=== PATIENT | female | born 1935 | race Two or more races ===

== ENCOUNTER 2019-04-24 16:12 | Inpatient (IN) | payer MEDICARE, MEDICAID ==
[~2019-04-24] VITALS: Ht 160 cm; Wt 48.0 kg
[2019-04-24 16:20] VITALS: BP 115/60
[2019-04-24] MEDS ORDERED: NEXIUM40 MG ORAL (16:58)
[2019-04-24] MEDS ORDERED: MELATONIN3 MG ORAL (16:58)
[2019-04-24] MEDS ORDERED: LACTINEX CHEWA1 EACH PO (16:58)
[2019-04-24] MEDS ORDERED: MULTIVITAMINS1 EAC2 ORAL (16:58)
[2019-04-24] MEDS ORDERED: VANCOCIN250 MG ORAL (16:58)
[2019-04-24] MEDS ORDERED: LIDODERM700 M1 TOPIC (16:58)
[2019-04-24 17:06] LABS: APPEARANCE,URINE CLEAR; BILIRUBIN, URINE NEGATIVE (NEGATIVE); GLUCOSE, URINE (UA) NEGATIVE (NEGATIVE); KETONES,URINE 2+ (NEGATIVE); LEUKOCYTE ESTERASE ,URINE 1+ (NEGATIVE); NITRITE,URINE NEGATIVE (NEGATIVE); PH,URINE 8 (4.5-8.0); PROTEIN,URINE 2+ (NEGATIVE); UROBILINOGEN,URINE NORMAL MG/DL (0.0-1.0)
[2019-04-24 17:07] LABS: HEMOGLOBIN 10.2 G/DL (12.0-16.0); MEAN CORPUSCULAR VOLUME 77 FL (80-99); PLATELET COUNT 282 K/UL (150-450); RED BLOOD COUNT 4.17 M/UL (4.20-5.40); RED CELL DISTRIBUTION WIDTH 18.7 % (11.6-14.8); WHITE BLOOD COUNT 20.3 K/UL (4.8-10.8)
[2019-04-24 17:12] LABS: COLOR,URINE YELLOW
[2019-04-24 17:26] VITALS: BP 151/131
[2019-04-24 17:36] LABS: ANION GAP 13 mmol/L (5-15); BLOOD UREA NITROGEN 15 mg/dL (7-18); CALCIUM 7.8 MG/DL (8.5-10.1); CARBON DIOXIDE 23 MMOL/L (21-32); CHLORIDE 115 MMOL/L (98-107); CREATININE 0.4 MG/DL (0.55-1.30); POTASSIUM 2.9 MMOL/L (3.5-5.1); SODIUM 151 MMOL/L (136-145)
[2019-04-24 17:42] LABS: ALANINE AMINOTRANSFERASE 13 U/L (12-78); ALBUMIN 1.5 G/DL (3.4-5.0); ALBUMIN/GLOBULIN RATIO 0.3 (1.0-2.7); ALKALINE PHOSPHATASE 635 U/L (46-116); ASPARTATE AMINO TRANSFERASE 14 U/L (15-37); BILIRUBIN,TOTAL 0.7 MG/DL (0.2-1.0)
--- NOTE | 2019-04-24 17:47 | Diagnostic Imaging Report ---
Indication: Chest pain Technique: One view of the chest Comparison: none Findings: Infiltrates are seen in the left infrahilar region and retrocardiac region. Interstitial and airspace opacities are seen scattered throughout the right lung is well. The heart size is upper limits normal. There is torturous ectatic and calcified. Multiple old healed left rib fracture deformities are noted. Impression: Bilateral airspace opacities and right-sided interstitial opacities. Findings may represent bilateral infiltrates versus edema. Correlate with clinical findings
[2019-04-24] MEDS ORDERED: Piperacillin/Tazobactam 3.375 GM in NS 110 ML IVPB ONE (18:00)
[2019-04-24] MEDS ORDERED: Azithromycin 500 MG in NS 275 ML IV ONE (18:00)
[2019-04-24] MEDS ORDERED: NS w/KCl 40mEq 1,000 ML IV SCH (18:00)
[2019-04-24 18:33] VITALS: BP 105/64
--- NOTE | 2019-04-24 18:57 | Emergency Room Report ---
History of Present Illness General Chief Complaint: General Complaint Source: Medical Record Present Illness HPI 83-year-old female presents ED for evaluation. Brought in by EMS for weakness, poor appetite x1 month. Come from snf facility. Nonverbal at baseline. Also noted to have diarrhea for the last several days. History of C. difficile. Nu[place] fevers or chills. No reported cough or shortness of breath. No other aggravating relieving factors. No other associated symptoms Allergies: Coded Allergies: No Known Allergies (Unverified , 04/24/19) Patient History Past Medical History: DM, other - cdiff Pertinent Family History: none Social History: Denies: smoking, alcohol use, drug use Now: No Immunizations: UTD Reviewed Nursing Documentation: PMH: Agreed; PSxH: Agreed Nursing Documentation-PMH Past Medical History: No History, Except For Hx Cardiac Problems: Yes - Hyperlipidemia, Sepsis, Metabolic Acidosis, C-Diff Hx Hypertension: Yes - T11-T12 fracture Hx Diabetes: Yes Review of Systems All Other Systems: limited Physical Exam Vital Signs Date Time Temp Pulse Resp B/P (MAP) Pulse Ox O2 Delivery O2 Flow Rate FiO2 04/24/19 16:07 97.3 115 20 115/60 (78) 97 Room Air Sp02 EP Interpretation: reviewed, normal General Appearance: no apparent distress, cachetic, lethargic Head: normocephalic Eyes: bilateral eye normal inspection, bilateral eye PERRL ENT: normal ENT inspection Neck: normal inspection Respiratory: chest non-tender, normal breath sounds, crackles, speaking full sentences Cardiovascular #1: no edema, tachycardia Gastrointestinal: normal bowel sounds, non tender, soft, non-distended, no guarding, no rebound Rectal: deferred Genitourinary: no CVA tenderness Musculoskeletal: normal inspection Neurologic: other - dementa Psychiatric: other - nonverbal Skin: other - see nursing skin notes Lymphatic: normal inspection Procedures Critical Care Time Critical Care Time i. I feel this is a highly complex case requiring extensive working including EKG/Rhythm strip, Xray/CT/US, Blood/urine lab work, repeat exams while in ED, and administration of strong opiates/narcotics for pain control, admission to hospital or close patient follow up. Total time: 45 min bedside evaluation and treatment excludes procedures (EKG). Reason for critical care: Hypernatremia, hypokalemia, to thrive, dehydration, pneumonia Possible complications: hypotension, hypertension, IA, shock, arrhythmias, metabolic acidosis, end organ damage, respiratory failure. Interventions: Labs, EKG, chest x-ray, IV fluids, repletion of potassium, broad- spectrum antibiotics, Course: Patient presenting with reduced appetite, weakness, diarrhea. Labs show hypernatremia and hypokalemia. Significant leukocytosis, has pneumonia on x-ray, sinus tachycardia. Given IV fluids. Given broad-spectrum antibiotics. Potassium repleted. Consultations: nursing staff, EMS, family Performed by: Dr Cassidy Tolerated well condition = serious j. because of unstable vital signs this patient had a condition that could potentially threaten life or limb. I feel this is a critical patient who required my full attention while patient was considered critical. Total Critical Care Time excluding procedures was greater than 45 minutes Medical Decision Making Diagnostic Impression: Primary Impression: Failure to thrive Qualified Codes: R62.7 - Adult failure to thrive Additional Impressions: Hypernatremia Hypokalemia Pneumonia Qualified Codes: J18.9 - Pneumonia, unspecified organism ER Course Hospital Course 83 yo F presents to ED c/o weakness, poor appetite x 1 month Differential diagnoses include: Pneumonia, UTI, sepsis, dehydration, IA/ unstable angina Clinical course Patient placed on stretcher. 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 After initial history and physical, I ordered labs, IV fluids, EKG, chest x-ray, blood cultures, UA. Labs - noted leukocytosis, Na high, K low, UA ok. EKG - sinus tachycardia, twave inversiosn in lateral leads CXR - bilateral infiltrates Abx given. IVFs given. K repleted. stool collected for culture and Cdiff Case discussed with Dr Guillermo and they agreed to admit patient to their service for further care and support I feel this is a highly complex case requiring extensive working including EKG/ Rhythm strip, Xray/CT/US, Blood/urine lab work, repeat exams while in ED, and administration of strong opiates/narcotics for pain control, admission to hospital or close patient follow up. Diagnosis - FTT, hypernatremia, hypokalemia, pneumonia Patient admitted to telemetry in serious condition Labs Test 04/24/19 16:20 04/24/19 16:40 White Blood Count 20.3 K/UL (4.8-10.8) Red Blood Count 4.17 M/UL (4.20-5.40) Hemoglobin 10.2 G/DL (12.0-16.0) Hematocrit 32.0 % (37.0-47.0) Mean Corpuscular Volume 77 FL (80-99) Mean Corpuscular Hemoglobin 24.5 PG (27.0-31.0) Mean Corpuscular Hemoglobin Concent 31.9 G/DL (32.0-36.0) Red Cell Distribution Width 18.7 % (11.6-14.8) Platelet Count 282 K/UL (150-450) Mean Platelet Volume 5.1 FL (6.5-10.1) Neutrophils (%) (Auto) % (45.0-75.0) Lymphocytes (%) (Auto) % (20.0-45.0) Monocytes (%) (Auto) % (1.0-10.0) Eosinophils (%) (Auto) % (0.0-3.0) Basophils (%) (Auto) % (0.0-2.0) Differential Total Cells Counted 100 Neutrophils % (Manual) 90 % (45-75) Lymphocytes % (Manual) 6 % (20-45) Monocytes % (Manual) 1 % (1-10) Eosinophils % (Manual) 0 % (0-3) Basophils % (Manual) 0 % (0-2) Band Neutrophils 3 % (0-8) Platelet Estimate Adequate Platelet Morphology Normal Polychromasia 1+ Anisocytosis 2+ Target Cells Occasional Sodium Level 151 MMOL/L (136-145) Potassium Level 2.9 MMOL/L (3.5-5.1) Chloride Level 115 MMOL/L (98-107) Carbon Dioxide Level 23 MMOL/L (21-32) Anion Gap 13 mmol/L (5-15) Blood Urea Nitrogen 15 mg/dL (7-18) Creatinine 0.4 MG/DL (0.55-1.30) Estimat Glomerular Filtration Rate mL/min (>60) Glucose Level 163 MG/DL (74-106) Lactic Acid Level 1.60 mmol/L (0.4-2.0) Calcium Level 7.8 MG/DL (8.5-10.1) Total Bilirubin 0.7 MG/DL (0.2-1.0) Aspartate Amino Transf (AST/SGOT) 14 U/L (15-37) Alanine Aminotransferase (ALT/SGPT) 13 U/L (12-78) Alkaline Phosphatase 635 U/L (46-116) Total Protein 6.3 G/DL (6.4-8.2) Albumin 1.5 G/DL (3.4-5.0) Globulin 4.8 g/dL Albumin/Globulin Ratio 0.3 (1.0-2.7) Lipase 43 U/L (73-393) Urine Color Yellow Urine Appearance Clear Urine pH 8 (4.5-8.0) Urine Specific [place] 1.010 (1.005-1.035) Urine Protein 2+ (NEGATIVE) Urine Glucose (UA) Negative (NEGATIVE) Urine Ketones 2+ (NEGATIVE) Urine Blood Negative (NEGATIVE) Urine Nitrite Negative (NEGATIVE) Urine Bilirubin Negative (NEGATIVE) Urine Urobilinogen Normal MG/DL (0.0-1.0) Urine Leukocyte Esterase 1+ (NEGATIVE) Urine RBC 0-2 /HPF (0 - 2) Urine WBC 5-10 /HPF (0 - 2) Urine Squamous Epithelial Cells None /LPF (NONE/OCC) Urine Bacteria Few /HPF (NONE) Urine Yeast Few /HPF (NONE) EKG Diagnostic Results Rate: tachycardiac Rhythm: NSR ST Segments: no acute changes ASA given to the pt in ED: No Rhythm Strip Diag. Results EP Interpretation: yes Rhythm: NSR, no PVC's, no ectopy Chest X-Ray Diagnostic Results Chest X-Ray Diagnostic Results : Chest X-Ray Ordered: Yes # of Views/Limited/Complete: 1 View Indication: Other EP Interpretation: Yes Interpretation: no effusion, no pneumothorax, other - bilateral infiltrates Impression: Other - pneumonia Electronically Signed by: Electronically signed by Mark Cassidy MD Last Vital Signs Date Time Temp Pulse Resp B/P (MAP) Pulse Ox O2 Delivery O2 Flow Rate FiO2 04/24/19 18:33 112 24 105/64 92 04/24/19 17:26 Room Air 04/24/19 16:20 97.3 Status: improved Disposition: ADMITTED INPATIENT Condition: Serious Referrals: NON PHYSICIAN (PCP) Mark Cassidy MD Apr 24, 2019 18:57
[2019-04-24 20:00] VITALS: BP_SYST 104; BP_SYST 117; BP_DIAS 57; BP_DIAS 63
[2019-04-24] MEDS ORDERED: Pantoprazole Inj IVP SCH (21:00)
--- NOTE | 2019-04-24 21:42 | Pulmonology Progress Note ---
Assessment/Plan Assessment/Plan Pulmonary Consultation HPI Patient is an 83-year old woman from a [facility] care home facility admitted with weakness, poor appetite x1 month. Patient is nonverbal at baseline. Patient has a history of C. difficile, has a history of diarrhea for the last several days. No fevers or chills. No reported cough or shortness of breath. Noted to have radiological evidence of Pneumonia Allergies: No Known Allergies Past Medical History: Diabetes, Hypertension, Hyperlipidemia, Dementia, Hyperlipidemia, Sepsis, Metabolic Acidosis, C-Difficile, T11-T12 fracture All Other Systems: limited Physical Exam Vital Signs Noted Date Time Temp Pulse Resp B/P (MAP) Pulse Ox O2 Delivery O2 Flow Rate FiO2 04/24/19 16:07 97.3 115 20 115/60 (78) 97 Room Air General Appearance: no apparent distress, cachetic, non verbal Head: NCAT Eyes: bilateral eye normal inspection, bilateral eye PERRL ENT: dry mm Neck: normal inspection, no LN Respiratory: chest non-tender, normal breath sounds, crackles Cardiovascular: no edema, tachycardia, normal HS1, HS2 Gastrointestinal: normal bowel sounds, non tender, soft, non-distended, no guarding, no rebound Genitourinary: no CVA tenderness Musculoskeletal: normal inspection Neurologic: no focal signs, no seizures Skin: no edema Impression: Pneumonia Possible dysphagia Failure to thrive Adult failure to thrive Hypernatremia Hypokalemia Diabetes Hypertension Hyperlipidemia Dementia Hyperlipidemia Previous C-Difficile Previous T11-T12 fracture [facility] IVF NPO except meds IV antibiotics, PO Flagyl Stll Cdiff O2 PRN HHN CPT ASpiration precautions Supplement K ST evaluation Monitor labs Labs Test 04/24/19 16:20 04/24/19 16:40 White Blood Count 20.3 K/UL (4.8-10.8) Red Blood Count 4.17 M/UL (4.20-5.40) Hemoglobin 10.2 G/DL (12.0-16.0) Hematocrit 32.0 % (37.0-47.0) Mean Corpuscular Volume 77 FL (80-99) Mean Corpuscular Hemoglobin 24.5 PG (27.0-31.0) Mean Corpuscular Hemoglobin Concent 31.9 G/DL (32.0-36.0) Red Cell Distribution Width 18.7 % (11.6-14.8) Platelet Count 282 K/UL (150-450) Mean Platelet Volume 5.1 FL (6.5-10.1) Neutrophils (%) (Auto) % (45.0-75.0) Lymphocytes (%) (Auto) % (20.0-45.0) Monocytes (%) (Auto) % (1.0-10.0) Eosinophils (%) (Auto) % (0.0-3.0) Basophils (%) (Auto) % (0.0-2.0) Differential Total Cells Counted 100 Neutrophils % (Manual) 90 % (45-75) Lymphocytes % (Manual) 6 % (20-45) Monocytes % (Manual) 1 % (1-10) Eosinophils % (Manual) 0 % (0-3) Basophils % (Manual) 0 % (0-2) Band Neutrophils 3 % (0-8) Platelet Estimate Adequate Platelet Morphology Normal Polychromasia 1+ Anisocytosis 2+ Target Cells Occasional Sodium Level 151 MMOL/L (136-145) Potassium Level 2.9 MMOL/L (3.5-5.1) Chloride Level 115 MMOL/L (98-107) Carbon Dioxide Level 23 MMOL/L (21-32) Anion Gap 13 mmol/L (5-15) Blood Urea Nitrogen 15 mg/dL (7-18) Creatinine 0.4 MG/DL (0.55-1.30) Estimat Glomerular Filtration Rate mL/min (>60) Glucose Level 163 MG/DL (74-106) Lactic Acid Level 1.60 mmol/L (0.4-2.0) Calcium Level 7.8 MG/DL (8.5-10.1) Total Bilirubin 0.7 MG/DL (0.2-1.0) Aspartate Amino Transf (AST/SGOT) 14 U/L (15-37) Alanine Aminotransferase (ALT/SGPT) 13 U/L (12-78) Alkaline Phosphatase 635 U/L (46-116) Total Protein 6.3 G/DL (6.4-8.2) Albumin 1.5 G/DL (3.4-5.0) Globulin 4.8 g/dL Albumin/Globulin Ratio 0.3 (1.0-2.7) Lipase 43 U/L (73-393) Urine Color Yellow Urine Appearance Clear Urine pH 8 (4.5-8.0) Urine Specific [place] 1.010 (1.005-1.035) Urine Protein 2+ (NEGATIVE) Urine Glucose (UA) Negative (NEGATIVE) Urine Ketones 2+ (NEGATIVE) Urine Blood Negative (NEGATIVE) Urine Nitrite Negative (NEGATIVE) Urine Bilirubin Negative (NEGATIVE) Urine Urobilinogen Normal MG/DL (0.0-1.0) Urine Leukocyte Esterase 1+ (NEGATIVE) Urine RBC 0-2 /HPF (0 - 2) Urine WBC 5-10 /HPF (0 - 2) Urine Squamous Epithelial Cells None /LPF (NONE/OCC) Urine Bacteria Few /HPF (NONE) Urine Yeast Few /HPF (NONE) EKG: Rate: tachycardia, NSR, no acute ST changes Chest X-Ray: no effusion, no pneumothorax, bilateral infiltrates c/w pneumonia Subjective ROS Limited/Unobtainable: No Allergies: Coded Allergies: No Known Allergies (Unverified , 04/24/19) Objective Last 24 Hour Vital Signs Date Time Temp Pulse Resp B/P (MAP) Pulse Ox O2 Delivery O2 Flow Rate FiO2 04/24/19 20:00 98.5 107 19 117/57 100 Nasal Cannula 2.0 04/24/19 18:33 112 24 105/64 92 04/24/19 17:26 117 17 151/131 92 Room Air 04/24/19 16:20 115 20 Room Air 04/24/19 16:20 97.3 115 20 115/60 97 Room Air 04/24/19 16:07 97.3 115 20 115/60 (78) 97 Room Air Laboratory Tests 04/24/19 16:20: White Blood Count 20.3H, Red Blood Count 4.17L, Hemoglobin 10.2L, Hematocrit 32.0L, Mean Corpuscular Volume 77L, Mean Corpuscular Hemoglobin 24.5L, Mean Corpuscular Hemoglobin Concent 31.9L, Red Cell Distribution Width 18.7H, Platelet Count 282, Mean Platelet Volume 5.1L, Neutrophils (%) (Auto) , Lymphocytes (%) (Auto) , Monocytes (%) (Auto) , Eosinophils (%) (Auto) , Basophils (%) (Auto) , Differential Total Cells Counted 100, Neutrophils % ( Manual) 90H, Lymphocytes % (Manual) 6L, Monocytes % (Manual) 1, Eosinophils % ( Manual) 0, Basophils % (Manual) 0, Band Neutrophils 3, Platelet Estimate Adequate, Platelet Morphology Normal, Polychromasia 1+, Anisocytosis 2+, Target Cells Occasional, Sodium Level 151H, Potassium Level 2.9L, Chloride Level 115H, Carbon Dioxide Level 23, Anion Gap 13, Blood Urea Nitrogen 15, Creatinine 0.4L, Estimat Glomerular Filtration Rate , Glucose Level 163H, Lactic Acid Level 1.60 , Calcium Level 7.8L, Total Bilirubin 0.7, Aspartate Amino Transf (AST/SGOT) 14L , Alanine Aminotransferase (ALT/SGPT) 13, Alkaline Phosphatase 635H, Total Protein 6.3L, Albumin 1.5L, Globulin 4.8, Albumin/Globulin Ratio 0.3L, Lipase 43L 04/24/19 16:40: Urine Color Yellow, Urine Appearance Clear, Urine pH 8, Urine Specific [place] 1.010, Urine Protein 2+H, Urine Glucose (UA) Negative, Urine Ketones 2+H, Urine Blood Negative, Urine Nitrite Negative, Urine Bilirubin Negative, Urine Urobilinogen Normal, Urine Leukocyte Esterase 1+H, Urine RBC 0-2, Urine WBC 5- 10H, Urine Squamous Epithelial Cells None, Urine Bacteria Few, Urine Yeast FewH Current Medications Medications (Trade) Dose Ordered Sig/Bushra Route PRN Reason Start Time Stop Time Status Last Admin Dose Admin Pantoprazole (Protonix) 40 mg EVERY 12 HOURS IVP 04/24/19 21:00 05/24/19 20:59 Potassium Chloride 30 meq/ Dextrose 1,015 ml @ 50 mls/hr [id number] IV 04/24/19 21:00 05/24/19 20:59 Juan Miguel Mendoza MD Apr 24, 2019 21:42
[2019-04-24] MEDS ORDERED: Albuterol/Ipratropium 3ml neb HHN PRN (21:45)
[2019-04-24] MEDS: D5 1/2NS w/KCl 20mEq 1,000 ML IV SCH (23:36)
[2019-04-24] MEDS: metroNIDAZOLE 500mg tab ORAL SCH (23:38)
[2019-04-25] VITALS: BP 110/65
[2019-04-25] MEDS: Doxycycline Hyclate 100 MG in D5W 110 ML IV SCH ×3 (00:19→23:00)
[2019-04-25 04:00] VITALS: BP 108/54
[2019-04-25] MEDS: metroNIDAZOLE 500mg tab ORAL SCH (05:02)
[2019-04-25] MEDS: NovoLOG Insulin Flexpen SUBQ SCH ×4 (05:55→21:00)
[2019-04-25 07:35] LABS: BASOPHILS % (AUTO) 0.3 % (0.0-2.0); EOSINOPHILS % (AUTO) 0.1 % (0.0-3.0); HEMOGLOBIN 9.1 G/DL (12.0-16.0); LYMPHOCYTES % (AUTO) 7.2 % (20.0-45.0); MEAN CORPUSCULAR VOLUME 79 FL (80-99); MONOCYTES % (AUTO) 7.8 % (1.0-10.0); NEUTROPHILS % (AUTO) 84.5 % (45.0-75.0); PLATELET COUNT 217 K/UL (150-450); RED BLOOD COUNT 3.65 M/UL (4.20-5.40); RED CELL DISTRIBUTION WIDTH 20.2 % (11.6-14.8)
[2019-04-25 08:00] VITALS: BP 136/62
[2019-04-25 08:04] LABS: ALANINE AMINOTRANSFERASE 10 U/L (12-78); ALBUMIN 1.4 G/DL (3.4-5.0); ALBUMIN/GLOBULIN RATIO 0.3 (1.0-2.7); ALKALINE PHOSPHATASE 543 U/L (46-116); ANION GAP 13 mmol/L (5-15); ASPARTATE AMINO TRANSFERASE 15 U/L (15-37); BILIRUBIN,TOTAL 0.9 MG/DL (0.2-1.0); BLOOD UREA NITROGEN 17 mg/dL (7-18); CARBON DIOXIDE 17 MMOL/L (21-32); CHLORIDE 121 MMOL/L (98-107); CHOLESTEROL 140 MG/DL (< 200); FERRITIN 573 NG/ML (8-388); GAMMA GLUTAMYL TRANSPEPTIDASE 260 U/L (5-85); HDL CHOLESTEROL 35 MG/DL (40-60); PHOSPHORUS 2.5 MG/DL (2.5-4.9); POTASSIUM 3.5 MMOL/L (3.5-5.1); SODIUM 151 MMOL/L (136-145); TRIGLYCERIDES 106 MG/DL (30-150)
[2019-04-25 08:19] LABS: CREATININE 0.8 MG/DL (0.55-1.30)
[2019-04-25 08:21] LABS: CALCIUM 7.3 MG/DL (8.5-10.1)
--- NOTE | 2019-04-25 08:48 | GI Initial Consult Note ---
History of Present Illness General Date patient seen: Apr 25, 2019 Time patient seen: 08:45 Reason for Hospitalization: General Complaint Referring physician: JHONNY Reason for Consultation: PEG EVALUATION Present Illness HPI 83-year-old female presents ED for evaluation. Brought in by EMS for weakness, poor appetite x1 month. Come from assisted facility. Nonverbal at baseline. Also noted to have diarrhea for the last several days. History of C. difficile. [place] fevers or chills. No reported cough or shortness of breath. No other aggravating relieving factors. No other associated symptoms GI consulted for PEG evaluation. ROS limited, patient seen NAD with no active s /sx of N/V/D. Family has agreed to PEG. Home Meds Reported Medications Vancomycin HCl (Vancocin HCl) 250 Mg Capsule, 250 MG ORAL QID, CAP 04/24/19 Lidocaine Patch* (Lidoderm Patch*) 1 Each Adh..patch, 1 PATCH TOPIC DAILY, #7 PATCH 0 Refills Patch(es) may remain in place for up to 12 hours in any 24-hour period. 04/24/19 Acidophilus/Bulgaricus (LACTINEX CHEWABLE TABLET) 1 Each Tab.chew, 1 EACH PO, TAB 04/24/19 Melatonin (MELATONIN) 3 Mg Tablet, 3 MG ORAL BEDTIME PRN for Insomnia, TAB 04/24/19 Multivitamins* (MULTIVITAMINS*) 1 Each Tablet, 1 TAB ORAL DAILY, TAB 0 Refills 04/24/19 Esomeprazole Magnesium (NEXIUM) 40 Mg Capsule.dr, 40 MG ORAL DAILY, CAP 04/24/19 Med list reviewed/reconciled: Yes Allergies: Coded Allergies: No Known Allergies (Unverified , 04/24/19) Patient History PMH Narrative Past Medical History: DM, other - cdiff Pertinent Family History: none Social History: Denies: smoking, alcohol use, drug use Now: No Immunizations: UTD Reviewed Nursing Documentation: PMH: Agreed; PSxH: Agreed Nursing Documentation-PMH Past Medical History: No History, Except For Hx Cardiac Problems: Yes - Hyperlipidemia, Sepsis, Metabolic Acidosis, C-Diff Hx Hypertension: Yes - T11-T12 fracture Hx Diabetes: Yes Review of Systems All Other Systems: limited Physical Exam Vital Signs Date Time Temp Pulse Resp B/P (MAP) Pulse Ox O2 Delivery O2 Flow Rate FiO2 04/24/19 16:07 97.3 115 20 115/60 (78) 97 Room Air 04/24/19 20:00 2.0 Sp02 EP Interpretation: reviewed, normal Labs Laboratory Tests Test 04/24/19 16:20 04/24/19 16:40 04/25/19 07:01 White Blood Count 20.3 K/UL (4.8-10.8) H 17.0 K/UL (4.8-10.8) H Red Blood Count 4.17 M/UL (4.20-5.40) L 3.65 M/UL (4.20-5.40) L Hemoglobin 10.2 G/DL (12.0-16.0) L 9.1 G/DL (12.0-16.0) L Hematocrit 32.0 % (37.0-47.0) L 29.0 % (37.0-47.0) L Mean Corpuscular Volume 77 FL (80-99) L 79 FL (80-99) L Mean Corpuscular Hemoglobin 24.5 PG (27.0-31.0) L 24.9 PG (27.0-31.0) L Mean Corpuscular Hemoglobin Concent 31.9 G/DL (32.0-36.0) L 31.4 G/DL (32.0-36.0) L Red Cell Distribution Width 18.7 % (11.6-14.8) H 20.2 % (11.6-14.8) H Platelet Count 282 K/UL (150-450) 217 K/UL (150-450) Mean Platelet Volume 5.1 FL (6.5-10.1) L 5.9 FL (6.5-10.1) L Neutrophils (%) (Auto) % (45.0-75.0) 84.5 % (45.0-75.0) H Lymphocytes (%) (Auto) % (20.0-45.0) 7.2 % (20.0-45.0) L Monocytes (%) (Auto) % (1.0-10.0) 7.8 % (1.0-10.0) Eosinophils (%) (Auto) % (0.0-3.0) 0.1 % (0.0-3.0) Basophils (%) (Auto) % (0.0-2.0) 0.3 % (0.0-2.0) Differential Total Cells Counted 100 Neutrophils % (Manual) 90 % (45-75) H Lymphocytes % (Manual) 6 % (20-45) L Monocytes % (Manual) 1 % (1-10) Eosinophils % (Manual) 0 % (0-3) Basophils % (Manual) 0 % (0-2) Band Neutrophils 3 % (0-8) Platelet Estimate Adequate Platelet Morphology Normal Polychromasia 1+ Anisocytosis 2+ Target Cells Occasional Sodium Level 151 MMOL/L (136-145) H 151 MMOL/L (136-145) H Potassium Level 2.9 MMOL/L (3.5-5.1) L 3.5 MMOL/L (3.5-5.1) Chloride Level 115 MMOL/L (98-107) H 121 MMOL/L (98-107) H Carbon Dioxide Level 23 MMOL/L (21-32) 17 MMOL/L (21-32) L Anion Gap 13 mmol/L (5-15) 13 mmol/L (5-15) Blood Urea Nitrogen 15 mg/dL (7-18) 17 mg/dL (7-18) Creatinine 0.4 MG/DL (0.55-1.30) L 0.8 MG/DL (0.55-1.30) # Estimat Glomerular Filtration Rate mL/min (>60) mL/min (>60) Glucose Level 163 MG/DL (74-106) H 152 MG/DL (74-106) H Lactic Acid Level 1.60 mmol/L (0.4-2.0) Calcium Level 7.8 MG/DL (8.5-10.1) L 7.3 MG/DL (8.5-10.1) L Total Bilirubin 0.7 MG/DL (0.2-1.0) 0.9 MG/DL (0.2-1.0) Aspartate Amino Transf (AST/SGOT) 14 U/L (15-37) L 15 U/L (15-37) Alanine Aminotransferase (ALT/SGPT) 13 U/L (12-78) 10 U/L (12-78) L Alkaline Phosphatase 635 U/L (46-116) H 543 U/L (46-116) H Total Protein 6.3 G/DL (6.4-8.2) L 5.7 G/DL (6.4-8.2) L Albumin 1.5 G/DL (3.4-5.0) L 1.4 G/DL (3.4-5.0) L Globulin 4.8 g/dL 4.3 g/dL Albumin/Globulin Ratio 0.3 (1.0-2.7) L 0.3 (1.0-2.7) L Lipase 43 U/L (73-393) L Urine Color Yellow Urine Appearance Clear Urine pH 8 (4.5-8.0) Urine Specific [place] 1.010 (1.005-1.035) Urine Protein 2+ (NEGATIVE) H Urine Glucose (UA) Negative (NEGATIVE) Urine Ketones 2+ (NEGATIVE) H Urine Blood Negative (NEGATIVE) Urine Nitrite Negative (NEGATIVE) Urine Bilirubin Negative (NEGATIVE) Urine Urobilinogen Normal MG/DL (0.0-1.0) Urine Leukocyte Esterase 1+ (NEGATIVE) H Urine RBC 0-2 /HPF (0 - 2) Urine WBC 5-10 /HPF (0 - 2) H Urine Squamous Epithelial Cells None /LPF (NONE/OCC) Urine Bacteria Few /HPF (NONE) Urine Yeast Few /HPF (NONE) H Uric Acid 5.4 MG/DL (2.6-7.2) Phosphorus Level 2.5 MG/DL (2.5-4.9) Magnesium Level 1.4 MG/DL (1.8-2.4) L Iron Level Pending Unsaturated Iron Binding Pending Ferritin 573 NG/ML (8-388) H Gamma Glutamyl Transpeptidase 260 U/L (5-85) H Troponin I 0.000 ng/mL (0.000-0.056) C-Reactive Protein, Quantitative 37.9 mg/dL (0.00-0.90) H Pro-B-Type Natriuretic Peptide 9127 pg/mL (0-125) H Triglycerides Level 106 MG/DL (30-150) Cholesterol Level 140 MG/DL (< 200) LDL Cholesterol 67 mg/dL (<100) HDL Cholesterol 35 MG/DL (40-60) L Cholesterol/HDL Ratio 4.0 (3.3-4.4) Vitamin B12 Level Pending Folate Pending Thyroid Stimulating Hormone (TSH) 2.282 uiU/mL (0.358-3.740) Cortisol AM Sample Pending General Appearance: well appearing, no apparent distress, alert Head: normocephalic EENT: PERRL/EOMI, normal ENT inspection Neck: supple Respiratory: normal breath sounds, no respiratory distress Cardiovascular: normal rate Gastrointestinal: normal inspection, non tender, soft, normal bowel sounds, non -distended Rectal: deferred Genitourinary: no CVA tenderness Musculoskeletal: normal inspection, back normal Neurologic: alert, responsive Skin: normal inspection, normal color, no rash, warm/dry, palpation normal, well hydrated Lymphatic: normal inspection, no adenopathy Current Medications Current Medications Medications (Trade) Dose Ordered Sig/Bushra Route PRN Reason Start Time Stop Time Status Last Admin Dose Admin Acetaminophen (Tylenol) 650 mg Q4H PRN ORAL Mild Pain/Temp > 100.5 04/24/19 21:45 05/24/19 21:44 04/25/19 05:02 Albuterol/ Ipratropium (Albuterol/ Ipratropium) 3 ml Q4H PRN HHN Shortness of Breath 04/24/19 21:45 04/29/19 21:44 Cefepime HCl 1 gm/ Dextrose 55 ml @ 110 mls/hr DAILY IVPB 04/25/19 09:00 05/02/19 08:59 Dextrose (Dextrose 50%) 25 ml Q30M PRN IV Hypoglycemia 04/24/19 21:45 05/24/19 21:44 Dextrose (Dextrose 50%) 50 ml Q30M PRN IV Hypoglycemia 04/24/19 21:45 05/24/19 21:44 Dextrose/ Electrolytes 1,000 ml @ 60 mls/hr [id number] IV 04/24/19 23:00 05/24/19 22:59 04/24/19 23:36 Doxycycline Hyclate 100 mg/ Dextrose 110 ml @ 110 mls/hr Q12HR@1100,2300 IV 04/24/19 23:00 05/01/19 22:59 04/25/19 00:19 Insulin Aspart (NovoLOG) BEFORE MEALS AND HS SUBQ 04/25/19 06:30 05/25/19 06:29 Metronidazole (Flagyl) 500 mg Q8HR ORAL 04/24/19 22:00 8/28/19 21:59 04/25/19 05:02 Non-Formulary Medication (Non-Formulary Med) 1 ea BEDTIME PRN ORAL Insomnia 04/24/19 23:30 05/24/19 23:29 UNV Ondansetron HCl (Zofran) 4 mg Q6H PRN IVP Nausea & Vomiting 04/24/19 21:45 05/24/19 21:44 GI: Plan Problems: (1) Encounter for PEG (percutaneous endoscopic gastrostomy) (2) Dehydration (3) Failure to thrive Plan PEG scheduled for tomorrow. maintain NPO + IVFs ST evaluation for oral grat anemia work up OB stool r/o GI bleed monitor H&H, prn transfusions bowel regimen ppi fu labs will follow with additional recommendations post procedure Discussed with Dr. Carranza. Thank you for this patient referral, we will follow. The patient was seen and examined at bedside and all new and available data was reviewed in the patients chart. I agree with the above findings, impression and plan. (Patient seen earlier today. Signature stamp does not reflect patient encounter time.). - MD Madina AguileraTuba City Regional Health Care CorporationEdwin IT SERVICE DELIVERY MANAGER Apr 25, 2019 08:47
[2019-04-25 09:06] LABS: % IRON SATURATION 15 % (15-50); IRON 11 ug/dL (50-175); TOTAL IRON BINDING CAPACITY 72 ug/dL (250-450)
[2019-04-25] MEDS: Cefepime HCl 1 GM in D5W 55 ML IVPB SCH (09:53)
--- NOTE | 2019-04-25 10:19 | Consultation ---
History of Present Illness General Chief Complaint: General Complaint Referring physician: JHONNY Reason for Consultation: PEG EVALUATION Present Illness Allergies: Coded Allergies: No Known Allergies (Unverified , 04/24/19) Medication History Scheduled Esomeprazole Magnesium (Nexium), 40 MG ORAL DAILY, (Reported) Lidocaine Patch* (Lidoderm Patch*), 1 PATCH TOPIC DAILY, (Reported) Multivitamins* (Multivitamins*), 1 TAB ORAL DAILY, (Reported) Vancomycin HCl (Vancocin HCl), 250 MG ORAL QID, (Reported) Scheduled PRN Melatonin (Melatonin), 3 MG ORAL BEDTIME PRN for Insomnia, (Reported) Miscellaneous Medications Acidophilus/Bulgaricus (Lactinex Chewable Tablet), 1 EACH PO, (Reported) Patient History Healthcare decision maker Resuscitation status Full Code Advanced Directive on File No Physical Exam Last 24 Hour Vital Signs Date Time Temp Pulse Resp B/P (MAP) Pulse Ox O2 Delivery O2 Flow Rate FiO2 04/25/19 08:00 96.6 105 20 136/62 (86) 94 04/25/19 04:00 115 04/25/19 04:00 97.2 115 18 108/54 (72) 96 04/25/19 00:00 109 04/25/19 00:00 97.9 99 18 110/65 (80) 94 04/24/19 23:05 Nasal Cannula 2.0 04/24/19 20:48 98.7 108 18 115/56 100 Nasal Cannula 2.0 04/24/19 20:00 97.7 109 18 104/63 (77) 92 04/24/19 20:00 119 04/24/19 20:00 98.5 107 19 117/57 100 Nasal Cannula 2.0 04/24/19 19:35 116 19 Room Air 04/24/19 18:33 112 24 105/64 92 04/24/19 17:26 117 17 151/131 92 Room Air 04/24/19 16:20 115 20 Room Air 04/24/19 16:20 97.3 115 20 115/60 97 Room Air 04/24/19 16:07 97.3 115 20 115/60 (78) 97 Room Air Intake and Output 04/24/19 04/25/19 18:59 06:59 Intake Total 1110 ml 1400 ml Output Total 300 ml Balance 1110 ml 1100 ml Intake IV Total 1110 ml 1400 ml Output Urine Total 300 ml # Voids 3 # Bowel Movements 8 Laboratory Tests Test 04/24/19 16:20 04/24/19 16:40 04/25/19 07:01 White Blood Count 20.3 K/UL (4.8-10.8) H 17.0 K/UL (4.8-10.8) H Red Blood Count 4.17 M/UL (4.20-5.40) L 3.65 M/UL (4.20-5.40) L Hemoglobin 10.2 G/DL (12.0-16.0) L 9.1 G/DL (12.0-16.0) L Hematocrit 32.0 % (37.0-47.0) L 29.0 % (37.0-47.0) L Mean Corpuscular Volume 77 FL (80-99) L 79 FL (80-99) L Mean Corpuscular Hemoglobin 24.5 PG (27.0-31.0) L 24.9 PG (27.0-31.0) L Mean Corpuscular Hemoglobin Concent 31.9 G/DL (32.0-36.0) L 31.4 G/DL (32.0-36.0) L Red Cell Distribution Width 18.7 % (11.6-14.8) H 20.2 % (11.6-14.8) H Platelet Count 282 K/UL (150-450) 217 K/UL (150-450) Mean Platelet Volume 5.1 FL (6.5-10.1) L 5.9 FL (6.5-10.1) L Neutrophils (%) (Auto) % (45.0-75.0) 84.5 % (45.0-75.0) H Lymphocytes (%) (Auto) % (20.0-45.0) 7.2 % (20.0-45.0) L Monocytes (%) (Auto) % (1.0-10.0) 7.8 % (1.0-10.0) Eosinophils (%) (Auto) % (0.0-3.0) 0.1 % (0.0-3.0) Basophils (%) (Auto) % (0.0-2.0) 0.3 % (0.0-2.0) Differential Total Cells Counted 100 Neutrophils % (Manual) 90 % (45-75) H Lymphocytes % (Manual) 6 % (20-45) L Monocytes % (Manual) 1 % (1-10) Eosinophils % (Manual) 0 % (0-3) Basophils % (Manual) 0 % (0-2) Band Neutrophils 3 % (0-8) Platelet Estimate Adequate Platelet Morphology Normal Polychromasia 1+ Anisocytosis 2+ Target Cells Occasional Sodium Level 151 MMOL/L (136-145) H 151 MMOL/L (136-145) H Potassium Level 2.9 MMOL/L (3.5-5.1) L 3.5 MMOL/L (3.5-5.1) Chloride Level 115 MMOL/L (98-107) H 121 MMOL/L (98-107) H Carbon Dioxide Level 23 MMOL/L (21-32) 17 MMOL/L (21-32) L Anion Gap 13 mmol/L (5-15) 13 mmol/L (5-15) Blood Urea Nitrogen 15 mg/dL (7-18) 17 mg/dL (7-18) Creatinine 0.4 MG/DL (0.55-1.30) L 0.8 MG/DL (0.55-1.30) # Estimat Glomerular Filtration Rate mL/min (>60) mL/min (>60) Glucose Level 163 MG/DL (74-106) H 152 MG/DL (74-106) H Lactic Acid Level 1.60 mmol/L (0.4-2.0) Calcium Level 7.8 MG/DL (8.5-10.1) L 7.3 MG/DL (8.5-10.1) L Total Bilirubin 0.7 MG/DL (0.2-1.0) 0.9 MG/DL (0.2-1.0) Aspartate Amino Transf (AST/SGOT) 14 U/L (15-37) L 15 U/L (15-37) Alanine Aminotransferase (ALT/SGPT) 13 U/L (12-78) 10 U/L (12-78) L Alkaline Phosphatase 635 U/L (46-116) H 543 U/L (46-116) H Total Protein 6.3 G/DL (6.4-8.2) L 5.7 G/DL (6.4-8.2) L Albumin 1.5 G/DL (3.4-5.0) L 1.4 G/DL (3.4-5.0) L Globulin 4.8 g/dL 4.3 g/dL Albumin/Globulin Ratio 0.3 (1.0-2.7) L 0.3 (1.0-2.7) L Lipase 43 U/L (73-393) L Urine Color Yellow Urine Appearance Clear Urine pH 8 (4.5-8.0) Urine Specific [place] 1.010 (1.005-1.035) Urine Protein 2+ (NEGATIVE) H Urine Glucose (UA) Negative (NEGATIVE) Urine Ketones 2+ (NEGATIVE) H Urine Blood Negative (NEGATIVE) Urine Nitrite Negative (NEGATIVE) Urine Bilirubin Negative (NEGATIVE) Urine Urobilinogen Normal MG/DL (0.0-1.0) Urine Leukocyte Esterase 1+ (NEGATIVE) H Urine RBC 0-2 /HPF (0 - 2) Urine WBC 5-10 /HPF (0 - 2) H Urine Squamous Epithelial Cells None /LPF (NONE/OCC) Urine Bacteria Few /HPF (NONE) Urine Yeast Few /HPF (NONE) H Uric Acid 5.4 MG/DL (2.6-7.2) Phosphorus Level 2.5 MG/DL (2.5-4.9) Magnesium Level 1.4 MG/DL (1.8-2.4) L Iron Level 11 ug/dL (50-175) L Total Iron Binding Capacity 72 ug/dL (250-450) L Percent Iron Saturation 15 % (15-50) Unsaturated Iron Binding 61 ug/dL (112-346) L Ferritin 573 NG/ML (8-388) H Gamma Glutamyl Transpeptidase 260 U/L (5-85) H Troponin I 0.000 ng/mL (0.000-0.056) C-Reactive Protein, Quantitative 37.9 mg/dL (0.00-0.90) H Pro-B-Type Natriuretic Peptide 9127 pg/mL (0-125) H Triglycerides Level 106 MG/DL (30-150) Cholesterol Level 140 MG/DL (< 200) LDL Cholesterol 67 mg/dL (<100) HDL Cholesterol 35 MG/DL (40-60) L Cholesterol/HDL Ratio 4.0 (3.3-4.4) Vitamin B12 Level > 2000 PG/ML (193-986) H Folate 12.4 NG/ML (8.6-58.9) Thyroid Stimulating Hormone (TSH) 2.282 uiU/mL (0.358-3.740) Cortisol AM Sample Pending Microbiology Date/Time Source Procedure Growth Status 04/24/19 16:35 Stool Stool Culture Pending Resulted 04/24/19 16:35 Stool Clostridium difficile Toxin Assay - Final Resulted 04/24/19 16:40 Urine,Clean Catch Urine Culture - Preliminary NO GROWTH Resulted Height (Feet): 5 Height (Inches): 3.00 Weight (Pounds): 80 Medications Current Medications Medications (Trade) Dose Ordered Sig/Bushra Route PRN Reason Start Time Stop Time Status Last Admin Dose Admin Acetaminophen (Tylenol) 650 mg Q4H PRN ORAL Mild Pain/Temp > 100.5 04/24/19 21:45 05/24/19 21:44 04/25/19 05:02 Albuterol/ Ipratropium (Albuterol/ Ipratropium) 3 ml Q4H PRN HHN Shortness of Breath 04/24/19 21:45 04/29/19 21:44 Cefepime HCl 1 gm/ Dextrose 55 ml @ 110 mls/hr DAILY IVPB 04/25/19 09:00 05/02/19 08:59 04/25/19 09:53 Cefoxitin Sodium 1 gm/Dextrose 55 ml @ 110 mls/hr ONCE ONCE IV 04/26/19 09:00 04/26/19 09:29 Dextrose (Dextrose 50%) 25 ml Q30M PRN IV Hypoglycemia 04/24/19 21:45 05/24/19 21:44 Dextrose (Dextrose 50%) 50 ml Q30M PRN IV Hypoglycemia 04/24/19 21:45 05/24/19 21:44 Dextrose/ Electrolytes 1,000 ml @ 60 mls/hr [id number] IV 04/24/19 23:00 05/24/19 22:59 04/24/19 23:36 Doxycycline Hyclate 100 mg/ Dextrose 110 ml @ 110 mls/hr Q12HR@1100,2300 IV 04/24/19 23:00 05/01/19 22:59 04/25/19 00:19 Insulin Aspart (NovoLOG) BEFORE MEALS AND HS SUBQ 04/25/19 06:30 05/25/19 06:29 Magnesium Sulfate 100 ml @ 100 mls/hr Q1H IVPB 04/25/19 09:30 04/25/19 13:29 04/25/19 09:53 Metronidazole (Flagyl) 500 mg Q8HR ORAL 04/24/19 22:00 05/01/19 21:59 04/25/19 05:02 Non-Formulary Medication (Non-Formulary Med) 1 ea BEDTIME PRN ORAL Insomnia 04/24/19 23:30 05/24/19 23:29 UNV Ondansetron HCl (Zofran) 4 mg Q6H PRN IVP Nausea & Vomiting 04/24/19 21:45 05/24/19 21:44 Assessment/Plan Assessment/Plan: Hematology Consultation Reason for Hospitalization: General Complaint Referring physician: KEKE Reason for Consultation: Anemia and leukocytosis eval RFA: PEG EVALUATION DOS 04/25/19 HPI 83-year-old female presents ED for evaluation. Brought in by EMS for weakness, poor appetite x1 month. Come from snf facility. Nonverbal at baseline. Also noted to have diarrhea for the last several days. History of C. difficile. [place] fevers or chills. No reported cough or shortness of breath. No other aggravating relieving factors. No other associated symptoms. GI consulted for PEG evaluation. ROS limited, patient seen NAD with no active s /sx of N/V/D. Family has agreed to PEG. Heme was consulted for eval of anemia as well as ftt, recent weight loss. Home Meds Reported Medications Vancomycin HCl (Vancocin HCl) 250 Mg Capsule, 250 MG ORAL QID, CAP 04/24/19 Lidocaine Patch* (Lidoderm Patch*) 1 Each Adh..patch, 1 PATCH TOPIC DAILY, #7 PATCH 0 Refills Patch(es) may remain in place for up to 12 hours in any 24-hour period. 04/24/19 Acidophilus/Bulgaricus (LACTINEX CHEWABLE TABLET) 1 Each Tab.chew, 1 EACH PO, TAB 04/24/19 Melatonin (MELATONIN) 3 Mg Tablet, 3 MG ORAL BEDTIME PRN for Insomnia, TAB 04/24/19 Multivitamins* (MULTIVITAMINS*) 1 Each Tablet, 1 TAB ORAL DAILY, TAB 0 Refills 04/24/19 Esomeprazole Magnesium (NEXIUM) 40 Mg Capsule., 40 MG ORAL DAILY, CAP 04/24/19 Med list reviewed/reconciled: Yes Allergies: Coded Allergies: No Known Allergies (Unverified , 04/24/19) Patient History PMH Narrative Past Medical History: DM, other - cdiff Pertinent Family History: none Social History: Denies: smoking, alcohol use, drug use Now: No Immunizations: UTD Reviewed Nursing Documentation: PMH: Agreed; PSxH: Agreed Nursing Documentation-PMH Past Medical History: No History, Except For Hx Cardiac Problems: Yes - Hyperlipidemia, Sepsis, Metabolic Acidosis, C-Diff Hx Hypertension: Yes - T11-T12 fracture Hx Diabetes: Yes Review of Systems All Other Systems: limited Physical Exam Vital Signs: reviewed Gen: well appearing, no apparent distress, alert HEENT: supple Resp: normal breath sounds, no respiratory distress CV: normal rate GI: normal inspection, non tender, soft, normal bowel sounds, non-distended Rectal: deferred : no CVA tenderness Neurologic: alert, responsive Skin: normal inspection, normal color, no rash, warm/dry, palpation normal, well hydrated Lymphatic: normal inspection, no adenopathy Current Medications Labs: noted Imaging: noted Assessment and Recs: # Anemia of chronic disease, rule out gi bleed, likely is multifactorial --> anemia panel has been ordered and reviewed --> hgb goal is >7 --> no evidence for hemolysis --> obtain occult blood, rule out bleed # Leukocytosis likely 2/2 anemia v infection (PNA) --> abx have been started --> cefepime/cefoxitin # FTT requiring potential gtube placement --> Encounter for PEG (percutaneous endoscopic gastrostomy) --> remains npo # Dehydration --> per renal, may need ivf # PNA on abx Time of note does not necessarily reflect time of encounter. Appreciate consultation greatly Matt Felipe MD Apr 25, 2019 10:19
[2019-04-25 12:00] VITALS: BP 113/21
[2019-04-25] MEDS ORDERED: Lidocaine 1% Plain 30 ml INJ PRN (12:30)
[2019-04-25] MEDS ORDERED: Heparin1,000 units/500ml Premix(Conc:2 units/ml) IV PRN (12:30)
--- NOTE | 2019-04-25 12:37 | Cardiology Report ---
APPROVED REPORT EKG Measurement Heart [id number] PA [id number] Sinus tachycardia Low voltage QRS Abnormal ECG
--- NOTE | 2019-04-25 13:14 | Consultation ---
Consult Note Consult Note I was asked to eval for electrolyte disorders 83-year-old female presents ED for evaluation. Brought in by EMS for weakness, poor appetite x1 month. Come from assisted facility. Nonverbal at baseline. Also noted to have diarrhea for the last several days. History of C. difficile. [place] fevers or chills. No reported cough or shortness of breath. No other aggravating relieving factors. No other associated symptoms No Known Allergies (Unverified , 04/24/19) Past Medical History: No History, Except For Hx Cardiac Problems: Yes - Hyperlipidemia, Sepsis, Metabolic Acidosis, C-Diff Hx Hypertension: Yes - T11-T12 fracture Hx Diabetes: Yes Patient examined , wasted data reviewed . Assessment/Plan Dehydration Free water deficit leading to high Na Low K and Low Mag Anemia Severe Malnutrition ? UTI D5w hydrate Monitor Lytes and renal parameters replave Mag Phos k... ? PEG Per orders Silver Orellana MD Apr 25, 2019 13:14
--- NOTE | 2019-04-25 13:31 | CDS Physician Query ---
Clarification is required for compliance, coding accuracy, and to reflect severity of illness for this patient Dear Juan Miguel Whitney MD Date: 04/25/2019 A diagnosis of "Pneumonia" is documented, and the patient is on: Tx: IV Pipereacillin adn Tazobactam, IV VANCOMYCIN, IV Azythromycin Please specify the underlying etiology: [] Gram +Positive Organism(s) [] Anaerobes [] Gram -Negative Organism(s) [X] Aspiration [] Pseudomonas [] Mycoplasma [] MRSA [] Not Applicable [] Other organism(s). Please specify: Present on Admission: [X] Yes [] No [] Clinically Undetermined Physician signature Date Please also document in your Progress Notes and/or Discharge Summary and indicate if the condition was present on admission. CINDYD
[2019-04-25] MEDS: D5 1/2NS w/KCl 20mEq 1,000 ML IV SCH (15:40)
[2019-04-25 16:00] VITALS: BP 136/69
--- NOTE | 2019-04-25 16:45 | Consultation ---
DATE OF CONSULTATION: 04/25/2019 INFECTIOUS DISEASE CONSULTATION CONSULTING PHYSICIAN: Rajeev Pedro M.D. PRIMARY ATTENDING PHYSICIAN: Nicole Guillermo M.D. REASON FOR CONSULT: C. diff colitis and pneumonia. HISTORY OF PRESENT ILLNESS: This is an 83-year-old female admitted last night from a nursing facility because of weakness, poor appetite, and failure to thrive. She was found to have leukocytosis of 20.3, hypernatremia, and hypokalemia. The patient denies any problem. PAST MEDICAL HISTORY: Significant for diabetes mellitus, hyperlipidemia, T11-T12 fracture, likely has dementia. ALLERGIES: No known drug allergies. MEDICATIONS: PO vancomycin, magnesium sulfate, cefepime, doxycycline, insulin, metronidazole, albuterol and ipratropium inhaler, and Zofran. SOCIAL HISTORY: [facility] resident. No history of alcohol, drug, or smoking. Single. REVIEW OF SYSTEMS: The patient denies any problem and has no complaint, but according to nurse has diarrhea. PHYSICAL EXAMINATION: VITAL SIGNS: Temperature 96.6, pulse 105, and blood pressure 136/62. GENERAL APPEARANCE: Seems to be very cachectic. HEAD AND NECK: [place] conjunctivae. HEART: Tachycardic. LUNGS: Clear. ABDOMEN: Soft and nontender. EXTREMITIES: No edema. SKIN: Necrotic ulcer on left wagner area and sacral ulcers. LABORATORY DATA: WBC coming down today to 17,000, hemoglobin 9.1, hematocrit 29. Sodium 151, potassium 3.5, chloride 121, bicarbonate 17, BUN 17, and creatinine 0.8. Glucose 152. Alkaline phosphatase is elevated at 543. Albumin is 1.4. BNP is elevated 9121. Troponin 0. Urine culture, no growth. Stool was positive for C. diff. Chest x-ray showed bilateral infiltrates versus edema. IMPRESSION: Sepsis with tachycardia and leukocytosis. She has Clostridium difficile colitis, may have pneumonia. She has diabetes mellitus, cachexia, failure to thrive. She has anemia and hyperlipidemia. RECOMMENDATION: We will continue treatment with cefepime, doxycycline and p.o. vancomycin. We will stop Flagyl. We will check chest x-ray in one to two days, try to narrow antibiotic. The patient is going to have surgical evaluation for the wound in left leg. At the end of my exam, I thank Dr. Guillermo for involving me in the care of this patient. Rajeev Pedro M.D. DR: CHUY JOB#: [id number] CC: AMAN
--- NOTE | 2019-04-25 17:43 | Consultation ---
History of Present Illness General Date patient seen: Apr 25, 2019 Chief Complaint: General Complaint Referring physician: JHONNY Present Illness HPI This is a very pleasant 83-year-old female who was evaluated and admitted to [facility] for failure to thrive, abnormal labs, tachycardia, requiring further work-up. During admission patient was identified to have multiple decubitus ulcers requiring care and management. Surgery called to evaluate and assist with care. Patient seen, patient evaluate, chart reviewed. Allergies: Coded Allergies: No Known Allergies (Unverified , 04/24/19) Medication History Scheduled Esomeprazole Magnesium (Nexium), 40 MG ORAL DAILY, (Reported) Lidocaine Patch* (Lidoderm Patch*), 1 PATCH TOPIC DAILY, (Reported) Multivitamins* (Multivitamins*), 1 TAB ORAL DAILY, (Reported) Vancomycin HCl (Vancocin HCl), 250 MG ORAL QID, (Reported) Scheduled PRN Melatonin (Melatonin), 3 MG ORAL BEDTIME PRN for Insomnia, (Reported) Miscellaneous Medications Acidophilus/Bulgaricus (Lactinex Chewable Tablet), 1 EACH PO, (Reported) Patient History Limited by: medical condition History Provided By: Medical Record, PMD Healthcare decision maker Resuscitation status Full Code Advanced Directive on File No Past Medical/Surgical History Past Medical/Surgical History: (1) Hypernatremia (2) Pneumonia (3) Hypokalemia (4) Dehydration (5) Failure to thrive (6) Encounter for PEG (percutaneous endoscopic gastrostomy) Review of Systems All Other Systems: negative except mentioned in HPI Physical Exam General Appearance: no apparent distress Lines, tubes and drains: peripheral HEENT: mucous membranes moist Neck: supple Respiratory/Chest: lungs clear, normal breath sounds Cardiovascular/Chest: normal rate Abdomen: soft, no organomegaly, other Extremities: non-tender Skin Exam: warm/dry Neurologic: other Last 24 Hour Vital Signs Date Time Temp Pulse Resp B/P (MAP) Pulse Ox O2 Delivery O2 Flow Rate FiO2 04/25/19 16:00 97.3 95 20 136/69 (91) 98 04/25/19 15:02 93 Room Air 21 04/25/19 12:00 97.7 105 20 113/21 (51) 96 04/25/19 12:00 102 04/25/19 09:00 Room Air 04/25/19 08:00 96.6 105 20 136/62 (86) 94 04/25/19 08:00 103 04/25/19 04:00 115 04/25/19 04:00 97.2 115 18 108/54 (72) 96 04/25/19 00:00 109 04/25/19 00:00 97.9 99 18 110/65 (80) 94 04/24/19 23:05 Nasal Cannula 2.0 04/24/19 20:48 98.7 108 18 115/56 100 Nasal Cannula 2.0 04/24/19 20:00 97.7 109 18 104/63 (77) 92 04/24/19 20:00 119 04/24/19 20:00 98.5 107 19 117/57 100 Nasal Cannula 2.0 04/24/19 19:35 116 19 Room Air 04/24/19 18:33 112 24 105/64 92 Intake and Output 04/24/19 04/25/19 19:00 07:00 Intake Total 1210 ml 1300 ml Output Total 300 ml Balance 1210 ml 1000 ml Intake IV Total 1210 ml 1300 ml Output Urine Total 300 ml # Voids 3 # Bowel Movements 8 Laboratory Tests Test 04/25/19 07:01 White Blood Count 17.0 K/UL (4.8-10.8) H Red Blood Count 3.65 M/UL (4.20-5.40) L Hemoglobin 9.1 G/DL (12.0-16.0) L Hematocrit 29.0 % (37.0-47.0) L Mean Corpuscular Volume 79 FL (80-99) L Mean Corpuscular Hemoglobin 24.9 PG (27.0-31.0) L Mean Corpuscular Hemoglobin Concent 31.4 G/DL (32.0-36.0) L Red Cell Distribution Width 20.2 % (11.6-14.8) H Platelet Count 217 K/UL (150-450) Mean Platelet Volume 5.9 FL (6.5-10.1) L Neutrophils (%) (Auto) 84.5 % (45.0-75.0) H Lymphocytes (%) (Auto) 7.2 % (20.0-45.0) L Monocytes (%) (Auto) 7.8 % (1.0-10.0) Eosinophils (%) (Auto) 0.1 % (0.0-3.0) Basophils (%) (Auto) 0.3 % (0.0-2.0) Sodium Level 151 MMOL/L (136-145) H Potassium Level 3.5 MMOL/L (3.5-5.1) Chloride Level 121 MMOL/L (98-107) H Carbon Dioxide Level 17 MMOL/L (21-32) L Anion Gap 13 mmol/L (5-15) Blood Urea Nitrogen 17 mg/dL (7-18) Creatinine 0.8 MG/DL (0.55-1.30) # Estimat Glomerular Filtration Rate mL/min (>60) Glucose Level 152 MG/DL (74-106) H Uric Acid 5.4 MG/DL (2.6-7.2) Calcium Level 7.3 MG/DL (8.5-10.1) L Phosphorus Level 2.5 MG/DL (2.5-4.9) Magnesium Level 1.4 MG/DL (1.8-2.4) L Iron Level 11 ug/dL (50-175) L Total Iron Binding Capacity 72 ug/dL (250-450) L Percent Iron Saturation 15 % (15-50) Unsaturated Iron Binding 61 ug/dL (112-346) L Ferritin 573 NG/ML (8-388) H Total Bilirubin 0.9 MG/DL (0.2-1.0) Gamma Glutamyl Transpeptidase 260 U/L (5-85) H Aspartate Amino Transf (AST/SGOT) 15 U/L (15-37) Alanine Aminotransferase (ALT/SGPT) 10 U/L (12-78) L Alkaline Phosphatase 543 U/L (46-116) H Troponin I 0.000 ng/mL (0.000-0.056) C-Reactive Protein, Quantitative 37.9 mg/dL (0.00-0.90) H Pro-B-Type Natriuretic Peptide 9127 pg/mL (0-125) H Total Protein 5.7 G/DL (6.4-8.2) L Albumin 1.4 G/DL (3.4-5.0) L Globulin 4.3 g/dL Albumin/Globulin Ratio 0.3 (1.0-2.7) L Triglycerides Level 106 MG/DL (30-150) Cholesterol Level 140 MG/DL (< 200) LDL Cholesterol 67 mg/dL (<100) HDL Cholesterol 35 MG/DL (40-60) L Cholesterol/HDL Ratio 4.0 (3.3-4.4) Vitamin B12 Level > 2000 PG/ML (193-986) H Folate 12.4 NG/ML (8.6-58.9) Thyroid Stimulating Hormone (TSH) 2.282 uiU/mL (0.358-3.740) Cortisol AM Sample Pending Height (Feet): 5 Height (Inches): 3.00 Weight (Pounds): 80 Medications Current Medications Medications (Trade) Dose Ordered Sig/Bushra Route PRN Reason Start Time Stop Time Status Last Admin Dose Admin Acetaminophen (Tylenol) 650 mg Q4H PRN ORAL Mild Pain/Temp > 100.5 04/24/19 21:45 05/24/19 21:44 04/25/19 05:02 Albuterol/ Ipratropium (Albuterol/ Ipratropium) 3 ml Q4H PRN HHN Shortness of Breath 04/24/19 21:45 04/29/19 21:44 Cefepime HCl 1 gm/ Dextrose 55 ml @ 110 mls/hr DAILY IVPB 04/25/19 09:00 05/02/19 08:59 04/25/19 09:53 Cefoxitin Sodium 1 gm/Dextrose 55 ml @ 110 mls/hr ONCE ONCE IV 04/26/19 09:00 04/26/19 09:29 Chlorhexidine Gluconate (Mary Beth-Hex 2%) 1 applic DAILY@2000 TOPIC 04/25/19 20:00 05/25/19 19:59 Dextrose (Dextrose 50%) 25 ml Q30M PRN IV Hypoglycemia 04/24/19 21:45 05/24/19 21:44 Dextrose (Dextrose 50%) 50 ml Q30M PRN IV Hypoglycemia 04/24/19 21:45 05/24/19 21:44 Dextrose/ Electrolytes 1,000 ml @ 60 mls/hr [id number] IV 04/24/19 23:00 05/24/19 22:59 04/24/19 23:36 Doxycycline Hyclate 100 mg/ Dextrose 110 ml @ 110 mls/hr Q12HR@1100,2300 IV 04/24/19 23:00 05/01/19 22:59 04/25/19 00:19 Heparin Sodium/ Sodium Chloride (Heparin 1000 units/500ml Premix) 1,000 unit ONCE PRN IV PICC 04/25/19 12:30 04/25/19 23:59 Insulin Aspart (NovoLOG) BEFORE MEALS AND HS SUBQ 04/25/19 06:30 05/25/19 06:29 Lidocaine HCl (Xylocaine 1% 30ml) 30 ml ONCE PRN INJ PICC 04/25/19 12:30 04/25/19 23:59 Ondansetron HCl (Zofran) 4 mg Q6H PRN IVP Nausea & Vomiting 04/24/19 21:45 05/24/19 21:44 Vancomycin HCl (Firvanq) 125 mg FOUR TIMES A DAY ORAL 04/25/19 14:00 05/02/19 13:59 Assessment/Plan Problem List: (1) Leg ulcer Assessment & Plan: Pt presented on admission with multiple pressure injuries and necrotic ulcer torrey L tibia.Pt is emaciated. Non-blanchable erythema with fluctuance noted to R shoulder. (L)2cm x (W)1cm. Open DTPI noted to sacrum. Base of wound is purple with scattered open wounds with slough.(L)7.5cm x (W)6.5cm. Site tender when minimally palpated.Non- blanching erythema periwound. Non-blanching erythema without fluctuance noted to L ischium (L)2.5cm x (W) 2.5cm. Tender when minimally palpated. Bilat lower ext edematous . Full thickness ulcer with irregular and erythematous borders noted to torrey /distal L tibia. Base of wound 100% non- viable ,Soft necrosis noted . No odor or exudate noted. Pt complained of severe pain with minimal touch during wound assessment..Non-blanching erythema with fluctuance both heels. Pt verbalized pain when both heels minimally palpated. Plantar aspects of both feet and toes on both feet noted to be dusky. Tx.Plan: Cleanse sacral wound with Saline. Apply Therahoney. Apply Triad Paste periwound. Cover with Optifoam drsg. Change Daily and prn. Applpy Triad Paste to bilat groin and both ischial areas with each perineal care. Cleanse Wound Torrey L tibia with Saline. Apply Therhaoney. Apply Cavilon Skin Barrier periwound. Cover with Optifoam Drsg. Change every 3 days and prn. Apply Cavilon Skin Barrier to both heels. Cover each heel with Optifoam drsg. Change every 7 days and prn. APM/CAIO mattress overlay. Reposition at least every 2hours or as tolerated. Off-load heels with pillow. ICD Codes: L97.909 - Non-pressure chronic ulcer of unspecified part of unspecified lower leg with unspecified severity SNOMED: [id number], [id number] (2) Failure to thrive Assessment & Plan: DAILY ESTIMATED NEEDS: Needs based on Wt loss, underweight, wound/ 36kg 35-40 kcals/kg [id number] total kcals 1.5-2.0 g protein/kg 54-72 g total protein 25-30 mL/kg 900-1080 total fluid mLs NUTRITION DIAGNOSIS: * Increased kcal/prot intake needs R/T underweight status, recent wt loss, wound healing as evidenced by admitted w/ significant wt loss of 11.9lbs/13% in 3 weeks, 84% IBW w/ low BMI per guidelines, admitted w/ lt wagner and sacral wounds, pending evaluation, currently NPO, pending PEG placement. CURRENT DIET: NPO ENTERAL NUTRITION RECOMMENDATIONS: Glucerna 1.2 @ 50ml/hr x 24 hrs to provide 1200ml, 1440kcal, 72g prot, 966ml free water * W/ GI access s/p PEG placement, initiate Glucerna 1.2 @ 10ml/hr x 6 hrs * Advance 10ml q 4-6 hrs as tolerated to goal rate. * HOB over 30 degrees/ water flush per MD ADDITIONAL RECOMMENDATIONS: * Weekly calibrated bedscale wt * Monitor lytes daily w/ TF, replete as needed -> pt at HIGH RISK for refeeding syndrome, increase TF SLOWLY * Wound healing: Add Vit C 250mg QD add ZnSO4 220mg QD x 10 days add Zeke 1pkt BID * Probiotics for diarrhea SNOMED: [id number] Qualifiers: Qualified Codes: R62.7 - Adult failure to thrive (3) Cellulitis, leg Assessment & Plan: cont with IV abx as per ID ICD Codes: L03.119 - Cellulitis of unspecified part of limb SNOMED: [id number] Nico Sanz Apr 25, 2019 17:43
[2019-04-25] MEDS: Vancomycin oral 125mg/2.5ml ORAL SCH ×3 (17:56→21:00)
[2019-04-25 20:00] VITALS: BP 124/71
[2019-04-25] MEDS: Dyna-Hex 2% Top Sol 2oz TOPIC SCH (20:00)
--- NOTE | 2019-04-25 22:35 | Pulmonology Progress Note ---
Assessment/Plan Assessment/Plan Pulmonary Progress Note HPI Patient is an 83-year old woman from a from alf facility admitted with weakness, poor appetite x1 month. Patient is nonverbal at baseline. Patient has a history of C. difficile, has a history of diarrhea for the last several days CDIFF Positive. No fevers or chills. No reported cough or shortness of breath. Noted to have radiological evidence of Pneumonia, Left LLE ulcer, LLE DVT Allergies: No Known Allergies Past Medical History: Diabetes, Hypertension, Hyperlipidemia, Dementia, Hyperlipidemia, Sepsis, Metabolic Acidosis, C-Difficile, T11-T12 fracture All Other Systems: limited Physical Exam Vital Signs Noted General Appearance: no apparent distress, cachetic, non verbal Head: NCAT Eyes: bilateral eye normal inspection, bilateral eye PERRL ENT: dry mm Neck: normal inspection, no LN Respiratory: chest non-tender, normal breath sounds Cardiovascular: no edema, tachycardia, normal HS1, HS2 Gastrointestinal: normal bowel sounds, non tender, soft, non-distended, no guarding, no rebound Genitourinary: no CVA tenderness Musculoskeletal: normal inspection Neurologic: no focal signs, no seizures Skin: no edema, LLE ulcer Impression: Pneumonia Dysphagia Adult failure to thrive LLE DVT LLE Ulcer Hypernatremia Hypokalemia Diabetes Hypertension Hyperlipidemia Dementia Hyperlipidemia Previous C-Difficile Previous T11-T12 fracture ER CoursePlan G tube Lovenox (hold for G tube) IVF NPO PICC line IV antibiotics, PO Flagyl Stll Cdiff O2 PRN HHN CPT Aspiration precautions Supplement K ST evaluation Monitor labs Labs Test 04/24/19 16:20 04/24/19 16:40 White Blood Count 20.3 K/UL (4.8-10.8) Red Blood Count 4.17 M/UL (4.20-5.40) Hemoglobin 10.2 G/DL (12.0-16.0) Hematocrit 32.0 % (37.0-47.0) Mean Corpuscular Volume 77 FL (80-99) Mean Corpuscular Hemoglobin 24.5 PG (27.0-31.0) Mean Corpuscular Hemoglobin Concent 31.9 G/DL (32.0-36.0) Red Cell Distribution Width 18.7 % (11.6-14.8) Platelet Count 282 K/UL (150-450) Mean Platelet Volume 5.1 FL (6.5-10.1) Neutrophils (%) (Auto) % (45.0-75.0) Lymphocytes (%) (Auto) % (20.0-45.0) Monocytes (%) (Auto) % (1.0-10.0) Eosinophils (%) (Auto) % (0.0-3.0) Basophils (%) (Auto) % (0.0-2.0) Differential Total Cells Counted 100 Neutrophils % (Manual) 90 % (45-75) Lymphocytes % (Manual) 6 % (20-45) Monocytes % (Manual) 1 % (1-10) Eosinophils % (Manual) 0 % (0-3) Basophils % (Manual) 0 % (0-2) Band Neutrophils 3 % (0-8) Platelet Estimate Adequate Platelet Morphology Normal Polychromasia 1+ Anisocytosis 2+ Target Cells Occasional Sodium Level 151 MMOL/L (136-145) Potassium Level 2.9 MMOL/L (3.5-5.1) Chloride Level 115 MMOL/L (98-107) Carbon Dioxide Level 23 MMOL/L (21-32) Anion Gap 13 mmol/L (5-15) Blood Urea Nitrogen 15 mg/dL (7-18) Creatinine 0.4 MG/DL (0.55-1.30) Estimat Glomerular Filtration Rate mL/min (>60) Glucose Level 163 MG/DL (74-106) Lactic Acid Level 1.60 mmol/L (0.4-2.0) Calcium Level 7.8 MG/DL (8.5-10.1) Total Bilirubin 0.7 MG/DL (0.2-1.0) Aspartate Amino Transf (AST/SGOT) 14 U/L (15-37) Alanine Aminotransferase (ALT/SGPT) 13 U/L (12-78) Alkaline Phosphatase 635 U/L (46-116) Total Protein 6.3 G/DL (6.4-8.2) Albumin 1.5 G/DL (3.4-5.0) Globulin 4.8 g/dL Albumin/Globulin Ratio 0.3 (1.0-2.7) Lipase 43 U/L (73-393) Urine Color Yellow Urine Appearance Clear Urine pH 8 (4.5-8.0) Urine Specific Revere 1.010 (1.005-1.035) Urine Protein 2+ (NEGATIVE) Urine Glucose (UA) Negative (NEGATIVE) Urine Ketones 2+ (NEGATIVE) Urine Blood Negative (NEGATIVE) Urine Nitrite Negative (NEGATIVE) Urine Bilirubin Negative (NEGATIVE) Urine Urobilinogen Normal MG/DL (0.0-1.0) Urine Leukocyte Esterase 1+ (NEGATIVE) Urine RBC 0-2 /HPF (0 - 2) Urine WBC 5-10 /HPF (0 - 2) Urine Squamous Epithelial Cells None /LPF (NONE/OCC) Urine Bacteria Few /HPF (NONE) Urine Yeast Few /HPF (NONE) EKG: Rate: tachycardia, NSR, no acute ST changes Chest X-Ray: no effusion, no pneumothorax, bilateral infiltrates c/w pneumonia Subjective ROS Limited/Unobtainable: No Allergies: Coded Allergies: No Known Allergies (Unverified , 04/24/19) Objective Last 24 Hour Vital Signs Date Time Temp Pulse Resp B/P (MAP) Pulse Ox O2 Delivery O2 Flow Rate FiO2 04/25/19 21:00 Room Air 04/25/19 20:00 97.6 110 20 124/71 (88) 94 04/25/19 20:00 113 04/25/19 16:00 97.3 95 20 136/69 (91) 98 04/25/19 16:00 96 04/25/19 15:02 93 Room Air 21 04/25/19 12:00 97.7 105 20 113/21 (51) 96 04/25/19 12:00 102 04/25/19 09:00 Room Air 04/25/19 08:00 96.6 105 20 136/62 (86) 94 04/25/19 08:00 103 04/25/19 04:00 115 04/25/19 04:00 97.2 115 18 108/54 (72) 96 04/25/19 00:00 109 04/25/19 00:00 97.9 99 18 110/65 (80) 94 04/24/19 23:05 Nasal Cannula 2.0 Intake and Output 04/24/19 04/25/19 19:00 07:00 Intake Total 1210 ml 1300 ml Output Total 300 ml Balance 1210 ml 1000 ml Intake IV Total 1210 ml 1300 ml Output Urine Total 300 ml # Voids 3 # Bowel Movements 8 Microbiology Date/Time Source Procedure Growth Status 04/24/19 16:35 Stool Stool Culture Pending Resulted 04/24/19 16:35 Stool Clostridium difficile Toxin Assay - Final Resulted 04/24/19 16:40 Urine,Clean Catch Urine Culture - Preliminary NO GROWTH Resulted Laboratory Tests 04/25/19 07:01: White Blood Count 17.0H, Red Blood Count 3.65L, Hemoglobin 9.1L, Hematocrit 29.0L, Mean Corpuscular Volume 79L, Mean Corpuscular Hemoglobin 24.9L, Mean Corpuscular Hemoglobin Concent 31.4L, Red Cell Distribution Width 20.2H, Platelet Count 217, Mean Platelet Volume 5.9L, Neutrophils (%) (Auto) 84.5H, Lymphocytes (%) (Auto) 7.2L, Monocytes (%) (Auto) 7.8, Eosinophils (%) (Auto) 0.1, Basophils (%) (Auto) 0.3, Sodium Level 151H, Potassium Level 3.5, Chloride Level 121H, Carbon Dioxide Level 17L, Anion Gap 13, Blood Urea Nitrogen 17, Creatinine 0.8#, Estimat Glomerular Filtration Rate , Glucose Level 152H, Uric Acid 5.4, Calcium Level 7.3L, Phosphorus Level 2.5, Magnesium Level 1.4L, Iron Level 11L, Total Iron Binding Capacity 72L, Percent Iron Saturation 15, Unsaturated Iron Binding 61L, Ferritin 573H, Total Bilirubin 0.9, Gamma Glutamyl Transpeptidase 260H, Aspartate Amino Transf (AST/SGOT) 15, Alanine Aminotransferase (ALT/SGPT) 10L, Alkaline Phosphatase 543H, Troponin I 0.000, C- Reactive Protein, Quantitative 37.9H, Pro-B-Type Natriuretic Peptide 9127H, Total Protein 5.7L, Albumin 1.4L, Globulin 4.3, Albumin/Globulin Ratio 0.3L, Triglycerides Level 106, Cholesterol Level 140, LDL Cholesterol 67, HDL Cholesterol 35L, Cholesterol/HDL Ratio 4.0, Vitamin B12 Level > 2000H, Folate 12.4, Thyroid Stimulating Hormone (TSH) 2.282, Cortisol AM Sample 34.8 Current Medications Medications (Trade) Dose Ordered Sig/Bushra Route PRN Reason Start Time Stop Time Status Last Admin Dose Admin Acetaminophen (Tylenol) 650 mg Q4H PRN ORAL Mild Pain/Temp > 100.5 04/24/19 21:45 05/24/19 21:44 04/25/19 05:02 Albuterol/ Ipratropium (Albuterol/ Ipratropium) 3 ml Q4H PRN HHN Shortness of Breath 04/24/19 21:45 04/29/19 21:44 Cefepime HCl 1 gm/ Dextrose 55 ml @ 110 mls/hr DAILY IVPB 04/25/19 09:00 05/02/19 08:59 04/25/19 09:53 Cefoxitin Sodium 1 gm/Dextrose 55 ml @ 110 mls/hr ONCE ONCE IV 04/26/19 09:00 04/26/19 09:29 Chlorhexidine Gluconate (Mary Beth-Hex 2%) 1 applic DAILY@2000 TOPIC 04/25/19 20:00 05/25/19 19:59 Dextrose (Dextrose 50%) 25 ml Q30M PRN IV Hypoglycemia 04/24/19 21:45 05/24/19 21:44 Dextrose (Dextrose 50%) 50 ml Q30M PRN IV Hypoglycemia 04/24/19 21:45 05/24/19 21:44 04/25/19 17:26 Dextrose/ Electrolytes 1,000 ml @ 60 mls/hr [id number] IV 04/24/19 23:00 05/24/19 22:59 04/24/19 23:36 Doxycycline Hyclate 100 mg/ Dextrose 110 ml @ 110 mls/hr Q12HR@1100,2300 IV 04/24/19 23:00 05/01/19 22:59 04/25/19 00:19 Enoxaparin Sodium (Lovenox) 40 mg Q24H SUBQ 04/26/19 16:00 05/26/19 15:59 Heparin Sodium/ Sodium Chloride (Heparin 1000 units/500ml Premix) 1,000 unit ONCE PRN IV PICC 04/25/19 12:30 04/25/19 23:59 Insulin Aspart (NovoLOG) BEFORE MEALS AND HS SUBQ 04/25/19 06:30 05/25/19 06:29 Lidocaine HCl (Xylocaine 1% 30ml) 30 ml ONCE PRN INJ PICC 04/25/19 12:30 04/25/19 23:59 Ondansetron HCl (Zofran) 4 mg Q6H PRN IVP Nausea & Vomiting 04/24/19 21:45 05/24/19 21:44 Vancomycin HCl (Firvanq) 125 mg FOUR TIMES A DAY ORAL 04/25/19 14:00 05/02/19 13:59 Juan Miguel Mendoza MD Apr 25, 2019 22:35
[2019-04-26] VITALS (9 sets, daily range): BP systolic 92–137; BP diastolic 47–101
--- NOTE | 2019-04-26 02:15 | History and Physical Report ---
DATE OF ADMISSION: 04/24/2019 HISTORY OF PRESENT ILLNESS: The patient's family wants to give the patient G-tube. The patient has not been eating, is cachectic. Apparently, family agreed to consent for feeding tube. The patient also was found to have acute DVT. Also, has hypernatremia, electrolyte imbalance, severe hypokalemia, UTI, leukocytosis, rule out sepsis, failure to thrive. The patient also complains of generalized pain. The patient also has a wound on her left wagner. The patient is cachectic. PAST MEDICAL HISTORY: Failure to thrive basically, history of electrolyte imbalance, history of leg ulcer, history of chronic venous stasis, diabetes, and GERD. PAST SURGICAL HISTORY: None. MEDICATIONS: Melatonin and Nexium. ALLERGIES: No known allergies. SOCIAL HISTORY: Denies history of smoking, alcohol, or illicit drugs. Comes from a [facility]. FAMILY HISTORY: Noncontributory. REVIEW OF SYSTEMS: HEENT: Denies headaches. RESPIRATORY: Denies shortness of breath. Denies cough. CARDIOVASCULAR: Denies chest pain. GASTROINTESTINAL: Denies nausea, vomiting, or diarrhea. EXTREMITIES: She has pain all over. CENTRAL NERVOUS SYSTEM: No change in vision or speech pattern. PHYSICAL EXAMINATION: VITAL SIGNS: Temperature is 96.3, pulse is 105 to 130, and blood pressure 136/62. HEENT: PERRLA. NECK: Supple. No lymphadenopathy. CHEST: Clear to auscultation. CARDIOVASCULAR: Regular rate and rhythm. No murmurs or extra sounds. GASTROINTESTINAL: Soft, nontender, and nondistended. No organomegaly. EXTREMITIES: No edema. Does have wound on the left wagner. SKIN: For skin integrity, please refer to the nursing notes for details. NEUROLOGIC: The patient is cachectic. Generalized weakness and contractures. LABORATORY DATA: WBC of 20.3, hemoglobin 10.2, and platelets of 282,000. Sodium 151, potassium 2.9, BUN of 15, creatinine 0.4, and glucose of 163. ASSESSMENT AND PLAN: Failure to thrive, poor appetite. The patient is going to get a G-tube. The patient also has acute DVT, hypokalemia, hypernatremia, dehydration, and not eating. I have asked Dr. Carranza, Dr. Orellana, Dr. Mendoza, Dr. Felipe, Dr. Rajeev Pedro, Dr. Nico Sanz to see the patient for wound care as well as sepsis, UTI as well as further care and management of DVT as well as management of hypokalemia as well as dehydration as well as to put a G-tube per family's request. Nicole Guillermo M.D. DR: Milo JOB#: [id number] CC:
[2019-04-26 05:32] LABS: BASOPHILS % (AUTO) 0.3 % (0.0-2.0); EOSINOPHILS % (AUTO) 0.1 % (0.0-3.0); HEMATOCRIT 25.9 % (37.0-47.0); HEMOGLOBIN 8.1 G/DL (12.0-16.0); LYMPHOCYTES % (AUTO) 11.3 % (20.0-45.0); MEAN CORPUSCULAR VOLUME 79 FL (80-99); NEUTROPHILS % (AUTO) 83.3 % (45.0-75.0); PLATELET COUNT 175 K/UL (150-450); RED BLOOD COUNT 3.26 M/UL (4.20-5.40); WHITE BLOOD COUNT 17.2 K/UL (4.8-10.8)
[2019-04-26 05:45] LABS: INR 1.4 (0.9-1.1)
[2019-04-26] MEDS: NovoLOG Insulin Flexpen SUBQ SCH ×4 (05:56→21:00)
[2019-04-26 06:06] LABS: ALANINE AMINOTRANSFERASE 15 U/L (12-78); ALBUMIN 1.5 G/DL (3.4-5.0); ALBUMIN/GLOBULIN RATIO 0.3 (1.0-2.7); ALKALINE PHOSPHATASE 521 U/L (46-116); ANION GAP 14 mmol/L (5-15); ASPARTATE AMINO TRANSFERASE 16 U/L (15-37); BILIRUBIN,TOTAL 0.8 MG/DL (0.2-1.0); BLOOD UREA NITROGEN 21 mg/dL (7-18); CALCIUM 7.7 MG/DL (8.5-10.1); CARBON DIOXIDE 18 MMOL/L (21-32); CHLORIDE 122 MMOL/L (98-107); FERRITIN 631 NG/ML (8-388); SODIUM 154 MMOL/L (136-145)
[2019-04-26 06:08] LABS: POTASSIUM 2.7 MMOL/L (3.5-5.1)
[2019-04-26 07:24] LABS: % IRON SATURATION 26 % (15-50); IRON 21 ug/dL (50-175); TOTAL IRON BINDING CAPACITY 82 ug/dL (250-450)
[2019-04-26] MEDS ORDERED: cefOXitin Sod 1 GM in D5W 55 ML IV ONE (09:00)
--- NOTE | 2019-04-26 10:26 | Diagnostic Imaging Report ---
Indications: Needs long-term IV access Technique: Ultrasound confirms patent compressible left basilic vein. Total sterile technique, including sterile probe cover and sterile gel, hat, mask, sterile gown, large sterile drape, and preparation with 2% chlorhexidine utilized. Local anesthesia with 1% lidocaine. Under real-time ultrasound guidance, puncture some vein using 21-gauge needle, documented and archived, passage 0.018 guidewire under direct fluoroscopy, which was used to determine appropriate catheter length, exchange for 4 Barbadian peel-away sheath. 4 Barb[place] Bard dual-lumen power PICC cut to 40 cm. It was inserted through the peel-away sheath. Peel-away sheath and guidewire removed. Catheter fixed to the skin. Both catheter ports aspirated and flushed. Patient tolerated procedure well, without immediate complication. Digital radiograph documents satisfactory catheter tip position, at the cavoatrial junction. Total fluoroscopy time 46.7 seconds. Total dose area product [id number] mGym2 Total number of images: 1 Impression: Successful placement of left arm PICC under sonographic and fluoroscopic guidance, as described above.
--- NOTE | 2019-04-26 11:03 | Pulmonology Progress Note ---
Assessment/Plan Assessment/Plan Pulmonary Progress Note HPI Patient is an 83-year old [facility] admitted with weakness, poor appetite x1 month. Patient is nonverbal at baseline. Patient has a history of C. difficile, has a history of diarrhea for the last several days CDIFF Positive. No fevers or chills. No reported cough or shortness of breath. Noted to have radiological evidence of Pneumonia, Left LLE ulcer, LLE DVT Stable VS, has PICC line, for G Tube today Allergies: No Known Allergies Past Medical History: Diabetes, Hypertension, Hyperlipidemia, Dementia, Hyperlipidemia, Sepsis, Metabolic Acidosis, C-Difficile, T11-T12 fracture All Other Systems: limited Physical Exam Vital Signs Noted General Appearance: no apparent distress, cachetic, non verbal Head: NCAT Eyes: bilateral eye normal inspection, bilateral eye PERRL ENT: dry mm Neck: normal inspection, no LN Respiratory: chest non-tender, normal breath sounds Cardiovascular: no edema, tachycardia, normal HS1, HS2 Gastrointestinal: normal bowel sounds, non tender, soft, non-distended, no guarding, no rebound Genitourinary: no CVA tenderness Musculoskeletal: normal inspection Neurologic: no focal signs, no seizures Skin: no edema, LLE ulcer Impression: Pneumonia Dysphagia Adult failure to thrive LLE DVT LLE Ulcer Hypernatremia Hypokalemia Diabetes Hypertension Hyperlipidemia Dementia Hyperlipidemia Previous C-Difficile Previous T11-T12 fracture ER CoursePlan G tube Lovenox (hold for G tube) IVF NPO PICC line IV antibiotics, PO Flagyl Stll Cdiff O2 PRN HHN CPT Aspiration precautions Supplement K ST evaluation Monitor labs Labs Noted Test 04/24/19 16:20 04/24/19 16:40 White Blood Count 20.3 K/UL (4.8-10.8) Red Blood Count 4.17 M/UL (4.20-5.40) Hemoglobin 10.2 G/DL (12.0-16.0) Hematocrit 32.0 % (37.0-47.0) Mean Corpuscular Volume 77 FL (80-99) Mean Corpuscular Hemoglobin 24.5 PG (27.0-31.0) Mean Corpuscular Hemoglobin Concent 31.9 G/DL (32.0-36.0) Red Cell Distribution Width 18.7 % (11.6-14.8) Platelet Count 282 K/UL (150-450) Mean Platelet Volume 5.1 FL (6.5-10.1) Neutrophils (%) (Auto) % (45.0-75.0) Lymphocytes (%) (Auto) % (20.0-45.0) Monocytes (%) (Auto) % (1.0-10.0) Eosinophils (%) (Auto) % (0.0-3.0) Basophils (%) (Auto) % (0.0-2.0) Differential Total Cells Counted 100 Neutrophils % (Manual) 90 % (45-75) Lymphocytes % (Manual) 6 % (20-45) Monocytes % (Manual) 1 % (1-10) Eosinophils % (Manual) 0 % (0-3) Basophils % (Manual) 0 % (0-2) Band Neutrophils 3 % (0-8) Platelet Estimate Adequate Platelet Morphology Normal Polychromasia 1+ Anisocytosis 2+ Target Cells Occasional Sodium Level 151 MMOL/L (136-145) Potassium Level 2.9 MMOL/L (3.5-5.1) Chloride Level 115 MMOL/L (98-107) Carbon Dioxide Level 23 MMOL/L (21-32) Anion Gap 13 mmol/L (5-15) Blood Urea Nitrogen 15 mg/dL (7-18) Creatinine 0.4 MG/DL (0.55-1.30) Estimat Glomerular Filtration Rate mL/min (>60) Glucose Level 163 MG/DL (74-106) Lactic Acid Level 1.60 mmol/L (0.4-2.0) Calcium Level 7.8 MG/DL (8.5-10.1) Total Bilirubin 0.7 MG/DL (0.2-1.0) Aspartate Amino Transf (AST/SGOT) 14 U/L (15-37) Alanine Aminotransferase (ALT/SGPT) 13 U/L (12-78) Alkaline Phosphatase 635 U/L (46-116) Total Protein 6.3 G/DL (6.4-8.2) Albumin 1.5 G/DL (3.4-5.0) Globulin 4.8 g/dL Albumin/Globulin Ratio 0.3 (1.0-2.7) Lipase 43 U/L (73-393) Urine Color Yellow Urine Appearance Clear Urine pH 8 (4.5-8.0) Urine Specific [place] 1.010 (1.005-1.035) Urine Protein 2+ (NEGATIVE) Urine Glucose (UA) Negative (NEGATIVE) Urine Ketones 2+ (NEGATIVE) Urine Blood Negative (NEGATIVE) Urine Nitrite Negative (NEGATIVE) Urine Bilirubin Negative (NEGATIVE) Urine Urobilinogen Normal MG/DL (0.0-1.0) Urine Leukocyte Esterase 1+ (NEGATIVE) Urine RBC 0-2 /HPF (0 - 2) Urine WBC 5-10 /HPF (0 - 2) Urine Squamous Epithelial Cells None /LPF (NONE/OCC) Urine Bacteria Few /HPF (NONE) Urine Yeast Few /HPF (NONE) EKG: Rate: tachycardia, NSR, no acute ST changes Chest X-Ray: no effusion, no pneumothorax, bilateral infiltrates c/w pneumonia Subjective ROS Limited/Unobtainable: No Allergies: Coded Allergies: No Known Allergies (Unverified , 04/24/19) Objective Last 24 Hour Vital Signs Date Time Temp Pulse Resp B/P (MAP) Pulse Ox O2 Delivery O2 Flow Rate FiO2 04/26/19 10:39 92 20 94 Room Air 21 04/26/19 10:38 94 Room Air 21 04/26/19 08:30 98.9 62 19 137/101 (113) 94 04/26/19 04:00 97.3 105 20 129/74 (92) 94 04/26/19 04:00 100 04/26/19 00:00 116 04/26/19 00:00 97.2 110 20 128/82 (97) 94 04/25/19 22:45 98 18 95 Room Air 21 04/25/19 21:45 95 Room Air 21 04/25/19 21:00 Room Air 04/25/19 20:00 97.6 110 20 124/71 (88) 94 04/25/19 20:00 113 04/25/19 16:00 97.3 95 20 136/69 (91) 98 04/25/19 16:00 96 04/25/19 15:02 93 Room Air 21 04/25/19 12:00 97.7 105 20 113/21 (51) 96 04/25/19 12:00 102 Intake and Output 04/25/19 04/26/19 18:59 06:59 Output Total 250 ml Balance -250 ml Output Urine Total 250 ml # Voids 3 # Bowel Movements 3 Microbiology Date/Time Source Procedure Growth Status 04/24/19 16:35 Blood Blood Culture - Preliminary NO GROWTH AFTER 24 HOURS Resulted 04/24/19 16:20 Blood Blood Culture - Preliminary NO GROWTH AFTER 24 HOURS Resulted 04/24/19 16:35 Stool Stool Culture - Final NO SALMONELLA,SHIGELLA,OR CAMPYLOBACT... Complete 04/24/19 16:35 Stool Clostridium difficile Toxin Assay - Final Complete 04/24/19 16:40 Urine,Clean Catch Urine Culture - Preliminary YEAST Resulted Laboratory Tests 04/26/19 02:00: Stool Occult Blood [Pending] 04/26/19 04:17: White Blood Count 17.2H, Red Blood Count 3.26L, Hemoglobin 8.1L, Hematocrit 25.9L, Mean Corpuscular Volume 79L, Mean Corpuscular Hemoglobin 24.9L, Mean Corpuscular Hemoglobin Concent 31.4L, Red Cell Distribution Width 20.0H, Platelet Count 175, Mean Platelet Volume 5.7L, Neutrophils (%) (Auto) 83.3H, Lymphocytes (%) (Auto) 11.3L, Monocytes (%) (Auto) 5.0, Eosinophils (%) (Auto) 0.1, Basophils (%) (Auto) 0.3, Reticulocyte Count 1.9, Prothrombin Time 14.5H, Prothromb Time International Ratio 1.4H, Activated Partial Thromboplast Time 34H , Sodium Level 154H, Potassium Level 2.7*L, Chloride Level 122H, Carbon Dioxide Level 18L, Anion Gap 14, Blood Urea Nitrogen 21H, Creatinine 1.0, Estimat Glomerular Filtration Rate , Glucose Level 127H, Calcium Level 7.7L, Iron Level 21L, Total Iron Binding Capacity 82L, Percent Iron Saturation 26, Unsaturated Iron Binding 61L, Ferritin 631H, Total Bilirubin 0.8, Aspartate Amino Transf ( AST/SGOT) 16, Alanine Aminotransferase (ALT/SGPT) 15, Alkaline Phosphatase 521H , Total Protein 5.8L, Albumin 1.5L, Globulin 4.3, Albumin/Globulin Ratio 0.3L, Vitamin B12 Level > 2000H, Folate 10.3, Thyroid Stimulating Hormone (TSH) 3.122 , Free Thyroxine 1.18 Current Medications Medications (Trade) Dose Ordered Sig/Bushra Route PRN Reason Start Time Stop Time Status Last Admin Dose Admin Acetaminophen (Tylenol) 650 mg Q4H PRN ORAL Mild Pain/Temp > 100.5 04/24/19 21:45 05/24/19 21:44 04/25/19 05:02 Albuterol/ Ipratropium (Albuterol/ Ipratropium) 3 ml Q4H PRN HHN Shortness of Breath 04/24/19 21:45 04/29/19 21:44 Cefepime HCl 1 gm/ Dextrose 55 ml @ 110 mls/hr DAILY IVPB 04/25/19 09:00 05/02/19 08:59 04/25/19 09:53 Chlorhexidine Gluconate (Mary Beth-Hex 2%) 1 applic DAILY@2000 TOPIC 04/25/19 20:00 05/25/19 19:59 Dextrose (Dextrose 50%) 25 ml Q30M PRN IV Hypoglycemia 04/24/19 21:45 05/24/19 21:44 Dextrose (Dextrose 50%) 50 ml Q30M PRN IV Hypoglycemia 04/24/19 21:45 05/24/19 21:44 04/25/19 17:26 Dextrose/ Electrolytes 1,000 ml @ 60 mls/hr [id number] IV 04/24/19 23:00 05/24/19 22:59 04/24/19 23:36 Doxycycline Hyclate 100 mg/ Dextrose 110 ml @ 110 mls/hr Q12HR@1100,2300 IV 04/24/19 23:00 05/01/19 22:59 04/25/19 00:19 Enoxaparin Sodium (Lovenox) 40 mg Q24H SUBQ 04/26/19 16:00 05/26/19 15:59 Insulin Aspart (NovoLOG) BEFORE MEALS AND HS SUBQ 04/25/19 06:30 05/25/19 06:29 Ondansetron HCl (Zofran) 4 mg Q6H PRN IVP Nausea & Vomiting 04/24/19 21:45 05/24/19 21:44 Potassium Chloride 100 ml @ 100 mls/hr Q1HR IVPB 04/26/19 09:00 04/26/19 12:59 UNV Vancomycin HCl (Firvanq) 125 mg FOUR TIMES A DAY ORAL 04/25/19 14:00 05/02/19 13:59 Juan Miguel Mendoza MD Apr 26, 2019 11:02
[2019-04-26] MEDS ORDERED: NS 500ML IVPB ONE (11:25)
[2019-04-26] MEDS ORDERED: Propofol 200mg/20ml IV ONE (11:30)
[2019-04-26] MEDS ORDERED: Lidocaine 1% Plain 30 ml INJ PRN (11:30)
--- NOTE | 2019-04-26 11:39 | Pre-Procedure Note/Attestation ---
Pre-Procedure Note/Attestation Complete Prior to Procedure Planned Procedure: not applicable Procedure Narrative: egd/peg Indications for Procedure Pre-Operative Diagnosis: dysphagia Attestation I attest that I discussed the nature of the procedure; its benefits; risks and complications; and alternatives (and the risks and benefits of such alternatives ), prior to the procedure, with the patient (or the patient's legal tax compliance representative). I attest that, if there was a reasonable possibility of needing a blood transfusion, the patient (or the patient's legal tax compliance representative) was given the [facility] standardized written summary, pursuant to the Juan Jason Blood Safety Act ([place] Health and Safety Code # 1645, as amended). I attest that I re-evaluated the patient just prior to the surgery and that there has been no change in the patient's H&P, except as documented below: Ramón Carranza MD Apr 26, 2019 11:39
--- NOTE | 2019-04-26 11:56 | Endoscopy Procedure Note ---
Endoscopy Procedure Note General Indication for Procedure: dysphgaia Procedures Performed: EGD, PEG Operative Findings/Diagnosis: , Specimen: yes Pt Tolerated Procedure Well: Yes Estimated Blood Loss: none Anesthesia Anesthesiologist: kassy Anesthesia: MAC Inserted Devices Implant(s) used?: No GI Core Measures 50 yrs or older w/o bx or poly: Not Applicable 10yrs. F/U recommended: Not Applicable Ramón Carranza MD Apr 26, 2019 11:56
--- NOTE | 2019-04-26 12:10 | Anethesia Preoperative Eval ---
Anesthesia Pre-op PMH/ROS General Date of Evaluation: Apr 26, 2019 Time of Evaluation: 11:13 Anesthesiologist: Jose A ASA Score: ASA 4 Mallampati Score Class I : Soft palate, uvula, fauces, pillars visible Class II: Soft palate, uvula, fauces visible Class III: Soft palate, base of uvula visible Class IV: Only hard plate visible Mallampati Classification: Class III Surgeon: Tere Diagnosis: Dysphagia Surgical Procedure: EGD PEG Anesthesia History: none Family History: no anesthesia problems Allergies: Coded Allergies: No Known Allergies (Unverified , 04/24/19) Medications: see eMAR Patient NPO?: Yes Past Medical History Cardiovascular: Reports: HTN; Denies: CAD, FL, valve dz, arrhythmia, other Pulmonary: Denies: asthma, COPD, PATY, other Gastrointestinal/Genitourinary: Reports: GERD; Denies: CRI, ESRD, other Neurologic/Psychiatric: Reports: dementia; Denies: CVA, depression/anxiety, TIA, other Endocrine: Reports: hypothyroidism; Denies: DM, steroids, other Hematology/Immune: Reports: anemia; Denies: DVT, bleeding disorder, other Musculoskeletal/Integumentary: Reports: OA; Denies: RA, DJD, DDD, edema, other Other: other - malnourished PMH Narrative: as above PSxH Narrative: See H&P Anesthesia Pre-op Phys. Exam Physician Exam Last Vital Signs Date Time Temp Pulse Resp B/P (MAP) Pulse Ox O2 Delivery O2 Flow Rate FiO2 04/26/19 10:39 92 20 94 Room Air 21 04/26/19 08:30 98.9 137/101 (113) 04/24/19 23:05 2.0 Constitutional: NAD Neurologic: other - unable to obtaine Cardiovascular: RRR, no M/R/G Respiratory: CTA Gastrointestinal: S/NT/ND Airway Exam Mallampati Score: Class III ROM: limited Teeth: missing Dentures: no upper, no lower Anesthesia Pre-op A/P Labs Hematology Test 04/26/19 04:17 White Blood Count 17.2 K/UL (4.8-10.8) H Red Blood Count 3.26 M/UL (4.20-5.40) L Hemoglobin 8.1 G/DL (12.0-16.0) L Hematocrit 25.9 % (37.0-47.0) L Mean Corpuscular Volume 79 FL (80-99) L Mean Corpuscular Hemoglobin 24.9 PG (27.0-31.0) L Mean Corpuscular Hemoglobin Concent 31.4 G/DL (32.0-36.0) L Red Cell Distribution Width 20.0 % (11.6-14.8) H Platelet Count 175 K/UL (150-450) Mean Platelet Volume 5.7 FL (6.5-10.1) L Neutrophils (%) (Auto) 83.3 % (45.0-75.0) H Lymphocytes (%) (Auto) 11.3 % (20.0-45.0) L Monocytes (%) (Auto) 5.0 % (1.0-10.0) Eosinophils (%) (Auto) 0.1 % (0.0-3.0) Basophils (%) (Auto) 0.3 % (0.0-2.0) Reticulocyte Count 1.9 % (0.5-2.0) Coagulation Test 04/26/19 04:17 Prothrombin Time 14.5 SEC (9.30-11.50) H Prothromb Time International Ratio 1.4 (0.9-1.1) H Activated Partial Thromboplast Time 34 SEC (23-33) H Chemistry Test 04/26/19 04:17 Sodium Level 154 MMOL/L (136-145) H Potassium Level 2.7 MMOL/L (3.5-5.1) *L Chloride Level 122 MMOL/L (98-107) H Carbon Dioxide Level 18 MMOL/L (21-32) L Anion Gap 14 mmol/L (5-15) Blood Urea Nitrogen 21 mg/dL (7-18) H Creatinine 1.0 MG/DL (0.55-1.30) Estimat Glomerular Filtration Rate mL/min (>60) Glucose Level 127 MG/DL (74-106) H Calcium Level 7.7 MG/DL (8.5-10.1) L Iron Level 21 ug/dL (50-175) L Total Iron Binding Capacity 82 ug/dL (250-450) L Percent Iron Saturation 26 % (15-50) Unsaturated Iron Binding 61 ug/dL (112-346) L Ferritin 631 NG/ML (8-388) H Total Bilirubin 0.8 MG/DL (0.2-1.0) Aspartate Amino Transf (AST/SGOT) 16 U/L (15-37) Alanine Aminotransferase (ALT/SGPT) 15 U/L (12-78) Alkaline Phosphatase 521 U/L (46-116) H Total Protein 5.8 G/DL (6.4-8.2) L Albumin 1.5 G/DL (3.4-5.0) L Globulin 4.3 g/dL Albumin/Globulin Ratio 0.3 (1.0-2.7) L Vitamin B12 Level > 2000 PG/ML (193-986) H Folate 10.3 NG/ML (8.6-58.9) Thyroid Stimulating Hormone (TSH) 3.122 uiU/mL (0.358-3.740) Free Thyroxine 1.18 NG/DL (0.76-1.46) Risk Assessment & Plan Assessment: ASA 4 Plan: MAC Status Change Before Surgery: Jonathan Suarez MD Apr 26, 2019 12:09
--- NOTE | 2019-04-26 12:11 | Immediate Post-Op Evaluation ---
Immediate Post-Op Evalulation Immediate Post-Op Evalulation Procedure: EGD PEG tube placement Date of Evaluation: Apr 26, 2019 Time of Evaluation: 12:10 IV Fluids: 300 Blood Products: none Estimated Blood Loss: min Urinary Output: none Blood Pressure Systolic: 94 Blood Pressure Diastolic: 56 Pulse Rate: 78 Respiratory Rate: 20 O2 Sat by Pulse Oximetry: 98 Temperature (Fahrenheit): 97.6 Pain Score (1-10): 1 Nausea: No Vomiting: No Complications none Patient Status: reacts, patent, none Hydration Status: adequate Jonathan Naranjo MD Apr 26, 2019 12:11
--- NOTE | 2019-04-26 12:36 | Infectious Diseases Prog Note ---
Assessment/Plan Assessment/Plan IMPRESSION: Sepsis with tachycardia and leukocytosis. Clostridium difficile colitis, may have pneumonia. diabetes mellitus, cachexia, failure to thrive. anemia and hyperlipidemia. s/p GT left leg ulcer RECOMMENDATION: We will continue treatment with cefepime, doxycycline and p.o. vancomycin. Subjective ROS Limited/Unobtainable: Yes Gastrointestinal/Abdominal: Reports: other - had EGT & PEG placement Allergies: Coded Allergies: No Known Allergies (Unverified , 04/24/19) Objective Vital Signs Last 24 Hour Vital Signs Date Time Temp Pulse Resp B/P (MAP) Pulse Ox O2 Delivery O2 Flow Rate FiO2 04/26/19 12:11 78 20 98 04/26/19 12:06 97.4 76 22 92/68 98 Nasal Cannula 3 04/26/19 10:39 92 20 94 Room Air 21 04/26/19 10:38 94 Room Air 21 04/26/19 08:30 98.9 62 19 137/101 (113) 94 04/26/19 04:00 97.3 105 20 129/74 (92) 94 04/26/19 04:00 100 04/26/19 00:00 116 04/26/19 00:00 97.2 110 20 128/82 (97) 94 04/25/19 22:45 98 18 95 Room Air 21 04/25/19 21:45 95 Room Air 21 04/25/19 21:00 Room Air 04/25/19 20:00 97.6 110 20 124/71 (88) 94 04/25/19 20:00 113 04/25/19 16:00 97.3 95 20 136/69 (91) 98 04/25/19 16:00 96 04/25/19 15:02 93 Room Air 21 Height (Feet): 5 Height (Inches): 3.00 Weight (Pounds): 80 General Appearance: no acute distress HEENT: mucous membranes moist Respiratory/Chest: lungs clear Cardiovascular: normal rate Abdomen: soft, non tender, other - GT in place Skin: ulcers Neurologic/Psychiatric: other - sedated Musculoskeletal: atrophy Microbiology Date/Time Source Procedure Growth Status 04/24/19 16:35 Blood Blood Culture - Preliminary NO GROWTH AFTER 24 HOURS Resulted 04/24/19 16:20 Blood Blood Culture - Preliminary NO GROWTH AFTER 24 HOURS Resulted 04/24/19 16:35 Stool Stool Culture - Final NO SALMONELLA,SHIGELLA,OR CAMPYLOBACT... Complete 04/24/19 16:35 Stool Clostridium difficile Toxin Assay - Final Complete 04/24/19 16:40 Urine,Clean Catch Urine Culture - Preliminary YEAST Resulted Laboratory Tests Test 04/26/19 02:00 04/26/19 04:17 Stool Occult Blood Positive (NEGATIVE) White Blood Count 17.2 K/UL (4.8-10.8) H Red Blood Count 3.26 M/UL (4.20-5.40) L Hemoglobin 8.1 G/DL (12.0-16.0) L Hematocrit 25.9 % (37.0-47.0) L Mean Corpuscular Volume 79 FL (80-99) L Mean Corpuscular Hemoglobin 24.9 PG (27.0-31.0) L Mean Corpuscular Hemoglobin Concent 31.4 G/DL (32.0-36.0) L Red Cell Distribution Width 20.0 % (11.6-14.8) H Platelet Count 175 K/UL (150-450) Mean Platelet Volume 5.7 FL (6.5-10.1) L Neutrophils (%) (Auto) 83.3 % (45.0-75.0) H Lymphocytes (%) (Auto) 11.3 % (20.0-45.0) L Monocytes (%) (Auto) 5.0 % (1.0-10.0) Eosinophils (%) (Auto) 0.1 % (0.0-3.0) Basophils (%) (Auto) 0.3 % (0.0-2.0) Reticulocyte Count 1.9 % (0.5-2.0) Prothrombin Time 14.5 SEC (9.30-11.50) H Prothromb Time International Ratio 1.4 (0.9-1.1) H Activated Partial Thromboplast Time 34 SEC (23-33) H Sodium Level 154 MMOL/L (136-145) H Potassium Level 2.7 MMOL/L (3.5-5.1) *L Chloride Level 122 MMOL/L (98-107) H Carbon Dioxide Level 18 MMOL/L (21-32) L Anion Gap 14 mmol/L (5-15) Blood Urea Nitrogen 21 mg/dL (7-18) H Creatinine 1.0 MG/DL (0.55-1.30) Estimat Glomerular Filtration Rate mL/min (>60) Glucose Level 127 MG/DL (74-106) H Calcium Level 7.7 MG/DL (8.5-10.1) L Iron Level 21 ug/dL (50-175) L Total Iron Binding Capacity 82 ug/dL (250-450) L Percent Iron Saturation 26 % (15-50) Unsaturated Iron Binding 61 ug/dL (112-346) L Ferritin 631 NG/ML (8-388) H Total Bilirubin 0.8 MG/DL (0.2-1.0) Aspartate Amino Transf (AST/SGOT) 16 U/L (15-37) Alanine Aminotransferase (ALT/SGPT) 15 U/L (12-78) Alkaline Phosphatase 521 U/L (46-116) H Total Protein 5.8 G/DL (6.4-8.2) L Albumin 1.5 G/DL (3.4-5.0) L Globulin 4.3 g/dL Albumin/Globulin Ratio 0.3 (1.0-2.7) L Vitamin B12 Level > 2000 PG/ML (193-986) H Folate 10.3 NG/ML (8.6-58.9) Thyroid Stimulating Hormone (TSH) 3.122 uiU/mL (0.358-3.740) Free Thyroxine 1.18 NG/DL (0.76-1.46) Current Medications Medications (Trade) Dose Ordered Sig/Bushra Route PRN Reason Start Time Stop Time Status Last Admin Dose Admin Acetaminophen (Tylenol) 650 mg Q4H PRN ORAL Mild Pain/Temp > 100.5 04/24/19 21:45 05/24/19 21:44 04/25/19 05:02 Albuterol/ Ipratropium (Albuterol/ Ipratropium) 3 ml Q4H PRN HHN Shortness of Breath 04/24/19 21:45 04/29/19 21:44 Cefepime HCl 1 gm/ Dextrose 55 ml @ 110 mls/hr DAILY IVPB 04/25/19 09:00 05/02/19 08:59 04/25/19 09:53 Chlorhexidine Gluconate (Mary Beth-Hex 2%) 1 applic DAILY@2000 TOPIC 04/25/19 20:00 05/25/19 19:59 Dextrose (Dextrose 50%) 25 ml Q30M PRN IV Hypoglycemia 04/24/19 21:45 05/24/19 21:44 Dextrose (Dextrose 50%) 50 ml Q30M PRN IV Hypoglycemia 04/24/19 21:45 05/24/19 21:44 04/25/19 17:26 Dextrose/ Electrolytes 1,000 ml @ 60 mls/hr [id number] IV 04/24/19 23:00 05/24/19 22:59 04/24/19 23:36 Doxycycline Hyclate 100 mg/ Dextrose 110 ml @ 110 mls/hr Q12HR@1100,2300 IV 04/24/19 23:00 05/01/19 22:59 04/25/19 00:19 Enoxaparin Sodium (Lovenox) 40 mg Q24H SUBQ 04/26/19 16:00 05/26/19 15:59 Famotidine (Pepcid) 20 mg BID GT 04/26/19 18:00 05/26/19 17:59 Insulin Aspart (NovoLOG) BEFORE MEALS AND HS SUBQ 04/25/19 06:30 05/25/19 06:29 Lidocaine HCl (Xylocaine 1% 30ml) 30 ml ONCE PRN INJ PICC 04/26/19 11:30 04/26/19 23:00 Ondansetron HCl (Zofran) 4 mg Q6H PRN IVP Nausea & Vomiting 04/24/19 21:45 05/24/19 21:44 Potassium Chloride 100 ml @ 100 mls/hr Q1HR IVPB 04/26/19 09:00 04/26/19 12:59 UNV Vancomycin HCl (Firvanq) 125 mg FOUR TIMES A DAY ORAL 04/25/19 14:00 05/02/19 13:59 Rajeev Pedro MD Apr 26, 2019 12:36
--- NOTE | 2019-04-26 12:52 | Surgery Progress Note ---
Surgery Progress Note Subjective Additional Comments persistent leukocytosis electrolytes abnormal exam unchanged. EGD with PEG for nutritional support today Objective Last 24 Hour Vital Signs Date Time Temp Pulse Resp B/P (MAP) Pulse Ox O2 Delivery O2 Flow Rate FiO2 04/26/19 12:25 97.2 88 21 123/62 99 Nasal Cannula 3 04/26/19 12:20 90 18 111/59 98 Nasal Cannula 3 04/26/19 12:11 78 20 98 04/26/19 12:10 89 20 97/47 100 Nasal Cannula 3 04/26/19 12:06 97.4 76 22 92/68 98 Nasal Cannula 3 04/26/19 10:39 92 20 94 Room Air 21 04/26/19 10:38 94 Room Air 21 04/26/19 08:30 98.9 62 19 137/101 (113) 94 04/26/19 04:00 97.3 105 20 129/74 (92) 94 04/26/19 04:00 100 04/26/19 00:00 116 04/26/19 00:00 97.2 110 20 128/82 (97) 94 04/25/19 22:45 98 18 95 Room Air 21 04/25/19 21:45 95 Room Air 21 04/25/19 21:00 Room Air 04/25/19 20:00 97.6 110 20 124/71 (88) 94 04/25/19 20:00 113 04/25/19 16:00 97.3 95 20 136/69 (91) 98 04/25/19 16:00 96 04/25/19 15:02 93 Room Air 21 I&O Intake and Output 04/25/19 04/26/19 18:59 06:59 Output Total 250 ml Balance -250 ml Output Urine Total 250 ml # Voids 3 # Bowel Movements 3 Dressing: saturated Wound: other Drains: other Cardiovascular: RSR Respiratory: clear Abdomen: soft, non-tender, present bowel sounds, non-distended Extremities: no edema, other Laboratory Tests Test 04/26/19 02:00 04/26/19 04:17 Stool Occult Blood Positive (NEGATIVE) White Blood Count 17.2 K/UL (4.8-10.8) H Red Blood Count 3.26 M/UL (4.20-5.40) L Hemoglobin 8.1 G/DL (12.0-16.0) L Hematocrit 25.9 % (37.0-47.0) L Mean Corpuscular Volume 79 FL (80-99) L Mean Corpuscular Hemoglobin 24.9 PG (27.0-31.0) L Mean Corpuscular Hemoglobin Concent 31.4 G/DL (32.0-36.0) L Red Cell Distribution Width 20.0 % (11.6-14.8) H Platelet Count 175 K/UL (150-450) Mean Platelet Volume 5.7 FL (6.5-10.1) L Neutrophils (%) (Auto) 83.3 % (45.0-75.0) H Lymphocytes (%) (Auto) 11.3 % (20.0-45.0) L Monocytes (%) (Auto) 5.0 % (1.0-10.0) Eosinophils (%) (Auto) 0.1 % (0.0-3.0) Basophils (%) (Auto) 0.3 % (0.0-2.0) Reticulocyte Count 1.9 % (0.5-2.0) Prothrombin Time 14.5 SEC (9.30-11.50) H Prothromb Time International Ratio 1.4 (0.9-1.1) H Activated Partial Thromboplast Time 34 SEC (23-33) H Sodium Level 154 MMOL/L (136-145) H Potassium Level 2.7 MMOL/L (3.5-5.1) *L Chloride Level 122 MMOL/L (98-107) H Carbon Dioxide Level 18 MMOL/L (21-32) L Anion Gap 14 mmol/L (5-15) Blood Urea Nitrogen 21 mg/dL (7-18) H Creatinine 1.0 MG/DL (0.55-1.30) Estimat Glomerular Filtration Rate mL/min (>60) Glucose Level 127 MG/DL (74-106) H Calcium Level 7.7 MG/DL (8.5-10.1) L Iron Level 21 ug/dL (50-175) L Total Iron Binding Capacity 82 ug/dL (250-450) L Percent Iron Saturation 26 % (15-50) Unsaturated Iron Binding 61 ug/dL (112-346) L Ferritin 631 NG/ML (8-388) H Total Bilirubin 0.8 MG/DL (0.2-1.0) Aspartate Amino Transf (AST/SGOT) 16 U/L (15-37) Alanine Aminotransferase (ALT/SGPT) 15 U/L (12-78) Alkaline Phosphatase 521 U/L (46-116) H Total Protein 5.8 G/DL (6.4-8.2) L Albumin 1.5 G/DL (3.4-5.0) L Globulin 4.3 g/dL Albumin/Globulin Ratio 0.3 (1.0-2.7) L Vitamin B12 Level > 2000 PG/ML (193-986) H Folate 10.3 NG/ML (8.6-58.9) Thyroid Stimulating Hormone (TSH) 3.122 uiU/mL (0.358-3.740) Free Thyroxine 1.18 NG/DL (0.76-1.46) Plan Problems: (1) Leg ulcer Assessment & Plan: Pt presented on admission with multiple pressure injuries and necrotic ulcer torrey L tibia.Pt is emaciated. Non-blanchable erythema with fluctuance noted to R shoulder. (L)2cm x (W)1cm. Open DTPI noted to sacrum. Base of wound is purple with scattered open wounds with slough.(L)7.5cm x (W)6.5cm. Site tender when minimally palpated.Non- blanching erythema periwound. Non-blanching erythema without fluctuance noted to L ischium (L)2.5cm x (W) 2.5cm. Tender when minimally palpated. Bilat lower ext edematous . Full thickness ulcer with irregular and erythematous borders noted to torrey /distal L tibia. Base of wound 100% non- viable ,Soft necrosis noted . No odor or exudate noted. Pt complained of severe pain with minimal touch during wound assessment..Non-blanching erythema with fluctuance both heels. Pt verbalized pain when both heels minimally palpated. Plantar aspects of both feet and toes on both feet noted to be dusky. Tx.Plan: Cleanse sacral wound with Saline. Apply Therahoney. Apply Triad Paste periwound. Cover with Optifoam drsg. Change Daily and prn. Apply Triad Paste to bilateral groin and both ischial areas with each perineal care. Cleanse Wound Torrey L tibia with Saline. Apply Therhaoney. Apply Cavilon Skin Barrier periwound. Cover with Optifoam Drsg. Change every 3 days and prn. Apply Cavilon Skin Barrier to both heels. Cover each heel with Optifoam drsg. Change every 7 days and prn. APM/CAIO mattress overlay. Reposition at least every 2hours or as tolerated. Off-load heels with pillow. (2) Failure to thrive Assessment & Plan: DAILY ESTIMATED NEEDS: Needs based on Wt loss, underweight, wound/ 36kg 35-40 kcals/kg 5042-2994 total kcals 1.5-2.0 g protein/kg 54-72 g total protein 25-30 mL/kg 900-1080 total fluid mLs NUTRITION DIAGNOSIS: * Increased kcal/prot intake needs R/T underweight status, recent wt loss, wound healing as evidenced by admitted w/ significant wt loss of 11.9lbs/13% in 3 weeks, 84% IBW w/ low BMI per guidelines, admitted w/ lt wagner and sacral wounds, pending evaluation, currently NPO, pending PEG placement. CURRENT DIET: NPO ENTERAL NUTRITION RECOMMENDATIONS: Glucerna 1.2 @ 50ml/hr x 24 hrs to provide 1200ml, 1440kcal, 72g prot, 966ml free water * W/ GI access s/p PEG placement, initiate Glucerna 1.2 @ 10ml/hr x 6 hrs * Advance 10ml q 4-6 hrs as tolerated to goal rate. * HOB over 30 degrees/ water flush per MD ADDITIONAL RECOMMENDATIONS: * Weekly calibrated bedscale wt * Monitor lytes daily w/ TF, replete as needed -> pt at HIGH RISK for refeeding syndrome, increase TF SLOWLY * Wound healing: Add Vit C 250mg QD add ZnSO4 220mg QD x 10 days add Zeke 1pkt BID * Probiotics for diarrhea (3) Cellulitis, leg Assessment & Plan: cont with IV abx as per ID now with peg start feeds Nico Sanz Apr 26, 2019 12:52
--- NOTE | 2019-04-26 13:10 | 48 Hour Post Anesthesia Eval ---
Post Anesthesia Evaluation Procedure: EGD PEG tube placement Date of Evaluation: Apr 26, 2019 Time of Evaluation: 13:09 Blood Pressure Systolic: 118 0: 57 Pulse Rate: 68 Respiratory Rate: 22 Temperature (Fahrenheit): 97.2 O2 Sat by Pulse Oximetry: 98 Airway: patent Nausea: No Vomiting: No Pain Intensity: 1 Hydration Status: adequate Cardiopulmonary Status: stable Mental Status/LOC: patient returned to baseline Follow-up Care/Observations: n/a Post-Anesthesia Complications: none Follow-up care needed: N/A Jonathan Naranjo MD Apr 26, 2019 13:10
[2019-04-26] MEDS: D5 1/2NS w/KCl 20mEq 1,000 ML IV SCH (13:57)
[2019-04-26] MEDS ORDERED: KCl 20mEq 100ml Premix IVPB ONE (14:30)
[2019-04-26] MEDS: Cefepime HCl 1 GM in D5W 55 ML IVPB SCH (15:04)
--- NOTE | 2019-04-26 15:25 | Nephrology Progress Note ---
Assessment/Plan Problem List: (1) Hypernatremia (2) Hypokalemia (3) Dehydration (4) Failure to thrive Assessment Dehydration Free water deficit leading to high Na Low K and Low Mag Anemia Severe Malnutrition ? UTI Plan D5w hydrate Monitor Lytes and renal parameters replase Mag Phos k...as needed ? PEG Per orders Subjective ROS Limited/Unobtainable: No Constitutional: Reports: malaise, weakness Objective Objective Last 24 Hour Vital Signs Date Time Temp Pulse Resp B/P (MAP) Pulse Ox O2 Delivery O2 Flow Rate FiO2 04/26/19 13:10 68 22 98 04/26/19 12:25 97.2 88 21 123/62 99 Nasal Cannula 3 04/26/19 12:20 90 18 111/59 98 Nasal Cannula 3 04/26/19 12:11 78 20 98 04/26/19 12:10 89 20 97/47 100 Nasal Cannula 3 04/26/19 12:06 97.4 76 22 92/68 98 Nasal Cannula 3 04/26/19 10:39 92 20 94 Room Air 21 04/26/19 10:38 94 Room Air 21 04/26/19 08:30 98.9 62 19 137/101 (113) 94 04/26/19 04:00 97.3 105 20 129/74 (92) 94 04/26/19 04:00 100 04/26/19 00:00 116 04/26/19 00:00 97.2 110 20 128/82 (97) 94 04/25/19 22:45 98 18 95 Room Air 21 04/25/19 21:45 95 Room Air 21 04/25/19 21:00 Room Air 04/25/19 20:00 97.6 110 20 124/71 (88) 94 04/25/19 20:00 113 04/25/19 16:00 97.3 95 20 136/69 (91) 98 04/25/19 16:00 96 Intake and Output 04/25/19 04/26/19 18:59 06:59 Output Total 250 ml Balance -250 ml Output Urine Total 250 ml # Voids 3 # Bowel Movements 3 Laboratory Tests 04/26/19 02:00: Stool Occult Blood Positive 04/26/19 04:17: White Blood Count 17.2H, Red Blood Count 3.26L, Hemoglobin 8.1L, Hematocrit 25.9L, Mean Corpuscular Volume 79L, Mean Corpuscular Hemoglobin 24.9L, Mean Corpuscular Hemoglobin Concent 31.4L, Red Cell Distribution Width 20.0H, Platelet Count 175, Mean Platelet Volume 5.7L, Neutrophils (%) (Auto) 83.3H, Lymphocytes (%) (Auto) 11.3L, Monocytes (%) (Auto) 5.0, Eosinophils (%) (Auto) 0.1, Basophils (%) (Auto) 0.3, Reticulocyte Count 1.9, Prothrombin Time 14.5H, Prothromb Time International Ratio 1.4H, Activated Partial Thromboplast Time 34H , Sodium Level 154H, Potassium Level 2.7*L, Chloride Level 122H, Carbon Dioxide Level 18L, Anion Gap 14, Blood Urea Nitrogen 21H, Creatinine 1.0, Estimat Glomerular Filtration Rate , Glucose Level 127H, Calcium Level 7.7L, Iron Level 21L, Total Iron Binding Capacity 82L, Percent Iron Saturation 26, Unsaturated Iron Binding 61L, Ferritin 631H, Total Bilirubin 0.8, Aspartate Amino Transf ( AST/SGOT) 16, Alanine Aminotransferase (ALT/SGPT) 15, Alkaline Phosphatase 521H , Total Protein 5.8L, Albumin 1.5L, Globulin 4.3, Albumin/Globulin Ratio 0.3L, Vitamin B12 Level > 2000H, Folate 10.3, Thyroid Stimulating Hormone (TSH) 3.122 , Free Thyroxine 1.18 Height (Feet): 5 Height (Inches): 3.00 Weight (Pounds): 80 General Appearance: no apparent distress Cardiovascular: normal rate Respiratory/Chest: decreased breath sounds Abdomen: soft, other - has PEG now Silver Orellana MD Apr 26, 2019 15:25
[2019-04-26] MEDS: Doxycycline Hyclate 100 MG in D5W 110 ML IV SCH ×2 (15:31→23:42)
[2019-04-26] MEDS: Vancomycin oral 125mg/2.5ml GT SCH ×3 (15:40→21:40)
[2019-04-26] MEDS: KCl 20mEq 100ml Premix IVPB SCH ×2 (16:30→19:48)
--- NOTE | 2019-04-26 16:45 | Procedure Note ---
DATE OF PROCEDURE: 04/26/2019 SURGEON: Ramón Carranza M.D. REFERRING PHYSICIAN: Nicole Guillermo M.D. PROCEDURE: Upper endoscopy with PEG placement and biopsy. ANESTHESIA: Per Dr. Naranjo. INSTRUMENT: Olympus adult flexible upper endoscope. INDICATIONS: 1. Dysphagia. 2. Failure to thrive. REASON FOR PROCEDURE: The procedure, risks, benefits, and possible consequences, including hemorrhage, aspiration, perforation and infection, and alternative treatments, were explained to the patient/legal guardian by Dr. Ramón Carranza and the patient/legal guardian understood and accepted these risks. PROCEDURE IN DETAIL: After informed consent was obtained and the patient was adequately sedated, Olympus upper endoscope was advanced from the mouth into second portion of the duodenum and retroflexion was performed in the stomach. The patient had a large ulcer in the prepyloric region, at about 9 o'clock position in the prepyloric region. This ulcer was cavitated. There seems to be may be sutures in this place. I am not sure if he had a surgery for this ulcer before. There was no active bleeding. No visible vessel. No adherent clot. Random biopsy from antrum was obtained to rule out H. pylori infection as a cause of ulceration. Then, under endoscopic guidance and under sterile condition, a 20-Lithuanian pull type of G-tube was successfully placed in epigastric area. The distance from the tip of the tube to skin was about 2 cm in size. The patient tolerated the procedure very well without any complication. SUMMARY OF FINDINGS: 1. Gastric ulcer. See above for details. 2. Gastritis, status post biopsy. 3. Status post successful PEG placement. RECOMMENDATION: 1. Abdominal binder. 2. Elevate the head of the bed at all times. 3. G-tube flush. 4. G-tube care. 5. Start tube feeding later today. I want to thank Dr. Nicole Guillermo for this kind referral. Ramón Carranza M.D. DR: MARYJANE JOB#: [id number] CC:
--- NOTE | 2019-04-26 17:02 | Hematology/Onc Progress Note ---
Assessment/Plan Assessment/Plan Assessment and Recs: # Anemia of chronic disease, rule out gi bleed, likely is multifactorial --> anemia panel has been ordered and reviewed and cw acd --> hgb goal is >7 --> no evidence for hemolysis --> obtain occult blood++ per gi prn recs --> hgb trend 10-->9.1-->8.1 # Leukocytosis likely 2/2 anemia v infection (PNA) --> abx have been started --> cefepime/cefoxitin --> wbc trend: 20-->17.2 # Coagulopathy with elevated pt/ptt/inr --> cause yet unknown --> scan abdomen to r/o liver involvement # FTT requiring potential gtube placement --> Encounter for PEG (percutaneous endoscopic gastrostomy) --> remains npo # Dehydration --> per renal, may need ivf # PNA on abx Time of note does not necessarily reflect time of encounter. Appreciate consultation greatly Subjective Respiratory: Denies: no symptoms, cough, shortness of breath, SOB with excertion, SOB at rest, sputum, wheezing, other Gastrointestinal/Abdominal: Denies: no symptoms, abdomen distended, abdominal pain, black stools, tarry stools, blood in stool, constipated, diarrhea, difficulty swallowing, nausea, poor appetite, poor fluid intake, rectal bleeding , vomiting, other Neurologic/Psychiatric: Denies: no symptoms, anxiety, depressed, emotional problems, headache, numbness, paresthesia, pre-existing deficit, seizure, tingling, tremors, weakness, other Endocrine: Denies: no symptoms, excessive sweating, flushing, intolerance to cold, intolerance to heat, increased hunger, increased thirst, increased urine, unexplained weight gain, unexplained weight loss, other Hematologic/Lymphatic: Reports: anemia Allergies: Coded Allergies: No Known Allergies (Unverified , 04/24/19) Subjective 04/26: awake and confused, on abx, h/h stable , on vanc/cefe/dox Objective Objective Current Medications Medications (Trade) Dose Ordered Sig/Bushra Route PRN Reason Start Time Stop Time Status Last Admin Dose Admin Acetaminophen (Tylenol) 650 mg Q4H PRN ORAL Mild Pain/Temp > 100.5 04/24/19 21:45 05/24/19 21:44 04/25/19 05:02 Albuterol/ Ipratropium (Albuterol/ Ipratropium) 3 ml Q4H PRN HHN Shortness of Breath 04/24/19 21:45 04/29/19 21:44 Cefepime HCl 1 gm/ Dextrose 55 ml @ 110 mls/hr DAILY IVPB 04/25/19 09:00 05/02/19 08:59 04/26/19 15:04 Chlorhexidine Gluconate (Mary Beth-Hex 2%) 1 applic DAILY@2000 TOPIC 04/25/19 20:00 05/25/19 19:59 Dextrose 1,000 ml @ 50 mls/hr Q20H IV 04/26/19 15:30 05/26/19 15:29 04/26/19 15:41 Dextrose (Dextrose 50%) 25 ml Q30M PRN IV Hypoglycemia 04/24/19 21:45 05/24/19 21:44 Dextrose (Dextrose 50%) 50 ml Q30M PRN IV Hypoglycemia 04/24/19 21:45 05/24/19 21:44 04/25/19 17:26 Doxycycline Hyclate 100 mg/ Dextrose 110 ml @ 110 mls/hr Q12HR@1100,2300 IV 04/24/19 23:00 05/01/19 22:59 04/26/19 15:31 Enoxaparin Sodium (Lovenox) 40 mg Q24H SUBQ 04/26/19 16:00 05/26/19 15:59 Famotidine (Pepcid) 20 mg BID GT 04/26/19 18:00 05/26/19 17:59 Insulin Aspart (NovoLOG) BEFORE MEALS AND HS SUBQ 04/25/19 06:30 05/25/19 06:29 Lidocaine HCl (Xylocaine 1% 30ml) 30 ml ONCE PRN INJ PICC 04/26/19 11:30 04/26/19 23:00 Ondansetron HCl (Zofran) 4 mg Q6H PRN IVP Nausea & Vomiting 04/24/19 21:45 05/24/19 21:44 Potassium Chloride 100 ml @ 50 mls/hr Q2H IVPB 04/26/19 16:30 04/26/19 20:29 Vancomycin HCl (Firvanq) 125 mg FOUR TIMES A DAY GT 8/23/19 13:00 05/02/19 13:59 04/26/19 15:40 Last 24 Hour Vital Signs Date Time Temp Pulse Resp B/P (MAP) Pulse Ox O2 Delivery O2 Flow Rate FiO2 04/26/19 13:10 68 22 98 04/26/19 12:25 97.2 88 21 123/62 99 Nasal Cannula 3 04/26/19 12:20 90 18 111/59 98 Nasal Cannula 3 04/26/19 12:11 78 20 98 04/26/19 12:10 89 20 97/47 100 Nasal Cannula 3 04/26/19 12:06 97.4 76 22 92/68 98 Nasal Cannula 3 04/26/19 10:39 92 20 94 Room Air 21 04/26/19 10:38 94 Room Air 21 04/26/19 08:30 98.9 62 19 137/101 (113) 94 04/26/19 04:00 97.3 105 20 129/74 (92) 94 04/26/19 04:00 100 04/26/19 00:00 116 04/26/19 00:00 97.2 110 20 128/82 (97) 94 04/25/19 22:45 98 18 95 Room Air 21 04/25/19 21:45 95 Room Air 21 04/25/19 21:00 Room Air 04/25/19 20:00 97.6 110 20 124/71 (88) 94 04/25/19 20:00 113 04/25/19 16:00 97.3 95 20 136/69 (91) 98 04/25/19 16:00 96 04/25/19 15:02 93 Room Air 21 04/25/19 12:00 97.7 105 20 113/21 (51) 96 04/25/19 12:00 102 04/25/19 09:00 Room Air 04/25/19 08:00 96.6 105 20 136/62 (86) 94 04/25/19 08:00 103 04/25/19 04:00 115 04/25/19 04:00 97.2 115 18 108/54 (72) 96 04/25/19 00:00 109 04/25/19 00:00 97.9 99 18 110/65 (80) 94 04/24/19 23:05 Nasal Cannula 2.0 04/24/19 20:48 98.7 108 18 115/56 100 Nasal Cannula 2.0 04/24/19 20:00 97.7 109 18 104/63 (77) 92 04/24/19 20:00 119 04/24/19 20:00 98.5 107 19 117/57 100 Nasal Cannula 2.0 04/24/19 19:35 116 19 Room Air 04/24/19 18:33 112 24 105/64 92 04/24/19 17:26 117 17 151/131 92 Room Air Intake and Output 04/25/19 04/26/19 19:00 07:00 Output Total 250 ml Balance -250 ml Output Urine Total 250 ml # Voids 3 # Bowel Movements 3 Labs Test 04/24/19 16:20 04/24/19 16:40 04/25/19 07:01 04/26/19 02:00 White Blood Count 20.3 K/UL (4.8-10.8) 17.0 K/UL (4.8-10.8) Red Blood Count 4.17 M/UL (4.20-5.40) 3.65 M/UL (4.20-5.40) Hemoglobin 10.2 G/DL (12.0-16.0) 9.1 G/DL (12.0-16.0) Hematocrit 32.0 % (37.0-47.0) 29.0 % (37.0-47.0) Mean Corpuscular Volume 77 FL (80-99) 79 FL (80-99) Mean Corpuscular Hemoglobin 24.5 PG (27.0-31.0) 24.9 PG (27.0-31.0) Mean Corpuscular Hemoglobin Concent 31.9 G/DL (32.0-36.0) 31.4 G/DL (32.0-36.0) Red Cell Distribution Width 18.7 % (11.6-14.8) 20.2 % (11.6-14.8) Platelet Count 282 K/UL (150-450) 217 K/UL (150-450) Mean Platelet Volume 5.1 FL (6.5-10.1) 5.9 FL (6.5-10.1) Neutrophils (%) (Auto) % (45.0-75.0) 84.5 % (45.0-75.0) Lymphocytes (%) (Auto) % (20.0-45.0) 7.2 % (20.0-45.0) Monocytes (%) (Auto) % (1.0-10.0) 7.8 % (1.0-10.0) Eosinophils (%) (Auto) % (0.0-3.0) 0.1 % (0.0-3.0) Basophils (%) (Auto) % (0.0-2.0) 0.3 % (0.0-2.0) Differential Total Cells Counted 100 Neutrophils % (Manual) 90 % (45-75) Lymphocytes % (Manual) 6 % (20-45) Monocytes % (Manual) 1 % (1-10) Eosinophils % (Manual) 0 % (0-3) Basophils % (Manual) 0 % (0-2) Band Neutrophils 3 % (0-8) Platelet Estimate Adequate Platelet Morphology Normal Polychromasia 1+ Anisocytosis 2+ Target Cells Occasional Sodium Level 151 MMOL/L (136-145) 151 MMOL/L (136-145) Potassium Level 2.9 MMOL/L (3.5-5.1) 3.5 MMOL/L (3.5-5.1) Chloride Level 115 MMOL/L (98-107) 121 MMOL/L (98-107) Carbon Dioxide Level 23 MMOL/L (21-32) 17 MMOL/L (21-32) Anion Gap 13 mmol/L (5-15) 13 mmol/L (5-15) Blood Urea Nitrogen 15 mg/dL (7-18) 17 mg/dL (7-18) Creatinine 0.4 MG/DL (0.55-1.30) 0.8 MG/DL (0.55-1.30) Estimat Glomerular Filtration Rate mL/min (>60) mL/min (>60) Glucose Level 163 MG/DL (74-106) 152 MG/DL (74-106) Lactic Acid Level 1.60 mmol/L (0.4-2.0) Calcium Level 7.8 MG/DL (8.5-10.1) 7.3 MG/DL (8.5-10.1) Total Bilirubin 0.7 MG/DL (0.2-1.0) 0.9 MG/DL (0.2-1.0) Aspartate Amino Transf (AST/SGOT) 14 U/L (15-37) 15 U/L (15-37) Alanine Aminotransferase (ALT/SGPT) 13 U/L (12-78) 10 U/L (12-78) Alkaline Phosphatase 635 U/L (46-116) 543 U/L (46-116) Total Protein 6.3 G/DL (6.4-8.2) 5.7 G/DL (6.4-8.2) Albumin 1.5 G/DL (3.4-5.0) 1.4 G/DL (3.4-5.0) Globulin 4.8 g/dL 4.3 g/dL Albumin/Globulin Ratio 0.3 (1.0-2.7) 0.3 (1.0-2.7) Lipase 43 U/L (73-393) Urine Color Yellow Urine Appearance Clear Urine pH 8 (4.5-8.0) Urine Specific [place] 1.010 (1.005-1.035) Urine Protein 2+ (NEGATIVE) Urine Glucose (UA) Negative (NEGATIVE) Urine Ketones 2+ (NEGATIVE) Urine Blood Negative (NEGATIVE) Urine Nitrite Negative (NEGATIVE) Urine Bilirubin Negative (NEGATIVE) Urine Urobilinogen Normal MG/DL (0.0-1.0) Urine Leukocyte Esterase 1+ (NEGATIVE) Urine RBC 0-2 /HPF (0 - 2) Urine WBC 5-10 /HPF (0 - 2) Urine Squamous Epithelial Cells None /LPF (NONE/OCC) Urine Bacteria Few /HPF (NONE) Urine Yeast Few /HPF (NONE) Uric Acid 5.4 MG/DL (2.6-7.2) Phosphorus Level 2.5 MG/DL (2.5-4.9) Magnesium Level 1.4 MG/DL (1.8-2.4) Iron Level 11 ug/dL (50-175) Total Iron Binding Capacity 72 ug/dL (250-450) Percent Iron Saturation 15 % (15-50) Unsaturated Iron Binding 61 ug/dL (112-346) Ferritin 573 NG/ML (8-388) Gamma Glutamyl Transpeptidase 260 U/L (5-85) Troponin I 0.000 ng/mL (0.000-0.056) C-Reactive Protein, Quantitative 37.9 mg/dL (0.00-0.90) Pro-B-Type Natriuretic Peptide 9127 pg/mL (0-125) Triglycerides Level 106 MG/DL (30-150) Cholesterol Level 140 MG/DL (< 200) LDL Cholesterol 67 mg/dL (<100) HDL Cholesterol 35 MG/DL (40-60) Cholesterol/HDL Ratio 4.0 (3.3-4.4) Vitamin B12 Level > 2000 PG/ML (193-986) Folate 12.4 NG/ML (8.6-58.9) Thyroid Stimulating Hormone (TSH) 2.282 uiU/mL (0.358-3.740) Cortisol AM Sample 34.8 UG/DL Stool Occult Blood Positive (NEGATIVE) Test 04/26/19 04:17 White Blood Count 17.2 K/UL (4.8-10.8) Red Blood Count 3.26 M/UL (4.20-5.40) Hemoglobin 8.1 G/DL (12.0-16.0) Hematocrit 25.9 % (37.0-47.0) Mean Corpuscular Volume 79 FL (80-99) Mean Corpuscular Hemoglobin 24.9 PG (27.0-31.0) Mean Corpuscular Hemoglobin Concent 31.4 G/DL (32.0-36.0) Red Cell Distribution Width 20.0 % (11.6-14.8) Platelet Count 175 K/UL (150-450) Mean Platelet Volume 5.7 FL (6.5-10.1) Neutrophils (%) (Auto) 83.3 % (45.0-75.0) Lymphocytes (%) (Auto) 11.3 % (20.0-45.0) Monocytes (%) (Auto) 5.0 % (1.0-10.0) Eosinophils (%) (Auto) 0.1 % (0.0-3.0) Basophils (%) (Auto) 0.3 % (0.0-2.0) Reticulocyte Count 1.9 % (0.5-2.0) Prothrombin Time 14.5 SEC (9.30-11.50) Prothromb Time International Ratio 1.4 (0.9-1.1) Activated Partial Thromboplast Time 34 SEC (23-33) Sodium Level 154 MMOL/L (136-145) Potassium Level 2.7 MMOL/L (3.5-5.1) Chloride Level 122 MMOL/L (98-107) Carbon Dioxide Level 18 MMOL/L (21-32) Anion Gap 14 mmol/L (5-15) Blood Urea Nitrogen 21 mg/dL (7-18) Creatinine 1.0 MG/DL (0.55-1.30) Estimat Glomerular Filtration Rate mL/min (>60) Glucose Level 127 MG/DL (74-106) Calcium Level 7.7 MG/DL (8.5-10.1) Iron Level 21 ug/dL (50-175) Total Iron Binding Capacity 82 ug/dL (250-450) Percent Iron Saturation 26 % (15-50) Unsaturated Iron Binding 61 ug/dL (112-346) Ferritin 631 NG/ML (8-388) Total Bilirubin 0.8 MG/DL (0.2-1.0) Aspartate Amino Transf (AST/SGOT) 16 U/L (15-37) Alanine Aminotransferase (ALT/SGPT) 15 U/L (12-78) Alkaline Phosphatase 521 U/L (46-116) Total Protein 5.8 G/DL (6.4-8.2) Albumin 1.5 G/DL (3.4-5.0) Globulin 4.3 g/dL Albumin/Globulin Ratio 0.3 (1.0-2.7) Vitamin B12 Level > 2000 PG/ML (193-986) Folate 10.3 NG/ML (8.6-58.9) Thyroid Stimulating Hormone (TSH) 3.122 uiU/mL (0.358-3.740) Free Thyroxine 1.18 NG/DL (0.76-1.46) Height (Feet): 5 Height (Inches): 3.00 Weight (Pounds): 80 Objective Physical Exam Vital Signs: reviewed Gen: well appearing, no apparent distress, alert HEENT: supple Resp: normal breath sounds, no respiratory distress CV: normal rate GI: normal inspection, non tender, soft, normal bowel sounds, non-distended Rectal: deferred : no CVA tenderness Neurologic: alert, responsive Skin: normal inspection, normal color, no rash, warm/dry, palpation normal, well hydrated Lymphatic: normal inspection, no adenopathy Matt Felipe MD Apr 26, 2019 17:02
[2019-04-26] MEDS: Enoxaparin 40mg Inj SUBQ SCH (17:31)
--- NOTE | 2019-04-26 19:47 | Diagnostic Imaging Report ---
EXAM: US Abdomen Complete CLINICAL HISTORY: MASS TECHNIQUE: Real-time ultrasound of the abdomen (complete) with image documentation. COMPARISON: No relevant prior studies available. FINDINGS: Liver: Small heterogeneous liver, measures 11.8 cm. No discrete lesion. Gallbladder: No gallstones or biliary ductal dilatation. Common bile duct: Unremarkable as visualized. Pancreas: Pancreas is mostly obscured. Kidneys: Query Nonobstructing left renal stone. No hydronephrosis. Spleen: Spleen not visualized. Aorta: Aorta is mostly obscured. Inferior vena cava: Limited visualization Free fluid: Small amounts of fluid in the peritoneal cavity Pleural space: Possibly pleural effusion. IMPRESSION: Small heterogeneous liver, measures 11.8 cm. No discrete lesion demonstrated.
[2019-04-26] MEDS: Dyna-Hex 2% Top Sol 2oz TOPIC SCH (20:57)
--- NOTE | 2019-04-26 21:54 | General Progress Note ---
Assessment/Plan Problem List: (1) Dehydration ICD Codes: E86.0 - Dehydration SNOMED: 60181394 (2) Failure to thrive SNOMED: 04961256 Qualifiers: Qualified Codes: R62.7 - Adult failure to thrive (3) Leg ulcer ICD Codes: L97.909 - Non-pressure chronic ulcer of unspecified part of unspecified lower leg with unspecified severity SNOMED: 45597692, 300608658 (4) Encounter for PEG (percutaneous endoscopic gastrostomy) ICD Codes: Z43.1 - Encounter for attention to gastrostomy SNOMED: 575307863, 553077124 Status: progressing Assessment/Plan: s/p peg dvt dehydration ftt cachexia Subjective ROS Limited/Unobtainable: Yes Allergies: Coded Allergies: No Known Allergies (Unverified , 04/24/19) Objective Last 24 Hour Vital Signs Date Time Temp Pulse Resp B/P (MAP) Pulse Ox O2 Delivery O2 Flow Rate FiO2 04/26/19 20:08 97 20 96 Nasal Cannula 2.0 28 04/26/19 20:06 96 Nasal Cannula 2.0 28 04/26/19 16:00 98.9 98 18 107/73 (84) 97 04/26/19 16:00 118 04/26/19 13:10 68 22 98 04/26/19 12:25 97.2 88 21 123/62 99 Nasal Cannula 3 04/26/19 12:20 90 18 111/59 98 Nasal Cannula 3 04/26/19 12:11 78 20 98 04/26/19 12:10 89 20 97/47 100 Nasal Cannula 3 04/26/19 12:06 97.4 76 22 92/68 98 Nasal Cannula 3 04/26/19 12:00 90 04/26/19 10:39 92 20 94 Room Air 21 04/26/19 10:38 94 Room Air 21 04/26/19 09:00 Room Air 04/26/19 08:30 98.9 62 19 137/101 (113) 94 04/26/19 08:00 104 04/26/19 04:00 97.3 105 20 129/74 (92) 94 04/26/19 04:00 100 04/26/19 00:00 116 04/26/19 00:00 97.2 110 20 128/82 (97) 94 04/25/19 22:45 98 18 95 Room Air 21 Intake and Output 04/25/19 04/26/19 19:00 07:00 Output Total 250 ml Balance -250 ml Output Urine Total 250 ml # Voids 3 # Bowel Movements 3 Laboratory Tests 04/26/19 02:00: Stool Occult Blood Positive 04/26/19 04:17: White Blood Count 17.2H, Red Blood Count 3.26L, Hemoglobin 8.1L, Hematocrit 25.9L, Mean Corpuscular Volume 79L, Mean Corpuscular Hemoglobin 24.9L, Mean Corpuscular Hemoglobin Concent 31.4L, Red Cell Distribution Width 20.0H, Platelet Count 175, Mean Platelet Volume 5.7L, Neutrophils (%) (Auto) 83.3H, Lymphocytes (%) (Auto) 11.3L, Monocytes (%) (Auto) 5.0, Eosinophils (%) (Auto) 0.1, Basophils (%) (Auto) 0.3, Reticulocyte Count 1.9, Prothrombin Time 14.5H, Prothromb Time International Ratio 1.4H, Activated Partial Thromboplast Time 34H , Sodium Level 154H, Potassium Level 2.7*L, Chloride Level 122H, Carbon Dioxide Level 18L, Anion Gap 14, Blood Urea Nitrogen 21H, Creatinine 1.0, Estimat Glomerular Filtration Rate , Glucose Level 127H, Calcium Level 7.7L, Iron Level 21L, Total Iron Binding Capacity 82L, Percent Iron Saturation 26, Unsaturated Iron Binding 61L, Ferritin 631H, Total Bilirubin 0.8, Aspartate Amino Transf ( AST/SGOT) 16, Alanine Aminotransferase (ALT/SGPT) 15, Alkaline Phosphatase 521H , Total Protein 5.8L, Albumin 1.5L, Globulin 4.3, Albumin/Globulin Ratio 0.3L, Vitamin B12 Level > 2000H, Folate 10.3, Thyroid Stimulating Hormone (TSH) 3.122 , Free Thyroxine 1.18 Height (Feet): 5 Height (Inches): 3.00 Weight (Pounds): 80 Cardiovascular: normal rate Respiratory/Chest: lungs clear Abdomen: non tender Nicole Guillermo MD Apr 26, 2019 21:54
[2019-04-26] MEDS ORDERED: KCl 20mEq 100ml Premix IVPB SCH (22:15)
[2019-04-27] VITALS: BP 123/67
[2019-04-27 04:00] VITALS: BP 139/63
[2019-04-27 06:05] LABS: HEMATOCRIT 25.5 % (37.0-47.0); MEAN CORPUSCULAR VOLUME 80 FL (80-99); PLATELET COUNT 127 K/UL (150-450); RED BLOOD COUNT 3.18 M/UL (4.20-5.40); RED CELL DISTRIBUTION WIDTH 20.1 % (11.6-14.8)
[2019-04-27 06:08] LABS: ANION GAP 11 mmol/L (5-15); BLOOD UREA NITROGEN 24 mg/dL (7-18); CALCIUM 7.4 MG/DL (8.5-10.1); CARBON DIOXIDE 18 MMOL/L (21-32); CHLORIDE 120 MMOL/L (98-107); CREATININE 1.3 MG/DL (0.55-1.30); POTASSIUM 3.9 MMOL/L (3.5-5.1); SODIUM 149 MMOL/L (136-145)
[2019-04-27] MEDS: NovoLOG Insulin Flexpen SUBQ SCH ×3 (06:28→18:00)
[2019-04-27] MEDS: D5 1/2NS 1,000 ML IV SCH (06:56)
[2019-04-27 08:39] VITALS: BP 107/58
[2019-04-27] MEDS: Cefepime HCl 1 GM in D5W 55 ML IVPB SCH (09:15)
[2019-04-27] MEDS: Vancomycin oral 125mg/2.5ml GT SCH ×4 (09:17→21:24)
[2019-04-27] MEDS: Doxycycline Hyclate 100 MG in D5W 110 ML IV SCH ×2 (10:57→22:59)
[2019-04-27] MEDS ORDERED: Tubing IV Secondary IV ONE (11:26)
[2019-04-27] MEDS ORDERED: NS 275ml ONE (11:26)
--- NOTE | 2019-04-27 11:44 | General Progress Note ---
Assessment/Plan Status: progressing Assessment/Plan: Assessment - dysphagia - OBS - s/p PEG Recommendations - continue TF - elevate HOB - monitor residuals - GT care Subjective Allergies: Coded Allergies: No Known Allergies (Unverified , 04/24/19) Subjective awake confused tolerating TF Objective Last 24 Hour Vital Signs Date Time Temp Pulse Resp B/P (MAP) Pulse Ox O2 Delivery O2 Flow Rate FiO2 04/27/19 09:16 76 16 95 Nasal Cannula 2.0 28 04/27/19 09:16 95 Nasal Cannula 2.0 28 04/27/19 09:00 Room Air 04/27/19 08:39 97.2 96 20 107/58 (74) 99 04/27/19 08:00 90 04/27/19 04:00 101 04/27/19 04:00 98.6 101 16 139/63 (88) 100 04/27/19 00:00 107 04/27/19 00:00 98.1 107 16 123/67 (85) 95 04/26/19 21:00 Room Air 04/26/19 20:08 97 20 96 Nasal Cannula 2.0 28 04/26/19 20:06 96 Nasal Cannula 2.0 28 04/26/19 20:00 104 04/26/19 20:00 98.2 104 16 129/69 (89) 96 04/26/19 16:00 98.9 98 18 107/73 (84) 97 04/26/19 16:00 118 04/26/19 13:10 68 22 98 04/26/19 12:25 97.2 88 21 123/62 99 Nasal Cannula 3 04/26/19 12:20 90 18 111/59 98 Nasal Cannula 3 04/26/19 12:11 78 20 98 04/26/19 12:10 89 20 97/47 100 Nasal Cannula 3 04/26/19 12:06 97.4 76 22 92/68 98 Nasal Cannula 3 04/26/19 12:00 90 Intake and Output 04/26/19 04/27/19 19:00 07:00 Intake Total 230 ml 30 ml Output Total 100 ml Balance 130 ml 30 ml Intake IV Total 200 ml Tube Feeding 30 ml 30 ml Output Urine Total 100 ml # Voids 2 # Bowel Movements 1 1 Laboratory Tests 04/27/19 04:50: White Blood Count 21.0H, Red Blood Count 3.18L, Hemoglobin 8.0L, Hematocrit 25.5L, Mean Corpuscular Volume 80, Mean Corpuscular Hemoglobin 25.0L, Mean Corpuscular Hemoglobin Concent 31.2L, Red Cell Distribution Width 20.1H, Platelet Count 127L, Mean Platelet Volume 6.5, Neutrophils (%) (Auto) , Lymphocytes (%) (Auto) , Monocytes (%) (Auto) , Eosinophils (%) (Auto) , Basophils (%) (Auto) , Differential Total Cells Counted 100, Neutrophils % ( Manual) 90H, Lymphocytes % (Manual) 4L, Monocytes % (Manual) 2, Eosinophils % ( Manual) 0, Basophils % (Manual) 0, Myelocytes % 1H, Band Neutrophils 3, Platelet Estimate DecreasedL, Platelet Morphology Normal, Hypochromasia 2+, Anisocytosis 2+, Microcytosis 2+, Erythrocyte Sedimentation Rate 12, Sodium Level 149H, Potassium Level 3.9, Chloride Level 120H, Carbon Dioxide Level 18L, Anion Gap 11, Blood Urea Nitrogen 24H, Creatinine 1.3, Estimat Glomerular Filtration Rate , Glucose Level 191H, Calcium Level 7.4L, C-Reactive Protein, Quantitative 17.6H, Lipase 110 Height (Feet): 5 Height (Inches): 3.00 Weight (Pounds): 80 Objective Debilitated woman NCAT supple CTA RR abd soft ND, (+) GT (+) pedal edema confused Zaira Grant MD Apr 27, 2019 11:44
[2019-04-27 12:00] VITALS: BP 120/67
--- NOTE | 2019-04-27 12:25 | Surgery Progress Note ---
Surgery Progress Note Subjective Additional Comments on tube feeds via peg somtimes high residual no n/v/f/c leukocytosis wound stable. Objective Last 24 Hour Vital Signs Date Time Temp Pulse Resp B/P (MAP) Pulse Ox O2 Delivery O2 Flow Rate FiO2 04/27/19 09:16 76 16 95 Nasal Cannula 2.0 28 04/27/19 09:16 95 Nasal Cannula 2.0 28 04/27/19 09:00 Room Air 04/27/19 08:39 97.2 96 20 107/58 (74) 99 04/27/19 08:00 90 04/27/19 04:00 101 04/27/19 04:00 98.6 101 16 139/63 (88) 100 04/27/19 00:00 107 04/27/19 00:00 98.1 107 16 123/67 (85) 95 04/26/19 21:00 Room Air 04/26/19 20:08 97 20 96 Nasal Cannula 2.0 28 04/26/19 20:06 96 Nasal Cannula 2.0 28 04/26/19 20:00 104 04/26/19 20:00 98.2 104 16 129/69 (89) 96 04/26/19 16:00 98.9 98 18 107/73 (84) 97 04/26/19 16:00 118 04/26/19 13:10 68 22 98 04/26/19 12:25 97.2 88 21 123/62 99 Nasal Cannula 3 04/26/19 12:20 90 18 111/59 98 Nasal Cannula 3 I&O Intake and Output 04/26/19 04/27/19 18:59 06:59 Intake Total 200 ml 60 ml Output Total 100 ml Balance 100 ml 60 ml Intake IV Total 200 ml Tube Feeding 60 ml Output Urine Total 100 ml # Voids 2 # Bowel Movements 1 1 Dressing: saturated Wound: other Drains: other Cardiovascular: RSR Respiratory: decreased breath sounds Abdomen: soft, present bowel sounds, other, non-distended Extremities: edema, no tenderness, no cyanosis, other Laboratory Tests Test 04/27/19 04:50 White Blood Count 21.0 K/UL (4.8-10.8) H Red Blood Count 3.18 M/UL (4.20-5.40) L Hemoglobin 8.0 G/DL (12.0-16.0) L Hematocrit 25.5 % (37.0-47.0) L Mean Corpuscular Volume 80 FL (80-99) Mean Corpuscular Hemoglobin 25.0 PG (27.0-31.0) L Mean Corpuscular Hemoglobin Concent 31.2 G/DL (32.0-36.0) L Red Cell Distribution Width 20.1 % (11.6-14.8) H Platelet Count 127 K/UL (150-450) L Mean Platelet Volume 6.5 FL (6.5-10.1) Neutrophils (%) (Auto) % (45.0-75.0) Lymphocytes (%) (Auto) % (20.0-45.0) Monocytes (%) (Auto) % (1.0-10.0) Eosinophils (%) (Auto) % (0.0-3.0) Basophils (%) (Auto) % (0.0-2.0) Differential Total Cells Counted 100 Neutrophils % (Manual) 90 % (45-75) H Lymphocytes % (Manual) 4 % (20-45) L Monocytes % (Manual) 2 % (1-10) Eosinophils % (Manual) 0 % (0-3) Basophils % (Manual) 0 % (0-2) Myelocytes % 1 % (0-0) H Band Neutrophils 3 % (0-8) Platelet Estimate Decreased L Platelet Morphology Normal Hypochromasia 2+ Anisocytosis 2+ Microcytosis 2+ Erythrocyte Sedimentation Rate 12 MM/HR (0-30) Sodium Level 149 MMOL/L (136-145) H Potassium Level 3.9 MMOL/L (3.5-5.1) Chloride Level 120 MMOL/L (98-107) H Carbon Dioxide Level 18 MMOL/L (21-32) L Anion Gap 11 mmol/L (5-15) Blood Urea Nitrogen 24 mg/dL (7-18) H Creatinine 1.3 MG/DL (0.55-1.30) Estimat Glomerular Filtration Rate mL/min (>60) Glucose Level 191 MG/DL (74-106) H Calcium Level 7.4 MG/DL (8.5-10.1) L C-Reactive Protein, Quantitative 17.6 mg/dL (0.00-0.90) H Lipase 110 U/L (73-393) Plan Problems: (1) Leg ulcer Assessment & Plan: Pt presented on admission with multiple pressure injuries and necrotic ulcer torrey L tibia.Pt is emaciated. Non-blanchable erythema with fluctuance noted to R shoulder. (L)2cm x (W)1cm. Open DTPI noted to sacrum. Base of wound is purple with scattered open wounds with slough.(L)7.5cm x (W)6.5cm. Site tender when minimally palpated.Non- blanching erythema periwound. Non-blanching erythema without fluctuance noted to L ischium (L)2.5cm x (W) 2.5cm. Tender when minimally palpated. Bilat lower ext edematous . Full thickness ulcer with irregular and erythematous borders noted to torrey /distal L tibia. Base of wound 100% non- viable ,Soft necrosis noted . No odor or exudate noted. Pt complained of severe pain with minimal touch during wound assessment..Non-blanching erythema with fluctuance both heels. Pt verbalized pain when both heels minimally palpated. Plantar aspects of both feet and toes on both feet noted to be dusky. Tx.Plan: Cleanse sacral wound with Saline. Apply Therahoney. Apply Triad Paste periwound. Cover with Optifoam drsg. Change Daily and prn. Apply Triad Paste to bilateral groin and both ischial areas with each perineal care. Cleanse Wound Torrey L tibia with Saline. Apply Therhaoney. Apply Cavilon Skin Barrier periwound. Cover with Optifoam Drsg. Change every 3 days and prn. Apply Cavilon Skin Barrier to both heels. Cover each heel with Optifoam drsg. Change every 7 days and prn. APM/CAIO mattress overlay. Reposition at least every 2hours or as tolerated. Off-load heels with pillow. (2) Failure to thrive Assessment & Plan: DAILY ESTIMATED NEEDS: Needs based on Wt loss, underweight, wound/ 36kg 35-40 kcals/kg 8615-0904 total kcals 1.5-2.0 g protein/kg 54-72 g total protein 25-30 mL/kg 900-1080 total fluid mLs NUTRITION DIAGNOSIS: * Increased kcal/prot intake needs R/T underweight status, recent wt loss, wound healing as evidenced by admitted w/ significant wt loss of 11.9lbs/13% in 3 weeks, 84% IBW w/ low BMI per guidelines, admitted w/ lt wagner and sacral wounds, pending evaluation, currently NPO, pending PEG placement. CURRENT DIET: NPO ENTERAL NUTRITION RECOMMENDATIONS: Glucerna 1.2 @ 50ml/hr x 24 hrs to provide 1200ml, 1440kcal, 72g prot, 966ml free water * W/ GI access s/p PEG placement, initiate Glucerna 1.2 @ 10ml/hr x 6 hrs * Advance 10ml q 4-6 hrs as tolerated to goal rate. * HOB over 30 degrees/ water flush per MD ADDITIONAL RECOMMENDATIONS: * Weekly calibrated bedscale wt * Monitor lytes daily w/ TF, replete as needed -> pt at HIGH RISK for refeeding syndrome, increase TF SLOWLY * Wound healing: Add Vit C 250mg QD add ZnSO4 220mg QD x 10 days add Zeke 1pkt BID * Probiotics for diarrhea (3) Cellulitis, leg Assessment & Plan: cont with IV abx as per ID now with peg start feeds Nico Sanz Apr 27, 2019 12:24
[2019-04-27] MEDS: Enoxaparin 40mg Inj SUBQ SCH (13:41)
--- NOTE | 2019-04-27 14:06 | Pulmonology Progress Note ---
Assessment/Plan Assessment/Plan Pulmonary Progress Note HPI Patient is an 83-year old woman from a from long term facility admitted with weakness, poor appetite x1 month. Patient is nonverbal at baseline. Patient has a history of C. difficile, has a history of diarrhea for the last several days CDIFF Positive. No fevers or chills. No reported cough or shortness of breath. Noted to have radiological evidence of Pneumonia, Left LLE ulcer, LLE DVT on Lovenox Stable VS, has PICC line, for G Tube today Allergies: No Known Allergies Past Medical History: Diabetes, Hypertension, Hyperlipidemia, Dementia, Hyperlipidemia, Sepsis, Metabolic Acidosis, C-Difficile, T11-T12 fracture All Other Systems: limited Physical Exam Vital Signs Noted General Appearance: no apparent distress, cachetic, non verbal Head: NCAT Eyes: bilateral eye normal inspection, bilateral eye PERRL ENT: dry mm Neck: normal inspection, no LN Respiratory: chest non-tender, normal breath sounds Cardiovascular: no edema, tachycardia, normal HS1, HS2 Gastrointestinal: normal bowel sounds, non tender, soft, non-distended, no guarding, no rebound Genitourinary: no CVA tenderness Musculoskeletal: normal inspection Neurologic: no focal signs, no seizures Skin: no edema, LLE ulcer Impression: Pneumonia Dysphagia Adult failure to thrive LLE DVT LLE Ulcer Hypernatremia Hypokalemia Diabetes Hypertension Hyperlipidemia Dementia Hyperlipidemia Previous C-Difficile Previous T11-T12 fracture ER CoursePlan G tube Lovenox (hold for G tube) IVF NPO PICC line IV antibiotics, PO Flagyl Stll Cdiff O2 PRN HHN CPT Aspiration precautions Supplement K ST evaluation Monitor labs Labs Noted Test 04/24/19 16:20 04/24/19 16:40 White Blood Count 20.3 K/UL (4.8-10.8) Red Blood Count 4.17 M/UL (4.20-5.40) Hemoglobin 10.2 G/DL (12.0-16.0) Hematocrit 32.0 % (37.0-47.0) Mean Corpuscular Volume 77 FL (80-99) Mean Corpuscular Hemoglobin 24.5 PG (27.0-31.0) Mean Corpuscular Hemoglobin Concent 31.9 G/DL (32.0-36.0) Red Cell Distribution Width 18.7 % (11.6-14.8) Platelet Count 282 K/UL (150-450) Mean Platelet Volume 5.1 FL (6.5-10.1) Neutrophils (%) (Auto) % (45.0-75.0) Lymphocytes (%) (Auto) % (20.0-45.0) Monocytes (%) (Auto) % (1.0-10.0) Eosinophils (%) (Auto) % (0.0-3.0) Basophils (%) (Auto) % (0.0-2.0) Differential Total Cells Counted 100 Neutrophils % (Manual) 90 % (45-75) Lymphocytes % (Manual) 6 % (20-45) Monocytes % (Manual) 1 % (1-10) Eosinophils % (Manual) 0 % (0-3) Basophils % (Manual) 0 % (0-2) Band Neutrophils 3 % (0-8) Platelet Estimate Adequate Platelet Morphology Normal Polychromasia 1+ Anisocytosis 2+ Target Cells Occasional Sodium Level 151 MMOL/L (136-145) Potassium Level 2.9 MMOL/L (3.5-5.1) Chloride Level 115 MMOL/L (98-107) Carbon Dioxide Level 23 MMOL/L (21-32) Anion Gap 13 mmol/L (5-15) Blood Urea Nitrogen 15 mg/dL (7-18) Creatinine 0.4 MG/DL (0.55-1.30) Estimat Glomerular Filtration Rate mL/min (>60) Glucose Level 163 MG/DL (74-106) Lactic Acid Level 1.60 mmol/L (0.4-2.0) Calcium Level 7.8 MG/DL (8.5-10.1) Total Bilirubin 0.7 MG/DL (0.2-1.0) Aspartate Amino Transf (AST/SGOT) 14 U/L (15-37) Alanine Aminotransferase (ALT/SGPT) 13 U/L (12-78) Alkaline Phosphatase 635 U/L (46-116) Total Protein 6.3 G/DL (6.4-8.2) Albumin 1.5 G/DL (3.4-5.0) Globulin 4.8 g/dL Albumin/Globulin Ratio 0.3 (1.0-2.7) Lipase 43 U/L (73-393) Urine Color Yellow Urine Appearance Clear Urine pH 8 (4.5-8.0) Urine Specific [place] 1.010 (1.005-1.035) Urine Protein 2+ (NEGATIVE) Urine Glucose (UA) Negative (NEGATIVE) Urine Ketones 2+ (NEGATIVE) Urine Blood Negative (NEGATIVE) Urine Nitrite Negative (NEGATIVE) Urine Bilirubin Negative (NEGATIVE) Urine Urobilinogen Normal MG/DL (0.0-1.0) Urine Leukocyte Esterase 1+ (NEGATIVE) Urine RBC 0-2 /HPF (0 - 2) Urine WBC 5-10 /HPF (0 - 2) Urine Squamous Epithelial Cells None /LPF (NONE/OCC) Urine Bacteria Few /HPF (NONE) Urine Yeast Few /HPF (NONE) EKG: Rate: tachycardia, NSR, no acute ST changes Chest X-Ray: no effusion, no pneumothorax, bilateral infiltrates c/w pneumonia Subjective ROS Limited/Unobtainable: No Allergies: Coded Allergies: No Known Allergies (Unverified , 04/24/19) Objective Last 24 Hour Vital Signs Date Time Temp Pulse Resp B/P (MAP) Pulse Ox O2 Delivery O2 Flow Rate FiO2 04/27/19 09:16 76 16 95 Nasal Cannula 2.0 28 04/27/19 09:16 95 Nasal Cannula 2.0 28 04/27/19 09:00 Room Air 04/27/19 08:39 97.2 96 20 107/58 (74) 99 04/27/19 08:00 90 04/27/19 04:00 101 04/27/19 04:00 98.6 101 16 139/63 (88) 100 04/27/19 00:00 107 04/27/19 00:00 98.1 107 16 123/67 (85) 95 04/26/19 21:00 Room Air 04/26/19 20:08 97 20 96 Nasal Cannula 2.0 28 04/26/19 20:06 96 Nasal Cannula 2.0 28 04/26/19 20:00 104 04/26/19 20:00 98.2 104 16 129/69 (89) 96 04/26/19 16:00 98.9 98 18 107/73 (84) 97 04/26/19 16:00 118 Intake and Output 04/26/19 04/27/19 18:59 06:59 Intake Total 200 ml 60 ml Output Total 100 ml Balance 100 ml 60 ml Intake IV Total 200 ml Tube Feeding 60 ml Output Urine Total 100 ml # Voids 2 # Bowel Movements 1 1 Microbiology Date/Time Source Procedure Growth Status 04/24/19 16:35 Blood Blood Culture - Preliminary NO GROWTH AFTER 48 HOURS Resulted 04/24/19 16:20 Blood Blood Culture - Preliminary NO GROWTH AFTER 48 HOURS Resulted 04/24/19 16:35 Stool Stool Culture - Final NO SALMONELLA,SHIGELLA,OR CAMPYLOBACT... Complete 04/24/19 16:35 Stool Clostridium difficile Toxin Assay - Final Complete 04/24/19 16:40 Urine,Clean Catch Urine Culture - Final Ruth Albicans Complete Laboratory Tests 04/27/19 04:50: White Blood Count 21.0H, Red Blood Count 3.18L, Hemoglobin 8.0L, Hematocrit 25.5L, Mean Corpuscular Volume 80, Mean Corpuscular Hemoglobin 25.0L, Mean Corpuscular Hemoglobin Concent 31.2L, Red Cell Distribution Width 20.1H, Platelet Count 127L, Mean Platelet Volume 6.5, Neutrophils (%) (Auto) , Lymphocytes (%) (Auto) , Monocytes (%) (Auto) , Eosinophils (%) (Auto) , Basophils (%) (Auto) , Differential Total Cells Counted 100, Neutrophils % ( Manual) 90H, Lymphocytes % (Manual) 4L, Monocytes % (Manual) 2, Eosinophils % ( Manual) 0, Basophils % (Manual) 0, Myelocytes % 1H, Band Neutrophils 3, Platelet Estimate DecreasedL, Platelet Morphology Normal, Hypochromasia 2+, Anisocytosis 2+, Microcytosis 2+, Erythrocyte Sedimentation Rate 12, Sodium Level 149H, Potassium Level 3.9, Chloride Level 120H, Carbon Dioxide Level 18L, Anion Gap 11, Blood Urea Nitrogen 24H, Creatinine 1.3, Estimat Glomerular Filtration Rate , Glucose Level 191H, Calcium Level 7.4L, C-Reactive Protein, Quantitative 17.6H, Lipase 110 Current Medications Medications (Trade) Dose Ordered Sig/Bushra Route PRN Reason Start Time Stop Time Status Last Admin Dose Admin Acetaminophen (Tylenol) 650 mg Q4H PRN ORAL Mild Pain/Temp > 100.5 04/24/19 21:45 05/24/19 21:44 04/27/19 13:58 Albuterol/ Ipratropium (Albuterol/ Ipratropium) 3 ml Q4H PRN HHN Shortness of Breath 04/24/19 21:45 04/29/19 21:44 Cefepime HCl 1 gm/ Dextrose 55 ml @ 110 mls/hr DAILY IVPB 04/25/19 09:00 05/02/19 08:59 04/27/19 09:15 Chlorhexidine Gluconate (Mary Beth-Hex 2%) 1 applic DAILY@2000 TOPIC 04/25/19 20:00 05/25/19 19:59 04/26/19 20:57 Dextrose (Dextrose 50%) 25 ml Q30M PRN IV Hypoglycemia 04/24/19 21:45 05/24/19 21:44 Dextrose (Dextrose 50%) 50 ml Q30M PRN IV Hypoglycemia 04/24/19 21:45 05/24/19 21:44 04/25/19 17:26 Dextrose/Sodium Chloride 1,000 ml @ 50 mls/hr Q20H IV 04/27/19 06:45 05/27/19 06:44 04/27/19 06:56 Doxycycline Hyclate 100 mg/ Dextrose 110 ml @ 110 mls/hr Q12HR@1100,2300 IV 04/24/19 23:00 05/01/19 22:59 04/27/19 10:57 Enoxaparin Sodium (Lovenox) 40 mg Q24H SUBQ 04/26/19 16:00 05/26/19 15:59 04/26/19 17:31 Famotidine (Pepcid) 20 mg BID GT 04/26/19 18:00 05/26/19 17:59 04/27/19 09:17 Insulin Aspart (NovoLOG) BEFORE MEALS AND HS SUBQ 04/25/19 06:30 05/25/19 06:29 04/27/19 06:28 Ondansetron HCl (Zofran) 4 mg Q6H PRN IVP Nausea & Vomiting 04/24/19 21:45 05/24/19 21:44 Vancomycin HCl (Firvanq) 125 mg FOUR TIMES A DAY GT 04/26/19 13:00 05/02/19 13:59 04/27/19 13:59 Juan Miguel Mendoza MD Apr 27, 2019 14:06
--- NOTE | 2019-04-27 15:15 | General Progress Note ---
Assessment/Plan Problem List: (1) Dehydration ICD Codes: E86.0 - Dehydration SNOMED: 87192100 (2) Failure to thrive SNOMED: 26926140 Qualifiers: Qualified Codes: R62.7 - Adult failure to thrive (3) Leg ulcer ICD Codes: L97.909 - Non-pressure chronic ulcer of unspecified part of unspecified lower leg with unspecified severity SNOMED: 91148496, 003201435 (4) Encounter for PEG (percutaneous endoscopic gastrostomy) ICD Codes: Z43.1 - Encounter for attention to gastrostomy SNOMED: 008779789, 967179734 Status: progressing Assessment/Plan: s/p peg dvt dehydration ftt cachexia anticoagulant per heme/onc moniter for bleeding reviewed chart Subjective ROS Limited/Unobtainable: Yes Allergies: Coded Allergies: No Known Allergies (Unverified , 04/24/19) Objective Last 24 Hour Vital Signs Date Time Temp Pulse Resp B/P (MAP) Pulse Ox O2 Delivery O2 Flow Rate FiO2 04/27/19 09:16 76 16 95 Nasal Cannula 2.0 28 04/27/19 09:16 95 Nasal Cannula 2.0 28 04/27/19 09:00 Room Air 04/27/19 08:39 97.2 96 20 107/58 (74) 99 04/27/19 08:00 90 04/27/19 04:00 101 04/27/19 04:00 98.6 101 16 139/63 (88) 100 04/27/19 00:00 107 04/27/19 00:00 98.1 107 16 123/67 (85) 95 04/26/19 21:00 Room Air 04/26/19 20:08 97 20 96 Nasal Cannula 2.0 28 04/26/19 20:06 96 Nasal Cannula 2.0 28 04/26/19 20:00 104 04/26/19 20:00 98.2 104 16 129/69 (89) 96 04/26/19 16:00 98.9 98 18 107/73 (84) 97 04/26/19 16:00 118 Intake and Output 04/26/19 04/27/19 18:59 06:59 Intake Total 200 ml 60 ml Output Total 100 ml Balance 100 ml 60 ml Intake IV Total 200 ml Tube Feeding 60 ml Output Urine Total 100 ml # Voids 2 # Bowel Movements 1 1 Laboratory Tests 04/27/19 04:50: White Blood Count 21.0H, Red Blood Count 3.18L, Hemoglobin 8.0L, Hematocrit 25.5L, Mean Corpuscular Volume 80, Mean Corpuscular Hemoglobin 25.0L, Mean Corpuscular Hemoglobin Concent 31.2L, Red Cell Distribution Width 20.1H, Platelet Count 127L, Mean Platelet Volume 6.5, Neutrophils (%) (Auto) , Lymphocytes (%) (Auto) , Monocytes (%) (Auto) , Eosinophils (%) (Auto) , Basophils (%) (Auto) , Differential Total Cells Counted 100, Neutrophils % ( Manual) 90H, Lymphocytes % (Manual) 4L, Monocytes % (Manual) 2, Eosinophils % ( Manual) 0, Basophils % (Manual) 0, Myelocytes % 1H, Band Neutrophils 3, Platelet Estimate DecreasedL, Platelet Morphology Normal, Hypochromasia 2+, Anisocytosis 2+, Microcytosis 2+, Erythrocyte Sedimentation Rate 12, Sodium Level 149H, Potassium Level 3.9, Chloride Level 120H, Carbon Dioxide Level 18L, Anion Gap 11, Blood Urea Nitrogen 24H, Creatinine 1.3, Estimat Glomerular Filtration Rate , Glucose Level 191H, Calcium Level 7.4L, C-Reactive Protein, Quantitative 17.6H, Lipase 110 Height (Feet): 5 Height (Inches): 3.00 Weight (Pounds): 80 Cardiovascular: normal rate Respiratory/Chest: lungs clear Nicole Guillermo MD Apr 27, 2019 15:15
[2019-04-27 16:00] VITALS: BP 111/58
[2019-04-27 20:00] VITALS: BP 113/59
[2019-04-27] MEDS: Dyna-Hex 2% Top Sol 2oz TOPIC SCH (21:14)
[2019-04-27] MEDS ORDERED: fentaNYL 100 mcg/2 mL IV ONE (22:07)
[2019-04-28] VITALS: BP 106/48
[2019-04-28] MEDS: NovoLOG Insulin Flexpen SUBQ SCH ×4 (00:19→18:00)
[2019-04-28] MEDS: D5 1/2NS 1,000 ML IV SCH ×2 (02:57→18:41)
[2019-04-28 04:00] VITALS: BP 110/62
[2019-04-28 06:18] LABS: ANION GAP 10 mmol/L (5-15); BLOOD UREA NITROGEN 19 mg/dL (7-18); CALCIUM 6.6 MG/DL (8.5-10.1); CARBON DIOXIDE 17 MMOL/L (21-32); CHLORIDE 116 MMOL/L (98-107); CREATININE 0.8 MG/DL (0.55-1.30); POTASSIUM 3.2 MMOL/L (3.5-5.1); SODIUM 143 MMOL/L (136-145)
[2019-04-28 08:35] VITALS: BP 140/86
[2019-04-28] MEDS: Vancomycin oral 125mg/2.5ml GT SCH ×4 (09:19→20:16)
[2019-04-28] MEDS: Cefepime HCl 1 GM in D5W 55 ML IVPB SCH (09:20)
[2019-04-28] MEDS ORDERED: Lidocaine 1% Plain 30 ml INJ PRN (11:00)
--- NOTE | 2019-04-28 11:02 | Hematology/Onc Progress Note ---
Assessment/Plan Assessment/Plan Assessment and Recs: # Anemia of chronic disease, rule out gi bleed, likely is multifactorial --> anemia panel has been reviewed and cw acd --> hgb goal is >7 --> no evidence for hemolysis --> obtain occult blood++ per gi prn recs --> hgb trend 10-->9.1-->8.1-->8 --> s/p peg tube and on tfs # DVT of the left lower extremity with now low platelets and low h/h --> unsafe to anticoag given dropping h/h --> IVF filter order placed # Leukocytosis likely 2/2 anemia v infection (PNA) --> abx have been started --> cefepime/cefoxitin--> cefe/vanc/dox --> wbc trend: 20-->17.2-->21k # Coagulopathy with elevated pt/ptt/inr is due to underlying cirrhosis --> us abd shows cirrhosis # FTT requiring potential gtube placement --> sp peg tube and on tube feeds --> started on tfs # Dehydration --> per renal, may need ivf # PNA on abx Time of note does not necessarily reflect time of encounter. Appreciate consultation greatly Subjective Constitutional: Denies: no symptoms, chills, fever, malaise, weakness, other HEENT: Denies: no symptoms, eye pain, blurred vision, tearing, double vision, ear pain, ear discharge, nose pain, nose congestion, throat pain, throat swelling, mouth pain, mouth swelling, other Respiratory: Denies: no symptoms, cough, shortness of breath, SOB with excertion, SOB at rest, sputum, wheezing, other Gastrointestinal/Abdominal: Denies: no symptoms, abdomen distended, abdominal pain, black stools, tarry stools, blood in stool, constipated, diarrhea, difficulty swallowing, nausea, poor appetite, poor fluid intake, rectal bleeding , vomiting, other Neurologic/Psychiatric: Denies: no symptoms, anxiety, depressed, emotional problems, headache, numbness, paresthesia, pre-existing deficit, seizure, tingling, tremors, weakness, other Endocrine: Denies: no symptoms, excessive sweating, flushing, intolerance to cold, intolerance to heat, increased hunger, increased thirst, increased urine, unexplained weight gain, unexplained weight loss, other Allergies: Coded Allergies: No Known Allergies (Unverified , 04/24/19) Subjective 04/26: awake and confused, on abx, h/h stable , on vanc/cefe/dox Objective Objective Current Medications Medications (Trade) Dose Ordered Sig/Bushra Route PRN Reason Start Time Stop Time Status Last Admin Dose Admin Acetaminophen (Tylenol) 650 mg Q4H PRN ORAL Mild Pain/Temp > 100.5 04/24/19 21:45 05/24/19 21:44 04/28/19 09:21 Albuterol/ Ipratropium (Albuterol/ Ipratropium) 3 ml Q4H PRN HHN Shortness of Breath 04/24/19 21:45 04/29/19 21:44 Cefepime HCl 1 gm/ Dextrose 55 ml @ 110 mls/hr DAILY IVPB 04/25/19 09:00 05/02/19 08:59 04/28/19 09:20 Chlorhexidine Gluconate (Mary Beth-Hex 2%) 1 applic DAILY@2000 TOPIC 04/25/19 20:00 05/25/19 19:59 04/27/19 21:14 Dextrose (Dextrose 50%) 25 ml Q30M PRN IV Hypoglycemia 04/24/19 21:45 05/24/19 21:44 Dextrose (Dextrose 50%) 50 ml Q30M PRN IV Hypoglycemia 04/24/19 21:45 05/24/19 21:44 04/25/19 17:26 Dextrose/Sodium Chloride 1,000 ml @ 50 mls/hr Q20H IV 04/27/19 06:45 05/27/19 06:44 04/28/19 02:57 Doxycycline Hyclate 100 mg/ Dextrose 110 ml @ 110 mls/hr Q12HR@1100,2300 IV 04/24/19 23:00 05/01/19 22:59 04/27/19 22:59 Famotidine (Pepcid) 20 mg BID GT 04/26/19 18:00 05/26/19 17:59 04/28/19 09:20 Insulin Aspart (NovoLOG) Q6HR SUBQ 04/28/19 00:00 05/25/19 06:29 04/28/19 05:52 Ondansetron HCl (Zofran) 4 mg Q6H PRN IVP Nausea & Vomiting 04/24/19 21:45 05/24/19 21:44 Vancomycin HCl (Firvanq) 125 mg FOUR TIMES A DAY GT 04/26/19 13:00 05/02/19 13:59 04/28/19 09:19 Last 24 Hour Vital Signs Date Time Temp Pulse Resp B/P (MAP) Pulse Ox O2 Delivery O2 Flow Rate FiO2 04/28/19 08:35 98.3 84 18 140/86 (104) 95 04/28/19 04:00 87 04/28/19 04:00 96.4 92 20 110/62 (78) 95 04/28/19 00:00 97.5 82 20 106/48 (67) 96 04/28/19 00:00 88 04/27/19 21:00 Room Air 04/27/19 20:02 98 Nasal Cannula 2.0 28 04/27/19 20:00 68 04/27/19 20:00 78 18 96 Nasal Cannula 2.0 28 04/27/19 20:00 96.3 90 20 113/59 (77) 96 04/27/19 16:00 97.4 87 20 111/58 (75) 97 04/27/19 16:00 83 04/27/19 12:00 83 04/27/19 12:00 97.0 80 18 120/67 (84) 98 04/27/19 09:16 76 16 95 Nasal Cannula 2.0 28 04/27/19 09:16 95 Nasal Cannula 2.0 28 04/27/19 09:00 Room Air 04/27/19 08:39 97.2 96 20 107/58 (74) 99 04/27/19 08:00 90 04/27/19 04:00 101 04/27/19 04:00 98.6 101 16 139/63 (88) 100 04/27/19 00:00 107 04/27/19 00:00 98.1 107 16 123/67 (85) 95 04/26/19 21:00 Room Air 04/26/19 20:08 97 20 96 Nasal Cannula 2.0 28 04/26/19 20:06 96 Nasal Cannula 2.0 28 04/26/19 20:00 104 04/26/19 20:00 98.2 104 16 129/69 (89) 96 04/26/19 16:00 98.9 98 18 107/73 (84) 97 04/26/19 16:00 118 04/26/19 13:10 68 22 98 04/26/19 12:25 97.2 88 21 123/62 99 Nasal Cannula 3 04/26/19 12:20 90 18 111/59 98 Nasal Cannula 3 04/26/19 12:11 78 20 98 04/26/19 12:10 89 20 97/47 100 Nasal Cannula 3 04/26/19 12:06 97.4 76 22 92/68 98 Nasal Cannula 3 04/26/19 12:00 90 Intake and Output 04/27/19 04/28/19 19:00 07:00 Intake Total 30 ml 425 ml Output Total 250 ml Balance -220 ml 425 ml Tube Feeding 30 ml 425 ml Output Urine Total 250 ml Labs Test 04/26/19 02:00 04/26/19 04:17 04/27/19 04:50 04/28/19 05:00 Stool Occult Blood Positive (NEGATIVE) White Blood Count 17.2 K/UL (4.8-10.8) 21.0 K/UL (4.8-10.8) Red Blood Count 3.26 M/UL (4.20-5.40) 3.18 M/UL (4.20-5.40) Hemoglobin 8.1 G/DL (12.0-16.0) 8.0 G/DL (12.0-16.0) Hematocrit 25.9 % (37.0-47.0) 25.5 % (37.0-47.0) Mean Corpuscular Volume 79 FL (80-99) 80 FL (80-99) Mean Corpuscular Hemoglobin 24.9 PG (27.0-31.0) 25.0 PG (27.0-31.0) Mean Corpuscular Hemoglobin Concent 31.4 G/DL (32.0-36.0) 31.2 G/DL (32.0-36.0) Red Cell Distribution Width 20.0 % (11.6-14.8) 20.1 % (11.6-14.8) Platelet Count 175 K/UL (150-450) 127 K/UL (150-450) Mean Platelet Volume 5.7 FL (6.5-10.1) 6.5 FL (6.5-10.1) Neutrophils (%) (Auto) 83.3 % (45.0-75.0) % (45.0-75.0) Lymphocytes (%) (Auto) 11.3 % (20.0-45.0) % (20.0-45.0) Monocytes (%) (Auto) 5.0 % (1.0-10.0) % (1.0-10.0) Eosinophils (%) (Auto) 0.1 % (0.0-3.0) % (0.0-3.0) Basophils (%) (Auto) 0.3 % (0.0-2.0) % (0.0-2.0) Reticulocyte Count 1.9 % (0.5-2.0) Prothrombin Time 14.5 SEC (9.30-11.50) Prothromb Time International Ratio 1.4 (0.9-1.1) Activated Partial Thromboplast Time 34 SEC (23-33) Sodium Level 154 MMOL/L (136-145) 149 MMOL/L (136-145) 143 MMOL/L (136-145) Potassium Level 2.7 MMOL/L (3.5-5.1) 3.9 MMOL/L (3.5-5.1) 3.2 MMOL/L (3.5-5.1) Chloride Level 122 MMOL/L (98-107) 120 MMOL/L (98-107) 116 MMOL/L (98-107) Carbon Dioxide Level 18 MMOL/L (21-32) 18 MMOL/L (21-32) 17 MMOL/L (21-32) Anion Gap 14 mmol/L (5-15) 11 mmol/L (5-15) 10 mmol/L (5-15) Blood Urea Nitrogen 21 mg/dL (7-18) 24 mg/dL (7-18) 19 mg/dL (7-18) Creatinine 1.0 MG/DL (0.55-1.30) 1.3 MG/DL (0.55-1.30) 0.8 MG/DL (0.55-1.30) Estimat Glomerular Filtration Rate mL/min (>60) mL/min (>60) mL/min (>60) Glucose Level 127 MG/DL (74-106) 191 MG/DL (74-106) 341 MG/DL (74-106) Calcium Level 7.7 MG/DL (8.5-10.1) 7.4 MG/DL (8.5-10.1) 6.6 MG/DL (8.5-10.1) Iron Level 21 ug/dL (50-175) Total Iron Binding Capacity 82 ug/dL (250-450) Percent Iron Saturation 26 % (15-50) Unsaturated Iron Binding 61 ug/dL (112-346) Ferritin 631 NG/ML (8-388) Total Bilirubin 0.8 MG/DL (0.2-1.0) Aspartate Amino Transf (AST/SGOT) 16 U/L (15-37) Alanine Aminotransferase (ALT/SGPT) 15 U/L (12-78) Alkaline Phosphatase 521 U/L (46-116) Total Protein 5.8 G/DL (6.4-8.2) Albumin 1.5 G/DL (3.4-5.0) Globulin 4.3 g/dL Albumin/Globulin Ratio 0.3 (1.0-2.7) Vitamin B12 Level > 2000 PG/ML (193-986) Folate 10.3 NG/ML (8.6-58.9) Thyroid Stimulating Hormone (TSH) 3.122 uiU/mL (0.358-3.740) Free Thyroxine 1.18 NG/DL (0.76-1.46) Differential Total Cells Counted 100 Neutrophils % (Manual) 90 % (45-75) Lymphocytes % (Manual) 4 % (20-45) Monocytes % (Manual) 2 % (1-10) Eosinophils % (Manual) 0 % (0-3) Basophils % (Manual) 0 % (0-2) Myelocytes % 1 % (0-0) Band Neutrophils 3 % (0-8) Platelet Estimate Decreased Platelet Morphology Normal Hypochromasia 2+ Anisocytosis 2+ Microcytosis 2+ Erythrocyte Sedimentation Rate 12 MM/HR (0-30) C-Reactive Protein, Quantitative 17.6 mg/dL (0.00-0.90) Lipase 110 U/L (73-393) Height (Feet): 5 Height (Inches): 3.00 Weight (Pounds): 80 Objective Physical Exam Vital Signs: reviewed Gen: well appearing, no apparent distress, alert Resp: normal breath sounds, no respiratory distress CV: normal rate GI: normal inspection, non tender, soft, normal bowel sounds, non-distended ++ peg Rectal: deferred : no CVA tenderness Neurologic: alert, responsive Skin: normal inspection, normal color, no rash, warm/dry, palpation normal, well hydrated Lymphatic: normal inspection, no adenopathy Matt Felipe MD Apr 28, 2019 11:02
[2019-04-28] MEDS: Doxycycline Hyclate 100 MG in D5W 110 ML IV SCH ×2 (11:25→22:54)
[2019-04-28 11:51] LABS: INR 1.3 (0.9-1.1)
--- NOTE | 2019-04-28 11:58 | Pulmonology Progress Note ---
Assessment/Plan Assessment/Plan Pulmonary Progress Note HPI Patient is an 83-year old woman from a from long term facility admitted with weakness, poor appetite x1 month. Patient is nonverbal at baseline. Patient has a history of C. difficile, has a history of diarrhea for the last several days CDIFF Positive. No fevers or chills. No reported cough or shortness of breath. Noted to have radiological evidence of Pneumonia, Left LLE ulcer, LLE DVT on Lovenox Stable VS, has PICC line, sp G Tube Allergies: No Known Allergies Past Medical History: Diabetes, Hypertension, Hyperlipidemia, Dementia, Hyperlipidemia, Sepsis, Metabolic Acidosis, C-Difficile, T11-T12 fracture All Other Systems: limited Physical Exam Vital Signs Noted General Appearance: no apparent distress, cachetic, non verbal Head: NCAT Eyes: bilateral eye normal inspection, bilateral eye PERRL ENT: dry mm Neck: normal inspection, no LN Respiratory: chest non-tender, normal breath sounds Cardiovascular: no edema, tachycardia, normal HS1, HS2 Gastrointestinal: normal bowel sounds, non tender, soft, non-distended, no guarding, no rebound, g tube Genitourinary: no CVA tenderness Musculoskeletal: normal inspection Neurologic: no focal signs, no seizures Skin: no edema, LLE ulcer Impression: Pneumonia Dysphagia Adult failure to thrive LLE DVT LLE Ulcer Hypernatremia Hypokalemia Diabetes Hypertension Hyperlipidemia Dementia Hyperlipidemia Previous C-Difficile Previous T11-T12 fracture ER CoursePlan G tube feeds Lovenox IVF NPO PICC line IV antibiotics, PO Flagyl Stll Cdiff O2 PRN HHN CPT Aspiration precautions Supplement K ST evaluation Monitor labs Labs Noted Test 04/24/19 16:20 04/24/19 16:40 White Blood Count 20.3 K/UL (4.8-10.8) Red Blood Count 4.17 M/UL (4.20-5.40) Hemoglobin 10.2 G/DL (12.0-16.0) Hematocrit 32.0 % (37.0-47.0) Mean Corpuscular Volume 77 FL (80-99) Mean Corpuscular Hemoglobin 24.5 PG (27.0-31.0) Mean Corpuscular Hemoglobin Concent 31.9 G/DL (32.0-36.0) Red Cell Distribution Width 18.7 % (11.6-14.8) Platelet Count 282 K/UL (150-450) Mean Platelet Volume 5.1 FL (6.5-10.1) Neutrophils (%) (Auto) % (45.0-75.0) Lymphocytes (%) (Auto) % (20.0-45.0) Monocytes (%) (Auto) % (1.0-10.0) Eosinophils (%) (Auto) % (0.0-3.0) Basophils (%) (Auto) % (0.0-2.0) Differential Total Cells Counted 100 Neutrophils % (Manual) 90 % (45-75) Lymphocytes % (Manual) 6 % (20-45) Monocytes % (Manual) 1 % (1-10) Eosinophils % (Manual) 0 % (0-3) Basophils % (Manual) 0 % (0-2) Band Neutrophils 3 % (0-8) Platelet Estimate Adequate Platelet Morphology Normal Polychromasia 1+ Anisocytosis 2+ Target Cells Occasional Sodium Level 151 MMOL/L (136-145) Potassium Level 2.9 MMOL/L (3.5-5.1) Chloride Level 115 MMOL/L (98-107) Carbon Dioxide Level 23 MMOL/L (21-32) Anion Gap 13 mmol/L (5-15) Blood Urea Nitrogen 15 mg/dL (7-18) Creatinine 0.4 MG/DL (0.55-1.30) Estimat Glomerular Filtration Rate mL/min (>60) Glucose Level 163 MG/DL (74-106) Lactic Acid Level 1.60 mmol/L (0.4-2.0) Calcium Level 7.8 MG/DL (8.5-10.1) Total Bilirubin 0.7 MG/DL (0.2-1.0) Aspartate Amino Transf (AST/SGOT) 14 U/L (15-37) Alanine Aminotransferase (ALT/SGPT) 13 U/L (12-78) Alkaline Phosphatase 635 U/L (46-116) Total Protein 6.3 G/DL (6.4-8.2) Albumin 1.5 G/DL (3.4-5.0) Globulin 4.8 g/dL Albumin/Globulin Ratio 0.3 (1.0-2.7) Lipase 43 U/L (73-393) Urine Color Yellow Urine Appearance Clear Urine pH 8 (4.5-8.0) Urine Specific Majestic 1.010 (1.005-1.035) Urine Protein 2+ (NEGATIVE) Urine Glucose (UA) Negative (NEGATIVE) Urine Ketones 2+ (NEGATIVE) Urine Blood Negative (NEGATIVE) Urine Nitrite Negative (NEGATIVE) Urine Bilirubin Negative (NEGATIVE) Urine Urobilinogen Normal MG/DL (0.0-1.0) Urine Leukocyte Esterase 1+ (NEGATIVE) Urine RBC 0-2 /HPF (0 - 2) Urine WBC 5-10 /HPF (0 - 2) Urine Squamous Epithelial Cells None /LPF (NONE/OCC) Urine Bacteria Few /HPF (NONE) Urine Yeast Few /HPF (NONE) EKG: Rate: tachycardia, NSR, no acute ST changes Chest X-Ray: no effusion, no pneumothorax, bilateral infiltrates c/w pneumonia Subjective ROS Limited/Unobtainable: No Allergies: Coded Allergies: No Known Allergies (Unverified , 04/24/19) Objective Last 24 Hour Vital Signs Date Time Temp Pulse Resp B/P (MAP) Pulse Ox O2 Delivery O2 Flow Rate FiO2 04/28/19 09:00 Nasal Cannula 2.0 04/28/19 08:35 98.3 84 18 140/86 (104) 95 04/28/19 04:00 87 04/28/19 04:00 96.4 92 20 110/62 (78) 95 04/28/19 00:00 97.5 82 20 106/48 (67) 96 04/28/19 00:00 88 04/27/19 21:00 Room Air 04/27/19 20:02 98 Nasal Cannula 2.0 28 04/27/19 20:00 68 04/27/19 20:00 78 18 96 Nasal Cannula 2.0 28 04/27/19 20:00 96.3 90 20 113/59 (77) 96 04/27/19 16:00 97.4 87 20 111/58 (75) 97 04/27/19 16:00 83 04/27/19 12:00 83 04/27/19 12:00 97.0 80 18 120/67 (84) 98 Intake and Output 04/27/19 04/28/19 19:00 07:00 Intake Total 30 ml 425 ml Output Total 250 ml Balance -220 ml 425 ml Tube Feeding 30 ml 425 ml Output Urine Total 250 ml Laboratory Tests 04/28/19 05:00: Sodium Level 143, Potassium Level 3.2L, Chloride Level 116H, Carbon Dioxide Level 17L, Anion Gap 10, Blood Urea Nitrogen 19H, Creatinine 0.8, Estimat Glomerular Filtration Rate , Glucose Level 341#H, Calcium Level 6.6L 04/28/19 11:25: Prothrombin Time 13.4H, Prothromb Time International Ratio 1.3H, PTT Mixing Study [Pending], APTT Patient/Control Mix [Pending], Mix PTT Incubation Time [ Pending], Mix PTT Normal/Saline 1:1 Immediate [Pending], Thrombin Time Normal Plasma [Pending], Hepatitis A IgM Antibody [Pending], Hepatitis B Surface Antigen [Pending], Hepatitis B Core IgM Antibody [Pending], Hepatitis C Antibody [Pending], HIV (1&2) Antibody Rapid [Pending] Current Medications Medications (Trade) Dose Ordered Sig/Bushra Route PRN Reason Start Time Stop Time Status Last Admin Dose Admin Acetaminophen (Tylenol) 650 mg Q4H PRN ORAL Mild Pain/Temp > 100.5 04/24/19 21:45 05/24/19 21:44 04/28/19 09:21 Albuterol/ Ipratropium (Albuterol/ Ipratropium) 3 ml Q4H PRN HHN Shortness of Breath 04/24/19 21:45 04/29/19 21:44 Cefepime HCl 1 gm/ Dextrose 55 ml @ 110 mls/hr DAILY IVPB 04/25/19 09:00 05/02/19 08:59 04/28/19 09:20 Chlorhexidine Gluconate (Mary Beth-Hex 2%) 1 applic DAILY@1999 TOPIC 04/25/19 20:00 05/25/19 19:59 04/27/19 21:14 Dextrose (Dextrose 50%) 25 ml Q30M PRN IV Hypoglycemia 04/24/19 21:45 05/24/19 21:44 Dextrose (Dextrose 50%) 50 ml Q30M PRN IV Hypoglycemia 04/24/19 21:45 05/24/19 21:44 04/25/19 17:26 Doxycycline Hyclate 100 mg/ Dextrose 110 ml @ 110 mls/hr Q12HR@1100,2300 IV 04/24/19 23:00 05/01/19 22:59 04/28/19 11:25 Famotidine (Pepcid) 20 mg BID GT 04/26/19 18:00 05/26/19 17:59 04/28/19 09:20 Insulin Aspart (NovoLOG) Q6HR SUBQ 04/28/19 00:00 05/25/19 06:29 04/28/19 05:52 Lidocaine HCl (Xylocaine 1% 30ml) 30 ml NOW PRN INJ Radiology Procedure 04/28/19 11:00 05/01/19 23:59 Ondansetron HCl (Zofran) 4 mg Q6H PRN IVP Nausea & Vomiting 04/24/19 21:45 05/24/19 21:44 Potassium Chloride 100 ml @ 100 mls/hr Q1HR IVPB 04/28/19 12:00 04/28/19 15:59 Sodium Chloride 1,000 ml @ 50 mls/hr Q20H IV 04/28/19 11:30 05/28/19 11:29 Vancomycin HCl (Firvanq) 125 mg FOUR TIMES A DAY GT 04/26/19 13:00 05/02/19 13:59 04/28/19 09:19 Juan Miguel Mendoza MD Apr 28, 2019 11:58
[2019-04-28 12:00] VITALS: BP 102/37
--- NOTE | 2019-04-28 12:18 | Infectious Diseases Prog Note ---
Assessment/Plan Assessment/Plan IMPRESSION: Sepsis with tachycardia and leukocytosis. Clostridium difficile colitis, may have pneumonia. diabetes mellitus, cachexia, failure to thrive. anemia and hyperlipidemia. s/p GT left leg ulcer RECOMMENDATION: We will continue treatment with cefepime, doxycycline and p.o. vancomycin. repeat CXR Subjective ROS Limited/Unobtainable: Yes Constitutional: Denies: fever Gastrointestinal/Abdominal: Reports: diarrhea Allergies: Coded Allergies: No Known Allergies (Unverified , 04/24/19) Objective Vital Signs Last 24 Hour Vital Signs Date Time Temp Pulse Resp B/P (MAP) Pulse Ox O2 Delivery O2 Flow Rate FiO2 04/28/19 09:00 Nasal Cannula 2.0 04/28/19 08:35 98.3 84 18 140/86 (104) 95 04/28/19 04:00 87 04/28/19 04:00 96.4 92 20 110/62 (78) 95 04/28/19 00:00 97.5 82 20 106/48 (67) 96 04/28/19 00:00 88 04/27/19 21:00 Room Air 04/27/19 20:02 98 Nasal Cannula 2.0 28 04/27/19 20:00 68 04/27/19 20:00 78 18 96 Nasal Cannula 2.0 28 04/27/19 20:00 96.3 90 20 113/59 (77) 96 04/27/19 16:00 97.4 87 20 111/58 (75) 97 04/27/19 16:00 83 Height (Feet): 5 Height (Inches): 3.00 Weight (Pounds): 80 General Appearance: no acute distress HEENT: mucous membranes moist Respiratory/Chest: lungs clear Cardiovascular: normal rate Abdomen: soft, non tender, other - GT feeding Neurologic/Psychiatric: aphasia Laboratory Tests Test 04/28/19 05:00 04/28/19 11:25 Sodium Level 143 MMOL/L (136-145) Potassium Level 3.2 MMOL/L (3.5-5.1) L Chloride Level 116 MMOL/L (98-107) H Carbon Dioxide Level 17 MMOL/L (21-32) L Anion Gap 10 mmol/L (5-15) Blood Urea Nitrogen 19 mg/dL (7-18) H Creatinine 0.8 MG/DL (0.55-1.30) Estimat Glomerular Filtration Rate mL/min (>60) Glucose Level 341 MG/DL (74-106) #H Calcium Level 6.6 MG/DL (8.5-10.1) L Prothrombin Time 13.4 SEC (9.30-11.50) H Prothromb Time International Ratio 1.3 (0.9-1.1) H PTT Mixing Study Pending APTT Patient/Control Mix Pending Mix PTT Incubation Time Pending Mix PTT Normal/Saline 1:1 Immediate Pending Thrombin Time Normal Plasma Pending Hepatitis A IgM Antibody Pending Hepatitis B Surface Antigen Pending Hepatitis B Core IgM Antibody Pending Hepatitis C Antibody Pending HIV (1&2) Antibody Rapid Pending Current Medications Medications (Trade) Dose Ordered Sig/Bushra Route PRN Reason Start Time Stop Time Status Last Admin Dose Admin Acetaminophen (Tylenol) 650 mg Q4H PRN ORAL Mild Pain/Temp > 100.5 04/24/19 21:45 05/24/19 21:44 04/28/19 09:21 Albuterol/ Ipratropium (Albuterol/ Ipratropium) 3 ml Q4H PRN HHN Shortness of Breath 04/24/19 21:45 04/29/19 21:44 Cefepime HCl 1 gm/ Dextrose 55 ml @ 110 mls/hr DAILY IVPB 04/25/19 09:00 05/02/19 08:59 04/28/19 09:20 Chlorhexidine Gluconate (Mary Beth-Hex 2%) 1 applic DAILY@2000 TOPIC 04/25/19 20:00 05/25/19 19:59 04/27/19 21:14 Dextrose (Dextrose 50%) 25 ml Q30M PRN IV Hypoglycemia 04/24/19 21:45 05/24/19 21:44 Dextrose (Dextrose 50%) 50 ml Q30M PRN IV Hypoglycemia 04/24/19 21:45 05/24/19 21:44 04/25/19 17:26 Doxycycline Hyclate 100 mg/ Dextrose 110 ml @ 110 mls/hr Q12HR@1100,2300 IV 04/24/19 23:00 05/01/19 22:59 04/28/19 11:25 Famotidine (Pepcid) 20 mg BID GT 04/26/19 18:00 05/26/19 17:59 04/28/19 09:20 Insulin Aspart (NovoLOG) Q6HR SUBQ 04/28/19 00:00 05/25/19 06:29 04/28/19 05:52 Lidocaine HCl (Xylocaine 1% 30ml) 30 ml NOW PRN INJ Radiology Procedure 04/28/19 11:00 05/01/19 23:59 Ondansetron HCl (Zofran) 4 mg Q6H PRN IVP Nausea & Vomiting 04/24/19 21:45 05/24/19 21:44 Potassium Chloride 100 ml @ 100 mls/hr Q1HR IVPB 04/28/19 12:00 04/28/19 15:59 Sodium Chloride 1,000 ml @ 50 mls/hr Q20H IV 04/28/19 11:30 05/28/19 11:29 Vancomycin HCl (Firvanq) 125 mg FOUR TIMES A DAY GT 04/26/19 13:00 05/02/19 13:59 04/28/19 09:19 Rajeev Pedro MD Apr 28, 2019 12:18
--- NOTE | 2019-04-28 13:43 | General Progress Note ---
Assessment/Plan Status: progressing Assessment/Plan: Assessment - dysphagia - OBS - s/p PEG Recommendations - continue TF - elevate HOB - monitor residuals - GT care Subjective Allergies: Coded Allergies: No Known Allergies (Unverified , 04/24/19) Subjective awake confused tolerating TF Objective Last 24 Hour Vital Signs Date Time Temp Pulse Resp B/P (MAP) Pulse Ox O2 Delivery O2 Flow Rate FiO2 04/28/19 09:00 Nasal Cannula 2.0 04/28/19 08:35 98.3 84 18 140/86 (104) 95 04/28/19 04:00 87 04/28/19 04:00 96.4 92 20 110/62 (78) 95 04/28/19 00:00 97.5 82 20 106/48 (67) 96 04/28/19 00:00 88 04/27/19 21:00 Room Air 04/27/19 20:02 98 Nasal Cannula 2.0 28 04/27/19 20:00 68 04/27/19 20:00 78 18 96 Nasal Cannula 2.0 28 04/27/19 20:00 96.3 90 20 113/59 (77) 96 04/27/19 16:00 97.4 87 20 111/58 (75) 97 04/27/19 16:00 83 Intake and Output 04/27/19 04/28/19 19:00 07:00 Intake Total 30 ml 425 ml Output Total 250 ml Balance -220 ml 425 ml Tube Feeding 30 ml 425 ml Output Urine Total 250 ml Laboratory Tests 04/28/19 05:00: Sodium Level 143, Potassium Level 3.2L, Chloride Level 116H, Carbon Dioxide Level 17L, Anion Gap 10, Blood Urea Nitrogen 19H, Creatinine 0.8, Estimat Glomerular Filtration Rate , Glucose Level 341#H, Calcium Level 6.6L 04/28/19 11:25: Prothrombin Time 13.4H, Prothromb Time International Ratio 1.3H, PTT Mixing Study [Pending], APTT Patient/Control Mix [Pending], Mix PTT Incubation Time [ Pending], Mix PTT Normal/Saline 1:1 Immediate [Pending], Thrombin Time Normal Plasma [Pending], Hepatitis A IgM Antibody [Pending], Hepatitis B Surface Antigen [Pending], Hepatitis B Core IgM Antibody [Pending], Hepatitis C Antibody [Pending], HIV (1&2) Antibody Rapid Negative Height (Feet): 5 Height (Inches): 3.00 Weight (Pounds): 80 Objective Debilitated woman NCAT supple CTA RR abd soft ND, (+) GT (+) pedal edema confused Zaira Grant MD Apr 28, 2019 13:43
--- NOTE | 2019-04-28 13:53 | Surgery Progress Note ---
Surgery Progress Note Subjective Additional Comments no acute events comfortable tube feeds going c diff with worsening leukocytosis on Abx as per ID Objective Last 24 Hour Vital Signs Date Time Temp Pulse Resp B/P (MAP) Pulse Ox O2 Delivery O2 Flow Rate FiO2 04/28/19 09:00 Nasal Cannula 2.0 04/28/19 08:35 98.3 84 18 140/86 (104) 95 04/28/19 04:00 87 04/28/19 04:00 96.4 92 20 110/62 (78) 95 04/28/19 00:00 97.5 82 20 106/48 (67) 96 04/28/19 00:00 88 04/27/19 21:00 Room Air 04/27/19 20:02 98 Nasal Cannula 2.0 28 04/27/19 20:00 68 04/27/19 20:00 78 18 96 Nasal Cannula 2.0 28 04/27/19 20:00 96.3 90 20 113/59 (77) 96 04/27/19 16:00 97.4 87 20 111/58 (75) 97 04/27/19 16:00 83 I&O Intake and Output 04/27/19 04/28/19 18:59 06:59 Intake Total 455 ml Output Total 250 ml Balance -250 ml 455 ml Tube Feeding 455 ml Output Urine Total 250 ml Dressing: saturated Wound: other Drains: other Cardiovascular: RSR Respiratory: decreased breath sounds Abdomen: soft, present bowel sounds, non-distended Extremities: no cyanosis Laboratory Tests Test 04/28/19 05:00 04/28/19 11:25 Sodium Level 143 MMOL/L (136-145) Potassium Level 3.2 MMOL/L (3.5-5.1) L Chloride Level 116 MMOL/L (98-107) H Carbon Dioxide Level 17 MMOL/L (21-32) L Anion Gap 10 mmol/L (5-15) Blood Urea Nitrogen 19 mg/dL (7-18) H Creatinine 0.8 MG/DL (0.55-1.30) Estimat Glomerular Filtration Rate mL/min (>60) Glucose Level 341 MG/DL (74-106) #H Calcium Level 6.6 MG/DL (8.5-10.1) L Prothrombin Time 13.4 SEC (9.30-11.50) H Prothromb Time International Ratio 1.3 (0.9-1.1) H PTT Mixing Study Pending APTT Patient/Control Mix Pending Mix PTT Incubation Time Pending Mix PTT Normal/Saline 1:1 Immediate Pending Thrombin Time Normal Plasma Pending Hepatitis A IgM Antibody Pending Hepatitis B Surface Antigen Pending Hepatitis B Core IgM Antibody Pending Hepatitis C Antibody Pending HIV (1&2) Antibody Rapid Negative (NEGATIVE) Plan Problems: (1) Leg ulcer Assessment & Plan: Pt presented on admission with multiple pressure injuries and necrotic ulcer torrey L tibia.Pt is emaciated. Non-blanchable erythema with fluctuance noted to R shoulder. (L)2cm x (W)1cm. Open DTPI noted to sacrum. Base of wound is purple with scattered open wounds with slough.(L)7.5cm x (W)6.5cm. Site tender when minimally palpated.Non- blanching erythema periwound. Non-blanching erythema without fluctuance noted to L ischium (L)2.5cm x (W) 2.5cm. Tender when minimally palpated. Bilat lower ext edematous . Full thickness ulcer with irregular and erythematous borders noted to torrey /distal L tibia. Base of wound 100% non- viable ,Soft necrosis noted . No odor or exudate noted. Pt complained of severe pain with minimal touch during wound assessment..Non-blanching erythema with fluctuance both heels. Pt verbalized pain when both heels minimally palpated. Plantar aspects of both feet and toes on both feet noted to be dusky. Tx.Plan: Cleanse sacral wound with Saline. Apply Therahoney. Apply Triad Paste periwound. Cover with Optifoam drsg. Change Daily and prn. Apply Triad Paste to bilateral groin and both ischial areas with each perineal care. Cleanse Wound Torrey L tibia with Saline. Apply Therhaoney. Apply Cavilon Skin Barrier periwound. Cover with Optifoam Drsg. Change every 3 days and prn. Apply Cavilon Skin Barrier to both heels. Cover each heel with Optifoam drsg. Change every 7 days and prn. APM/CAIO mattress overlay. Reposition at least every 2hours or as tolerated. Off-load heels with pillow. (2) Failure to thrive Assessment & Plan: DAILY ESTIMATED NEEDS: Needs based on Wt loss, underweight, wound/ 36kg 35-40 kcals/kg 2355-6903 total kcals 1.5-2.0 g protein/kg 54-72 g total protein 25-30 mL/kg 900-1080 total fluid mLs NUTRITION DIAGNOSIS: * Increased kcal/prot intake needs R/T underweight status, recent wt loss, wound healing as evidenced by admitted w/ significant wt loss of 11.9lbs/13% in 3 weeks, 84% IBW w/ low BMI per guidelines, admitted w/ lt wagner and sacral wounds, pending evaluation, currently NPO, pending PEG placement. CURRENT DIET: NPO ENTERAL NUTRITION RECOMMENDATIONS: Glucerna 1.2 @ 50ml/hr x 24 hrs to provide 1200ml, 1440kcal, 72g prot, 966ml free water * W/ GI access s/p PEG placement, initiate Glucerna 1.2 @ 10ml/hr x 6 hrs * Advance 10ml q 4-6 hrs as tolerated to goal rate. * HOB over 30 degrees/ water flush per MD ADDITIONAL RECOMMENDATIONS: * Weekly calibrated bedscale wt * Monitor lytes daily w/ TF, replete as needed -> pt at HIGH RISK for refeeding syndrome, increase TF SLOWLY * Wound healing: Add Vit C 250mg QD add ZnSO4 220mg QD x 10 days add Zeke 1pkt BID * Probiotics for diarrhea (3) Cellulitis, leg Assessment & Plan: cont with IV abx as per ID now with peg start feeds Nico Sanz Apr 28, 2019 13:53
--- NOTE | 2019-04-28 13:55 | Nephrology Progress Note ---
Assessment/Plan Problem List: (1) Hypernatremia (2) Hypokalemia (3) Dehydration (4) Failure to thrive Assessment Dehydration Free water deficit leading to high Na Low K and Low Mag Anemia Severe Malnutrition ? UTI Plan D5w hydrate Monitor Lytes and renal parameters replace Mag Phos k...as needed has PEG Per orders Subjective ROS Limited/Unobtainable: No Objective Objective Last 24 Hour Vital Signs Date Time Temp Pulse Resp B/P (MAP) Pulse Ox O2 Delivery O2 Flow Rate FiO2 04/28/19 09:00 Nasal Cannula 2.0 04/28/19 08:35 98.3 84 18 140/86 (104) 95 04/28/19 04:00 87 04/28/19 04:00 96.4 92 20 110/62 (78) 95 04/28/19 00:00 97.5 82 20 106/48 (67) 96 04/28/19 00:00 88 04/27/19 21:00 Room Air 04/27/19 20:02 98 Nasal Cannula 2.0 28 04/27/19 20:00 68 04/27/19 20:00 78 18 96 Nasal Cannula 2.0 28 04/27/19 20:00 96.3 90 20 113/59 (77) 96 04/27/19 16:00 97.4 87 20 111/58 (75) 97 04/27/19 16:00 83 Intake and Output 04/27/19 04/28/19 19:00 07:00 Intake Total 30 ml 425 ml Output Total 250 ml Balance -220 ml 425 ml Tube Feeding 30 ml 425 ml Output Urine Total 250 ml Laboratory Tests 04/28/19 05:00: Sodium Level 143, Potassium Level 3.2L, Chloride Level 116H, Carbon Dioxide Level 17L, Anion Gap 10, Blood Urea Nitrogen 19H, Creatinine 0.8, Estimat Glomerular Filtration Rate , Glucose Level 341#H, Calcium Level 6.6L 04/28/19 11:25: Prothrombin Time 13.4H, Prothromb Time International Ratio 1.3H, PTT Mixing Study [Pending], APTT Patient/Control Mix [Pending], Mix PTT Incubation Time [ Pending], Mix PTT Normal/Saline 1:1 Immediate [Pending], Thrombin Time Normal Plasma [Pending], Hepatitis A IgM Antibody [Pending], Hepatitis B Surface Antigen [Pending], Hepatitis B Core IgM Antibody [Pending], Hepatitis C Antibody [Pending], HIV (1&2) Antibody Rapid Negative Height (Feet): 5 Height (Inches): 3.00 Weight (Pounds): 80 General Appearance: no apparent distress, lethargic Cardiovascular: tachycardia Respiratory/Chest: decreased breath sounds Abdomen: soft Silver Orellana MD Apr 28, 2019 13:55
[2019-04-28 15:44] VITALS: BP 102/37
[2019-04-28 20:00] VITALS: BP 101/51
[2019-04-28] MEDS: Dyna-Hex 2% Top Sol 2oz TOPIC SCH (20:16)
[2019-04-28] MEDS ORDERED: HYDROcodone/Acetamin 5/325 tab ORAL PRN (21:00)
--- NOTE | 2019-04-28 23:40 | General Progress Note ---
Assessment/Plan Problem List: (1) Dehydration ICD Codes: E86.0 - Dehydration SNOMED: 79183075 (2) Failure to thrive SNOMED: 00138177 Qualifiers: Qualified Codes: R62.7 - Adult failure to thrive (3) Leg ulcer ICD Codes: L97.909 - Non-pressure chronic ulcer of unspecified part of unspecified lower leg with unspecified severity SNOMED: 55975577, 478217396 (4) Encounter for PEG (percutaneous endoscopic gastrostomy) ICD Codes: Z43.1 - Encounter for attention to gastrostomy SNOMED: 932516876, 049602564 Status: progressing Assessment/Plan: s/p peg dvt dehydration ftt cachexia no fever reweiwed chart nad labs malnutition no wheezing Subjective ROS Limited/Unobtainable: Yes Allergies: Coded Allergies: No Known Allergies (Unverified , 04/24/19) Objective Last 24 Hour Vital Signs Date Time Temp Pulse Resp B/P (MAP) Pulse Ox O2 Delivery O2 Flow Rate FiO2 04/28/19 21:00 Nasal Cannula 2.0 Nasal Cannula 2.0 04/28/19 20:00 97.7 87 19 101/51 (68) 94 04/28/19 16:00 71 04/28/19 15:44 98.6 89 20 102/37 (58) 100 04/28/19 12:00 91 04/28/19 12:00 98.6 89 20 102/37 (58) 100 04/28/19 09:52 95 Nasal Cannula 2.0 28 04/28/19 09:51 74 16 95 Nasal Cannula 2.0 28 04/28/19 09:00 Nasal Cannula 2.0 04/28/19 08:35 98.3 84 18 140/86 (104) 95 04/28/19 08:00 109 04/28/19 04:00 87 04/28/19 04:00 96.4 92 20 110/62 (78) 95 04/28/19 00:00 97.5 82 20 106/48 (67) 96 04/28/19 00:00 88 Intake and Output 04/27/19 04/28/19 19:00 07:00 Intake Total 30 ml 425 ml Output Total 250 ml Balance -220 ml 425 ml Tube Feeding 30 ml 425 ml Output Urine Total 250 ml Laboratory Tests 04/28/19 05:00: Sodium Level 143, Potassium Level 3.2L, Chloride Level 116H, Carbon Dioxide Level 17L, Anion Gap 10, Blood Urea Nitrogen 19H, Creatinine 0.8, Estimat Glomerular Filtration Rate , Glucose Level 341#H, Calcium Level 6.6L 04/28/19 11:25: Prothrombin Time 13.4H, Prothromb Time International Ratio 1.3H, PTT Mixing Study [Pending], APTT Patient/Control Mix [Pending], Mix PTT Incubation Time [ Pending], Mix PTT Normal/Saline 1:1 Immediate [Pending], Thrombin Time Normal Plasma [Pending], Hepatitis A IgM Antibody [Pending], Hepatitis B Surface Antigen [Pending], Hepatitis B Core IgM Antibody [Pending], Hepatitis C Antibody [Pending], HIV (1&2) Antibody Rapid Negative Height (Feet): 5 Height (Inches): 3.00 Weight (Pounds): 80 Neck: normal alignment, normal inspection Cardiovascular: regular rhythm Respiratory/Chest: normal breath sounds Abdomen: no organomegaly Nicole Guillermo MD Apr 28, 2019 23:40
[2019-04-29] VITALS: BP 106/54
[2019-04-29] MEDS: NovoLOG Insulin Flexpen SUBQ SCH ×5 (00:04→23:48)
[2019-04-29 04:00] VITALS: BP 110/60
[2019-04-29 07:27] LABS: HEMATOCRIT 22.5 % (37.0-47.0); HEMOGLOBIN 7.1 G/DL (12.0-16.0); MEAN CORPUSCULAR VOLUME 78 FL (80-99); PLATELET COUNT 105 K/UL (150-450); RED BLOOD COUNT 2.87 M/UL (4.20-5.40); RED CELL DISTRIBUTION WIDTH 20.9 % (11.6-14.8); WHITE BLOOD COUNT 14.1 K/UL (4.8-10.8)
[2019-04-29 07:53] LABS: ALANINE AMINOTRANSFERASE 15 U/L (12-78); ALBUMIN/GLOBULIN RATIO 0.3 (1.0-2.7); ALKALINE PHOSPHATASE 628 U/L (46-116); ANION GAP 8 mmol/L (5-15); ASPARTATE AMINO TRANSFERASE 22 U/L (15-37); BILIRUBIN,TOTAL 0.4 MG/DL (0.2-1.0); BLOOD UREA NITROGEN 17 mg/dL (7-18); CARBON DIOXIDE 19 MMOL/L (21-32); CHLORIDE 115 MMOL/L (98-107); CREATININE 0.6 MG/DL (0.55-1.30); PHOSPHORUS 1.6 MG/DL (2.5-4.9); POTASSIUM 3.9 MMOL/L (3.5-5.1); SODIUM 141 MMOL/L (136-145)
[2019-04-29 08:00] VITALS: BP 124/117
[2019-04-29] MEDS: Vancomycin oral 125mg/2.5ml GT SCH ×4 (09:58→20:28)
[2019-04-29] MEDS: Cefepime HCl 1 GM in D5W 55 ML IVPB SCH (09:59)
[2019-04-29] MEDS ORDERED: Potassium Phosphate 30 MM in NS 275 ML IV ONE ×2 (10:30→16:00)
[2019-04-29 12:00] VITALS: BP 98/44
--- NOTE | 2019-04-29 12:52 | Infectious Diseases Prog Note ---
Assessment/Plan Assessment/Plan IMPRESSION: Sepsis leukocytosis improving Clostridium difficile colitis, may have pneumonia. diabetes mellitus, cachexia, failure to thrive. anemia hyperlipidemia. s/p GT left leg ulcer RECOMMENDATION: We will continue treatment with cefepime, doxycycline and p.o. vancomycin. repeat CXR Subjective ROS Limited/Unobtainable: Yes Neurologic: Reports: confusion, other - on restraint Hematologic: Reports: other - receiving blood tranfusion Allergies: Coded Allergies: No Known Allergies (Unverified , 04/24/19) Objective Vital Signs Last 24 Hour Vital Signs Date Time Temp Pulse Resp B/P (MAP) Pulse Ox O2 Delivery O2 Flow Rate FiO2 04/29/19 08:00 97.7 105 22 124/117 (119) 100 04/29/19 04:00 95 04/29/19 04:00 97.5 92 18 110/60 (77) 97 04/29/19 00:00 91 04/29/19 00:00 97.9 89 18 106/54 (71) 95 04/28/19 21:00 Nasal Cannula 2.0 Nasal Cannula 2.0 04/28/19 20:00 84 04/28/19 20:00 97.7 87 19 101/51 (68) 94 04/28/19 18:54 74 18 96 Nasal Cannula 2.0 28 04/28/19 18:45 96 Nasal Cannula 2.0 28 04/28/19 16:00 71 04/28/19 15:44 98.6 89 20 102/37 (58) 100 Height (Feet): 5 Height (Inches): 3.00 Weight (Pounds): 80 General Appearance: no acute distress, cachetic HEENT: mucous membranes moist Respiratory/Chest: lungs clear Cardiovascular: normal rate, other - left arm PICC line Abdomen: soft, non tender, other - GT feeding Extremities: no edema Skin: ulcers Neurologic/Psychiatric: alert, responsive Laboratory Tests Test 04/29/19 06:45 White Blood Count 14.1 K/UL (4.8-10.8) H Red Blood Count 2.87 M/UL (4.20-5.40) L Hemoglobin 7.1 G/DL (12.0-16.0) L Hematocrit 22.5 % (37.0-47.0) L Mean Corpuscular Volume 78 FL (80-99) L Mean Corpuscular Hemoglobin 24.7 PG (27.0-31.0) L Mean Corpuscular Hemoglobin Concent 31.6 G/DL (32.0-36.0) L Red Cell Distribution Width 20.9 % (11.6-14.8) H Platelet Count 105 K/UL (150-450) L Mean Platelet Volume 6.9 FL (6.5-10.1) Neutrophils (%) (Auto) % (45.0-75.0) Lymphocytes (%) (Auto) % (20.0-45.0) Monocytes (%) (Auto) % (1.0-10.0) Eosinophils (%) (Auto) % (0.0-3.0) Basophils (%) (Auto) % (0.0-2.0) Differential Total Cells Counted 100 Neutrophils % (Manual) 81 % (45-75) H Lymphocytes % (Manual) 13 % (20-45) L Monocytes % (Manual) 2 % (1-10) Eosinophils % (Manual) 0 % (0-3) Basophils % (Manual) 0 % (0-2) Band Neutrophils 4 % (0-8) Platelet Estimate Decreased L Platelet Morphology Normal Hypochromasia 2+ Anisocytosis 2+ Microcytosis 1+ Sodium Level 141 MMOL/L (136-145) Potassium Level 3.9 MMOL/L (3.5-5.1) Chloride Level 115 MMOL/L (98-107) H Carbon Dioxide Level 19 MMOL/L (21-32) L Anion Gap 8 mmol/L (5-15) Blood Urea Nitrogen 17 mg/dL (7-18) Creatinine 0.6 MG/DL (0.55-1.30) Estimat Glomerular Filtration Rate mL/min (>60) Glucose Level 121 MG/DL (74-106) #H Uric Acid 5.2 MG/DL (2.6-7.2) Calcium Level 7.0 MG/DL (8.5-10.1) L Phosphorus Level 1.6 MG/DL (2.5-4.9) L Magnesium Level 1.1 MG/DL (1.8-2.4) L Total Bilirubin 0.4 MG/DL (0.2-1.0) Aspartate Amino Transf (AST/SGOT) 22 U/L (15-37) Alanine Aminotransferase (ALT/SGPT) 15 U/L (12-78) Alkaline Phosphatase 628 U/L (46-116) H C-Reactive Protein, Quantitative 14.1 mg/dL (0.00-0.90) H Pro-B-Type Natriuretic Peptide 6687 pg/mL (0-125) H Total Protein 4.7 G/DL (6.4-8.2) L Albumin 1.0 G/DL (3.4-5.0) L Globulin 3.7 g/dL Albumin/Globulin Ratio 0.3 (1.0-2.7) L Current Medications Medications (Trade) Dose Ordered Sig/Bushra Route PRN Reason Start Time Stop Time Status Last Admin Dose Admin Acetaminophen (Tylenol) 650 mg Q4H PRN ORAL Mild Pain/Temp > 100.5 04/24/19 21:45 05/24/19 21:44 04/28/19 09:21 Acetaminophen/ Hydrocodone Bitart ([place] 5/325) 1 tab Q6H PRN ORAL pain 4-10 04/28/19 21:00 05/05/19 20:59 04/29/19 09:58 Albuterol/ Ipratropium (Albuterol/ Ipratropium) 3 ml Q4H PRN HHN Shortness of Breath 04/24/19 21:45 04/29/19 21:44 Cefepime HCl 1 gm/ Dextrose 55 ml @ 110 mls/hr DAILY IVPB 04/25/19 09:00 05/02/19 08:59 04/29/19 09:59 Chlorhexidine Gluconate (Mary Beth-Hex 2%) 1 applic DAILY@2000 TOPIC 04/25/19 20:00 05/25/19 19:59 04/28/19 20:16 Dextrose (Dextrose 50%) 25 ml Q30M PRN IV Hypoglycemia 04/24/19 21:45 05/24/19 21:44 04/28/19 16:28 Dextrose (Dextrose 50%) 50 ml Q30M PRN IV Hypoglycemia 04/24/19 21:45 05/24/19 21:44 04/28/19 14:40 Dextrose/Sodium Chloride 1,000 ml @ 50 mls/hr Q20H IV 04/28/19 17:45 05/28/19 17:44 04/28/19 18:41 Doxycycline Hyclate 100 mg/ Dextrose 110 ml @ 110 mls/hr Q12HR@1100,2300 IV 04/24/19 23:00 05/01/19 22:59 04/28/19 22:54 Famotidine (Pepcid) 20 mg BID GT 04/26/19 18:00 05/26/19 17:59 04/29/19 09:58 Insulin Aspart (NovoLOG) Q6HR SUBQ 04/28/19 00:00 05/25/19 06:29 04/29/19 00:04 Lidocaine HCl (Xylocaine 1% 30ml) 30 ml NOW PRN INJ Radiology Procedure 04/28/19 11:00 05/01/19 23:59 Magnesium Sulfate 100 ml @ 100 mls/hr Q1H IVPB 04/29/19 09:45 04/29/19 13:44 04/29/19 11:45 Ondansetron HCl (Zofran) 4 mg Q6H PRN IVP Nausea & Vomiting 04/24/19 21:45 05/24/19 21:44 Potassium Phosphate 30 mm/ Sodium Chloride 285 ml @ 47.5 mls/hr ONCE ONCE IV 04/29/19 10:30 04/29/19 16:29 Vancomycin HCl (Firvanq) 125 mg FOUR TIMES A DAY GT 04/26/19 13:00 05/02/19 13:59 04/29/19 09:58 Rajeev Pedro MD Apr 29, 2019 12:52
--- NOTE | 2019-04-29 13:04 | GI Progress Note ---
Assessment/Plan Problems: (1) Failure to thrive SNOMED: 37361443 Qualifiers: Qualified Codes: R62.7 - Adult failure to thrive (2) Encounter for PEG (percutaneous endoscopic gastrostomy) ICD Codes: Z43.1 - Encounter for attention to gastrostomy SNOMED: 781268889, 545719320 (3) Dehydration ICD Codes: E86.0 - Dehydration SNOMED: 06007933 (4) Hypokalemia ICD Codes: E87.6 - Hypokalemia SNOMED: 83538461 Status: stable Status Narrative Discussed with Dr. Carranza. Assessment/Plan Assessment - dysphagia - OBS - s/p PEG - anemia Recommendations - continue TF - elevate HOB - monitor residuals, add low dose reglan - GT care - send additional OB stool The patient was seen and examined at bedside and all new and available data was reviewed in the patients chart. I agree with the above findings, impression and plan. (Patient seen earlier today. Signature stamp does not reflect patient encounter time.). - Ramón Carranza MD Subjective Subjective limited Objective Last 24 Hour Vital Signs Date Time Temp Pulse Resp B/P (MAP) Pulse Ox O2 Delivery O2 Flow Rate FiO2 04/29/19 08:00 97.7 105 22 124/117 (119) 100 04/29/19 04:00 95 04/29/19 04:00 97.5 92 18 110/60 (77) 97 04/29/19 00:00 91 04/29/19 00:00 97.9 89 18 106/54 (71) 95 04/28/19 21:00 Nasal Cannula 2.0 Nasal Cannula 2.0 04/28/19 20:00 84 04/28/19 20:00 97.7 87 19 101/51 (68) 94 04/28/19 18:54 74 18 96 Nasal Cannula 2.0 28 04/28/19 18:45 96 Nasal Cannula 2.0 28 04/28/19 16:00 71 04/28/19 15:44 98.6 89 20 102/37 (58) 100 Intake and Output 04/28/19 04/29/19 19:00 07:00 Intake Total 20 ml 440 ml Output Total 500 ml Balance 20 ml -60 ml Tube Feeding 20 ml 440 ml Output Urine Total 500 ml Laboratory Tests Test 04/29/19 06:45 White Blood Count 14.1 K/UL (4.8-10.8) H Red Blood Count 2.87 M/UL (4.20-5.40) L Hemoglobin 7.1 G/DL (12.0-16.0) L Hematocrit 22.5 % (37.0-47.0) L Mean Corpuscular Volume 78 FL (80-99) L Mean Corpuscular Hemoglobin 24.7 PG (27.0-31.0) L Mean Corpuscular Hemoglobin Concent 31.6 G/DL (32.0-36.0) L Red Cell Distribution Width 20.9 % (11.6-14.8) H Platelet Count 105 K/UL (150-450) L Mean Platelet Volume 6.9 FL (6.5-10.1) Neutrophils (%) (Auto) % (45.0-75.0) Lymphocytes (%) (Auto) % (20.0-45.0) Monocytes (%) (Auto) % (1.0-10.0) Eosinophils (%) (Auto) % (0.0-3.0) Basophils (%) (Auto) % (0.0-2.0) Differential Total Cells Counted 100 Neutrophils % (Manual) 81 % (45-75) H Lymphocytes % (Manual) 13 % (20-45) L Monocytes % (Manual) 2 % (1-10) Eosinophils % (Manual) 0 % (0-3) Basophils % (Manual) 0 % (0-2) Band Neutrophils 4 % (0-8) Platelet Estimate Decreased L Platelet Morphology Normal Hypochromasia 2+ Anisocytosis 2+ Microcytosis 1+ Sodium Level 141 MMOL/L (136-145) Potassium Level 3.9 MMOL/L (3.5-5.1) Chloride Level 115 MMOL/L (98-107) H Carbon Dioxide Level 19 MMOL/L (21-32) L Anion Gap 8 mmol/L (5-15) Blood Urea Nitrogen 17 mg/dL (7-18) Creatinine 0.6 MG/DL (0.55-1.30) Estimat Glomerular Filtration Rate mL/min (>60) Glucose Level 121 MG/DL (74-106) #H Uric Acid 5.2 MG/DL (2.6-7.2) Calcium Level 7.0 MG/DL (8.5-10.1) L Phosphorus Level 1.6 MG/DL (2.5-4.9) L Magnesium Level 1.1 MG/DL (1.8-2.4) L Total Bilirubin 0.4 MG/DL (0.2-1.0) Aspartate Amino Transf (AST/SGOT) 22 U/L (15-37) Alanine Aminotransferase (ALT/SGPT) 15 U/L (12-78) Alkaline Phosphatase 628 U/L (46-116) H C-Reactive Protein, Quantitative 14.1 mg/dL (0.00-0.90) H Pro-B-Type Natriuretic Peptide 6687 pg/mL (0-125) H Total Protein 4.7 G/DL (6.4-8.2) L Albumin 1.0 G/DL (3.4-5.0) L Globulin 3.7 g/dL Albumin/Globulin Ratio 0.3 (1.0-2.7) L Height (Feet): 5 Height (Inches): 3.00 Weight (Pounds): 80 General Appearance: WD/WN, no apparent distress, alert Cardiovascular: normal rate Respiratory/Chest: normal breath sounds, no respiratory distress Abdominal Exam: normal bowel sounds, non tender, soft, GT site Extremities: non-tender Steffany Painter NP Apr 29, 2019 13:04
[2019-04-29] MEDS: Doxycycline Hyclate 100 MG in D5W 110 ML IV SCH ×3 (13:19→23:46)
[2019-04-29] MEDS: D5 1/2NS 1,000 ML IV SCH (13:42)
[2019-04-29] MEDS: Metoclopramide 10mg/10ml Liq GT SCH ×2 (13:43→20:31)
--- NOTE | 2019-04-29 14:41 | Cardiac Electrophysiology PN ---
Subjective Subjective [id number] Objective Last 24 Hour Vital Signs Date Time Temp Pulse Resp B/P (MAP) Pulse Ox O2 Delivery O2 Flow Rate FiO2 04/29/19 08:00 97.7 105 22 124/117 (119) 100 04/29/19 04:00 95 04/29/19 04:00 97.5 92 18 110/60 (77) 97 04/29/19 00:00 91 04/29/19 00:00 97.9 89 18 106/54 (71) 95 04/28/19 21:00 Nasal Cannula 2.0 Nasal Cannula 2.0 04/28/19 20:00 84 04/28/19 20:00 97.7 87 19 101/51 (68) 94 04/28/19 18:54 74 18 96 Nasal Cannula 2.0 28 04/28/19 18:45 96 Nasal Cannula 2.0 28 04/28/19 16:00 71 04/28/19 15:44 98.6 89 20 102/37 (58) 100 Intake and Output 04/28/19 04/29/19 19:00 07:00 Intake Total 20 ml 440 ml Output Total 500 ml Balance 20 ml -60 ml Tube Feeding 20 ml 440 ml Output Urine Total 500 ml Laboratory Tests Test 04/29/19 06:45 White Blood Count 14.1 K/UL (4.8-10.8) H Red Blood Count 2.87 M/UL (4.20-5.40) L Hemoglobin 7.1 G/DL (12.0-16.0) L Hematocrit 22.5 % (37.0-47.0) L Mean Corpuscular Volume 78 FL (80-99) L Mean Corpuscular Hemoglobin 24.7 PG (27.0-31.0) L Mean Corpuscular Hemoglobin Concent 31.6 G/DL (32.0-36.0) L Red Cell Distribution Width 20.9 % (11.6-14.8) H Platelet Count 105 K/UL (150-450) L Mean Platelet Volume 6.9 FL (6.5-10.1) Neutrophils (%) (Auto) % (45.0-75.0) Lymphocytes (%) (Auto) % (20.0-45.0) Monocytes (%) (Auto) % (1.0-10.0) Eosinophils (%) (Auto) % (0.0-3.0) Basophils (%) (Auto) % (0.0-2.0) Differential Total Cells Counted 100 Neutrophils % (Manual) 81 % (45-75) H Lymphocytes % (Manual) 13 % (20-45) L Monocytes % (Manual) 2 % (1-10) Eosinophils % (Manual) 0 % (0-3) Basophils % (Manual) 0 % (0-2) Band Neutrophils 4 % (0-8) Platelet Estimate Decreased L Platelet Morphology Normal Hypochromasia 2+ Anisocytosis 2+ Microcytosis 1+ Sodium Level 141 MMOL/L (136-145) Potassium Level 3.9 MMOL/L (3.5-5.1) Chloride Level 115 MMOL/L (98-107) H Carbon Dioxide Level 19 MMOL/L (21-32) L Anion Gap 8 mmol/L (5-15) Blood Urea Nitrogen 17 mg/dL (7-18) Creatinine 0.6 MG/DL (0.55-1.30) Estimat Glomerular Filtration Rate mL/min (>60) Glucose Level 121 MG/DL (74-106) #H Uric Acid 5.2 MG/DL (2.6-7.2) Calcium Level 7.0 MG/DL (8.5-10.1) L Phosphorus Level 1.6 MG/DL (2.5-4.9) L Magnesium Level 1.1 MG/DL (1.8-2.4) L Total Bilirubin 0.4 MG/DL (0.2-1.0) Aspartate Amino Transf (AST/SGOT) 22 U/L (15-37) Alanine Aminotransferase (ALT/SGPT) 15 U/L (12-78) Alkaline Phosphatase 628 U/L (46-116) H C-Reactive Protein, Quantitative 14.1 mg/dL (0.00-0.90) H Pro-B-Type Natriuretic Peptide 6687 pg/mL (0-125) H Total Protein 4.7 G/DL (6.4-8.2) L Albumin 1.0 G/DL (3.4-5.0) L Globulin 3.7 g/dL Albumin/Globulin Ratio 0.3 (1.0-2.7) L Josue Parikh MD Apr 29, 2019 14:41
--- NOTE | 2019-04-29 15:07 | Surgery Progress Note ---
Surgery Progress Note Subjective Additional Comments no acute events comfortable stable labs ntoed exam unchanged. Objective Last 24 Hour Vital Signs Date Time Temp Pulse Resp B/P (MAP) Pulse Ox O2 Delivery O2 Flow Rate FiO2 04/29/19 08:00 97.7 105 22 124/117 (119) 100 04/29/19 04:00 95 04/29/19 04:00 97.5 92 18 110/60 (77) 97 04/29/19 00:00 91 04/29/19 00:00 97.9 89 18 106/54 (71) 95 04/28/19 21:00 Nasal Cannula 2.0 Nasal Cannula 2.0 04/28/19 20:00 84 04/28/19 20:00 97.7 87 19 101/51 (68) 94 04/28/19 18:54 74 18 96 Nasal Cannula 2.0 28 04/28/19 18:45 96 Nasal Cannula 2.0 28 04/28/19 16:00 71 04/28/19 15:44 98.6 89 20 102/37 (58) 100 I&O Intake and Output 04/28/19 04/29/19 19:00 07:00 Intake Total 20 ml 440 ml Output Total 500 ml Balance 20 ml -60 ml Tube Feeding 20 ml 440 ml Output Urine Total 500 ml Cardiovascular: RSR Respiratory: clear Abdomen: soft, non-tender, present bowel sounds Extremities: no cyanosis, other Laboratory Tests Test 04/29/19 06:45 White Blood Count 14.1 K/UL (4.8-10.8) H Red Blood Count 2.87 M/UL (4.20-5.40) L Hemoglobin 7.1 G/DL (12.0-16.0) L Hematocrit 22.5 % (37.0-47.0) L Mean Corpuscular Volume 78 FL (80-99) L Mean Corpuscular Hemoglobin 24.7 PG (27.0-31.0) L Mean Corpuscular Hemoglobin Concent 31.6 G/DL (32.0-36.0) L Red Cell Distribution Width 20.9 % (11.6-14.8) H Platelet Count 105 K/UL (150-450) L Mean Platelet Volume 6.9 FL (6.5-10.1) Neutrophils (%) (Auto) % (45.0-75.0) Lymphocytes (%) (Auto) % (20.0-45.0) Monocytes (%) (Auto) % (1.0-10.0) Eosinophils (%) (Auto) % (0.0-3.0) Basophils (%) (Auto) % (0.0-2.0) Differential Total Cells Counted 100 Neutrophils % (Manual) 81 % (45-75) H Lymphocytes % (Manual) 13 % (20-45) L Monocytes % (Manual) 2 % (1-10) Eosinophils % (Manual) 0 % (0-3) Basophils % (Manual) 0 % (0-2) Band Neutrophils 4 % (0-8) Platelet Estimate Decreased L Platelet Morphology Normal Hypochromasia 2+ Anisocytosis 2+ Microcytosis 1+ Sodium Level 141 MMOL/L (136-145) Potassium Level 3.9 MMOL/L (3.5-5.1) Chloride Level 115 MMOL/L (98-107) H Carbon Dioxide Level 19 MMOL/L (21-32) L Anion Gap 8 mmol/L (5-15) Blood Urea Nitrogen 17 mg/dL (7-18) Creatinine 0.6 MG/DL (0.55-1.30) Estimat Glomerular Filtration Rate mL/min (>60) Glucose Level 121 MG/DL (74-106) #H Uric Acid 5.2 MG/DL (2.6-7.2) Calcium Level 7.0 MG/DL (8.5-10.1) L Phosphorus Level 1.6 MG/DL (2.5-4.9) L Magnesium Level 1.1 MG/DL (1.8-2.4) L Total Bilirubin 0.4 MG/DL (0.2-1.0) Aspartate Amino Transf (AST/SGOT) 22 U/L (15-37) Alanine Aminotransferase (ALT/SGPT) 15 U/L (12-78) Alkaline Phosphatase 628 U/L (46-116) H C-Reactive Protein, Quantitative 14.1 mg/dL (0.00-0.90) H Pro-B-Type Natriuretic Peptide 6687 pg/mL (0-125) H Total Protein 4.7 G/DL (6.4-8.2) L Albumin 1.0 G/DL (3.4-5.0) L Globulin 3.7 g/dL Albumin/Globulin Ratio 0.3 (1.0-2.7) L Plan Problems: (1) Leg ulcer Assessment & Plan: Pt presented on admission with multiple pressure injuries and necrotic ulcer torrey L tibia.Pt is emaciated. Non-blanchable erythema with fluctuance noted to R shoulder. (L)2cm x (W)1cm. Open DTPI noted to sacrum. Base of wound is purple with scattered open wounds with slough.(L)7.5cm x (W)6.5cm. Site tender when minimally palpated.Non- blanching erythema periwound. Non-blanching erythema without fluctuance noted to L ischium (L)2.5cm x (W) 2.5cm. Tender when minimally palpated. Bilat lower ext edematous . Full thickness ulcer with irregular and erythematous borders noted to torrey /distal L tibia. Base of wound 100% non- viable ,Soft necrosis noted . No odor or exudate noted. Pt complained of severe pain with minimal touch during wound assessment..Non-blanching erythema with fluctuance both heels. Pt verbalized pain when both heels minimally palpated. Plantar aspects of both feet and toes on both feet noted to be dusky. Tx.Plan: Cleanse sacral wound with Saline. Apply Therahoney. Apply Triad Paste periwound. Cover with Optifoam drsg. Change Daily and prn. Apply Triad Paste to bilateral groin and both ischial areas with each perineal care. Cleanse Wound Torrey L tibia with Saline. Apply Therhaoney. Apply Cavilon Skin Barrier periwound. Cover with Optifoam Drsg. Change every 3 days and prn. Apply Cavilon Skin Barrier to both heels. Cover each heel with Optifoam drsg. Change every 7 days and prn. APM/CAIO mattress overlay. Reposition at least every 2hours or as tolerated. Off-load heels with pillow. (2) Failure to thrive Assessment & Plan: DAILY ESTIMATED NEEDS: Needs based on Wt loss, underweight, wound/ 36kg 35-40 kcals/kg 2124-7195 total kcals 1.5-2.0 g protein/kg 54-72 g total protein 25-30 mL/kg 900-1080 total fluid mLs NUTRITION DIAGNOSIS: * Increased kcal/prot intake needs R/T underweight status, recent wt loss, wound healing as evidenced by admitted w/ significant wt loss of 11.9lbs/13% in 3 weeks, 84% IBW w/ low BMI per guidelines, admitted w/ lt wagner and sacral wounds, pending evaluation, currently NPO, pending PEG placement. CURRENT DIET: NPO ENTERAL NUTRITION RECOMMENDATIONS: Glucerna 1.2 @ 50ml/hr x 24 hrs to provide 1200ml, 1440kcal, 72g prot, 966ml free water * W/ GI access s/p PEG placement, initiate Glucerna 1.2 @ 10ml/hr x 6 hrs * Advance 10ml q 4-6 hrs as tolerated to goal rate. * HOB over 30 degrees/ water flush per MD ADDITIONAL RECOMMENDATIONS: * Weekly calibrated bedscale wt * Monitor lytes daily w/ TF, replete as needed -> pt at HIGH RISK for refeeding syndrome, increase TF SLOWLY * Wound healing: Add Vit C 250mg QD add ZnSO4 220mg QD x 10 days add Zeke 1pkt BID * Probiotics for diarrhea (3) Cellulitis, leg Assessment & Plan: cont with IV abx as per ID now with peg start feeds Nico Sanz Apr 29, 2019 15:07
--- NOTE | 2019-04-29 15:08 | Nephrology Progress Note ---
Assessment/Plan Problem List: (1) Hypernatremia (2) Hypokalemia (3) Dehydration (4) Failure to thrive Assessment Dehydration Free water deficit leading to high Na Low K and Low Mag Anemia Severe Malnutrition ? UTI Plan trial of Reglan D5w hydrate Monitor Lytes and renal parameters replace Mag Phos k...as needed has PEG Per orders Subjective ROS Limited/Unobtainable: No Constitutional: Reports: malaise, weakness Objective Objective Last 24 Hour Vital Signs Date Time Temp Pulse Resp B/P (MAP) Pulse Ox O2 Delivery O2 Flow Rate FiO2 04/29/19 08:00 97.7 105 22 124/117 (119) 100 04/29/19 04:00 95 04/29/19 04:00 97.5 92 18 110/60 (77) 97 04/29/19 00:00 91 04/29/19 00:00 97.9 89 18 106/54 (71) 95 04/28/19 21:00 Nasal Cannula 2.0 Nasal Cannula 2.0 04/28/19 20:00 84 04/28/19 20:00 97.7 87 19 101/51 (68) 94 04/28/19 18:54 74 18 96 Nasal Cannula 2.0 28 04/28/19 18:45 96 Nasal Cannula 2.0 28 04/28/19 16:00 71 04/28/19 15:44 98.6 89 20 102/37 (58) 100 Intake and Output 04/28/19 04/29/19 19:00 07:00 Intake Total 20 ml 440 ml Output Total 500 ml Balance 20 ml -60 ml Tube Feeding 20 ml 440 ml Output Urine Total 500 ml Laboratory Tests 04/29/19 06:45: White Blood Count 14.1H, Red Blood Count 2.87L, Hemoglobin 7.1L, Hematocrit 22.5L, Mean Corpuscular Volume 78L, Mean Corpuscular Hemoglobin 24.7L, Mean Corpuscular Hemoglobin Concent 31.6L, Red Cell Distribution Width 20.9H, Platelet Count 105L, Mean Platelet Volume 6.9, Neutrophils (%) (Auto) , Lymphocytes (%) (Auto) , Monocytes (%) (Auto) , Eosinophils (%) (Auto) , Basophils (%) (Auto) , Differential Total Cells Counted 100, Neutrophils % ( Manual) 81H, Lymphocytes % (Manual) 13L, Monocytes % (Manual) 2, Eosinophils % ( Manual) 0, Basophils % (Manual) 0, Band Neutrophils 4, Platelet Estimate DecreasedL, Platelet Morphology Normal, Hypochromasia 2+, Anisocytosis 2+, Microcytosis 1+, Sodium Level 141, Potassium Level 3.9, Chloride Level 115H, Carbon Dioxide Level 19L, Anion Gap 8, Blood Urea Nitrogen 17, Creatinine 0.6, Estimat Glomerular Filtration Rate , Glucose Level 121#H, Uric Acid 5.2, Calcium Level 7.0L, Phosphorus Level 1.6L, Magnesium Level 1.1L, Total Bilirubin 0.4, Aspartate Amino Transf (AST/SGOT) 22, Alanine Aminotransferase ( ALT/SGPT) 15, Alkaline Phosphatase 628H, C-Reactive Protein, Quantitative 14.1H , Pro-B-Type Natriuretic Peptide 6687H, Total Protein 4.7L, Albumin 1.0L, Globulin 3.7, Albumin/Globulin Ratio 0.3L Height (Feet): 5 Height (Inches): 3.00 Weight (Pounds): 80 General Appearance: no apparent distress, lethargic Cardiovascular: tachycardia Respiratory/Chest: decreased breath sounds Abdomen: distended Silver Orellana MD Apr 29, 2019 15:08
--- NOTE | 2019-04-29 15:18 | Hematology/Onc Progress Note ---
Assessment/Plan Assessment/Plan Assessment and Recs: # Anemia of chronic disease, rule out gi bleed, likely is multifactorial ferritin 631 --> anemia panel has been reviewed and cw acd --> hgb goal is >7 --> no evidence for hemolysis --> obtain occult blood++ per gi prn recs --> hgb trend 10-->9.1-->8.1-->8-->7.1 --> s/p peg tube and on tfs # DVT of the left lower extremity with now low platelets and low h/h --> unsafe to anticoag given dropping h/h --> IVF filter order placed (PEND) --> reviewed cards and pulm recs # Leukocytosis likely 2/2 anemia v infection (PNA) --> abx have been started --> cefepime/cefoxitin--> cefe/vanc/dox --> wbc trend: 20-->17.2-->21k->14k # Coagulopathy with elevated pt/ptt/inr is due to underlying cirrhosis --> us abd shows cirrhosis # FTT requiring potential gtube placement --> sp peg tube and on tube feeds --> started on tfs # Dehydration --> per renal, may need ivf # PNA on abx Time of note does not necessarily reflect time of encounter. Appreciate consultation greatly Subjective HEENT: Denies: no symptoms, eye pain, blurred vision, tearing, double vision, ear pain, ear discharge, nose pain, nose congestion, throat pain, throat swelling, mouth pain, mouth swelling, other Cardiovascular: Denies: no symptoms, chest pain, edema, irregular heart rate, lightheadedness, palpitations, syncope, other Gastrointestinal/Abdominal: Denies: no symptoms, abdomen distended, abdominal pain, black stools, tarry stools, blood in stool, constipated, diarrhea, difficulty swallowing, nausea, poor appetite, poor fluid intake, rectal bleeding , vomiting, other Genitourinary: Denies: no symptoms, burning, discharge, frequency, flank pain, hematuria, incontinence, pain, urgency, other Neurologic/Psychiatric: Denies: no symptoms, anxiety, depressed, emotional problems, headache, numbness, paresthesia, pre-existing deficit, seizure, tingling, tremors, weakness, other Endocrine: Denies: no symptoms, excessive sweating, flushing, intolerance to cold, intolerance to heat, increased hunger, increased thirst, increased urine, unexplained weight gain, unexplained weight loss, other Hematologic/Lymphatic: Denies: no symptoms, anemia, easy bleeding, easy bruising, adenopathy, other Allergies: Coded Allergies: No Known Allergies (Unverified , 04/24/19) Subjective 04/26: awake and confused, on abx, h/h stable , on vanc/cefe/dox 04/29: remains on abx, pending potential ivcfilter given dropping h/h Objective Objective Current Medications Medications (Trade) Dose Ordered Sig/Bushra Route PRN Reason Start Time Stop Time Status Last Admin Dose Admin Acetaminophen (Tylenol) 650 mg Q4H PRN ORAL Mild Pain/Temp > 100.5 04/24/19 21:45 05/24/19 21:44 04/28/19 09:21 Acetaminophen/ Hydrocodone Bitart ([place] 5/325) 1 tab Q6H PRN ORAL pain 4-10 04/28/19 21:00 05/05/19 20:59 04/29/19 09:58 Albuterol/ Ipratropium (Albuterol/ Ipratropium) 3 ml Q4H PRN HHN Shortness of Breath 04/24/19 21:45 04/29/19 21:44 Cefepime HCl 1 gm/ Dextrose 55 ml @ 110 mls/hr DAILY IVPB 04/25/19 09:00 05/02/19 08:59 04/29/19 09:59 Chlorhexidine Gluconate (Mary Beth-Hex 2%) 1 applic DAILY@2000 TOPIC 04/25/19 20:00 05/25/19 19:59 04/28/19 20:16 Dextrose (Dextrose 50%) 25 ml Q30M PRN IV Hypoglycemia 04/24/19 21:45 05/24/19 21:44 04/28/19 16:28 Dextrose (Dextrose 50%) 50 ml Q30M PRN IV Hypoglycemia 04/24/19 21:45 05/24/19 21:44 04/28/19 14:40 Dextrose/Sodium Chloride 1,000 ml @ 50 mls/hr Q20H IV 04/28/19 17:45 05/28/19 17:44 04/29/19 13:42 Doxycycline Hyclate 100 mg/ Dextrose 110 ml @ 110 mls/hr Q12HR@1100,2300 IV 04/24/19 23:00 05/01/19 22:59 04/28/19 22:54 Famotidine (Pepcid) 20 mg BID GT 04/26/19 18:00 05/26/19 17:59 04/29/19 09:58 Insulin Aspart (NovoLOG) Q6HR SUBQ 04/28/19 00:00 05/25/19 06:29 04/29/19 00:04 Lidocaine HCl (Xylocaine 1% 30ml) 30 ml NOW PRN INJ Radiology Procedure 04/28/19 11:00 05/01/19 23:59 Magnesium Sulfate 100 ml @ 100 mls/hr Q1H IVPB 04/29/19 16:00 04/29/19 18:59 Metoclopramide HCl (Reglan) 10 mg EVERY 8 HOURS GT 04/29/19 14:00 05/29/19 13:59 04/29/19 13:43 Ondansetron HCl (Zofran) 4 mg Q6H PRN IVP Nausea & Vomiting 04/24/19 21:45 05/24/19 21:44 Potassium Phosphate 30 mm/ Sodium Chloride 285 ml @ 47.5 mls/hr ONCE ONCE IV 04/29/19 16:00 04/29/19 21:59 Vancomycin HCl (Firvanq) 125 mg FOUR TIMES A DAY GT 04/26/19 13:00 05/02/19 13:59 04/29/19 13:19 Last 24 Hour Vital Signs Date Time Temp Pulse Resp B/P (MAP) Pulse Ox O2 Delivery O2 Flow Rate FiO2 04/29/19 08:00 97.7 105 22 124/117 (119) 100 04/29/19 04:00 95 04/29/19 04:00 97.5 92 18 110/60 (77) 97 04/29/19 00:00 91 04/29/19 00:00 97.9 89 18 106/54 (71) 95 04/28/19 21:00 Nasal Cannula 2.0 Nasal Cannula 2.0 04/28/19 20:00 84 04/28/19 20:00 97.7 87 19 101/51 (68) 94 04/28/19 18:54 74 18 96 Nasal Cannula 2.0 28 04/28/19 18:45 96 Nasal Cannula 2.0 28 04/28/19 16:00 71 04/28/19 15:44 98.6 89 20 102/37 (58) 100 04/28/19 12:00 91 04/28/19 12:00 98.6 89 20 102/37 (58) 100 04/28/19 09:52 95 Nasal Cannula 2.0 28 04/28/19 09:51 74 16 95 Nasal Cannula 2.0 28 04/28/19 09:00 Nasal Cannula 2.0 04/28/19 08:35 98.3 84 18 140/86 (104) 95 04/28/19 08:00 109 04/28/19 04:00 87 04/28/19 04:00 96.4 92 20 110/62 (78) 95 04/28/19 00:00 97.5 82 20 106/48 (67) 96 04/28/19 00:00 88 04/27/19 21:00 Room Air 04/27/19 20:02 98 Nasal Cannula 2.0 28 04/27/19 20:00 68 04/27/19 20:00 78 18 96 Nasal Cannula 2.0 28 04/27/19 20:00 96.3 90 20 113/59 (77) 96 04/27/19 16:00 97.4 87 20 111/58 (75) 97 04/27/19 16:00 83 Intake and Output 04/28/19 04/29/19 19:00 07:00 Intake Total 20 ml 440 ml Output Total 500 ml Balance 20 ml -60 ml Tube Feeding 20 ml 440 ml Output Urine Total 500 ml Labs Test 04/27/19 04:50 04/28/19 05:00 04/28/19 11:25 04/29/19 06:45 White Blood Count 21.0 K/UL (4.8-10.8) 14.1 K/UL (4.8-10.8) Red Blood Count 3.18 M/UL (4.20-5.40) 2.87 M/UL (4.20-5.40) Hemoglobin 8.0 G/DL (12.0-16.0) 7.1 G/DL (12.0-16.0) Hematocrit 25.5 % (37.0-47.0) 22.5 % (37.0-47.0) Mean Corpuscular Volume 80 FL (80-99) 78 FL (80-99) Mean Corpuscular Hemoglobin 25.0 PG (27.0-31.0) 24.7 PG (27.0-31.0) Mean Corpuscular Hemoglobin Concent 31.2 G/DL (32.0-36.0) 31.6 G/DL (32.0-36.0) Red Cell Distribution Width 20.1 % (11.6-14.8) 20.9 % (11.6-14.8) Platelet Count 127 K/UL (150-450) 105 K/UL (150-450) Mean Platelet Volume 6.5 FL (6.5-10.1) 6.9 FL (6.5-10.1) Neutrophils (%) (Auto) % (45.0-75.0) % (45.0-75.0) Lymphocytes (%) (Auto) % (20.0-45.0) % (20.0-45.0) Monocytes (%) (Auto) % (1.0-10.0) % (1.0-10.0) Eosinophils (%) (Auto) % (0.0-3.0) % (0.0-3.0) Basophils (%) (Auto) % (0.0-2.0) % (0.0-2.0) Differential Total Cells Counted 100 100 Neutrophils % (Manual) 90 % (45-75) 81 % (45-75) Lymphocytes % (Manual) 4 % (20-45) 13 % (20-45) Monocytes % (Manual) 2 % (1-10) 2 % (1-10) Eosinophils % (Manual) 0 % (0-3) 0 % (0-3) Basophils % (Manual) 0 % (0-2) 0 % (0-2) Myelocytes % 1 % (0-0) Band Neutrophils 3 % (0-8) 4 % (0-8) Platelet Estimate Decreased Decreased Platelet Morphology Normal Normal Hypochromasia 2+ 2+ Anisocytosis 2+ 2+ Microcytosis 2+ 1+ Erythrocyte Sedimentation Rate 12 MM/HR (0-30) Sodium Level 149 MMOL/L (136-145) 143 MMOL/L (136-145) 141 MMOL/L (136-145) Potassium Level 3.9 MMOL/L (3.5-5.1) 3.2 MMOL/L (3.5-5.1) 3.9 MMOL/L (3.5-5.1) Chloride Level 120 MMOL/L (98-107) 116 MMOL/L (98-107) 115 MMOL/L (98-107) Carbon Dioxide Level 18 MMOL/L (21-32) 17 MMOL/L (21-32) 19 MMOL/L (21-32) Anion Gap 11 mmol/L (5-15) 10 mmol/L (5-15) 8 mmol/L (5-15) Blood Urea Nitrogen 24 mg/dL (7-18) 19 mg/dL (7-18) 17 mg/dL (7-18) Creatinine 1.3 MG/DL (0.55-1.30) 0.8 MG/DL (0.55-1.30) 0.6 MG/DL (0.55-1.30) Estimat Glomerular Filtration Rate mL/min (>60) mL/min (>60) mL/min (>60) Glucose Level 191 MG/DL (74-106) 341 MG/DL (74-106) 121 MG/DL (74-106) Calcium Level 7.4 MG/DL (8.5-10.1) 6.6 MG/DL (8.5-10.1) 7.0 MG/DL (8.5-10.1) C-Reactive Protein, Quantitative 17.6 mg/dL (0.00-0.90) 14.1 mg/dL (0.00-0.90) Lipase 110 U/L (73-393) Prothrombin Time 13.4 SEC (9.30-11.50) Prothromb Time International Ratio 1.3 (0.9-1.1) Hepatitis A IgM Antibody Positive (Negative) Hepatitis B Surface Antigen Negative (Negative) Hepatitis B Core IgM Antibody Negative (Negative) Hepatitis C Antibody 0.1 s/co ratio (0.0-0.9) HIV (1&2) Antibody Rapid Negative (NEGATIVE) Uric Acid 5.2 MG/DL (2.6-7.2) Phosphorus Level 1.6 MG/DL (2.5-4.9) Magnesium Level 1.1 MG/DL (1.8-2.4) Total Bilirubin 0.4 MG/DL (0.2-1.0) Aspartate Amino Transf (AST/SGOT) 22 U/L (15-37) Alanine Aminotransferase (ALT/SGPT) 15 U/L (12-78) Alkaline Phosphatase 628 U/L (46-116) Pro-B-Type Natriuretic Peptide 6687 pg/mL (0-125) Total Protein 4.7 G/DL (6.4-8.2) Albumin 1.0 G/DL (3.4-5.0) Globulin 3.7 g/dL Albumin/Globulin Ratio 0.3 (1.0-2.7) Height (Feet): 5 Height (Inches): 3.00 Weight (Pounds): 80 Objective Physical Exam Vital Signs: reviewed Gen: well appearing, no apparent distress, alert Resp: normal breath sounds, no respiratory distress CV: normal rate GI: normal inspection, non tender, soft, normal bowel sounds, non-distended ++ peg Rectal: deferred : no CVA tenderness Neurologic: alert, responsive Skin: normal inspection, normal color, no rash, warm/dry, palpation normal, well hydrated Lymphatic: normal inspection, no adenopathy Matt Felipe MD Apr 29, 2019 15:17
[2019-04-29 16:00] VITALS: BP 133/52
[2019-04-29 20:05] VITALS: BP 122/71
[2019-04-29] MEDS: Dyna-Hex 2% Top Sol 2oz TOPIC SCH (20:27)
--- NOTE | 2019-04-29 21:13 | Pulmonology Progress Note ---
Assessment/Plan Assessment/Plan Pulmonary Progress Note HPI Patient is an 83-year old woman from a from [facility] facility admitted with weakness, poor appetite x1 month. Patient is nonverbal at baseline. Patient has a history of C. difficile, has a history of diarrhea for the last several days CDIFF Positive. No fevers or chills. No reported cough or shortness of breath. Noted to have radiological evidence of Pneumonia, Left LLE ulcer, LLE DVT on Lovenox, required transfusion today Stable VS, has PICC line, sp G Tube Allergies: No Known Allergies Past Medical History: Diabetes, Hypertension, Hyperlipidemia, Dementia, Hyperlipidemia, Sepsis, Metabolic Acidosis, C-Difficile, T11-T12 fracture All Other Systems: limited Physical Exam Vital Signs Noted General Appearance: no apparent distress, cachetic, non verbal Head: NCAT Eyes: bilateral eye normal inspection, bilateral eye PERRL ENT: dry mm Neck: normal inspection, no LN Respiratory: chest non-tender, normal breath sounds Cardiovascular: no edema, tachycardia, normal HS1, HS2 Gastrointestinal: normal bowel sounds, non tender, soft, non-distended, no guarding, no rebound, g tube Genitourinary: no CVA tenderness Musculoskeletal: normal inspection Neurologic: no focal signs, no seizures Skin: no edema, LLE ulcer Impression: Pneumonia Dysphagia Adult failure to thrive LLE DVT LLE Ulcer Hypernatremia Hypokalemia Diabetes Hypertension Hyperlipidemia Dementia Hyperlipidemia Previous C-Difficile Previous T11-T12 fracture Plan G tube feeds May need to DC AC if continues bleeding TF PRN IVF NPO PICC line IV antibiotics, PO Flagyl Stll Cdiff O2 PRN HHN CPT Aspiration precautions Supplement K ST evaluation Monitor labs Labs Noted EKG: Rate: tachycardia, NSR, no acute ST changes Chest X-Ray: no effusion, no pneumothorax, bilateral infiltrates c/w pneumonia Subjective ROS Limited/Unobtainable: No Allergies: Coded Allergies: No Known Allergies (Unverified , 04/24/19) Objective Last 24 Hour Vital Signs Date Time Temp Pulse Resp B/P (MAP) Pulse Ox O2 Delivery O2 Flow Rate FiO2 04/29/19 20:05 97.6 94 18 122/71 (88) 98 04/29/19 16:00 88 04/29/19 16:00 97.3 89 23 133/52 (79) 100 04/29/19 12:00 97.9 98 23 98/44 (62) 94 04/29/19 11:58 103 04/29/19 09:00 Nasal Cannula 2.0 Nasal Cannula 2.0 04/29/19 08:00 97.7 105 22 124/117 (119) 100 04/29/19 07:28 96 Nasal Cannula 2.0 04/29/19 07:28 91 04/29/19 07:15 87 20 95 Nasal Cannula 2.0 04/29/19 04:00 95 04/29/19 04:00 97.5 92 18 110/60 (77) 97 04/29/19 00:00 91 04/29/19 00:00 97.9 89 18 106/54 (71) 95 Intake and Output 04/28/19 04/29/19 18:59 06:59 Intake Total 20 ml 440 ml Output Total 500 ml Balance 20 ml -60 ml Tube Feeding 20 ml 440 ml Output Urine Total 500 ml Laboratory Tests 04/29/19 06:45: White Blood Count 14.1H, Red Blood Count 2.87L, Hemoglobin 7.1L, Hematocrit 22.5L, Mean Corpuscular Volume 78L, Mean Corpuscular Hemoglobin 24.7L, Mean Corpuscular Hemoglobin Concent 31.6L, Red Cell Distribution Width 20.9H, Platelet Count 105L, Mean Platelet Volume 6.9, Neutrophils (%) (Auto) , Lymphocytes (%) (Auto) , Monocytes (%) (Auto) , Eosinophils (%) (Auto) , Basophils (%) (Auto) , Differential Total Cells Counted 100, Neutrophils % ( Manual) 81H, Lymphocytes % (Manual) 13L, Monocytes % (Manual) 2, Eosinophils % ( Manual) 0, Basophils % (Manual) 0, Band Neutrophils 4, Platelet Estimate DecreasedL, Platelet Morphology Normal, Hypochromasia 2+, Anisocytosis 2+, Microcytosis 1+, Sodium Level 141, Potassium Level 3.9, Chloride Level 115H, Carbon Dioxide Level 19L, Anion Gap 8, Blood Urea Nitrogen 17, Creatinine 0.6, Estimat Glomerular Filtration Rate , Glucose Level 121#H, Uric Acid 5.2, Calcium Level 7.0L, Phosphorus Level 1.6L, Magnesium Level 1.1L, Total Bilirubin 0.4, Aspartate Amino Transf (AST/SGOT) 22, Alanine Aminotransferase ( ALT/SGPT) 15, Alkaline Phosphatase 628H, C-Reactive Protein, Quantitative 14.1H , Pro-B-Type Natriuretic Peptide 6687H, Total Protein 4.7L, Albumin 1.0L, Globulin 3.7, Albumin/Globulin Ratio 0.3L Current Medications Medications (Trade) Dose Ordered Sig/Bushra Route PRN Reason Start Time Stop Time Status Last Admin Dose Admin Acetaminophen (Tylenol) 650 mg Q4H PRN ORAL Mild Pain/Temp > 100.5 04/24/19 21:45 05/24/19 21:44 04/28/19 09:21 Acetaminophen/ Hydrocodone Bitart ([place] 5/325) 1 tab Q6H PRN ORAL pain 4-10 04/28/19 21:00 05/05/19 20:59 04/29/19 09:58 Albuterol/ Ipratropium (Albuterol/ Ipratropium) 3 ml Q4H PRN HHN Shortness of Breath 04/24/19 21:45 04/29/19 21:44 Cefepime HCl 1 gm/ Dextrose 55 ml @ 110 mls/hr DAILY IVPB 04/25/19 09:00 05/02/19 08:59 04/29/19 09:59 Chlorhexidine Gluconate (Mary Beth-Hex 2%) 1 applic DAILY@2000 TOPIC 04/25/19 20:00 05/25/19 19:59 04/29/19 20:27 Dextrose (Dextrose 50%) 25 ml Q30M PRN IV Hypoglycemia 04/24/19 21:45 05/24/19 21:44 04/28/19 16:28 Dextrose (Dextrose 50%) 50 ml Q30M PRN IV Hypoglycemia 04/24/19 21:45 05/24/19 21:44 04/28/19 14:40 Dextrose/Sodium Chloride 1,000 ml @ 50 mls/hr Q20H IV 04/28/19 17:45 05/28/19 17:44 04/29/19 13:42 Doxycycline Hyclate 100 mg/ Dextrose 110 ml @ 110 mls/hr Q12HR@1100,2300 IV 04/24/19 23:00 05/01/19 22:59 04/29/19 16:12 Famotidine (Pepcid) 20 mg BID GT 04/26/19 18:00 05/26/19 17:59 04/29/19 17:33 Insulin Aspart (NovoLOG) Q6HR SUBQ 04/28/19 00:00 05/25/19 06:29 04/29/19 18:13 Lidocaine HCl (Xylocaine 1% 30ml) 30 ml NOW PRN INJ Radiology Procedure 04/28/19 11:00 05/01/19 23:59 Metoclopramide HCl (Reglan) 10 mg EVERY 8 HOURS GT 04/29/19 14:00 05/29/19 13:59 04/29/19 20:31 Ondansetron HCl (Zofran) 4 mg Q6H PRN IVP Nausea & Vomiting 04/24/19 21:45 05/24/19 21:44 Potassium Phosphate 30 mm/ Sodium Chloride 285 ml @ 47.5 mls/hr ONCE ONCE IV 04/29/19 16:00 04/29/19 21:59 04/29/19 17:32 Vancomycin HCl (Firvanq) 125 mg FOUR TIMES A DAY GT 04/26/19 13:00 05/02/19 13:59 04/29/19 20:28 Juan Miguel Mendoza MD Apr 29, 2019 21:13
--- NOTE | 2019-04-29 22:18 | General Progress Note ---
Assessment/Plan Problem List: (1) Dehydration ICD Codes: E86.0 - Dehydration SNOMED: 93551295 (2) Failure to thrive SNOMED: 40257044 Qualifiers: Qualified Codes: R62.7 - Adult failure to thrive (3) Leg ulcer ICD Codes: L97.909 - Non-pressure chronic ulcer of unspecified part of unspecified lower leg with unspecified severity SNOMED: 66935507, 980279068 (4) Encounter for PEG (percutaneous endoscopic gastrostomy) ICD Codes: Z43.1 - Encounter for attention to gastrostomy SNOMED: 324480382, 088577930 Status: stable, progressing Assessment/Plan: s/p peg dvt s/p ivc filter resume peg feeding malnutrition dehydration ftt cachexia reweiwed chart nad labs malnutition Subjective ROS Limited/Unobtainable: Yes Allergies: Coded Allergies: No Known Allergies (Unverified , 04/24/19) Objective Last 24 Hour Vital Signs Date Time Temp Pulse Resp B/P (MAP) Pulse Ox O2 Delivery O2 Flow Rate FiO2 04/29/19 20:05 97.6 94 18 122/71 (88) 98 04/29/19 16:00 88 04/29/19 16:00 97.3 89 23 133/52 (79) 100 04/29/19 12:00 97.9 98 23 98/44 (62) 94 04/29/19 11:58 103 04/29/19 09:00 Nasal Cannula 2.0 Nasal Cannula 2.0 04/29/19 08:00 97.7 105 22 124/117 (119) 100 04/29/19 07:28 96 Nasal Cannula 2.0 28 04/29/19 07:28 91 04/29/19 07:15 87 20 95 Nasal Cannula 2.0 28 04/29/19 04:00 95 04/29/19 04:00 97.5 92 18 110/60 (77) 97 04/29/19 00:00 91 04/29/19 00:00 97.9 89 18 106/54 (71) 95 Intake and Output 04/28/19 04/29/19 18:59 06:59 Intake Total 20 ml 440 ml Output Total 500 ml Balance 20 ml -60 ml Tube Feeding 20 ml 440 ml Output Urine Total 500 ml Laboratory Tests 04/29/19 06:45: White Blood Count 14.1H, Red Blood Count 2.87L, Hemoglobin 7.1L, Hematocrit 22.5L, Mean Corpuscular Volume 78L, Mean Corpuscular Hemoglobin 24.7L, Mean Corpuscular Hemoglobin Concent 31.6L, Red Cell Distribution Width 20.9H, Platelet Count 105L, Mean Platelet Volume 6.9, Neutrophils (%) (Auto) , Lymphocytes (%) (Auto) , Monocytes (%) (Auto) , Eosinophils (%) (Auto) , Basophils (%) (Auto) , Differential Total Cells Counted 100, Neutrophils % ( Manual) 81H, Lymphocytes % (Manual) 13L, Monocytes % (Manual) 2, Eosinophils % ( Manual) 0, Basophils % (Manual) 0, Band Neutrophils 4, Platelet Estimate DecreasedL, Platelet Morphology Normal, Hypochromasia 2+, Anisocytosis 2+, Microcytosis 1+, Sodium Level 141, Potassium Level 3.9, Chloride Level 115H, Carbon Dioxide Level 19L, Anion Gap 8, Blood Urea Nitrogen 17, Creatinine 0.6, Estimat Glomerular Filtration Rate , Glucose Level 121#H, Uric Acid 5.2, Calcium Level 7.0L, Phosphorus Level 1.6L, Magnesium Level 1.1L, Total Bilirubin 0.4, Aspartate Amino Transf (AST/SGOT) 22, Alanine Aminotransferase ( ALT/SGPT) 15, Alkaline Phosphatase 628H, C-Reactive Protein, Quantitative 14.1H , Pro-B-Type Natriuretic Peptide 6687H, Total Protein 4.7L, Albumin 1.0L, Globulin 3.7, Albumin/Globulin Ratio 0.3L Height (Feet): 5 Height (Inches): 3.00 Weight (Pounds): 80 Cardiovascular: normal rate Respiratory/Chest: normal breath sounds Nicole Guillermo MD Apr 29, 2019 22:18
[2019-04-30] VITALS (16 sets, daily range): BP systolic 104–127; BP diastolic 50–70
[2019-04-30] MEDS: NovoLOG Insulin Flexpen SUBQ SCH ×4 (06:00→23:44)
[2019-04-30] MEDS: Metoclopramide 10mg/10ml Liq GT SCH (06:53)
[2019-04-30 07:25] LABS: HEMATOCRIT 28.4 % (37.0-47.0); HEMOGLOBIN 9.2 G/DL (12.0-16.0); MEAN CORPUSCULAR VOLUME 83 FL (80-99); PLATELET COUNT 96 K/UL (150-450); RED BLOOD COUNT 3.42 M/UL (4.20-5.40); RED CELL DISTRIBUTION WIDTH 20.1 % (11.6-14.8)
[2019-04-30 08:19] LABS: ALANINE AMINOTRANSFERASE 15 U/L (12-78); ALBUMIN/GLOBULIN RATIO 0.3 (1.0-2.7); ALKALINE PHOSPHATASE 630 U/L (46-116); ANION GAP 8 mmol/L (5-15); ASPARTATE AMINO TRANSFERASE 17 U/L (15-37); BILIRUBIN,TOTAL 0.5 MG/DL (0.2-1.0); BLOOD UREA NITROGEN 15 mg/dL (7-18); CALCIUM 6.9 MG/DL (8.5-10.1); CARBON DIOXIDE 19 MMOL/L (21-32); CHLORIDE 115 MMOL/L (98-107); CREATININE 0.5 MG/DL (0.55-1.30); POTASSIUM 4.1 MMOL/L (3.5-5.1); SODIUM 142 MMOL/L (136-145)
[2019-04-30 08:28] LABS: PHOSPHORUS 4.1 MG/DL (2.5-4.9)
[2019-04-30] MEDS: Vancomycin oral 125mg/2.5ml GT SCH ×4 (09:35→20:59)
[2019-04-30] MEDS: Cefepime HCl 1 GM in D5W 55 ML IVPB SCH (09:35)
[2019-04-30] MEDS: D5 1/2NS 1,000 ML IV SCH (09:36)
--- NOTE | 2019-04-30 10:31 | GI Progress Note ---
Assessment/Plan Problems: (1) Failure to thrive SNOMED: 24134659 Qualifiers: Qualified Codes: R62.7 - Adult failure to thrive (2) Encounter for PEG (percutaneous endoscopic gastrostomy) ICD Codes: Z43.1 - Encounter for attention to gastrostomy SNOMED: 115825145, 993909629 (3) Dehydration ICD Codes: E86.0 - Dehydration SNOMED: 79561325 (4) Hypokalemia ICD Codes: E87.6 - Hypokalemia SNOMED: 90439928 Status: stable Status Narrative Discussed with Dr. Carranza. Assessment/Plan Assessment - dysphagia - OBS - s/p PEG - anemia Recommendations - continue TF - elevate HOB - monitor residuals, add low dose reglan for GI motility - GT care - send additional OB stool, pending read The patient was seen and examined at bedside and all new and available data was reviewed in the patients chart. I agree with the above findings, impression and plan. (Patient seen earlier today. Signature stamp does not reflect patient encounter time.). - Ramón Carranza MD Subjective Subjective limited Objective Last 24 Hour Vital Signs Date Time Temp Pulse Resp B/P (MAP) Pulse Ox O2 Delivery O2 Flow Rate FiO2 04/30/19 08:00 96.8 87 18 127/63 (84) 97 04/30/19 04:00 98.4 85 18 104/59 (74) 97 04/30/19 04:00 84 04/30/19 00:00 86 04/30/19 00:00 97.6 93 18 124/70 (88) 98 04/29/19 21:00 Nasal Cannula 2.0 Nasal Cannula 2.0 04/29/19 20:05 97.6 94 18 122/71 (88) 98 04/29/19 20:00 82 04/29/19 19:00 86 18 63 Nasal Cannula 2.0 28 04/29/19 19:00 96 Nasal Cannula 2.0 28 04/29/19 16:00 88 04/29/19 16:00 97.3 89 23 133/52 (79) 100 04/29/19 12:00 97.9 98 23 98/44 (62) 94 04/29/19 11:58 103 Intake and Output 04/29/19 04/30/19 19:00 07:00 Intake Total 240 ml Output Total 500 ml Balance -260 ml Intake IV Total 200 ml Tube Feeding 40 ml Output Urine Total 500 ml # Voids 2 # Bowel Movements 1 Laboratory Tests Test 04/30/19 05:35 04/30/19 06:45 White Blood Count 11.0 K/UL (4.8-10.8) H Red Blood Count 3.42 M/UL (4.20-5.40) L Hemoglobin 9.2 G/DL (12.0-16.0) L Hematocrit 28.4 % (37.0-47.0) L Mean Corpuscular Volume 83 FL (80-99) Mean Corpuscular Hemoglobin 26.9 PG (27.0-31.0) L Mean Corpuscular Hemoglobin Concent 32.3 G/DL (32.0-36.0) Red Cell Distribution Width 20.1 % (11.6-14.8) H Platelet Count 96 K/UL (150-450) L Mean Platelet Volume 6.9 FL (6.5-10.1) Neutrophils (%) (Auto) % (45.0-75.0) Lymphocytes (%) (Auto) % (20.0-45.0) Monocytes (%) (Auto) % (1.0-10.0) Eosinophils (%) (Auto) % (0.0-3.0) Basophils (%) (Auto) % (0.0-2.0) Differential Total Cells Counted 100 Neutrophils % (Manual) 84 % (45-75) H Lymphocytes % (Manual) 8 % (20-45) L Monocytes % (Manual) 7 % (1-10) Eosinophils % (Manual) 1 % (0-3) Basophils % (Manual) 0 % (0-2) Band Neutrophils 0 % (0-8) Nucleated Red Blood Cells 1 /100 WBC Platelet Estimate Decreased L Platelet Morphology Normal Anisocytosis 1+ Sodium Level 142 MMOL/L (136-145) Potassium Level 4.1 MMOL/L (3.5-5.1) Chloride Level 115 MMOL/L (98-107) H Carbon Dioxide Level 19 MMOL/L (21-32) L Anion Gap 8 mmol/L (5-15) Blood Urea Nitrogen 15 mg/dL (7-18) Creatinine 0.5 MG/DL (0.55-1.30) L Estimat Glomerular Filtration Rate mL/min (>60) Glucose Level 160 MG/DL (74-106) H Calcium Level 6.9 MG/DL (8.5-10.1) L Phosphorus Level 4.1 MG/DL (2.5-4.9) Magnesium Level 2.0 MG/DL (1.8-2.4) Total Bilirubin 0.5 MG/DL (0.2-1.0) Aspartate Amino Transf (AST/SGOT) 17 U/L (15-37) Alanine Aminotransferase (ALT/SGPT) 15 U/L (12-78) Alkaline Phosphatase 630 U/L (46-116) H Total Protein 4.7 G/DL (6.4-8.2) L Albumin 1.0 G/DL (3.4-5.0) L Globulin 3.7 g/dL Albumin/Globulin Ratio 0.3 (1.0-2.7) L Thyroid Stimulating Hormone (TSH) 2.445 uiU/mL (0.358-3.740) Free Thyroxine 1.29 NG/DL (0.76-1.46) Stool Occult Blood Pending Height (Feet): 5 Height (Inches): 3.00 Weight (Pounds): 80 General Appearance: WD/WN, no apparent distress, alert Cardiovascular: normal rate Respiratory/Chest: normal breath sounds, no respiratory distress Abdominal Exam: normal bowel sounds, non tender, soft, GT site Extremities: non-tender Steffany Painter NP Apr 30, 2019 10:31
--- NOTE | 2019-04-30 10:58 | Infectious Diseases Prog Note ---
Assessment/Plan Assessment/Plan IMPRESSION: Sepsis leukocytosis improving Clostridium difficile colitis, may have pneumonia. diabetes mellitus, cachexia, failure to thrive. anemia hyperlipidemia. s/p GT left leg ulcer Left Leg DVT Diastolic CHF RECOMMENDATION: continue with cefepime, doxycycline and p.o. vancomycin. Agree with IVC placement today Subjective ROS Limited/Unobtainable: Yes Constitutional: Denies: fever Gastrointestinal/Abdominal: Denies: diarrhea Allergies: Coded Allergies: No Known Allergies (Unverified , 04/24/19) Objective Vital Signs Last 24 Hour Vital Signs Date Time Temp Pulse Resp B/P (MAP) Pulse Ox O2 Delivery O2 Flow Rate FiO2 04/30/19 09:00 Nasal Cannula 2.0 Nasal Cannula 2.0 04/30/19 08:00 96.8 87 18 127/63 (84) 97 04/30/19 04:00 98.4 85 18 104/59 (74) 97 04/30/19 04:00 84 04/30/19 00:00 86 04/30/19 00:00 97.6 93 18 124/70 (88) 98 04/29/19 21:00 Nasal Cannula 2.0 Nasal Cannula 2.0 04/29/19 20:05 97.6 94 18 122/71 (88) 98 04/29/19 20:00 82 04/29/19 19:00 86 18 63 Nasal Cannula 2.0 28 04/29/19 19:00 96 Nasal Cannula 2.0 28 04/29/19 16:00 88 04/29/19 16:00 97.3 89 23 133/52 (79) 100 04/29/19 12:00 97.9 98 23 98/44 (62) 94 04/29/19 11:58 103 Height (Feet): 5 Height (Inches): 3.00 Weight (Pounds): 80 General Appearance: cachetic HEENT: mucous membranes moist Respiratory/Chest: lungs clear Cardiovascular: normal rate, other - left arm PICC line Abdomen: soft, non tender, other - GT feeding Extremities: other - left leg edema Skin: ulcers Neurologic/Psychiatric: alert, responsive, disoriented Laboratory Tests Test 04/30/19 05:35 04/30/19 06:45 White Blood Count 11.0 K/UL (4.8-10.8) H Red Blood Count 3.42 M/UL (4.20-5.40) L Hemoglobin 9.2 G/DL (12.0-16.0) L Hematocrit 28.4 % (37.0-47.0) L Mean Corpuscular Volume 83 FL (80-99) Mean Corpuscular Hemoglobin 26.9 PG (27.0-31.0) L Mean Corpuscular Hemoglobin Concent 32.3 G/DL (32.0-36.0) Red Cell Distribution Width 20.1 % (11.6-14.8) H Platelet Count 96 K/UL (150-450) L Mean Platelet Volume 6.9 FL (6.5-10.1) Neutrophils (%) (Auto) % (45.0-75.0) Lymphocytes (%) (Auto) % (20.0-45.0) Monocytes (%) (Auto) % (1.0-10.0) Eosinophils (%) (Auto) % (0.0-3.0) Basophils (%) (Auto) % (0.0-2.0) Differential Total Cells Counted 100 Neutrophils % (Manual) 84 % (45-75) H Lymphocytes % (Manual) 8 % (20-45) L Monocytes % (Manual) 7 % (1-10) Eosinophils % (Manual) 1 % (0-3) Basophils % (Manual) 0 % (0-2) Band Neutrophils 0 % (0-8) Nucleated Red Blood Cells 1 /100 WBC Platelet Estimate Decreased L Platelet Morphology Normal Anisocytosis 1+ Sodium Level 142 MMOL/L (136-145) Potassium Level 4.1 MMOL/L (3.5-5.1) Chloride Level 115 MMOL/L (98-107) H Carbon Dioxide Level 19 MMOL/L (21-32) L Anion Gap 8 mmol/L (5-15) Blood Urea Nitrogen 15 mg/dL (7-18) Creatinine 0.5 MG/DL (0.55-1.30) L Estimat Glomerular Filtration Rate mL/min (>60) Glucose Level 160 MG/DL (74-106) H Calcium Level 6.9 MG/DL (8.5-10.1) L Phosphorus Level 4.1 MG/DL (2.5-4.9) Magnesium Level 2.0 MG/DL (1.8-2.4) Total Bilirubin 0.5 MG/DL (0.2-1.0) Aspartate Amino Transf (AST/SGOT) 17 U/L (15-37) Alanine Aminotransferase (ALT/SGPT) 15 U/L (12-78) Alkaline Phosphatase 630 U/L (46-116) H Total Protein 4.7 G/DL (6.4-8.2) L Albumin 1.0 G/DL (3.4-5.0) L Globulin 3.7 g/dL Albumin/Globulin Ratio 0.3 (1.0-2.7) L Thyroid Stimulating Hormone (TSH) 2.445 uiU/mL (0.358-3.740) Free Thyroxine 1.29 NG/DL (0.76-1.46) Stool Occult Blood Pending Current Medications Medications (Trade) Dose Ordered Sig/Bushra Route PRN Reason Start Time Stop Time Status Last Admin Dose Admin Acetaminophen (Tylenol) 650 mg Q4H PRN ORAL Mild Pain/Temp > 100.5 04/24/19 21:45 05/24/19 21:44 04/28/19 09:21 Acetaminophen/ Hydrocodone Bitart ([place] 5/325) 1 tab Q6H PRN ORAL pain 4-10 04/28/19 21:00 05/05/19 20:59 04/29/19 09:58 Cefepime HCl 1 gm/ Dextrose 55 ml @ 110 mls/hr DAILY IVPB 04/25/19 09:00 05/02/19 08:59 04/30/19 09:35 Chlorhexidine Gluconate (Amry Beth-Hex 2%) 1 applic DAILY@2000 TOPIC 04/25/19 20:00 05/25/19 19:59 04/29/19 20:27 Dextrose (Dextrose 50%) 25 ml Q30M PRN IV Hypoglycemia 04/24/19 21:45 05/24/19 21:44 04/28/19 16:28 Dextrose (Dextrose 50%) 50 ml Q30M PRN IV Hypoglycemia 04/24/19 21:45 05/24/19 21:44 04/28/19 14:40 Dextrose/Sodium Chloride 1,000 ml @ 50 mls/hr Q20H IV 04/28/19 17:45 05/28/19 17:44 04/29/19 13:42 Doxycycline Hyclate 100 mg/ Dextrose 110 ml @ 110 mls/hr Q12HR@1100,2300 IV 04/24/19 23:00 05/01/19 22:59 04/29/19 23:46 Famotidine (Pepcid) 20 mg BID GT 04/26/19 18:00 05/26/19 17:59 04/30/19 09:35 Insulin Aspart (NovoLOG) Q6HR SUBQ 04/28/19 00:00 05/25/19 06:29 04/29/19 18:13 Lidocaine HCl (Xylocaine 1% 30ml) 30 ml NOW PRN INJ Radiology Procedure 04/28/19 11:00 05/01/19 23:59 Metoclopramide HCl (Reglan) 10 mg EVERY 8 HOURS GT 04/29/19 14:00 05/29/19 13:59 04/30/19 06:53 Ondansetron HCl (Zofran) 4 mg Q6H PRN IVP Nausea & Vomiting 04/24/19 21:45 05/24/19 21:44 Vancomycin HCl (Firvanq) 125 mg FOUR TIMES A DAY GT 04/26/19 13:00 05/02/19 13:59 04/30/19 09:35 Rajeev Pedro MD Apr 30, 2019 10:58
[2019-04-30] MEDS: Doxycycline Hyclate 100 MG in D5W 110 ML IV SCH ×2 (11:20→23:09)
--- NOTE | 2019-04-30 12:16 | Cardiac Electrophysiology PN ---
Assessment/Plan Assessment/Plan 1. Tachycardia, due to sepsis. 2. HTN. Stable now on prn meds. 3. Anemia of chronic disease, rule out gi bleed, likely is multifactorial ferritin 631 no evidence for hemolysis --> obtain occult blood++ per gi prn recs 4.DVT of the left lower extremity with now low platelets and low h/h --> unsafe to anticoag given dropping h/h --> IVF filter order placed (PEND) 5. Dysphagia, sp peg tube and on tube feeds 6. Dehydration 7.PNA on abx Subjective Subjective No new events. Going for IVC filter today Objective Last 24 Hour Vital Signs Date Time Temp Pulse Resp B/P (MAP) Pulse Ox O2 Delivery O2 Flow Rate FiO2 04/30/19 09:00 Nasal Cannula 2.0 Nasal Cannula 2.0 04/30/19 08:00 80 04/30/19 08:00 96.8 87 18 127/63 (84) 97 04/30/19 04:00 98.4 85 18 104/59 (74) 97 04/30/19 04:00 84 04/30/19 00:00 86 04/30/19 00:00 97.6 93 18 124/70 (88) 98 04/29/19 21:00 Nasal Cannula 2.0 Nasal Cannula 2.0 04/29/19 20:05 97.6 94 18 122/71 (88) 98 04/29/19 20:00 82 04/29/19 19:00 86 18 63 Nasal Cannula 2.0 28 04/29/19 19:00 96 Nasal Cannula 2.0 28 04/29/19 16:00 88 04/29/19 16:00 97.3 89 23 133/52 (79) 100 Intake and Output 04/29/19 04/30/19 19:00 07:00 Intake Total 240 ml Output Total 500 ml Balance -260 ml Intake IV Total 200 ml Tube Feeding 40 ml Output Urine Total 500 ml # Voids 2 # Bowel Movements 1 Laboratory Tests Test 04/30/19 05:35 04/30/19 06:45 White Blood Count 11.0 K/UL (4.8-10.8) H Red Blood Count 3.42 M/UL (4.20-5.40) L Hemoglobin 9.2 G/DL (12.0-16.0) L Hematocrit 28.4 % (37.0-47.0) L Mean Corpuscular Volume 83 FL (80-99) Mean Corpuscular Hemoglobin 26.9 PG (27.0-31.0) L Mean Corpuscular Hemoglobin Concent 32.3 G/DL (32.0-36.0) Red Cell Distribution Width 20.1 % (11.6-14.8) H Platelet Count 96 K/UL (150-450) L Mean Platelet Volume 6.9 FL (6.5-10.1) Neutrophils (%) (Auto) % (45.0-75.0) Lymphocytes (%) (Auto) % (20.0-45.0) Monocytes (%) (Auto) % (1.0-10.0) Eosinophils (%) (Auto) % (0.0-3.0) Basophils (%) (Auto) % (0.0-2.0) Differential Total Cells Counted 100 Neutrophils % (Manual) 84 % (45-75) H Lymphocytes % (Manual) 8 % (20-45) L Monocytes % (Manual) 7 % (1-10) Eosinophils % (Manual) 1 % (0-3) Basophils % (Manual) 0 % (0-2) Band Neutrophils 0 % (0-8) Nucleated Red Blood Cells 1 /100 WBC Platelet Estimate Decreased L Platelet Morphology Normal Anisocytosis 1+ Sodium Level 142 MMOL/L (136-145) Potassium Level 4.1 MMOL/L (3.5-5.1) Chloride Level 115 MMOL/L (98-107) H Carbon Dioxide Level 19 MMOL/L (21-32) L Anion Gap 8 mmol/L (5-15) Blood Urea Nitrogen 15 mg/dL (7-18) Creatinine 0.5 MG/DL (0.55-1.30) L Estimat Glomerular Filtration Rate mL/min (>60) Glucose Level 160 MG/DL (74-106) H Calcium Level 6.9 MG/DL (8.5-10.1) L Phosphorus Level 4.1 MG/DL (2.5-4.9) Magnesium Level 2.0 MG/DL (1.8-2.4) Total Bilirubin 0.5 MG/DL (0.2-1.0) Aspartate Amino Transf (AST/SGOT) 17 U/L (15-37) Alanine Aminotransferase (ALT/SGPT) 15 U/L (12-78) Alkaline Phosphatase 630 U/L (46-116) H Total Protein 4.7 G/DL (6.4-8.2) L Albumin 1.0 G/DL (3.4-5.0) L Globulin 3.7 g/dL Albumin/Globulin Ratio 0.3 (1.0-2.7) L Thyroid Stimulating Hormone (TSH) 2.445 uiU/mL (0.358-3.740) Free Thyroxine 1.29 NG/DL (0.76-1.46) Stool Occult Blood Pending Objective HEENT: No JVD Cardiovascular: Denies: no symptoms, chest pain, edema, irregular heart rate, lightheadedness, palpitations, syncope, other Gastrointestinal/Abdominal: PEG in place Genitourinary: Denies: no symptoms, burning, discharge, frequency, flank pain, hematuria, incontinence, pain, urgency, other Neurologic/Psychiatric: Denies: no symptoms, anxiety, depressed, emotional problems, headache, numbness, paresthesia, pre-existing deficit, seizure, tingling, tremors, weakness, other EXTREMITIES LUE PICC line Josue Parikh MD Apr 30, 2019 12:16
--- NOTE | 2019-04-30 13:05 | Surgery Progress Note ---
Surgery Progress Note Subjective Additional Comments no acute events exam stable labs noted micro noted Objective Last 24 Hour Vital Signs Date Time Temp Pulse Resp B/P (MAP) Pulse Ox O2 Delivery O2 Flow Rate FiO2 04/30/19 12:00 96.8 78 18 104/60 (75) 93 04/30/19 09:00 Nasal Cannula 2.0 Nasal Cannula 2.0 04/30/19 08:00 80 04/30/19 08:00 96.8 87 18 127/63 (84) 97 04/30/19 04:00 98.4 85 18 104/59 (74) 97 04/30/19 04:00 84 04/30/19 00:00 86 04/30/19 00:00 97.6 93 18 124/70 (88) 98 04/29/19 21:00 Nasal Cannula 2.0 Nasal Cannula 2.0 04/29/19 20:05 97.6 94 18 122/71 (88) 98 04/29/19 20:00 82 04/29/19 19:00 86 18 63 Nasal Cannula 2.0 28 04/29/19 19:00 96 Nasal Cannula 2.0 28 04/29/19 16:00 88 04/29/19 16:00 97.3 89 23 133/52 (79) 100 I&O Intake and Output 04/29/19 04/30/19 19:00 07:00 Intake Total 240 ml Output Total 500 ml Balance -260 ml Intake IV Total 200 ml Tube Feeding 40 ml Output Urine Total 500 ml # Voids 2 # Bowel Movements 1 Dressing: saturated Wound: other Drains: other Cardiovascular: RSR, other Respiratory: decreased breath sounds Abdomen: soft, present bowel sounds, non-distended Extremities: no cyanosis Laboratory Tests Test 04/30/19 05:35 04/30/19 06:45 White Blood Count 11.0 K/UL (4.8-10.8) H Red Blood Count 3.42 M/UL (4.20-5.40) L Hemoglobin 9.2 G/DL (12.0-16.0) L Hematocrit 28.4 % (37.0-47.0) L Mean Corpuscular Volume 83 FL (80-99) Mean Corpuscular Hemoglobin 26.9 PG (27.0-31.0) L Mean Corpuscular Hemoglobin Concent 32.3 G/DL (32.0-36.0) Red Cell Distribution Width 20.1 % (11.6-14.8) H Platelet Count 96 K/UL (150-450) L Mean Platelet Volume 6.9 FL (6.5-10.1) Neutrophils (%) (Auto) % (45.0-75.0) Lymphocytes (%) (Auto) % (20.0-45.0) Monocytes (%) (Auto) % (1.0-10.0) Eosinophils (%) (Auto) % (0.0-3.0) Basophils (%) (Auto) % (0.0-2.0) Differential Total Cells Counted 100 Neutrophils % (Manual) 84 % (45-75) H Lymphocytes % (Manual) 8 % (20-45) L Monocytes % (Manual) 7 % (1-10) Eosinophils % (Manual) 1 % (0-3) Basophils % (Manual) 0 % (0-2) Band Neutrophils 0 % (0-8) Nucleated Red Blood Cells 1 /100 WBC Platelet Estimate Decreased L Platelet Morphology Normal Anisocytosis 1+ Sodium Level 142 MMOL/L (136-145) Potassium Level 4.1 MMOL/L (3.5-5.1) Chloride Level 115 MMOL/L (98-107) H Carbon Dioxide Level 19 MMOL/L (21-32) L Anion Gap 8 mmol/L (5-15) Blood Urea Nitrogen 15 mg/dL (7-18) Creatinine 0.5 MG/DL (0.55-1.30) L Estimat Glomerular Filtration Rate mL/min (>60) Glucose Level 160 MG/DL (74-106) H Calcium Level 6.9 MG/DL (8.5-10.1) L Phosphorus Level 4.1 MG/DL (2.5-4.9) Magnesium Level 2.0 MG/DL (1.8-2.4) Total Bilirubin 0.5 MG/DL (0.2-1.0) Aspartate Amino Transf (AST/SGOT) 17 U/L (15-37) Alanine Aminotransferase (ALT/SGPT) 15 U/L (12-78) Alkaline Phosphatase 630 U/L (46-116) H Total Protein 4.7 G/DL (6.4-8.2) L Albumin 1.0 G/DL (3.4-5.0) L Globulin 3.7 g/dL Albumin/Globulin Ratio 0.3 (1.0-2.7) L Thyroid Stimulating Hormone (TSH) 2.445 uiU/mL (0.358-3.740) Free Thyroxine 1.29 NG/DL (0.76-1.46) Stool Occult Blood Negative (NEGATIVE) Plan Problems: (1) Leg ulcer Assessment & Plan: Pt presented on admission with multiple pressure injuries and necrotic ulcer torrey L tibia.Pt is emaciated. Non-blanchable erythema with fluctuance noted to R shoulder. (L)2cm x (W)1cm. Open DTPI noted to sacrum. Base of wound is purple with scattered open wounds with slough.(L)7.5cm x (W)6.5cm. Site tender when minimally palpated.Non- blanching erythema periwound. Non-blanching erythema without fluctuance noted to L ischium (L)2.5cm x (W) 2.5cm. Tender when minimally palpated. Bilat lower ext edematous . Full thickness ulcer with irregular and erythematous borders noted to torrey /distal L tibia. Base of wound 100% non- viable ,Soft necrosis noted . No odor or exudate noted. Pt complained of severe pain with minimal touch during wound assessment..Non-blanching erythema with fluctuance both heels. Pt verbalized pain when both heels minimally palpated. Plantar aspects of both feet and toes on both feet noted to be dusky. Tx.Plan: Cleanse sacral wound with Saline. Apply Therahoney. Apply Triad Paste periwound. Cover with Optifoam drsg. Change Daily and prn. Apply Triad Paste to bilateral groin and both ischial areas with each perineal care. Cleanse Wound Torrey L tibia with Saline. Apply Therhaoney. Apply Cavilon Skin Barrier periwound. Cover with Optifoam Drsg. Change every 3 days and prn. Apply Cavilon Skin Barrier to both heels. Cover each heel with Optifoam drsg. Change every 7 days and prn. APM/CAIO mattress overlay. Reposition at least every 2hours or as tolerated. Off-load heels with pillow. (2) Failure to thrive Assessment & Plan: DAILY ESTIMATED NEEDS: Needs based on Wt loss, underweight, wound/ 36kg 35-40 kcals/kg 0248-4545 total kcals 1.5-2.0 g protein/kg 54-72 g total protein 25-30 mL/kg 900-1080 total fluid mLs NUTRITION DIAGNOSIS: * Increased kcal/prot intake needs R/T underweight status, recent wt loss, wound healing as evidenced by admitted w/ significant wt loss of 11.9lbs/13% in 3 weeks, 84% IBW w/ low BMI per guidelines, admitted w/ lt wagner and sacral wounds, pending evaluation, currently NPO, pending PEG placement. CURRENT DIET: NPO ENTERAL NUTRITION RECOMMENDATIONS: Glucerna 1.2 @ 50ml/hr x 24 hrs to provide 1200ml, 1440kcal, 72g prot, 966ml free water * W/ GI access s/p PEG placement, initiate Glucerna 1.2 @ 10ml/hr x 6 hrs * Advance 10ml q 4-6 hrs as tolerated to goal rate. * HOB over 30 degrees/ water flush per MD ADDITIONAL RECOMMENDATIONS: * Weekly calibrated bedscale wt * Monitor lytes daily w/ TF, replete as needed -> pt at HIGH RISK for refeeding syndrome, increase TF SLOWLY * Wound healing: Add Vit C 250mg QD add ZnSO4 220mg QD x 10 days add Zeke 1pkt BID * Probiotics for diarrhea (3) Cellulitis, leg Assessment & Plan: cont with IV abx as per ID now with peg start feeds Nico Sanz Apr 30, 2019 13:05
--- NOTE | 2019-04-30 13:19 | Nephrology Progress Note ---
Assessment/Plan Problem List: (1) Hypernatremia (2) Hypokalemia (3) Dehydration (4) Failure to thrive Assessment Dehydration Free water deficit leading to high Na Low K and Low Mag Anemia Severe Malnutrition ? UTI Plan trial of Reglan stop hydrate Monitor Lytes and renal parameters replace Mag Phos k...as needed has PEG Per orders Subjective ROS Limited/Unobtainable: No Constitutional: Reports: malaise Objective Objective Last 24 Hour Vital Signs Date Time Temp Pulse Resp B/P (MAP) Pulse Ox O2 Delivery O2 Flow Rate FiO2 04/30/19 12:00 96.8 78 18 104/60 (75) 93 04/30/19 09:00 Nasal Cannula 2.0 Nasal Cannula 2.0 04/30/19 08:00 80 04/30/19 08:00 96.8 87 18 127/63 (84) 97 04/30/19 04:00 98.4 85 18 104/59 (74) 97 04/30/19 04:00 84 04/30/19 00:00 86 04/30/19 00:00 97.6 93 18 124/70 (88) 98 04/29/19 21:00 Nasal Cannula 2.0 Nasal Cannula 2.0 04/29/19 20:05 97.6 94 18 122/71 (88) 98 04/29/19 20:00 82 04/29/19 19:00 86 18 63 Nasal Cannula 2.0 28 04/29/19 19:00 96 Nasal Cannula 2.0 28 04/29/19 16:00 88 04/29/19 16:00 97.3 89 23 133/52 (79) 100 Intake and Output 04/29/19 04/30/19 19:00 07:00 Intake Total 240 ml Output Total 500 ml Balance -260 ml Intake IV Total 200 ml Tube Feeding 40 ml Output Urine Total 500 ml # Voids 2 # Bowel Movements 1 Laboratory Tests 04/30/19 05:35: White Blood Count 11.0H, Red Blood Count 3.42L, Hemoglobin 9.2L, Hematocrit 28.4L, Mean Corpuscular Volume 83, Mean Corpuscular Hemoglobin 26.9L, Mean Corpuscular Hemoglobin Concent 32.3, Red Cell Distribution Width 20.1H, Platelet Count 96L, Mean Platelet Volume 6.9, Neutrophils (%) (Auto) , Lymphocytes (%) (Auto) , Monocytes (%) (Auto) , Eosinophils (%) (Auto) , Basophils (%) (Auto) , Differential Total Cells Counted 100, Neutrophils % ( Manual) 84H, Lymphocytes % (Manual) 8L, Monocytes % (Manual) 7, Eosinophils % ( Manual) 1, Basophils % (Manual) 0, Band Neutrophils 0, Nucleated Red Blood Cells 1, Platelet Estimate DecreasedL, Platelet Morphology Normal, Anisocytosis 1+, Sodium Level 142, Potassium Level 4.1, Chloride Level 115H, Carbon Dioxide Level 19L, Anion Gap 8, Blood Urea Nitrogen 15, Creatinine 0.5L, Estimat Glomerular Filtration Rate , Glucose Level 160H, Calcium Level 6.9L, Phosphorus Level 4.1, Magnesium Level 2.0, Total Bilirubin 0.5, Aspartate Amino Transf (AST /SGOT) 17, Alanine Aminotransferase (ALT/SGPT) 15, Alkaline Phosphatase 630H, Total Protein 4.7L, Albumin 1.0L, Globulin 3.7, Albumin/Globulin Ratio 0.3L, Thyroid Stimulating Hormone (TSH) 2.445, Free Thyroxine 1.29 04/30/19 06:45: Stool Occult Blood Negative Height (Feet): 5 Height (Inches): 3.00 Weight (Pounds): 80 General Appearance: no apparent distress Cardiovascular: tachycardia Respiratory/Chest: decreased breath sounds Abdomen: distended, other - PEG Silver Orellana MD Apr 30, 2019 13:19
[2019-04-30] MEDS: Metoclopramide 10mg/2ml Inj IVP SCH ×2 (13:21→20:36)
--- NOTE | 2019-04-30 14:39 | Hematology/Onc Progress Note ---
Assessment/Plan Assessment/Plan Assessment and Recs: # Anemia of chronic disease, rule out gi bleed, likely is multifactorial ferritin 631 --> anemia panel has been reviewed and cw acd --> hgb goal is >7 --> no evidence for hemolysis --> obtain occult blood++ per gi prn recs --> hgb trend 10-->9.1-->8.1-->8-->7.1-->9.2 --> s/p peg tube and on tfs --> blood tx: 1 unit prbc 04/29 # DVT of the left lower extremity with now low platelets and low h/h --> unsafe to anticoag given dropping h/h --> IVF filter order placed (PEND) --> reviewed cards and pulm recs # Leukocytosis likely 2/2 anemia v infection (PNA) --> abx have been started --> cefepime/cefoxitin--> cefe/vanc/dox --> wbc trend: 20-->17.2-->21k-->14k-->11 --> path report shows chronic gastritis, no h pylori identified # Coagulopathy with elevated pt/ptt/inr is due to underlying cirrhosis --> us abd shows cirrhosis # FTT requiring potential gtube placement --> sp peg tube and on tube feeds --> started on tfs # Dehydration --> per renal, may need ivf # PNA on abx Time of note does not necessarily reflect time of encounter. Appreciate consultation greatly Subjective Allergies: Coded Allergies: No Known Allergies (Unverified , 04/24/19) Subjective 04/26: awake and confused, on abx, h/h stable , on vanc/cefe/dox 04/29: remains on abx, pending potential ivcfilter given dropping h/h 04/30: on soft restraints, s/p 1 unit prbc, hgb improved to 9.2 Objective Objective Current Medications Medications (Trade) Dose Ordered Sig/Bushra Route PRN Reason Start Time Stop Time Status Last Admin Dose Admin Acetaminophen (Tylenol) 650 mg Q4H PRN ORAL Mild Pain/Temp > 100.5 04/24/19 21:45 05/24/19 21:44 04/28/19 09:21 Acetaminophen/ Hydrocodone Bitart ([place] 5/325) 1 tab Q6H PRN ORAL pain 4-10 04/28/19 21:00 05/05/19 20:59 04/29/19 09:58 Cefepime HCl 1 gm/ Dextrose 55 ml @ 110 mls/hr DAILY IVPB 04/25/19 09:00 05/02/19 08:59 04/30/19 09:35 Chlorhexidine Gluconate (Mary Beth-Hex 2%) 1 applic DAILY@2000 TOPIC 04/25/19 20:00 05/25/19 19:59 04/29/19 20:27 Dextrose (Dextrose 50%) 25 ml Q30M PRN IV Hypoglycemia 04/24/19 21:45 05/24/19 21:44 04/28/19 16:28 Dextrose (Dextrose 50%) 50 ml Q30M PRN IV Hypoglycemia 04/24/19 21:45 05/24/19 21:44 04/28/19 14:40 Doxycycline Hyclate 100 mg/ Dextrose 110 ml @ 110 mls/hr Q12HR@1100,2300 IV 04/24/19 23:00 05/01/19 22:59 04/30/19 11:20 Famotidine (Pepcid) 20 mg BID GT 04/26/19 18:00 05/26/19 17:59 04/30/19 09:35 Insulin Aspart (NovoLOG) Q6HR SUBQ 04/28/19 00:00 05/25/19 06:29 04/29/19 18:13 Lidocaine HCl (Xylocaine 1% 30ml) 30 ml NOW PRN INJ Radiology Procedure 04/28/19 11:00 05/01/19 23:59 Metoclopramide HCl (Reglan) 10 mg Q8H IVP 04/30/19 13:00 05/30/19 12:59 04/30/19 13:21 Ondansetron HCl (Zofran) 4 mg Q6H PRN IVP Nausea & Vomiting 04/24/19 21:45 05/24/19 21:44 Vancomycin HCl (Firvanq) 125 mg FOUR TIMES A DAY GT 04/26/19 13:00 05/02/19 13:59 04/30/19 13:21 Last 24 Hour Vital Signs Date Time Temp Pulse Resp B/P (MAP) Pulse Ox O2 Delivery O2 Flow Rate FiO2 04/30/19 12:00 96.8 78 18 104/60 (75) 93 04/30/19 12:00 80 04/30/19 09:00 Nasal Cannula 2.0 Nasal Cannula 2.0 04/30/19 08:00 80 04/30/19 08:00 96.8 87 18 127/63 (84) 97 04/30/19 04:00 98.4 85 18 104/59 (74) 97 04/30/19 04:00 84 04/30/19 00:00 86 04/30/19 00:00 97.6 93 18 124/70 (88) 98 04/29/19 21:00 Nasal Cannula 2.0 Nasal Cannula 2.0 04/29/19 20:05 97.6 94 18 122/71 (88) 98 04/29/19 20:00 82 04/29/19 19:00 86 18 63 Nasal Cannula 2.0 28 04/29/19 19:00 96 Nasal Cannula 2.0 28 04/29/19 16:00 88 04/29/19 16:00 97.3 89 23 133/52 (79) 100 04/29/19 12:00 97.9 98 23 98/44 (62) 94 04/29/19 11:58 103 04/29/19 09:00 Nasal Cannula 2.0 Nasal Cannula 2.0 04/29/19 08:00 97.7 105 22 124/117 (119) 100 04/29/19 07:28 96 Nasal Cannula 2.0 28 04/29/19 07:28 91 04/29/19 07:15 87 20 95 Nasal Cannula 2.0 28 04/29/19 04:00 95 04/29/19 04:00 97.5 92 18 110/60 (77) 97 04/29/19 00:00 91 04/29/19 00:00 97.9 89 18 106/54 (71) 95 04/28/19 21:00 Nasal Cannula 2.0 Nasal Cannula 2.0 04/28/19 20:00 84 04/28/19 20:00 97.7 87 19 101/51 (68) 94 04/28/19 18:54 74 18 96 Nasal Cannula 2.0 28 04/28/19 18:45 96 Nasal Cannula 2.0 28 04/28/19 16:00 71 04/28/19 15:44 98.6 89 20 102/37 (58) 100 Intake and Output 04/29/19 04/30/19 19:00 07:00 Intake Total 240 ml Output Total 500 ml Balance -260 ml Intake IV Total 200 ml Tube Feeding 40 ml Output Urine Total 500 ml # Voids 2 # Bowel Movements 1 Labs Test 04/28/19 05:00 04/28/19 11:25 04/29/19 06:45 04/30/19 05:35 Sodium Level 143 MMOL/L (136-145) 141 MMOL/L (136-145) 142 MMOL/L (136-145) Potassium Level 3.2 MMOL/L (3.5-5.1) 3.9 MMOL/L (3.5-5.1) 4.1 MMOL/L (3.5-5.1) Chloride Level 116 MMOL/L (98-107) 115 MMOL/L (98-107) 115 MMOL/L (98-107) Carbon Dioxide Level 17 MMOL/L (21-32) 19 MMOL/L (21-32) 19 MMOL/L (21-32) Anion Gap 10 mmol/L (5-15) 8 mmol/L (5-15) 8 mmol/L (5-15) Blood Urea Nitrogen 19 mg/dL (7-18) 17 mg/dL (7-18) 15 mg/dL (7-18) Creatinine 0.8 MG/DL (0.55-1.30) 0.6 MG/DL (0.55-1.30) 0.5 MG/DL (0.55-1.30) Estimat Glomerular Filtration Rate mL/min (>60) mL/min (>60) mL/min (>60) Glucose Level 341 MG/DL (74-106) 121 MG/DL (74-106) 160 MG/DL (74-106) Calcium Level 6.6 MG/DL (8.5-10.1) 7.0 MG/DL (8.5-10.1) 6.9 MG/DL (8.5-10.1) Prothrombin Time 13.4 SEC (9.30-11.50) Prothromb Time International Ratio 1.3 (0.9-1.1) Hepatitis A IgM Antibody Positive (Negative) Hepatitis B Surface Antigen Negative (Negative) Hepatitis B Core IgM Antibody Negative (Negative) Hepatitis C Antibody 0.1 s/co ratio (0.0-0.9) HIV (1&2) Antibody Rapid Negative (NEGATIVE) White Blood Count 14.1 K/UL (4.8-10.8) 11.0 K/UL (4.8-10.8) Red Blood Count 2.87 M/UL (4.20-5.40) 3.42 M/UL (4.20-5.40) Hemoglobin 7.1 G/DL (12.0-16.0) 9.2 G/DL (12.0-16.0) Hematocrit 22.5 % (37.0-47.0) 28.4 % (37.0-47.0) Mean Corpuscular Volume 78 FL (80-99) 83 FL (80-99) Mean Corpuscular Hemoglobin 24.7 PG (27.0-31.0) 26.9 PG (27.0-31.0) Mean Corpuscular Hemoglobin Concent 31.6 G/DL (32.0-36.0) 32.3 G/DL (32.0-36.0) Red Cell Distribution Width 20.9 % (11.6-14.8) 20.1 % (11.6-14.8) Platelet Count 105 K/UL (150-450) 96 K/UL (150-450) Mean Platelet Volume 6.9 FL (6.5-10.1) 6.9 FL (6.5-10.1) Neutrophils (%) (Auto) % (45.0-75.0) % (45.0-75.0) Lymphocytes (%) (Auto) % (20.0-45.0) % (20.0-45.0) Monocytes (%) (Auto) % (1.0-10.0) % (1.0-10.0) Eosinophils (%) (Auto) % (0.0-3.0) % (0.0-3.0) Basophils (%) (Auto) % (0.0-2.0) % (0.0-2.0) Differential Total Cells Counted 100 100 Neutrophils % (Manual) 81 % (45-75) 84 % (45-75) Lymphocytes % (Manual) 13 % (20-45) 8 % (20-45) Monocytes % (Manual) 2 % (1-10) 7 % (1-10) Eosinophils % (Manual) 0 % (0-3) 1 % (0-3) Basophils % (Manual) 0 % (0-2) 0 % (0-2) Band Neutrophils 4 % (0-8) 0 % (0-8) Platelet Estimate Decreased Decreased Platelet Morphology Normal Normal Hypochromasia 2+ Anisocytosis 2+ 1+ Microcytosis 1+ Uric Acid 5.2 MG/DL (2.6-7.2) Phosphorus Level 1.6 MG/DL (2.5-4.9) 4.1 MG/DL (2.5-4.9) Magnesium Level 1.1 MG/DL (1.8-2.4) 2.0 MG/DL (1.8-2.4) Total Bilirubin 0.4 MG/DL (0.2-1.0) 0.5 MG/DL (0.2-1.0) Aspartate Amino Transf (AST/SGOT) 22 U/L (15-37) 17 U/L (15-37) Alanine Aminotransferase (ALT/SGPT) 15 U/L (12-78) 15 U/L (12-78) Alkaline Phosphatase 628 U/L (46-116) 630 U/L (46-116) C-Reactive Protein, Quantitative 14.1 mg/dL (0.00-0.90) Pro-B-Type Natriuretic Peptide 6687 pg/mL (0-125) Total Protein 4.7 G/DL (6.4-8.2) 4.7 G/DL (6.4-8.2) Albumin 1.0 G/DL (3.4-5.0) 1.0 G/DL (3.4-5.0) Globulin 3.7 g/dL 3.7 g/dL Albumin/Globulin Ratio 0.3 (1.0-2.7) 0.3 (1.0-2.7) Nucleated Red Blood Cells 1 /100 WBC Thyroid Stimulating Hormone (TSH) 2.445 uiU/mL (0.358-3.740) Free Thyroxine 1.29 NG/DL (0.76-1.46) Test 04/30/19 06:45 Stool Occult Blood Negative (NEGATIVE) Height (Feet): 5 Height (Inches): 3.00 Weight (Pounds): 80 Objective Physical Exam Vital Signs: reviewed Gen: well appearing, no apparent distress, alert Resp: normal breath sounds, no respiratory distress CV: normal rate GI: normal inspection, non tender, soft, normal bowel sounds, non-distended ++ peg Rectal: deferred : no CVA tenderness Neurologic: alert, responsive Skin: normal inspection, normal color, no rash, warm/dry, palpation normal, well hydrated Lymphatic: normal inspection, no adenopathy Matt Felipe MD Apr 30, 2019 14:39
--- NOTE | 2019-04-30 15:05 | Pre-Procedure Note/Attestation ---
Pre-Procedure Note/Attestation Complete Prior to Procedure Planned Procedure: not applicable Procedure Narrative: Inferior vena cava filter Indications for Procedure Pre-Operative Diagnosis: DVT with contraindication to anticoagulation Attestation I attest that I discussed the nature of the procedure; its benefits; risks and complications; and alternatives (and the risks and benefits of such alternatives ), prior to the procedure, with the patient (or the patient's legal liability claims representative). I attest that, if there was a reasonable possibility of needing a blood transfusion, the patient (or the patient's legal liability claims representative) was given the [facility] standardized written summary, pursuant to the [place] Blood Safety Act ([place] Health and Safety Code # 1645, as amended). I attest that I re-evaluated the patient just prior to the surgery and that there has been no change in the patient's H&P, except as documented below: Discussed by phone with pt's daughter Julianna Magallon at approximately 1400 Anthony Adams MD Apr 30, 2019 15:05
--- NOTE | 2019-04-30 15:49 | Brief Operative Note ---
Immediate Post Operative Note Operative Note Pre-op Diagnosis: DVT with contraindication to anticoagulation Procedure: IVC filter Post-op Diagnosis: same as pre-op Surgeon: Edson Adams Anesthesia: local Specimen: none Complications: none Condition: stable Fluids: none Implant(s) used?: No Anthony Adams MD Apr 30, 2019 15:49
--- NOTE | 2019-04-30 16:27 | Diagnostic Imaging Report ---
Indications: Deep venous thrombosis, contraindication to anticoagulation Technique: Informed consent obtained prior to commencement of the procedure. Total sterile technique, including sterile probe cover and sterile gel, sterile gloves, hand hygiene, hat, mask,, sterile gown, large sterile drape, and preparation with 2% chlorhexidine utilized. Local anesthesia with 1% lidocaine. Ultrasound reveals patent compressible right internal jugular vein. Under real-time ultrasound guidance, puncture right internal jugular vein using 21-gauge micropuncture needle, passage 21 8 guidewire, insertion 4 [place] micropuncture introducer, passage of a guidewire, into the inferior vena cava, , over which was passed a pigtail marker catheter. This was directed into the left common iliac vein, and a limited iliac venogram performed using hand injection of contrast. Catheter was then withdrawn to the level of the iliac venous confluence.. An inferior venacavogram performed, using machine injection of contrast. The images were reviewed. The position of the renal veins was determined. The catheter was then exchanged for the introducer assembly of the Vena-Tech filter The introducer assembly was advanced further into the inferior vena cava over a guidewire, and the guidewire and dilator were removed. The filter was passed into the into the sheath. It was then positioned into the appropriate position. The filter was then deployed by unsheathing it. The filter introducer was removed, and a followup inferior venacavogram was performed using hand injection of contrast through the sheath. The filter position was deemed acceptable. The sheath was removed. Pressure held on the right neck until hemostasis was achieved. The patient tolerated procedure well, without immediate complication. Total fluoroscopy time 126.3 seconds Total dose area product 0.25264 dGycm2 Comparison: none. Findings:Left iliac venogram demonstrates no evidence of caval anomaly. Inferior venacavogram demonstrates normal caliber inferior vena cava. Single renal veins. There is a large vein inserting obliquely into the. Inferior vena cava above the iliac venous confluence on the right which demonstrates retrograde flow of contrast, probably represents a large right ovarian vein with reflux. No intracaval thrombus. Completion inferior venacavogram demonstrates satisfactory filter position, with no significant tilt. Impression: Successful placement of Vena-Tech infrarenal inferior vena cava filter, as above.
--- NOTE | 2019-04-30 16:55 | Consultation ---
DATE OF CONSULTATION: 04/29/2019 CARDIOLOGY CONSULTATION CONSULTING PHYSICIAN: Josue Parikh M.D. REFERRING PHYSICIAN: Nicole Guillermo M.D. REASON FOR CONSULTATION: Tachycardia. HISTORY OF PRESENT ILLNESS: The patient is an 83-year-old lady with history of hypertension and dysphagia as well as lower extremity DVT and left lower extremity ulcer, who was transferred from [facility] for weakness and poor appetite. The patient is nonverbal. The patient has a history of C. diff as well as history of diarrhea for the last several days. C. diff was also positive. The patient was hospitalized and underwent a gastrostomy tube placement on 04/26/2019. At the time of my evaluation, the patient is nonverbal and is unable to provide any information. All the information was obtained on reviewing of the records. It is of note, the patient was tachycardic and hence Cardiology consultation was obtained. REVIEW OF SYSTEMS: Cannot be obtained. PAST MEDICAL HISTORY: As mentioned above. FAMILY HISTORY: Noncontributory. SOCIAL HISTORY: She lives in a detention. PHYSICAL EXAMINATION: VITAL SIGNS: Show blood pressure 124/50, pulse 105, respirations 18, and temperature 97. HEAD AND NECK: Showed no JVD. LUNGS: Clear. CARDIOVASCULAR: Shows regular, S1 and S2 with no gallop. ABDOMEN: Status post G-tube. EXTREMITIES: No pitting edema, but left leg ulcer. LABORATORY AND DIAGNOSTIC DATA: EKG shows sinus tachycardia of 111, low voltage and T-wave abnormalities suggestive of anterior ischemia. Her labs show white count of 14.1, hemoglobin 7.1, hematocrit 22, and platelet count 105,000. Sodium 141, potassium 3.9, BUN 17, and creatinine 0.6. Glucose 121. Alkaline phosphatase is 628. ASSESSMENT AND PLAN: 1. Tachycardia. This is sinus tachycardia with no evidence of atrial fibrillation or SVT. We will check a thyroid function test and echocardiogram for further evaluation. That is also partially due to the patient's severe anemia. 2. Dysphagia, status post PEG placement. 3. Severe anemia. The patient received blood transfusion. Further evaluation by Dr. Carranza. 4. Elevated alkaline phosphatase. 5. Dementia. 6. Sepsis, on IV antibiotics. Thank you very much, Dr. Guillermo, for allowing me to participate in the care of this patient. Please do not hesitate to contact me for any questions regarding my evaluation. Josue Parikh M.D. DR: MARIN JOB#: [id number] CC:
--- NOTE | 2019-04-30 17:00 | Consultation ---
DATE OF CONSULTATION: 04/30/2019 ENDOCRINOLOGY CONSULTATION CONSULTING PHYSICIAN: Adan Higuera M.D. REFERRING PHYSICIAN: Nicole Guillermo M.D. REASON FOR CONSULTATION: Management of diabetes. HISTORY OF PRESENT ILLNESS: The patient is an 83-year-old female, brought by paramedics on April 24, with poor appetite x1 month, [facility], nonverbal, at bedside, history was taken from the review of the chart and medical record. Glucose is elevated. Endocrinology was consulted in order to assist in the management of diabetes. PAST MEDICAL HISTORY: 1. Hyperlipidemia. 2. Metabolic acidosis. 3. Diabetes. 4. Hypertension. PAST SURGICAL HISTORY: T11-T12 fracture. REVIEW OF SYSTEMS: Unobtainable. ALLERGIES TO MEDICATIONS: None. MEDICATIONS: Reviewed and reconciled. LABORATORY VALUES: WBC 14, hemoglobin 7, hematocrit 22, platelet count 105,000. Sodium 141, potassium 3.9, chloride 115, bicarb 19, BUN 22, creatinine 0.6, glucose of 121. PHYSICAL EXAMINATION: VITAL SIGNS: Blood pressure 104/59, pulse 84, temperature 98.2, respiratory rate 18. HEENT: Pupils are equal and reactive to light. Sclerae anicteric. NECK: No JVD. HEART: Regular. LUNGS: Decreased breath sounds. ABDOMEN: Positive bowel sounds. EXTREMITIES: Positive for edema. DIAGNOSES: 1. Failure to thrive. 2. Dehydration. 3. Leg ulcer. 4. Dysphagia, status post PEG placement. 5. DVT, status post IVC filter placement. 6. Diabetes, out of control. 7. Cachexia. PLAN: 1 Currently the patient is NPO. 2. We will continue to monitor the glucose six times a day with sliding scale coverage. 3. No need for basal insulin for now. 4. We will follow the patient closely during hospital stay. Thank you, Dr. Guillermo, for the courtesy of this consultation. Adan Higuera M.D. DR: VERONA/JOSE JOB#: [id number] CC: AMAN
--- NOTE | 2019-04-30 19:00 | Pulmonology Progress Note ---
Assessment/Plan Assessment/Plan Pulmonary Progress Note HPI Patient is an 83-year old [facility] admitted with weakness, poor appetite x1 month. Patient is nonverbal at baseline. Patient has a history of C. difficile, has a history of diarrhea for the last several days CDIFF Positive. No fevers or chills. No reported cough or shortness of breath. Noted to have radiological evidence of Pneumonia, Left LLE ulcer, LLE DVT s/p IVC filter, HB stable Stable VS, has PICC line, sp G Tube Allergies: No Known Allergies Past Medical History: Diabetes, Hypertension, Hyperlipidemia, Dementia, Hyperlipidemia, Sepsis, Metabolic Acidosis, C-Difficile, T11-T12 fracture All Other Systems: limited Physical Exam Vital Signs Noted General Appearance: no apparent distress, cachetic, non verbal Head: NCAT Eyes: bilateral eye normal inspection, bilateral eye PERRL ENT: dry mm Neck: normal inspection, no LN Respiratory: chest non-tender, normal breath sounds Cardiovascular: no edema, tachycardia, normal HS1, HS2 Gastrointestinal: normal bowel sounds, non tender, soft, non-distended, no guarding, no rebound, g tube Genitourinary: no CVA tenderness Musculoskeletal: normal inspection Neurologic: no focal signs, no seizures Skin: no edema, LLE ulcer Impression: Pneumonia Dysphagia Adult failure to thrive LLE DVT LLE Ulcer Hypernatremia Hypokalemia Diabetes Hypertension Hyperlipidemia Dementia Hyperlipidemia Previous C-Difficile Previous T11-T12 fracture Plan G tube feeds May need to DC AC if continues bleeding TF PRN IVF NPO PICC line IV antibiotics, PO Flagyl Stll Cdiff O2 PRN HHN CPT Aspiration precautions Supplement K ST evaluation Monitor labs Labs Noted EKG: Rate: tachycardia, NSR, no acute ST changes Chest X-Ray: no effusion, no pneumothorax, bilateral infiltrates c/w pneumonia Subjective ROS Limited/Unobtainable: No Allergies: Coded Allergies: No Known Allergies (Unverified , 04/24/19) Objective Last 24 Hour Vital Signs Date Time Temp Pulse Resp B/P (MAP) Pulse Ox O2 Delivery O2 Flow Rate FiO2 04/30/19 17:00 96.8 73 20 114/56 (75) 96 04/30/19 16:30 96.8 72 20 115/52 (73) 96 04/30/19 16:00 73 8/27/19 15:35 72 20 114/51 (72) 98 04/30/19 15:30 68 20 118/53 (74) 98 04/30/19 15:25 68 20 122/55 (77) 98 04/30/19 15:20 70 20 113/55 (74) 98 04/30/19 15:15 72 20 104/62 (76) 96 04/30/19 15:10 70 20 104/50 (68) 96 04/30/19 15:05 69 20 113/58 (76) 95 04/30/19 15:00 71 20 113/60 (77) 97 04/30/19 14:57 61 18 3.0 04/30/19 12:00 96.8 78 18 104/60 (75) 93 04/30/19 12:00 80 04/30/19 09:00 Nasal Cannula 2.0 Nasal Cannula 2.0 04/30/19 08:00 80 04/30/19 08:00 96.8 87 18 127/63 (84) 97 04/30/19 04:00 98.4 85 18 104/59 (74) 97 04/30/19 04:00 84 04/30/19 00:00 86 04/30/19 00:00 97.6 93 18 124/70 (88) 98 04/29/19 21:00 Nasal Cannula 2.0 Nasal Cannula 2.0 04/29/19 20:05 97.6 94 18 122/71 (88) 98 04/29/19 20:00 82 Intake and Output 04/29/19 04/30/19 19:00 07:00 Intake Total 240 ml Output Total 500 ml Balance -260 ml Intake IV Total 200 ml Tube Feeding 40 ml Output Urine Total 500 ml # Voids 2 # Bowel Movements 1 Laboratory Tests 04/30/19 05:35: White Blood Count 11.0H, Red Blood Count 3.42L, Hemoglobin 9.2L, Hematocrit 28.4L, Mean Corpuscular Volume 83, Mean Corpuscular Hemoglobin 26.9L, Mean Corpuscular Hemoglobin Concent 32.3, Red Cell Distribution Width 20.1H, Platelet Count 96L, Mean Platelet Volume 6.9, Neutrophils (%) (Auto) , Lymphocytes (%) (Auto) , Monocytes (%) (Auto) , Eosinophils (%) (Auto) , Basophils (%) (Auto) , Differential Total Cells Counted 100, Neutrophils % ( Manual) 84H, Lymphocytes % (Manual) 8L, Monocytes % (Manual) 7, Eosinophils % ( Manual) 1, Basophils % (Manual) 0, Band Neutrophils 0, Nucleated Red Blood Cells 1, Platelet Estimate DecreasedL, Platelet Morphology Normal, Anisocytosis 1+, Sodium Level 142, Potassium Level 4.1, Chloride Level 115H, Carbon Dioxide Level 19L, Anion Gap 8, Blood Urea Nitrogen 15, Creatinine 0.5L, Estimat Glomerular Filtration Rate , Glucose Level 160H, Calcium Level 6.9L, Phosphorus Level 4.1, Magnesium Level 2.0, Total Bilirubin 0.5, Aspartate Amino Transf (AST /SGOT) 17, Alanine Aminotransferase (ALT/SGPT) 15, Alkaline Phosphatase 630H, Total Protein 4.7L, Albumin 1.0L, Globulin 3.7, Albumin/Globulin Ratio 0.3L, Thyroid Stimulating Hormone (TSH) 2.445, Free Thyroxine 1.29 04/30/19 06:45: Stool Occult Blood Negative Current Medications Medications (Trade) Dose Ordered Sig/Bushra Route PRN Reason Start Time Stop Time Status Last Admin Dose Admin Acetaminophen (Tylenol) 650 mg Q4H PRN ORAL Mild Pain/Temp > 100.5 04/24/19 21:45 05/24/19 21:44 04/28/19 09:21 Acetaminophen/ Hydrocodone Bitart ([place] 5/325) 1 tab Q6H PRN ORAL pain 4-10 04/28/19 21:00 05/05/19 20:59 04/29/19 09:58 Cefepime HCl 1 gm/ Dextrose 55 ml @ 110 mls/hr DAILY IVPB 04/25/19 09:00 05/02/19 08:59 04/30/19 09:35 Chlorhexidine Gluconate (Mary Beth-Hex 2%) 1 applic DAILY@2000 TOPIC 04/25/19 20:00 05/25/19 19:59 04/29/19 20:27 Dextrose (Dextrose 50%) 25 ml Q30M PRN IV Hypoglycemia 04/24/19 21:45 05/24/19 21:44 04/28/19 16:28 Dextrose (Dextrose 50%) 50 ml Q30M PRN IV Hypoglycemia 04/24/19 21:45 05/24/19 21:44 04/28/19 14:40 Doxycycline Hyclate 100 mg/ Dextrose 110 ml @ 110 mls/hr Q12HR@1100,2300 IV 04/24/19 23:00 05/01/19 22:59 04/30/19 11:20 Famotidine (Pepcid) 20 mg BID GT 04/26/19 18:00 05/26/19 17:59 04/30/19 18:10 Insulin Aspart (NovoLOG) Q6HR SUBQ 04/28/19 00:00 05/25/19 06:29 04/30/19 17:59 Lidocaine HCl (Xylocaine 1% 30ml) 30 ml NOW PRN INJ Radiology Procedure 04/28/19 11:00 05/01/19 23:59 Metoclopramide HCl (Reglan) 10 mg Q8H IVP 04/30/19 13:00 05/30/19 12:59 04/30/19 13:21 Ondansetron HCl (Zofran) 4 mg Q6H PRN IVP Nausea & Vomiting 04/24/19 21:45 05/24/19 21:44 Vancomycin HCl (Firvanq) 125 mg FOUR TIMES A DAY GT 04/26/19 13:00 05/02/19 13:59 04/30/19 18:10 Juan Miguel Mendoza MD Apr 30, 2019 19:00
--- NOTE | 2019-04-30 20:23 | General Progress Note ---
Assessment/Plan Problem List: (1) Dehydration ICD Codes: E86.0 - Dehydration SNOMED: 04143967 (2) Failure to thrive SNOMED: 22478547 Qualifiers: Qualified Codes: R62.7 - Adult failure to thrive (3) Leg ulcer ICD Codes: L97.909 - Non-pressure chronic ulcer of unspecified part of unspecified lower leg with unspecified severity SNOMED: 25413927, 937242572 (4) Encounter for PEG (percutaneous endoscopic gastrostomy) ICD Codes: Z43.1 - Encounter for attention to gastrostomy SNOMED: 871990327, 651811887 Status: stable Assessment/Plan: s/p peg dvt ; ivc filter resume peg feeding high residual at times w reglan Subjective ROS Limited/Unobtainable: Yes Allergies: Coded Allergies: No Known Allergies (Unverified , 04/24/19) Objective Last 24 Hour Vital Signs Date Time Temp Pulse Resp B/P (MAP) Pulse Ox O2 Delivery O2 Flow Rate FiO2 04/30/19 17:00 96.8 73 20 114/56 (75) 96 04/30/19 16:30 96.8 72 20 115/52 (73) 96 04/30/19 16:00 73 04/30/19 15:35 72 20 114/51 (72) 98 04/30/19 15:30 68 20 118/53 (74) 98 04/30/19 15:25 68 20 122/55 (77) 98 04/30/19 15:20 70 20 113/55 (74) 98 04/30/19 15:15 72 20 104/62 (76) 96 04/30/19 15:10 70 20 104/50 (68) 96 04/30/19 15:05 69 20 113/58 (76) 95 04/30/19 15:00 71 20 113/60 (77) 97 04/30/19 14:57 61 18 3.0 04/30/19 12:00 96.8 78 18 104/60 (75) 93 04/30/19 12:00 80 04/30/19 09:00 Nasal Cannula 2.0 Nasal Cannula 2.0 04/30/19 08:00 80 04/30/19 08:00 96.8 87 18 127/63 (84) 97 04/30/19 04:00 98.4 85 18 104/59 (74) 97 04/30/19 04:00 84 04/30/19 00:00 86 04/30/19 00:00 97.6 93 18 124/70 (88) 98 04/29/19 21:00 Nasal Cannula 2.0 Nasal Cannula 2.0 Intake and Output 04/29/19 04/30/19 19:00 07:00 Intake Total 240 ml Output Total 500 ml Balance -260 ml Intake IV Total 200 ml Tube Feeding 40 ml Output Urine Total 500 ml # Voids 2 # Bowel Movements 1 Laboratory Tests 04/30/19 05:35: White Blood Count 11.0H, Red Blood Count 3.42L, Hemoglobin 9.2L, Hematocrit 28.4L, Mean Corpuscular Volume 83, Mean Corpuscular Hemoglobin 26.9L, Mean Corpuscular Hemoglobin Concent 32.3, Red Cell Distribution Width 20.1H, Platelet Count 96L, Mean Platelet Volume 6.9, Neutrophils (%) (Auto) , Lymphocytes (%) (Auto) , Monocytes (%) (Auto) , Eosinophils (%) (Auto) , Basophils (%) (Auto) , Differential Total Cells Counted 100, Neutrophils % ( Manual) 84H, Lymphocytes % (Manual) 8L, Monocytes % (Manual) 7, Eosinophils % ( Manual) 1, Basophils % (Manual) 0, Band Neutrophils 0, Nucleated Red Blood Cells 1, Platelet Estimate DecreasedL, Platelet Morphology Normal, Anisocytosis 1+, Sodium Level 142, Potassium Level 4.1, Chloride Level 115H, Carbon Dioxide Level 19L, Anion Gap 8, Blood Urea Nitrogen 15, Creatinine 0.5L, Estimat Glomerular Filtration Rate , Glucose Level 160H, Calcium Level 6.9L, Phosphorus Level 4.1, Magnesium Level 2.0, Total Bilirubin 0.5, Aspartate Amino Transf (AST /SGOT) 17, Alanine Aminotransferase (ALT/SGPT) 15, Alkaline Phosphatase 630H, Total Protein 4.7L, Albumin 1.0L, Globulin 3.7, Albumin/Globulin Ratio 0.3L, Thyroid Stimulating Hormone (TSH) 2.445, Free Thyroxine 1.29 04/30/19 06:45: Stool Occult Blood Negative Height (Feet): 5 Height (Inches): 3.00 Weight (Pounds): 80 Neck: normal inspection Cardiovascular: regular rhythm Respiratory/Chest: lungs clear Hadadz,Ali MD Apr 30, 2019 20:23
[2019-04-30] MEDS: Dyna-Hex 2% Top Sol 2oz TOPIC SCH (20:36)
[2019-05-01] VITALS: BP 101/57
[2019-05-01 04:00] VITALS: BP 122/61
[2019-05-01] MEDS: Metoclopramide 10mg/2ml Inj IVP SCH (05:50)
[2019-05-01 05:51] LABS: BASOPHILS % (AUTO) 0.6 % (0.0-2.0); EOSINOPHILS % (AUTO) 0.5 % (0.0-3.0); HEMATOCRIT 34.2 % (37.0-47.0); HEMOGLOBIN 11.1 G/DL (12.0-16.0); LYMPHOCYTES % (AUTO) 12.8 % (20.0-45.0); MEAN CORPUSCULAR VOLUME 82 FL (80-99); MONOCYTES % (AUTO) 4.8 % (1.0-10.0); NEUTROPHILS % (AUTO) 81.3 % (45.0-75.0); PLATELET COUNT 123 K/UL (150-450); RED BLOOD COUNT 4.15 M/UL (4.20-5.40); RED CELL DISTRIBUTION WIDTH 19.9 % (11.6-14.8); WHITE BLOOD COUNT 11.6 K/UL (4.8-10.8)
[2019-05-01 06:09] LABS: ANION GAP 11 mmol/L (5-15); BLOOD UREA NITROGEN 16 mg/dL (7-18); CALCIUM 7.7 MG/DL (8.5-10.1); CARBON DIOXIDE 18 MMOL/L (21-32); CHLORIDE 111 MMOL/L (98-107); CREATININE 0.6 MG/DL (0.55-1.30); PHOSPHORUS 3.2 MG/DL (2.5-4.9); POTASSIUM 3.8 MMOL/L (3.5-5.1); SODIUM 140 MMOL/L (136-145)
[2019-05-01] MEDS: NovoLOG Insulin Flexpen SUBQ SCH ×2 (06:23→12:43)
--- NOTE | 2019-05-01 06:50 | General Progress Note ---
Assessment/Plan Problem List: (1) Diabetes mellitus ICD Codes: E11.9 - Type 2 diabetes mellitus without complications SNOMED: 85744673 (2) Hypernatremia ICD Codes: E87.0 - Hyperosmolality and hypernatremia SNOMED: 884023733 (3) Pneumonia ICD Codes: J18.9 - Pneumonia, unspecified organism SNOMED: 770879457 Qualifiers: Qualified Codes: J18.9 - Pneumonia, unspecified organism (4) Hypokalemia ICD Codes: E87.6 - Hypokalemia SNOMED: 69720487 (5) Failure to thrive SNOMED: 18480700 Qualifiers: Qualified Codes: R62.7 - Adult failure to thrive (6) Cellulitis, leg ICD Codes: L03.119 - Cellulitis of unspecified part of limb SNOMED: 182087403 Status: stable Assessment/Plan: no need for basal insulin for now continue NISS every 6 hours Subjective ROS Limited/Unobtainable: Yes Allergies: Coded Allergies: No Known Allergies (Unverified , 04/24/19) Subjective events noted fair glycemic control without hypoglycemia Item Value Date Time Bedside Blood Glucose 154 mg/dl H 05/01/19 0623 Bedside Blood Glucose 140 mg/dl H 05/01/19 0000 Bedside Blood Glucose 174 mg/dl H 04/30/19 1759 Bedside Blood Glucose 149 mg/dl H 04/30/19 1200 Bedside Blood Glucose 140 mg/dl H 04/30/19 0600 Bedside Blood Glucose 132 mg/dl H 04/30/19 0000 Objective Last 24 Hour Vital Signs Date Time Temp Pulse Resp B/P (MAP) Pulse Ox O2 Delivery O2 Flow Rate FiO2 05/01/19 04:00 91 05/01/19 04:00 97.4 91 17 122/61 (81) 95 05/01/19 00:00 97.9 85 16 101/57 (72) 96 05/01/19 00:00 91 04/30/19 21:00 Nasal Cannula 2.0 Nasal Cannula 2.0 04/30/19 20:00 97.9 84 16 121/65 (83) 96 04/30/19 20:00 80 04/30/19 17:00 96.8 73 20 114/56 (75) 96 04/30/19 16:30 96.8 72 20 115/52 (73) 96 04/30/19 16:00 73 04/30/19 15:35 72 20 114/51 (72) 98 04/30/19 15:30 68 20 118/53 (74) 98 04/30/19 15:25 68 20 122/55 (77) 98 04/30/19 15:20 70 20 113/55 (74) 98 04/30/19 15:15 72 20 104/62 (76) 96 04/30/19 15:10 70 20 104/50 (68) 96 04/30/19 15:05 69 20 113/58 (76) 95 04/30/19 15:00 71 20 113/60 (77) 97 04/30/19 14:57 61 18 3.0 04/30/19 12:00 96.8 78 18 104/60 (75) 93 04/30/19 12:00 80 04/30/19 09:00 Nasal Cannula 2.0 Nasal Cannula 2.0 04/30/19 08:00 80 04/30/19 08:00 96.8 87 18 127/63 (84) 97 Intake and Output 04/30/19 05/01/19 19:00 07:00 Intake Total 25 ml 400 ml Output Total 550 ml Balance -525 ml 400 ml Intake Free Water 200 ml Tube Feeding 25 ml 200 ml Output Urine Total 550 ml # Bowel Movements 3 Laboratory Tests 05/01/19 05:18: White Blood Count 11.6H, Red Blood Count 4.15L, Hemoglobin 11.1L, Hematocrit 34.2L, Mean Corpuscular Volume 82, Mean Corpuscular Hemoglobin 26.7L, Mean Corpuscular Hemoglobin Concent 32.4, Red Cell Distribution Width 19.9H, Platelet Count 123L, Mean Platelet Volume 7.7, Neutrophils (%) (Auto) 81.3H, Lymphocytes (%) (Auto) 12.8L, Monocytes (%) (Auto) 4.8, Eosinophils (%) (Auto) 0.5, Basophils (%) (Auto) 0.6, Sodium Level 140, Potassium Level 3.8, Chloride Level 111H, Carbon Dioxide Level 18L, Anion Gap 11, Blood Urea Nitrogen 16, Creatinine 0.6, Estimat Glomerular Filtration Rate , Glucose Level 175H, Calcium Level 7.7L, Phosphorus Level 3.2, Magnesium Level 2.0 Height (Feet): 5 Height (Inches): 3.00 Weight (Pounds): 105 General Appearance: no apparent distress Neck: normal alignment Cardiovascular: normal rate Respiratory/Chest: decreased breath sounds Abdomen: normal bowel sounds Objective Current Medications Medications (Trade) Dose Ordered Sig/Bushra Route PRN Reason Start Time Stop Time Status Last Admin Dose Admin Acetaminophen (Tylenol) 650 mg Q4H PRN ORAL Mild Pain/Temp > 100.5 04/24/19 21:45 05/24/19 21:44 04/28/19 09:21 Acetaminophen/ Hydrocodone Bitart ([place] 5/325) 1 tab Q6H PRN ORAL pain 4-10 04/28/19 21:00 05/05/19 20:59 04/29/19 09:58 Cefepime HCl 1 gm/ Dextrose 55 ml @ 110 mls/hr DAILY IVPB 04/25/19 09:00 05/02/19 08:59 04/30/19 09:35 Chlorhexidine Gluconate ([place]-Hex 2%) 1 applic DAILY@2000 TOPIC 04/25/19 20:00 05/25/19 19:59 04/30/19 20:36 Dextrose (Dextrose 50%) 25 ml Q30M PRN IV Hypoglycemia 04/24/19 21:45 05/24/19 21:44 04/28/19 16:28 Dextrose (Dextrose 50%) 50 ml Q30M PRN IV Hypoglycemia 04/24/19 21:45 05/24/19 21:44 04/28/19 14:40 Doxycycline Hyclate 100 mg/ Dextrose 110 ml @ 110 mls/hr Q12HR@1100,2300 IV 04/24/19 23:00 05/01/19 22:59 04/30/19 23:09 Famotidine (Pepcid) 20 mg BID GT 04/26/19 18:00 05/26/19 17:59 04/30/19 18:10 Insulin Aspart (NovoLOG) Q6HR SUBQ 04/28/19 00:00 05/25/19 06:29 05/01/19 06:23 Lidocaine HCl (Xylocaine 1% 30ml) 30 ml NOW PRN INJ Radiology Procedure 04/28/19 11:00 05/01/19 23:59 Metoclopramide HCl (Reglan) 10 mg Q8H IVP 04/30/19 13:00 05/30/19 12:59 05/01/19 05:50 Ondansetron HCl (Zofran) 4 mg Q6H PRN IVP Nausea & Vomiting 04/24/19 21:45 05/24/19 21:44 Vancomycin HCl (Firvanq) 125 mg FOUR TIMES A DAY GT 04/26/19 13:00 05/02/19 13:59 04/30/19 20:59 Adan Higuera MD May 01, 2019 06:50
[2019-05-01] MEDS ORDERED: Metoclopramide 10mg/2ml Inj IVP PRN (07:28)
--- NOTE | 2019-05-01 07:28 | General Progress Note ---
Assessment/Plan Status: stable Assessment/Plan: Pneumonia Dysphagia Adult failure to thrive LLE DVT LLE Ulcer Hypernatremia Hypokalemia Diabetes Hypertension Hyperlipidemia Dementia Hyperlipidemia Previous C-Difficile Previous T11-T12 fracture s/p IVC filter placement change GTF to Glucerna 1.5 increase reglan to Q6 add eryhtromycin monitor for residuals neg stool ob, last one Subjective ROS Limited/Unobtainable: No Allergies: Coded Allergies: No Known Allergies (Unverified , 04/24/19) Objective Last 24 Hour Vital Signs Date Time Temp Pulse Resp B/P (MAP) Pulse Ox O2 Delivery O2 Flow Rate FiO2 05/01/19 04:00 91 05/01/19 04:00 97.4 91 17 122/61 (81) 95 05/01/19 00:00 97.9 85 16 101/57 (72) 96 05/01/19 00:00 91 04/30/19 21:00 Nasal Cannula 2.0 Nasal Cannula 2.0 04/30/19 20:00 97.9 84 16 121/65 (83) 96 04/30/19 20:00 80 04/30/19 17:00 96.8 73 20 114/56 (75) 96 04/30/19 16:30 96.8 72 20 115/52 (73) 96 04/30/19 16:00 73 04/30/19 15:35 72 20 114/51 (72) 98 04/30/19 15:30 68 20 118/53 (74) 98 04/30/19 15:25 68 20 122/55 (77) 98 04/30/19 15:20 70 20 113/55 (74) 98 04/30/19 15:15 72 20 104/62 (76) 96 04/30/19 15:10 70 20 104/50 (68) 96 04/30/19 15:05 69 20 113/58 (76) 95 04/30/19 15:00 71 20 113/60 (77) 97 04/30/19 14:57 61 18 3.0 04/30/19 12:00 96.8 78 18 104/60 (75) 93 04/30/19 12:00 80 04/30/19 09:00 Nasal Cannula 2.0 Nasal Cannula 2.0 04/30/19 08:00 80 04/30/19 08:00 96.8 87 18 127/63 (84) 97 Intake and Output 04/30/19 05/01/19 19:00 07:00 Intake Total 25 ml 400 ml Output Total 550 ml Balance -525 ml 400 ml Intake Free Water 200 ml Tube Feeding 25 ml 200 ml Output Urine Total 550 ml # Bowel Movements 3 Laboratory Tests 05/01/19 05:18: White Blood Count 11.6H, Red Blood Count 4.15L, Hemoglobin 11.1L, Hematocrit 34.2L, Mean Corpuscular Volume 82, Mean Corpuscular Hemoglobin 26.7L, Mean Corpuscular Hemoglobin Concent 32.4, Red Cell Distribution Width 19.9H, Platelet Count 123L, Mean Platelet Volume 7.7, Neutrophils (%) (Auto) 81.3H, Lymphocytes (%) (Auto) 12.8L, Monocytes (%) (Auto) 4.8, Eosinophils (%) (Auto) 0.5, Basophils (%) (Auto) 0.6, Sodium Level 140, Potassium Level 3.8, Chloride Level 111H, Carbon Dioxide Level 18L, Anion Gap 11, Blood Urea Nitrogen 16, Creatinine 0.6, Estimat Glomerular Filtration Rate , Glucose Level 175H, Calcium Level 7.7L, Phosphorus Level 3.2, Magnesium Level 2.0 Height (Feet): 5 Height (Inches): 3.00 Weight (Pounds): 105 General Appearance: alert EENT: normal ENT inspection Neck: supple Cardiovascular: normal rate Respiratory/Chest: decreased breath sounds Abdomen: normal bowel sounds, non tender, soft Extremities: non-tender Ramón Carranza MD May 01, 2019 07:28
[2019-05-01] MEDS ORDERED: Erythromycin Inj 50 MG in NS 55 ML IVPB SCH (08:00)
[2019-05-01 08:03] VITALS: BP 129/65
[2019-05-01] MEDS: Vancomycin oral 125mg/2.5ml GT SCH ×2 (08:24→12:42)
[2019-05-01] MEDS: Cefepime HCl 1 GM in D5W 55 ML IVPB SCH (08:24)
--- NOTE | 2019-05-01 08:50 | Hematology/Onc Progress Note ---
Assessment/Plan Assessment/Plan Assessment and Recs: # Anemia of chronic disease, rule out gi bleed, likely is multifactorial ferritin 631 --> anemia panel has been reviewed and cw acd --> hgb goal is >7 --> no evidence for hemolysis --> obtain occult blood++ per gi prn recs --> hgb trend 10-->9.1-->8.1-->8-->7.1-->9.2-->11 --> s/p peg tube and on tfs --> blood tx: 1 unit prbc 04/29 # DVT of the left lower extremity with now low platelets and low h/h is s/p ivc filter 04/30 --> s/p permanent ivc filter 04/30 --> unsafe to anticoag given dropping h/h --> reviewed cards and pulm recs # Leukocytosis likely 2/2 anemia v infection (PNA) --> abx have been started --> cefepime/cefoxitin--> cefe/vanc/dox --> wbc trend: 20-->17.2-->21k-->14k-->11-->11 --> path report shows chronic gastritis, no h pylori identified # Coagulopathy with elevated pt/ptt/inr is due to underlying cirrhosis --> us abd shows cirrhosis # FTT requiring potential gtube placement --> sp peg tube and on tube feeds --> started on tfs # Dehydration --> per renal, may need ivf # PNA on abx Time of note does not necessarily reflect time of encounter. Appreciate consultation greatly Subjective Constitutional: Denies: no symptoms, chills, fever, malaise, weakness, other HEENT: Denies: no symptoms, eye pain, blurred vision, tearing, double vision, ear pain, ear discharge, nose pain, nose congestion, throat pain, throat swelling, mouth pain, mouth swelling, other Cardiovascular: Denies: no symptoms, chest pain, edema, irregular heart rate, lightheadedness, palpitations, syncope, other Respiratory: Denies: no symptoms, cough, shortness of breath, SOB with excertion, SOB at rest, sputum, wheezing, other Gastrointestinal/Abdominal: Denies: no symptoms, abdomen distended, abdominal pain, black stools, tarry stools, blood in stool, constipated, diarrhea, difficulty swallowing, nausea, poor appetite, poor fluid intake, rectal bleeding , vomiting, other Genitourinary: Denies: no symptoms, burning, discharge, frequency, flank pain, hematuria, incontinence, pain, urgency, other Neurologic/Psychiatric: Denies: no symptoms, anxiety, depressed, emotional problems, headache, numbness, paresthesia, pre-existing deficit, seizure, tingling, tremors, weakness, other Allergies: Coded Allergies: No Known Allergies (Unverified , 04/24/19) Subjective 04/26: awake and confused, on abx, h/h stable , on vanc/cefe/dox 04/29: remains on abx, pending potential ivcfilter given dropping h/h 04/30: on soft restraints, s/p 1 unit prbc, hgb improved to 9.2 05/01: no bleeding, no chills, labs stable, on reglan, on abx cefep Objective Objective Current Medications Medications (Trade) Dose Ordered Sig/Bushra Route PRN Reason Start Time Stop Time Status Last Admin Dose Admin Acetaminophen (Tylenol) 650 mg Q4H PRN ORAL Mild Pain/Temp > 100.5 04/24/19 21:45 05/24/19 21:44 04/28/19 09:21 Acetaminophen/ Hydrocodone Bitart ([place] 5/325) 1 tab Q6H PRN ORAL pain 4-10 04/28/19 21:00 05/05/19 20:59 04/29/19 09:58 Albumin Human 100 ml @ 100 mls/hr ONCE ONCE IV 05/01/19 08:30 05/01/19 09:29 Cefepime HCl 1 gm/ Dextrose 55 ml @ 110 mls/hr DAILY IVPB 04/25/19 09:00 05/02/19 08:59 05/01/19 08:24 Chlorhexidine Gluconate (Mary Beth-Hex 2%) 1 applic DAILY@2000 TOPIC 04/25/19 20:00 05/25/19 19:59 04/30/19 20:36 Dextrose (Dextrose 50%) 25 ml Q30M PRN IV Hypoglycemia 04/24/19 21:45 05/24/19 21:44 04/28/19 16:28 Dextrose (Dextrose 50%) 50 ml Q30M PRN IV Hypoglycemia 04/24/19 21:45 05/24/19 21:44 04/28/19 14:40 Doxycycline Hyclate 100 mg/ Dextrose 110 ml @ 110 mls/hr Q12HR@1100,2300 IV 04/24/19 23:00 05/01/19 22:59 04/30/19 23:09 Erythromycin (Toi-Ped) 50 mg Q6HR GT 05/01/19 12:00 05/08/19 11:59 Famotidine (Pepcid) 20 mg BID GT 04/26/19 18:00 05/26/19 17:59 05/01/19 08:24 Furosemide (Lasix) 20 mg ONCE IV 05/01/19 08:30 05/01/19 09:30 Insulin Aspart (NovoLOG) Q6HR SUBQ 04/28/19 00:00 05/25/19 06:29 05/01/19 06:23 Lidocaine HCl (Xylocaine 1% 30ml) 30 ml NOW PRN INJ Radiology Procedure 04/28/19 11:00 05/01/19 23:59 Metoclopramide HCl (Reglan) 10 mg Q6H PRN IVP Nausea & Vomiting 05/01/19 07:28 05/31/19 07:27 Ondansetron HCl (Zofran) 4 mg Q6H PRN IVP Nausea & Vomiting 04/24/19 21:45 05/24/19 21:44 Vancomycin HCl (Firvanq) 125 mg FOUR TIMES A DAY GT 04/26/19 13:00 05/02/19 13:59 05/01/19 08:24 Last 24 Hour Vital Signs Date Time Temp Pulse Resp B/P (MAP) Pulse Ox O2 Delivery O2 Flow Rate FiO2 05/01/19 08:03 97.2 88 17 129/65 (86) 94 05/01/19 04:00 91 05/01/19 04:00 97.4 91 17 122/61 (81) 95 05/01/19 00:00 97.9 85 16 101/57 (72) 96 05/01/19 00:00 91 04/30/19 21:00 Nasal Cannula 2.0 Nasal Cannula 2.0 04/30/19 20:00 97.9 84 16 121/65 (83) 96 04/30/19 20:00 80 04/30/19 17:00 96.8 73 20 114/56 (75) 96 04/30/19 16:30 96.8 72 20 115/52 (73) 96 04/30/19 16:00 73 04/30/19 15:35 72 20 114/51 (72) 98 04/30/19 15:30 68 20 118/53 (74) 98 04/30/19 15:25 68 20 122/55 (77) 98 04/30/19 15:20 70 20 113/55 (74) 98 04/30/19 15:15 72 20 104/62 (76) 96 04/30/19 15:10 70 20 104/50 (68) 96 04/30/19 15:05 69 20 113/58 (76) 95 04/30/19 15:00 71 20 113/60 (77) 97 04/30/19 14:57 61 18 3.0 04/30/19 12:00 96.8 78 18 104/60 (75) 93 04/30/19 12:00 80 04/30/19 09:00 Nasal Cannula 2.0 Nasal Cannula 2.0 04/30/19 08:00 80 04/30/19 08:00 96.8 87 18 127/63 (84) 97 04/30/19 04:00 98.4 85 18 104/59 (74) 97 04/30/19 04:00 84 04/30/19 00:00 86 04/30/19 00:00 97.6 93 18 124/70 (88) 98 04/29/19 21:00 Nasal Cannula 2.0 Nasal Cannula 2.0 04/29/19 20:05 97.6 94 18 122/71 (88) 98 04/29/19 20:00 82 04/29/19 19:00 86 18 63 Nasal Cannula 2.0 28 04/29/19 19:00 96 Nasal Cannula 2.0 28 04/29/19 16:00 88 04/29/19 16:00 97.3 89 23 133/52 (79) 100 04/29/19 12:00 97.9 98 23 98/44 (62) 94 04/29/19 11:58 103 04/29/19 09:00 Nasal Cannula 2.0 Nasal Cannula 2.0 Intake and Output 04/30/19 05/01/19 19:00 07:00 Intake Total 25 ml 400 ml Output Total 550 ml Balance -525 ml 400 ml Intake Free Water 200 ml Tube Feeding 25 ml 200 ml Output Urine Total 550 ml # Bowel Movements 3 Labs Test 04/28/19 11:25 04/29/19 06:45 04/30/19 05:35 04/30/19 06:45 Prothrombin Time 13.4 SEC (9.30-11.50) Prothromb Time International Ratio 1.3 (0.9-1.1) Hepatitis A IgM Antibody Positive (Negative) Hepatitis B Surface Antigen Negative (Negative) Hepatitis B Core IgM Antibody Negative (Negative) Hepatitis C Antibody 0.1 s/co ratio (0.0-0.9) HIV (1&2) Antibody Rapid Negative (NEGATIVE) White Blood Count 14.1 K/UL (4.8-10.8) 11.0 K/UL (4.8-10.8) Red Blood Count 2.87 M/UL (4.20-5.40) 3.42 M/UL (4.20-5.40) Hemoglobin 7.1 G/DL (12.0-16.0) 9.2 G/DL (12.0-16.0) Hematocrit 22.5 % (37.0-47.0) 28.4 % (37.0-47.0) Mean Corpuscular Volume 78 FL (80-99) 83 FL (80-99) Mean Corpuscular Hemoglobin 24.7 PG (27.0-31.0) 26.9 PG (27.0-31.0) Mean Corpuscular Hemoglobin Concent 31.6 G/DL (32.0-36.0) 32.3 G/DL (32.0-36.0) Red Cell Distribution Width 20.9 % (11.6-14.8) 20.1 % (11.6-14.8) Platelet Count 105 K/UL (150-450) 96 K/UL (150-450) Mean Platelet Volume 6.9 FL (6.5-10.1) 6.9 FL (6.5-10.1) Neutrophils (%) (Auto) % (45.0-75.0) % (45.0-75.0) Lymphocytes (%) (Auto) % (20.0-45.0) % (20.0-45.0) Monocytes (%) (Auto) % (1.0-10.0) % (1.0-10.0) Eosinophils (%) (Auto) % (0.0-3.0) % (0.0-3.0) Basophils (%) (Auto) % (0.0-2.0) % (0.0-2.0) Differential Total Cells Counted 100 100 Neutrophils % (Manual) 81 % (45-75) 84 % (45-75) Lymphocytes % (Manual) 13 % (20-45) 8 % (20-45) Monocytes % (Manual) 2 % (1-10) 7 % (1-10) Eosinophils % (Manual) 0 % (0-3) 1 % (0-3) Basophils % (Manual) 0 % (0-2) 0 % (0-2) Band Neutrophils 4 % (0-8) 0 % (0-8) Platelet Estimate Decreased Decreased Platelet Morphology Normal Normal Hypochromasia 2+ Anisocytosis 2+ 1+ Microcytosis 1+ Sodium Level 141 MMOL/L (136-145) 142 MMOL/L (136-145) Potassium Level 3.9 MMOL/L (3.5-5.1) 4.1 MMOL/L (3.5-5.1) Chloride Level 115 MMOL/L (98-107) 115 MMOL/L (98-107) Carbon Dioxide Level 19 MMOL/L (21-32) 19 MMOL/L (21-32) Anion Gap 8 mmol/L (5-15) 8 mmol/L (5-15) Blood Urea Nitrogen 17 mg/dL (7-18) 15 mg/dL (7-18) Creatinine 0.6 MG/DL (0.55-1.30) 0.5 MG/DL (0.55-1.30) Estimat Glomerular Filtration Rate mL/min (>60) mL/min (>60) Glucose Level 121 MG/DL (74-106) 160 MG/DL (74-106) Uric Acid 5.2 MG/DL (2.6-7.2) Calcium Level 7.0 MG/DL (8.5-10.1) 6.9 MG/DL (8.5-10.1) Phosphorus Level 1.6 MG/DL (2.5-4.9) 4.1 MG/DL (2.5-4.9) Magnesium Level 1.1 MG/DL (1.8-2.4) 2.0 MG/DL (1.8-2.4) Total Bilirubin 0.4 MG/DL (0.2-1.0) 0.5 MG/DL (0.2-1.0) Aspartate Amino Transf (AST/SGOT) 22 U/L (15-37) 17 U/L (15-37) Alanine Aminotransferase (ALT/SGPT) 15 U/L (12-78) 15 U/L (12-78) Alkaline Phosphatase 628 U/L (46-116) 630 U/L (46-116) C-Reactive Protein, Quantitative 14.1 mg/dL (0.00-0.90) Pro-B-Type Natriuretic Peptide 6687 pg/mL (0-125) Total Protein 4.7 G/DL (6.4-8.2) 4.7 G/DL (6.4-8.2) Albumin 1.0 G/DL (3.4-5.0) 1.0 G/DL (3.4-5.0) Globulin 3.7 g/dL 3.7 g/dL Albumin/Globulin Ratio 0.3 (1.0-2.7) 0.3 (1.0-2.7) Nucleated Red Blood Cells 1 /100 WBC Thyroid Stimulating Hormone (TSH) 2.445 uiU/mL (0.358-3.740) Free Thyroxine 1.29 NG/DL (0.76-1.46) Stool Occult Blood Negative (NEGATIVE) Test 05/01/19 05:18 White Blood Count 11.6 K/UL (4.8-10.8) Red Blood Count 4.15 M/UL (4.20-5.40) Hemoglobin 11.1 G/DL (12.0-16.0) Hematocrit 34.2 % (37.0-47.0) Mean Corpuscular Volume 82 FL (80-99) Mean Corpuscular Hemoglobin 26.7 PG (27.0-31.0) Mean Corpuscular Hemoglobin Concent 32.4 G/DL (32.0-36.0) Red Cell Distribution Width 19.9 % (11.6-14.8) Platelet Count 123 K/UL (150-450) Mean Platelet Volume 7.7 FL (6.5-10.1) Neutrophils (%) (Auto) 81.3 % (45.0-75.0) Lymphocytes (%) (Auto) 12.8 % (20.0-45.0) Monocytes (%) (Auto) 4.8 % (1.0-10.0) Eosinophils (%) (Auto) 0.5 % (0.0-3.0) Basophils (%) (Auto) 0.6 % (0.0-2.0) Sodium Level 140 MMOL/L (136-145) Potassium Level 3.8 MMOL/L (3.5-5.1) Chloride Level 111 MMOL/L (98-107) Carbon Dioxide Level 18 MMOL/L (21-32) Anion Gap 11 mmol/L (5-15) Blood Urea Nitrogen 16 mg/dL (7-18) Creatinine 0.6 MG/DL (0.55-1.30) Estimat Glomerular Filtration Rate mL/min (>60) Glucose Level 175 MG/DL (74-106) Calcium Level 7.7 MG/DL (8.5-10.1) Phosphorus Level 3.2 MG/DL (2.5-4.9) Magnesium Level 2.0 MG/DL (1.8-2.4) Height (Feet): 5 Height (Inches): 3.00 Weight (Pounds): 105 Objective Physical Exam Vital Signs: reviewed Gen: well appearing, no apparent distress, alert Resp: normal breath sounds, no respiratory distress CV: normal rate GI: normal inspection, non tender, soft, normal bowel sounds, non-distended ++ peg : no CVA tenderness Neurologic: alert, responsive Skin: normal inspection, normal color, no rash, warm/dry, palpation normal, well hydrated Matt Felipe MD May 01, 2019 08:50
[2019-05-01] MEDS ORDERED: FIRVANQ50 MG/1 ML PO (10:03)
[2019-05-01] MEDS ORDERED: FIRVANQ25 MG/1 ML GT (10:03)
[2019-05-01] MEDS: Doxycycline Hyclate 100 MG in D5W 110 ML IV SCH (11:36)
[2019-05-01 12:00] VITALS: BP 135/73
[2019-05-01] MEDS ORDERED: Erythromycin Ethylsuccinate 200mg/5ml Susp GT SCH (12:00)
--- NOTE | 2019-05-01 12:51 | Nephrology Progress Note ---
Assessment/Plan Problem List: (1) Hypernatremia (2) Hypokalemia (3) Dehydration (4) Failure to thrive Assessment Dehydration Free water deficit leading to high Na Low K and Low Mag Anemia Severe Malnutrition ? UTI Plan stable renal parameters trial of Reglan- stop hydrate Monitor Lytes and renal parameters replace Mag Phos k...as needed has PEG Per orders Subjective ROS Limited/Unobtainable: No Constitutional: Reports: malaise Objective Objective Last 24 Hour Vital Signs Date Time Temp Pulse Resp B/P (MAP) Pulse Ox O2 Delivery O2 Flow Rate FiO2 05/01/19 10:22 95 Nasal Cannula 2.0 28 05/01/19 09:00 Room Air Room Air 05/01/19 08:03 97.2 88 17 129/65 (86) 94 05/01/19 04:00 91 05/01/19 04:00 97.4 91 17 122/61 (81) 95 05/01/19 00:00 97.9 85 16 101/57 (72) 96 05/01/19 00:00 91 04/30/19 21:00 Nasal Cannula 2.0 Nasal Cannula 2.0 04/30/19 20:00 97.9 84 16 121/65 (83) 96 04/30/19 20:00 80 04/30/19 17:00 96.8 73 20 114/56 (75) 96 04/30/19 16:30 96.8 72 20 115/52 (73) 96 04/30/19 16:00 73 04/30/19 15:35 72 20 114/51 (72) 98 04/30/19 15:30 68 20 118/53 (74) 98 04/30/19 15:25 68 20 122/55 (77) 98 04/30/19 15:20 70 20 113/55 (74) 98 04/30/19 15:15 72 20 104/62 (76) 96 04/30/19 15:10 70 20 104/50 (68) 96 04/30/19 15:05 69 20 113/58 (76) 95 04/30/19 15:00 71 20 113/60 (77) 97 04/30/19 14:57 61 18 3.0 Intake and Output 04/30/19 05/01/19 19:00 07:00 Intake Total 25 ml 400 ml Output Total 550 ml Balance -525 ml 400 ml Intake Free Water 200 ml Tube Feeding 25 ml 200 ml Output Urine Total 550 ml # Bowel Movements 3 Laboratory Tests 05/01/19 05:18: White Blood Count 11.6H, Red Blood Count 4.15L, Hemoglobin 11.1L, Hematocrit 34.2L, Mean Corpuscular Volume 82, Mean Corpuscular Hemoglobin 26.7L, Mean Corpuscular Hemoglobin Concent 32.4, Red Cell Distribution Width 19.9H, Platelet Count 123L, Mean Platelet Volume 7.7, Neutrophils (%) (Auto) 81.3H, Lymphocytes (%) (Auto) 12.8L, Monocytes (%) (Auto) 4.8, Eosinophils (%) (Auto) 0.5, Basophils (%) (Auto) 0.6, Sodium Level 140, Potassium Level 3.8, Chloride Level 111H, Carbon Dioxide Level 18L, Anion Gap 11, Blood Urea Nitrogen 16, Creatinine 0.6, Estimat Glomerular Filtration Rate , Glucose Level 175H, Calcium Level 7.7L, Phosphorus Level 3.2, Magnesium Level 2.0 Height (Feet): 5 Height (Inches): 3.00 Weight (Pounds): 105 General Appearance: no apparent distress Objective no change Silver Orellana MD May 01, 2019 12:51
--- NOTE | 2019-05-01 13:23 | Infectious Diseases Prog Note ---
Assessment/Plan Assessment/Plan IMPRESSION: Sepsis leukocytosis improving Clostridium difficile colitis, may have pneumonia. diabetes mellitus, cachexia, failure to thrive. anemia hyperlipidemia. s/p GT left leg ulcer Left Leg DVT Diastolic CHF s/p IVC filter RECOMMENDATION: Discontinue with cefepime, doxycycline Continue p.o. vancomycin X 5 days Agree with discharge to SNF Subjective ROS Limited/Unobtainable: Yes Cardiovascular: Reports: other - had IVC filter placement yesterday Neurologic: Reports: confusion, other - on restraint Allergies: Coded Allergies: No Known Allergies (Unverified , 04/24/19) Objective Vital Signs Last 24 Hour Vital Signs Date Time Temp Pulse Resp B/P (MAP) Pulse Ox O2 Delivery O2 Flow Rate FiO2 05/01/19 10:22 95 Nasal Cannula 2.0 28 05/01/19 09:00 Room Air Room Air 05/01/19 08:03 97.2 88 17 129/65 (86) 94 05/01/19 04:00 91 05/01/19 04:00 97.4 91 17 122/61 (81) 95 05/01/19 00:00 97.9 85 16 101/57 (72) 96 05/01/19 00:00 91 04/30/19 21:00 Nasal Cannula 2.0 Nasal Cannula 2.0 04/30/19 20:00 97.9 84 16 121/65 (83) 96 04/30/19 20:00 80 04/30/19 17:00 96.8 73 20 114/56 (75) 96 04/30/19 16:30 96.8 72 20 115/52 (73) 96 04/30/19 16:00 73 04/30/19 15:35 72 20 114/51 (72) 98 04/30/19 15:30 68 20 118/53 (74) 98 04/30/19 15:25 68 20 122/55 (77) 98 04/30/19 15:20 70 20 113/55 (74) 98 04/30/19 15:15 72 20 104/62 (76) 96 04/30/19 15:10 70 20 104/50 (68) 96 04/30/19 15:05 69 20 113/58 (76) 95 04/30/19 15:00 71 20 113/60 (77) 97 04/30/19 14:57 61 18 3.0 Height (Feet): 5 Height (Inches): 3.00 Weight (Pounds): 105 General Appearance: cachetic HEENT: mucous membranes moist Respiratory/Chest: lungs clear, other - left arm PICC line Cardiovascular: normal rate Abdomen: soft, non tender, other - GT feeding Extremities: other - edema of left leg Skin: ulcers Neurologic/Psychiatric: alert, disoriented Laboratory Tests Test 05/01/19 05:18 White Blood Count 11.6 K/UL (4.8-10.8) H Red Blood Count 4.15 M/UL (4.20-5.40) L Hemoglobin 11.1 G/DL (12.0-16.0) L Hematocrit 34.2 % (37.0-47.0) L Mean Corpuscular Volume 82 FL (80-99) Mean Corpuscular Hemoglobin 26.7 PG (27.0-31.0) L Mean Corpuscular Hemoglobin Concent 32.4 G/DL (32.0-36.0) Red Cell Distribution Width 19.9 % (11.6-14.8) H Platelet Count 123 K/UL (150-450) L Mean Platelet Volume 7.7 FL (6.5-10.1) Neutrophils (%) (Auto) 81.3 % (45.0-75.0) H Lymphocytes (%) (Auto) 12.8 % (20.0-45.0) L Monocytes (%) (Auto) 4.8 % (1.0-10.0) Eosinophils (%) (Auto) 0.5 % (0.0-3.0) Basophils (%) (Auto) 0.6 % (0.0-2.0) Sodium Level 140 MMOL/L (136-145) Potassium Level 3.8 MMOL/L (3.5-5.1) Chloride Level 111 MMOL/L (98-107) H Carbon Dioxide Level 18 MMOL/L (21-32) L Anion Gap 11 mmol/L (5-15) Blood Urea Nitrogen 16 mg/dL (7-18) Creatinine 0.6 MG/DL (0.55-1.30) Estimat Glomerular Filtration Rate mL/min (>60) Glucose Level 175 MG/DL (74-106) H Calcium Level 7.7 MG/DL (8.5-10.1) L Phosphorus Level 3.2 MG/DL (2.5-4.9) Magnesium Level 2.0 MG/DL (1.8-2.4) Current Medications Medications (Trade) Dose Ordered Sig/Bushra Route PRN Reason Start Time Stop Time Status Last Admin Dose Admin Acetaminophen (Tylenol) 650 mg Q4H PRN ORAL Mild Pain/Temp > 100.5 04/24/19 21:45 05/24/19 21:44 04/28/19 09:21 Acetaminophen/ Hydrocodone Bitart ([place] 5/325) 1 tab Q6H PRN ORAL pain 4-10 04/28/19 21:00 05/05/19 20:59 04/29/19 09:58 Cefepime HCl 1 gm/ Dextrose 55 ml @ 110 mls/hr DAILY IVPB 04/25/19 09:00 05/02/19 08:59 05/01/19 08:24 Chlorhexidine Gluconate ([place] Beth-Hex 2%) 1 applic DAILY@2000 TOPIC 04/25/19 20:00 05/25/19 19:59 04/30/19 20:36 Dextrose (Dextrose 50%) 25 ml Q30M PRN IV Hypoglycemia 04/24/19 21:45 05/24/19 21:44 04/28/19 16:28 Dextrose (Dextrose 50%) 50 ml Q30M PRN IV Hypoglycemia 04/24/19 21:45 05/24/19 21:44 04/28/19 14:40 Doxycycline Hyclate 100 mg/ Dextrose 110 ml @ 110 mls/hr Q12HR@1100,2300 IV 04/24/19 23:00 05/01/19 22:59 05/01/19 11:36 Erythromycin (Toi-Ped) 50 mg Q6HR GT 05/01/19 12:00 05/08/19 11:59 05/01/19 12:42 Famotidine (Pepcid) 20 mg BID GT 04/26/19 18:00 05/26/19 17:59 05/01/19 08:24 Insulin Aspart (NovoLOG) Q6HR SUBQ 04/28/19 00:00 05/25/19 06:29 05/01/19 12:43 Lidocaine HCl (Xylocaine 1% 30ml) 30 ml NOW PRN INJ Radiology Procedure 04/28/19 11:00 05/01/19 23:59 Metoclopramide HCl (Reglan) 10 mg Q6H PRN IVP Nausea & Vomiting 05/01/19 07:28 05/31/19 07:27 Ondansetron HCl (Zofran) 4 mg Q6H PRN IVP Nausea & Vomiting 04/24/19 21:45 05/24/19 21:44 Vancomycin HCl (Firvanq) 125 mg FOUR TIMES A DAY GT 04/26/19 13:00 05/02/19 13:59 05/01/19 12:42 Rajeev Pedro MD May 01, 2019 13:23
--- NOTE | 2019-05-01 14:14 | Pulmonology Progress Note ---
Assessment/Plan Assessment/Plan Pulmonary Progress Note HPI Patient is an 83-year old woman from a from [facility] facility admitted with weakness, poor appetite x1 month. Patient is nonverbal at baseline. Patient has a history of C. difficile, has a history of diarrhea for the last several days CDIFF Positive. No fevers or chills. No reported cough or shortness of breath. Noted to have radiological evidence of Pneumonia, Left LLE ulcer, LLE DVT s/p IVC filter, HB stable, WCC stable Stable VS, has PICC line, sp G Tube No new complaints Allergies: No Known Allergies Past Medical History: Diabetes, Hypertension, Hyperlipidemia, Dementia, Hyperlipidemia, Sepsis, Metabolic Acidosis, C-Difficile, T11-T12 fracture All Other Systems: limited Physical Exam Vital Signs Noted General Appearance: no apparent distress, cachetic, non verbal Head: NCAT Eyes: bilateral eye normal inspection, bilateral eye PERRL ENT: dry mm Neck: normal inspection, no LN Respiratory: chest non-tender, normal breath sounds Cardiovascular: no edema, tachycardia, normal HS1, HS2 Gastrointestinal: normal bowel sounds, non tender, soft, non-distended, no guarding, no rebound, g tube Genitourinary: no CVA tenderness Musculoskeletal: normal inspection Neurologic: no focal signs, no seizures Skin: no edema, LLE ulcer Impression: Pneumonia Dysphagia Adult failure to thrive LLE DVT LLE Ulcer Hypernatremia Hypokalemia Diabetes Hypertension Hyperlipidemia Dementia Hyperlipidemia Previous C-Difficile Previous T11-T12 fracture Plan G tube feeds May need to DC AC if continues bleeding TF PRN IVF NPO PICC line Antibiotics O2 PRN HHN CPT Aspiration precautions ST evaluation Monitor labs Labs Noted EKG: Rate: tachycardia, NSR, no acute ST changes Chest X-Ray: no effusion, no pneumothorax, bilateral infiltrates c/w pneumonia Subjective ROS Limited/Unobtainable: No Allergies: Coded Allergies: No Known Allergies (Unverified , 04/24/19) Objective Last 24 Hour Vital Signs Date Time Temp Pulse Resp B/P (MAP) Pulse Ox O2 Delivery O2 Flow Rate FiO2 05/01/19 12:00 100 05/01/19 12:00 97.3 94 16 135/73 (93) 99 05/01/19 10:22 95 Nasal Cannula 2.0 28 05/01/19 09:00 Room Air Room Air 05/01/19 08:03 97.2 88 17 129/65 (86) 94 05/01/19 08:00 89 05/01/19 04:00 91 05/01/19 04:00 97.4 91 17 122/61 (81) 95 05/01/19 00:00 97.9 85 16 101/57 (72) 96 05/01/19 00:00 91 04/30/19 21:00 Nasal Cannula 2.0 Nasal Cannula 2.0 04/30/19 20:00 97.9 84 16 121/65 (83) 96 04/30/19 20:00 80 04/30/19 17:00 96.8 73 20 114/56 (75) 96 04/30/19 16:30 96.8 72 20 115/52 (73) 96 04/30/19 16:00 73 04/30/19 15:35 72 20 114/51 (72) 98 04/30/19 15:30 68 20 118/53 (74) 98 04/30/19 15:25 68 20 122/55 (77) 98 04/30/19 15:20 70 20 113/55 (74) 98 04/30/19 15:15 72 20 104/62 (76) 96 04/30/19 15:10 70 20 104/50 (68) 96 04/30/19 15:05 69 20 113/58 (76) 95 04/30/19 15:00 71 20 113/60 (77) 97 04/30/19 14:57 61 18 3.0 Intake and Output 04/30/19 05/01/19 19:00 07:00 Intake Total 25 ml 400 ml Output Total 550 ml Balance -525 ml 400 ml Intake Free Water 200 ml Tube Feeding 25 ml 200 ml Output Urine Total 550 ml # Bowel Movements 3 Laboratory Tests 05/01/19 05:18: White Blood Count 11.6H, Red Blood Count 4.15L, Hemoglobin 11.1L, Hematocrit 34.2L, Mean Corpuscular Volume 82, Mean Corpuscular Hemoglobin 26.7L, Mean Corpuscular Hemoglobin Concent 32.4, Red Cell Distribution Width 19.9H, Platelet Count 123L, Mean Platelet Volume 7.7, Neutrophils (%) (Auto) 81.3H, Lymphocytes (%) (Auto) 12.8L, Monocytes (%) (Auto) 4.8, Eosinophils (%) (Auto) 0.5, Basophils (%) (Auto) 0.6, Sodium Level 140, Potassium Level 3.8, Chloride Level 111H, Carbon Dioxide Level 18L, Anion Gap 11, Blood Urea Nitrogen 16, Creatinine 0.6, Estimat Glomerular Filtration Rate , Glucose Level 175H, Calcium Level 7.7L, Phosphorus Level 3.2, Magnesium Level 2.0 Current Medications Medications (Trade) Dose Ordered Sig/Bushra Route PRN Reason Start Time Stop Time Status Last Admin Dose Admin Acetaminophen (Tylenol) 650 mg Q4H PRN ORAL Mild Pain/Temp > 100.5 04/24/19 21:45 05/24/19 21:44 04/28/19 09:21 Acetaminophen/ Hydrocodone Bitart ([place] 5/325) 1 tab Q6H PRN ORAL pain 4-10 04/28/19 21:00 05/05/19 20:59 04/29/19 09:58 Cefepime HCl 1 gm/ Dextrose 55 ml @ 110 mls/hr DAILY IVPB 04/25/19 09:00 05/02/19 08:59 05/01/19 08:24 Chlorhexidine Gluconate ([place]-Hex 2%) 1 applic DAILY@2000 TOPIC 04/25/19 20:00 05/25/19 19:59 04/30/19 20:36 Dextrose (Dextrose 50%) 25 ml Q30M PRN IV Hypoglycemia 04/24/19 21:45 05/24/19 21:44 04/28/19 16:28 Dextrose (Dextrose 50%) 50 ml Q30M PRN IV Hypoglycemia 04/24/19 21:45 05/24/19 21:44 04/28/19 14:40 Doxycycline Hyclate 100 mg/ Dextrose 110 ml @ 110 mls/hr Q12HR@1100,2300 IV 04/24/19 23:00 05/01/19 22:59 05/01/19 11:36 Erythromycin (Toi-Ped) 50 mg Q6HR GT 05/01/19 12:00 05/08/19 11:59 05/01/19 12:42 Famotidine (Pepcid) 20 mg BID GT 04/26/19 18:00 05/26/19 17:59 05/01/19 08:24 Insulin Aspart (NovoLOG) Q6HR SUBQ 04/28/19 00:00 05/25/19 06:29 05/01/19 12:43 Lidocaine HCl (Xylocaine 1% 30ml) 30 ml NOW PRN INJ Radiology Procedure 04/28/19 11:00 05/01/19 23:59 Metoclopramide HCl (Reglan) 10 mg Q6H PRN IVP Nausea & Vomiting 05/01/19 07:28 05/31/19 07:27 Ondansetron HCl (Zofran) 4 mg Q6H PRN IVP Nausea & Vomiting 04/24/19 21:45 05/24/19 21:44 Vancomycin HCl (Firvanq) 125 mg FOUR TIMES A DAY GT 04/26/19 13:00 05/02/19 13:59 05/01/19 12:42 Juan Miguel Mendoza MD May 01, 2019 14:13
[2019-05-01] MEDS ORDERED: Tubing IV Secondary IV ONE (14:59)
--- NOTE | 2019-05-01 15:13 | Cardiac Electrophysiology PN ---
Assessment/Plan Assessment/Plan 1. Tachycardia, due to sepsis. 2. HTN. Stable now on prn meds. 3. Anemia of chronic disease, rule out gi bleed, likely is multifactorial no evidence for hemolysis 4.DVT of the left lower extremity with now low platelets and low h/h --> unsafe to anticoag given dropping h/h --> S/P IVC filter 5. Dysphagia, sp peg tube and on tube feeds 6. Dehydration 7.PNA on abx DW RN Subjective Subjective No new events. S/P IVC filter yesterday. DC planning today Objective Last 24 Hour Vital Signs Date Time Temp Pulse Resp B/P (MAP) Pulse Ox O2 Delivery O2 Flow Rate FiO2 05/01/19 12:00 100 05/01/19 12:00 97.3 94 16 135/73 (93) 99 05/01/19 10:22 95 Nasal Cannula 2.0 05/01/19 09:00 Room Air Room Air 05/01/19 08:03 97.2 88 17 129/65 (86) 94 05/01/19 08:00 89 05/01/19 04:00 91 05/01/19 04:00 97.4 91 17 122/61 (81) 95 05/01/19 00:00 97.9 85 16 101/57 (72) 96 05/01/19 00:00 91 04/30/19 21:00 Nasal Cannula 2.0 Nasal Cannula 2.0 04/30/19 20:00 97.9 84 16 121/65 (83) 96 04/30/19 20:00 80 04/30/19 17:00 96.8 73 20 114/56 (75) 96 04/30/19 16:30 96.8 72 20 115/52 (73) 96 04/30/19 16:00 73 04/30/19 15:35 72 20 114/51 (72) 98 04/30/19 15:30 68 20 118/53 (74) 98 04/30/19 15:25 68 20 122/55 (77) 98 04/30/19 15:20 70 20 113/55 (74) 98 04/30/19 15:15 72 20 104/62 (76) 96 Intake and Output 04/30/19 05/01/19 19:00 07:00 Intake Total 25 ml 400 ml Output Total 550 ml Balance -525 ml 400 ml Intake Free Water 200 ml Tube Feeding 25 ml 200 ml Output Urine Total 550 ml # Bowel Movements 3 Laboratory Tests Test 05/01/19 05:18 White Blood Count 11.6 K/UL (4.8-10.8) H Red Blood Count 4.15 M/UL (4.20-5.40) L Hemoglobin 11.1 G/DL (12.0-16.0) L Hematocrit 34.2 % (37.0-47.0) L Mean Corpuscular Volume 82 FL (80-99) Mean Corpuscular Hemoglobin 26.7 PG (27.0-31.0) L Mean Corpuscular Hemoglobin Concent 32.4 G/DL (32.0-36.0) Red Cell Distribution Width 19.9 % (11.6-14.8) H Platelet Count 123 K/UL (150-450) L Mean Platelet Volume 7.7 FL (6.5-10.1) Neutrophils (%) (Auto) 81.3 % (45.0-75.0) H Lymphocytes (%) (Auto) 12.8 % (20.0-45.0) L Monocytes (%) (Auto) 4.8 % (1.0-10.0) Eosinophils (%) (Auto) 0.5 % (0.0-3.0) Basophils (%) (Auto) 0.6 % (0.0-2.0) Sodium Level 140 MMOL/L (136-145) Potassium Level 3.8 MMOL/L (3.5-5.1) Chloride Level 111 MMOL/L (98-107) H Carbon Dioxide Level 18 MMOL/L (21-32) L Anion Gap 11 mmol/L (5-15) Blood Urea Nitrogen 16 mg/dL (7-18) Creatinine 0.6 MG/DL (0.55-1.30) Estimat Glomerular Filtration Rate mL/min (>60) Glucose Level 175 MG/DL (74-106) H Calcium Level 7.7 MG/DL (8.5-10.1) L Phosphorus Level 3.2 MG/DL (2.5-4.9) Magnesium Level 2.0 MG/DL (1.8-2.4) Objective HEENT: No JVD Cardiovascular: Denies: no symptoms, chest pain, edema, irregular heart rate, lightheadedness, palpitations, syncope, other Gastrointestinal/Abdominal: PEG in place Genitourinary: Denies: no symptoms, burning, discharge, frequency, flank pain, hematuria, incontinence, pain, urgency, other Neurologic/Psychiatric: Denies: no symptoms, anxiety, depressed, emotional problems, headache, numbness, paresthesia, pre-existing deficit, seizure, tingling, tremors, weakness, other EXTREMITIES LUE PICC line Josue Parikh MD May 01, 2019 15:13
--- NOTE | 2019-05-01 15:24 | Surgery Progress Note ---
Surgery Progress Note Subjective Symptoms: improved, tolerating diet, voiding well, passing flatus Objective Last 24 Hour Vital Signs Date Time Temp Pulse Resp B/P (MAP) Pulse Ox O2 Delivery O2 Flow Rate FiO2 05/01/19 12:00 100 05/01/19 12:00 97.3 94 16 135/73 (93) 99 05/01/19 10:22 95 Nasal Cannula 2.0 28 05/01/19 09:00 Room Air Room Air 05/01/19 08:03 97.2 88 17 129/65 (86) 94 05/01/19 08:00 89 05/01/19 04:00 91 05/01/19 04:00 97.4 91 17 122/61 (81) 95 05/01/19 00:00 97.9 85 16 101/57 (72) 96 05/01/19 00:00 91 04/30/19 21:00 Nasal Cannula 2.0 Nasal Cannula 2.0 04/30/19 20:00 97.9 84 16 121/65 (83) 96 04/30/19 20:00 80 04/30/19 17:00 96.8 73 20 114/56 (75) 96 04/30/19 16:30 96.8 72 20 115/52 (73) 96 04/30/19 16:00 73 04/30/19 15:35 72 20 114/51 (72) 98 04/30/19 15:30 68 20 118/53 (74) 98 04/30/19 15:25 68 20 122/55 (77) 98 I&O Intake and Output 04/30/19 05/01/19 19:00 07:00 Intake Total 25 ml 400 ml Output Total 550 ml Balance -525 ml 400 ml Intake Free Water 200 ml Tube Feeding 25 ml 200 ml Output Urine Total 550 ml # Bowel Movements 3 Dressing: saturated Wound: clean Cardiovascular: RSR Respiratory: clear Abdomen: soft Extremities: no tenderness, no cyanosis Laboratory Tests Test 05/01/19 05:18 White Blood Count 11.6 K/UL (4.8-10.8) H Red Blood Count 4.15 M/UL (4.20-5.40) L Hemoglobin 11.1 G/DL (12.0-16.0) L Hematocrit 34.2 % (37.0-47.0) L Mean Corpuscular Volume 82 FL (80-99) Mean Corpuscular Hemoglobin 26.7 PG (27.0-31.0) L Mean Corpuscular Hemoglobin Concent 32.4 G/DL (32.0-36.0) Red Cell Distribution Width 19.9 % (11.6-14.8) H Platelet Count 123 K/UL (150-450) L Mean Platelet Volume 7.7 FL (6.5-10.1) Neutrophils (%) (Auto) 81.3 % (45.0-75.0) H Lymphocytes (%) (Auto) 12.8 % (20.0-45.0) L Monocytes (%) (Auto) 4.8 % (1.0-10.0) Eosinophils (%) (Auto) 0.5 % (0.0-3.0) Basophils (%) (Auto) 0.6 % (0.0-2.0) Sodium Level 140 MMOL/L (136-145) Potassium Level 3.8 MMOL/L (3.5-5.1) Chloride Level 111 MMOL/L (98-107) H Carbon Dioxide Level 18 MMOL/L (21-32) L Anion Gap 11 mmol/L (5-15) Blood Urea Nitrogen 16 mg/dL (7-18) Creatinine 0.6 MG/DL (0.55-1.30) Estimat Glomerular Filtration Rate mL/min (>60) Glucose Level 175 MG/DL (74-106) H Calcium Level 7.7 MG/DL (8.5-10.1) L Phosphorus Level 3.2 MG/DL (2.5-4.9) Magnesium Level 2.0 MG/DL (1.8-2.4) Plan Problems: (1) Leg ulcer Assessment & Plan: Pt presented on admission with multiple pressure injuries and necrotic ulcer torrey L tibia.Pt is emaciated. Non-blanchable erythema with fluctuance noted to R shoulder. (L)2cm x (W)1cm. Open DTPI noted to sacrum. Base of wound is purple with scattered open wounds with slough.(L)7.5cm x (W)6.5cm. Site tender when minimally palpated.Non- blanching erythema periwound. Non-blanching erythema without fluctuance noted to L ischium (L)2.5cm x (W) 2.5cm. Tender when minimally palpated. Bilat lower ext edematous . Full thickness ulcer with irregular and erythematous borders noted to torrey /distal L tibia. Base of wound 100% non- viable ,Soft necrosis noted . No odor or exudate noted. Pt complained of severe pain with minimal touch during wound assessment..Non-blanching erythema with fluctuance both heels. Pt verbalized pain when both heels minimally palpated. Plantar aspects of both feet and toes on both feet noted to be dusky. Tx.Plan: Cleanse sacral wound with Saline. Apply Therahoney. Apply Triad Paste periwound. Cover with Optifoam drsg. Change Daily and prn. Apply Triad Paste to bilateral groin and both ischial areas with each perineal care. Cleanse Wound Torrey L tibia with Saline. Apply Therhaoney. Apply Cavilon Skin Barrier periwound. Cover with Optifoam Drsg. Change every 3 days and prn. Apply Cavilon Skin Barrier to both heels. Cover each heel with Optifoam drsg. Change every 7 days and prn. APM/CAIO mattress overlay. Reposition at least every 2hours or as tolerated. Off-load heels with pillow. (2) Failure to thrive Assessment & Plan: DAILY ESTIMATED NEEDS: Needs based on Wt loss, underweight, wound/ 36kg 35-40 kcals/kg 3795-1421 total kcals 1.5-2.0 g protein/kg 54-72 g total protein 25-30 mL/kg 900-1080 total fluid mLs NUTRITION DIAGNOSIS: * Increased kcal/prot intake needs R/T underweight status, recent wt loss, wound healing as evidenced by admitted w/ significant wt loss of 11.9lbs/13% in 3 weeks, 84% IBW w/ low BMI per guidelines, admitted w/ lt wagner and sacral wounds, pending evaluation, currently NPO, pending PEG placement. CURRENT DIET: NPO ENTERAL NUTRITION RECOMMENDATIONS: Glucerna 1.2 @ 50ml/hr x 24 hrs to provide 1200ml, 1440kcal, 72g prot, 966ml free water * W/ GI access s/p PEG placement, initiate Glucerna 1.2 @ 10ml/hr x 6 hrs * Advance 10ml q 4-6 hrs as tolerated to goal rate. * HOB over 30 degrees/ water flush per MD ADDITIONAL RECOMMENDATIONS: * Weekly calibrated bedscale wt * Monitor lytes daily w/ TF, replete as needed -> pt at HIGH RISK for refeeding syndrome, increase TF SLOWLY * Wound healing: Add Vit C 250mg QD add ZnSO4 220mg QD x 10 days add Zeke 1pkt BID * Probiotics for diarrhea (3) Cellulitis, leg Assessment & Plan: cont with IV abx as per ID now with peg start feeds Additional Comments okay to d/c from surgical standpoint cont with above care instructions on d/c transition care to outpatient wound center thank you Nico Sanz May 01, 2019 15:24
[2019-05-02 11:07] LABS: APTT 1:1 NORMAL PLASMA 28.9 sec (22.9-30.2)
[2019-05-02 13:06] LABS: APTT 1:1NP MIX CONTROL 31.9 sec (22.9-30.2)
--- NOTE | 2019-05-02 19:12 | Discharge Summary ---
Discharge Summary Discharge Summary _ DATE OF ADMISSION: 04/24/2019 DATE OF DISCHARGE: 05/01/2019 DISCHARGED BY: Dr. Nicole Castillo CONSULTANTS: Dr. Nico Felipe BRIEF HOSPITAL COURSE: Patient is an 83-year-old female, who was brought in by EMS for evaluation of weakness, poor appetite x1 month. Patient came from [facility] facility. She was nonverbal at baseline. There was no reported cough or shortness of breath. She was having diarrhea. She has medical history significant for diabetes mellitus, hyperlipidemia, C. difficile, and fracture on T11-T12. On evaluation at the ED, blood pressure was stable, heart rate was 115. Blood work showed WBC elevated to 20. Hemoglobin 10, hematocrit 32. Sodium 151. Potassium 2.9. Chloride 115. BUN 15, creatinine 0.4. Glucose 163. Lactic acid 1.6. Alkaline phosphatase 635. Chest x-ray showed bilateral airspace opacities and right-sided interstitial opacities. She was given IV fluids. She was given antibiotics. Potassium was repleted. Stool was collected and was sent for culture and C. difficile. She was then admitted for evaluation of failure to thrive with hyponatremia, hypokalemia and pneumonia. She was admitted to monitored floor. She was placed on n.p.o. except meds. She was placed on aspiration precautions. She was given supplemental O2. She was placed on nebulizer treatment and was given chest physiotherapy. She was continued on IV hydration. She was given potassium, phosphorus and magnesium supplements. ID was consulted. Patient was given cefepime, doxycycline and p.o. vancomycin. C. difficile was positive. Flagyl was discontinued. GI was consulted for PEG tube placement. Venous duplex of the lower extremity showed an acute thrombus in the left popliteal vein. She was given Lovenox. She came in with multiple pressure ulcers. She had an open deep tissue pressure injury to the sacrum. Nonblanching erythema without fluctuance noted to the left ischium. Bilateral lower extremity with edema to use. Full- thickness ulcer with irregular and erythematous border on the anterior/distal left tibia. She was given wound care. She was placed on APM/CAIO mattress overlay, with frequent repositioning and offloading. Nutrition was maximized to aid with healing. On 04/26/2019, she underwent upper endoscopy with PEG tube placement and biopsy. She was noted to have a large ulcer in the prepyloric region at about 9 o'clock position. The ulcer was cavitated. There was no active bleeding. No visible vessel. No adherent clot. A 20 Turkish pull type G-tube was successfully inserted in the epigastric area. She tolerated procedure well without any complication. Pathology results were negative for H. pylori. Heart rate was persistently elevated. Patient had sinus tachycardia with no evidence of atrial fibrillation or SVT. Hemoglobin dropped to 7.1. She was given 1 unit packed RBC blood transfusion. She also had episodes of high G-tube residuals. She was given trial of Reglan. Platelet levels were decreasing. Patient also has anemia. Unsafe to continue coagulation. On 04/30/2019, she underwent IVC filter placement. Cefepime and doxycycline were discontinued. Patient was cleared for discharge back to correction to continue p.o. vancomycin. FINAL DIAGNOSES: Aspiration pneumonia Sepsis Multiple pressure ulcer, present on admission Acute left lower extremity DVT status post IVC filter Failure to thrive/severe malnutrition status post PEG tube placement Hypernatremia Hypokalemia Diabetes mellitus Hyperlipidemia Dementia C. difficile colitis Previous T11-T12 fracture Coagulopathy due to underlying cirrhosis Tachycardia due to sepsis Dehydration Hypertension Anemia of chronic disease DISPOSITION: Patient was discharged to a SNF. DISCHARGE MEDICATIONS: Refer to Discharge Medication List I have been assigned to complete a discharge summary on this account, I was not involved with the patient's management.--WADE Castellano Jacqueline Robles NP May 02, 2019 19:12
--- NOTE | 2019-05-03 11:21 | Diagnostic Imaging Report ---
APPROVED REPORT CPT Code: 12560 Present Symptoms Lower Extremity Pain: Bilateral Lower Extremity Edema: Left RIGHT LEG: Venous imaging reveals a patent deep venous system. There is no evidence of thrombus within the femoral, popliteal or tibial segments. The greater saphenous vein is also within normal limits. Doppler indicates normal spontaneous flow within these segments. LEFT LEFT: Venous imaging reveals acute thrombus in the popliteal vein. Imaging also reveals patency of the common femoral, and calf veins. Greater saphenous vein also within normal limits. VERONA Vazquez notified of abnormal results at 10:15 hours.
--- NOTE | 2019-05-05 21:49 | Cardiology Report ---
APPROVED REPORT EXAM: Two-dimensional and M-mode echocardiogram with Doppler and color Doppler. INDICATION Congestive Heart Failure M-Mode DIMENSIONS IVSd0.9 (0.7-1.1cm)Left Atrium (MM)4.1 (1.6-4.0cm) LVDd3.6 (3.5-5.6cm)Aortic Root3.1 (2.0-3.7cm) PWd0.9 (0.7-1.1cm)Aortic Cusp Exc.1.6 (1.5-2.0cm) IVSs1.5 cm LVDs2.6 (2.5-4.0cm) PWs1.1 cm Technically difficult study due to pt's resistance . Study quality precludes accurate assessment of regional wall motion. Normal left ventricular chamber size, low normal systolic function and wall motion to extent visualized. Left ventricular ejection fraction estimated to be 50-55%. No evidence left ventricular hypertrophy. No pericardial effusion. Large pleural effusion present . All other cardiac chamber sizes are within normal limits. Heavily aortic valve calcification with normal cusp excursion . Mildly thickened mitral valve leaflets with normal excursion. Mild mitral annulus and aortic root calcification. IVC at normal size with physiologic collapse . A color flow and spectral Doppler study was performed and revealed: No aortic insufficiency . Mitral diastolic velocities suggest reduced left ventricular relaxation c/w mild LV diastolic dysfunction (Grade I ). Moderate mitral regurgitation. Mild tricuspid regurgitation. Tricuspid systolic velocities suggests peak right ventricular systolic pressure of 28 mmHg.
== END 2019-05-01 15:00 | DRG 853 ==
LOC: EDBD 16:12 → EMR 16:47 → 2E 17:29 → EDBEDREQSVC 17:52 → EDBEDREQ 18:34 → 2E 23:27
PROC: 06H03DZ Insertion of Intraluminal Device into Inferior Vena Cava, Percutaneous Approach (ICD-10-PCS; principal; 2019-04-25)
PROC: 0DH63UZ Insertion of Feeding Device into Stomach, Percutaneous Approach (ICD-10-PCS; 2019-04-26 11:43)
PROC: 0DB78ZX Excision of Stomach, Pylorus, Via Natural or Artificial Opening Endoscopic, Diagnostic (ICD-10-PCS; 2019-04-26 11:43)
PROC: 30233N1 Transfusion of Nonautologous Red Blood Cells into Peripheral Vein, Percutaneous Approach (ICD-10-PCS; 2019-04-29)
DX: A41.9 Sepsis, unspecified organism (principal); E43 Unspecified severe protein-calorie malnutrition; J69.0 Pneumonitis due to inhalation of food and vomit; E87.0 Hyperosmolality and hypernatremia; I96 Gangrene, not elsewhere classified; I82.402 Acute embolism and thrombosis of unspecified deep veins of left lower extremity; L97.829 Non-pressure chronic ulcer of other part of left lower leg with unspecified severity; I50.30 Unspecified diastolic (congestive) heart failure; A04.72 Enterocolitis due to Clostridium difficile, not specified as recurrent; R13.10 Dysphagia, unspecified; E78.5 Hyperlipidemia, unspecified; E86.0 Dehydration; E87.6 Hypokalemia; E83.42 Hypomagnesemia; R62.7 Adult failure to thrive; L89.150 Pressure ulcer of sacral region, unstageable; R00.0 Tachycardia, unspecified; E11.9 Type 2 diabetes mellitus without complications; K25.9 Gastric ulcer, unspecified as acute or chronic, without hemorrhage or perforation; K29.70 Gastritis, unspecified, without bleeding; F03.90 Unspecified dementia, unspecified severity, without behavioral disturbance, psychotic disturbance, mood disturbance, and anxiety; K74.60 Unspecified cirrhosis of liver; I11.0 Hypertensive heart disease with heart failure; D63.8 Anemia in other chronic diseases classified elsewhere
CPT/HCPCS: 36415; 36569; 71045; 76700; 76937; 80048; 80053; 80061; 81003; 82270; 82533; 82607; 82728; 82746; 82962; 82977; 83540; 83550; 83605; 83690; 83735; 83880; 84100; 84439; 84443; 84484; 84550; 85007; 85025; 85044; 85610; 85651; 85730; 86140; 86703; 86705; 86709; 86803; 86850; 86900; 86901; 86920; 87040; 87045; 87086; 87324; 87340; 93005; 93306; 93970; 94003; 94150; 94664; 96361; 96365; 96367; 96368; 99285; J1815; J2765; J3490